=== PATIENT | female | born 1970 | race Caucasian/White ===

== ENCOUNTER 2017-11-22 07:05 | Emergency (ER) | payer BC ==
--- OUTSIDE RECORDS SUMMARY | 2017-11-22 07:06 | XMS REPORT ---
:1970 Author Organization eClinicalWorks Care Team Providers Name Role Phone Saurav Rickie Provider Role Unavailable Allergies No Known Allergies Problems Problem Type Condition Code Onset Dates Condition Status Assessment Hypothyroidism, unspecified type E03.9 Active Problem Adult BMI 45.0-49.9 kg/sq m Z68.42 Active Assessment Controlled type 2 diabetes mellitus E11.9 Active without complication, without long-term current use of insulin Problem Calculus of gallbladder without K80.20 Active cholecystitis without obstruction Problem GERD without esophagitis K21.9 Active Problem Non-alcoholic fatty liver disease K76.0 Active Problem Controlled type 2 diabetes mellitus E11.9 Active without complication, without long-term current use of insulin Problem Seasonal allergic rhinitis, J30.2 Active unspecified trigger Problem Hypothyroidism, unspecified type E03.9 Active Problem Migraine without aura and without G43.009 Active status migrainosus, not intractable Assessment Adult BMI 45.0-49.9 kg/sq m Z68.42 Active Assessment Seasonal allergic rhinitis, J30.2 Active unspecified trigger Assessment Calculus of gallbladder without K80.20 Active cholecystitis without obstruction Assessment GERD without esophagitis K21.9 Active Assessment Non-alcoholic fatty liver disease K76.0 Active Assessment Migraine without aura and without G43.009 Active status migrainosus, not intractable Medications Medication Code Code Instructions Start End Status Dosage System Date Date Estarylla [facility] 04404326815 0.25-35 MG-MCG Active 1 tablet Orally Once a day Loratadine [facility] 31398694811 10 MG Orally Sept Active 1 tablet Once a day 2017 Amitriptyline HCl ND 29871143005 25 MG Orally Active 1 tablet Once a day Victoza [facility] 93381529304 18 MG/3ML Sept Active Inject 1.8 Subcutaneous 29, mg SQ once a day 2017 Levothyroxine [facility] 52263343179 100 MCG Orally Active 1 tablet Sodium Once a day on an empty stomach in the morning Omeprazole [facility] 53404473257 40 MG Orally Active 1 capsule Once a day Imitrex [facility] 44223865902 25 MG Orally Active 1 tablet Onset of Severe as needed Migraine Once a day, may repeat in 2 hours. Max 2 tabs/24 hours Results No Known Results Summary Purpose eClinicalWorks Submission
--- OUTSIDE RECORDS SUMMARY | 2017-11-22 07:06 | XMS REPORT ---
:1970 Author Organization eClinicalWorks Care Team Providers Name Role Phone Kailyn Lovell Provider Role Unavailable Allergies, Adverse Reactions, Alerts Substance Reaction Event Type penicillin Info Not Available Drug Allergy Problems Problem Type Condition Code Onset Dates Condition Status Problem Adult BMI 45.0-49.9 kg/sq m Z68.42 Active Problem Controlled type 2 diabetes mellitus E11.9 Active without complication, without long-term current use of insulin Problem Seasonal allergic rhinitis, J30.2 Active unspecified trigger Problem BMI 45.0-49.9, adult Z68.42 Active Problem Calculus of gallbladder without K80.20 Active cholecystitis without obstruction Problem Abnormal uterine bleeding (AUB) N93.9 Active Problem Migraine without aura and without G43.009 Active status migrainosus, not intractable Problem GERD without esophagitis K21.9 Active Problem Non-alcoholic fatty liver disease K76.0 Active Problem Hypothyroidism, unspecified type E03.9 Active Assessment Routine gynecological examination Z01.419 Active Assessment Adult BMI 45.0-49.9 kg/sq m Z68.42 Active Assessment Abnormal uterine bleeding (AUB) N93.9 Active Medications Medication Code Code Instructions Start End Status Dosage System Date Date Imitrex [facility] 21783633494 25 MG Orally Active 1 tablet Onset of Severe as needed Migraine Once a day, may repeat in 2 hours. Max 2 tabs/24 hours Amitriptyline [facility] 03835037070 25 MG Orally Active 1 tablet HCl Once a day Estarylla [facility] 76704122947 0.25-35 MG-MCG Inactive 1 tablet Orally Once a day Levothyroxine ND 99250345818 100 MCG Orally Active 1 tablet Sodium Once a day on an empty stomach in the morning Loratadine [facility] 63617305447 10 MG Orally Sept Active 1 tablet Once a day 2017 Omeprazole [facility] 99292269765 40 MG Orally Active 1 capsule Once a day Victoza [facility] 30309793635 18 MG/3ML Sept Active Inject Subcutaneous 29, 1.8 mg SQ once a day 2018 Results No Known Results Summary Purpose eClinicalWorks Submission
--- OUTSIDE RECORDS SUMMARY | 2017-11-22 07:07 | XMS REPORT ---
:1970 Author Organization eClinicalWorks Care Team Providers Name Role Phone Saurav Rickie Provider Role Unavailable Allergies No Known Allergies Problems Problem Type Condition Code Onset Dates Condition Status Problem Adult BMI 45.0-49.9 kg/sq m Z68.42 Active Problem Non-alcoholic fatty liver disease K76.0 Active Problem Seasonal allergic rhinitis, J30.2 Active unspecified trigger Problem Cervical polyp N84.1 Active Problem H/O tubal ligation Z98.51 Active Problem Abnormal uterine bleeding N93.9 Active Problem Abnormal uterine bleeding (AUB) N93.9 Active Problem Calculus of gallbladder without K80.20 Active cholecystitis without obstruction Problem Subserous leiomyoma of uterus D25.2 Active Problem BMI 45.0-49.9, adult Z68.42 Active Problem Migraine without aura and without G43.009 Active status migrainosus, not intractable Problem Hypothyroidism, unspecified type E03.9 Active Assessment Adult BMI 45.0-49.9 kg/sq m Z68.42 Active Problem Controlled type 2 diabetes mellitus E11.9 Active without complication, without long-term current use of insulin Assessment Migraine without aura and without G43.009 Active status migrainosus, not intractable Problem GERD without esophagitis K21.9 Active Medications Medication Code Code Instructions Start End Status Dosage System Date Date Levothyroxine [facility] 17326799103 100 MCG Orally Active 1 tablet Sodium Once a day on an empty stomach in the morning Imitrex ND 81017734560 25 MG Orally Active 1 tablet Onset of Severe as needed Migraine Once a day, may repeat in 2 hours. Max 2 tabs/24 hours Amitriptyline HCl ND 01986678199 25 MG Orally Active 1 tablet Once a day Victoza ND 00863871118 18 MG/3ML Active Inject 1.8 Subcutaneous mg SQ once a day Loratadine ND 67855209927 10 MG Orally Active 1 tablet Once a day Omeprazole ND 82902256448 40 MG Orally Active 1 capsule Once a day Results No Known Results Summary Purpose eClinicalWorks Submission
--- OUTSIDE RECORDS SUMMARY | 2017-11-22 07:07 | XMS REPORT ---
[...] Active Problem BMI 45.0-49.9, adult Z68.42 Active Assessment Cervical polyp N84.1 Active Assessment H/O tubal ligation Z98.51 Active Problem Migraine without aura and without G43.009 Active status migrainosus, not intractable Problem Hypothyroidism, unspecified type E03.9 Active Assessment Subserous leiomyoma of uterus D25.2 Active Problem Controlled type 2 diabetes mellitus E11.9 Active without complication, without long-term current use of insulin Assessment Abnormal uterine bleeding (AUB) N93.9 Active Problem GERD without esophagitis K21.9 Active Medications Medication Code Code Instructions Start End Status Dosage System Date Date Imitrex [facility] 89953004724 25 MG Orally Active 1 tablet Onset of Severe as needed Migraine Once a day, may repeat in 2 hours. Max 2 tabs/24 hours Omeprazole [facility] 58307013015 40 MG Orally Active 1 capsule Once a day Amitriptyline HCl [facility] 28771636735 25 MG Orally Active 1 tablet Once a day Levothyroxine [facility] 90255885040 100 MCG Orally Active 1 tablet Sodium Once a day on an empty stomach in the morning Loratadine [facility] 41166849734 10 MG Orally Sept Active 1 tablet Once a day 2017 Victoza [facility] 98981619104 18 MG/3ML Sept Active Inject 1.8 Subcutaneous 29, mg SQ once a day 2017 Results Name Result Date Reference Range Unit Abnormality Flag TEST URINE ----RESULTS neg 20171001 URINALYSIS AUTO W/O SCOPE (42964) ----PROTEIN neg 20171001 ----pH 6.0 20171001 ----NIT neg 20171001 ----MIKE neg 20171001 ----URO 0.2 20171001 ----SPECIFIC GRAVITY 1.025 20171001 ----BLO neg 20171001 ----BILIRUBIN neg 20171001 ----KETONES TRACE 20171001 ----GLUCOSE neg 20171001 Summary Purpose eClinicalWorks Submission
[2017-11-22] MEDS ORDERED: MEPERIDINE HCL 25 MG/0.5 ML ONE ×2 (08:04→09:17)
[2017-11-22] MEDS ORDERED: NA CHLORIDE 0.9% 1,000 ML ONE (08:05)
[2017-11-22] MEDS ORDERED: PROMETHAZINE 25 MG/ML VIAL ONE ×2 (08:05→09:17)
[2017-11-22 08:25] LABS: Absolute Lymphocytes (CBC) 2.6 K/uL (0.7-4.9); Absolute Monocytes 0.6 K/uL (0.1-1.3); Absolute Neutrophil 4.6 K/uL (1.8-8.0); Basophils % 0.6 % (0-1.3); Eosinophils % 0.8 % (0-4.4); Hematocrit 39.2 % (36.0-45.0); Lymphocytes % 32.4 % (15.3-44.8); MCH 29.8 pg (27.0-35.0); MCV 87.6 fL (80-100); MPV 8.7 fL (7.6-11.3); Monocytes % 7.7 % (3.3-12.3); RBC Red Blood Cell Count 4.47 M/uL (3.86-4.86)
[2017-11-22 08:37] LABS: ALT/SGPT 29 U/L (12-78); AST/SGOT 21 U/L (15-37); Albumin 3.3 g/dL (3.4-5.0); Alkaline Phosphatase 107 U/L (45-117); BUN Blood Urea Nitrogen 12 mg/dL (7-18); Bicarbonate 26 mmol/L (21-32); Bilirubin Direct < 0.1 mg/dL (0-0.2); Bilirubin Total 0.3 mg/dL (0.2-1.0); Glucose Level 113 mg/dL (74-106); Lipase 164 U/L (73-393); Potassium 4.3 mmol/L (3.5-5.1); Protein, Total 7.4 g/dL (6.4-8.2); Sodium Level 139 mmol/L (136-145)
[2017-11-22] MEDS ORDERED: MAGNE/ALUM HYDROXD 30 ML UCUP ONE (08:54)
[2017-11-22] MEDS ORDERED: LIDOCAINE VISCOUS 2% SOLN 15 ML UDC ONE (08:54)
--- NOTE | 2017-11-22 09:16 | ER ---
Nurse's Notes [facility] Name: Meka Junior Age: 47 yrs Sex: Female : 1970 Arrival Date: 11/22/2017 Time: 07:08 Bed 7 Private MD: Rickie Mg Diagnosis: Upper abdominal pain, unspecified;Cholelithiasis Presentation: 11/22 07:21 Presenting complaint: Patient states: pt has hx of hiatal hernia, went to see Dr. reid Odom on due to abd pain, had CT done, results pending, started having diarrhea on , increased abd pain this morning, vomited X1. Transition of care: patient was not received from another setting of care. Onset of symptoms was November 20, 2017. 07:21 Method Of Arrival: Ambulatory iw 07:21 Acuity: AMBAR 3 iw 07:22 Risk Assessment: Do you want to hurt yourself or someone else? Patient reports no tw2 desire to harm self or others. Initial Sepsis Screen: Does the patient meet any 2 criteria? No. Patient's initial sepsis screen is negative. Does the patient have a suspected source of infection? No. Patient's initial sepsis screen is negative. Care prior to arrival: None. 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 tw2 Historical: - Allergies: 07:21 PENICILLINS; tw2 - Home Meds: 07:24 levothyroxine 100 mcg oral tab once daily [Active]; Victoza 2-Alo subcutaneous iw subcutaneous [Active]; Dexilant oral oral [Active]; - PMHx: 07:21 Hypothyroidism; tw2 - PSHx: 07:21 Tubal ligation; tw2 - Immunization history:: Adult Immunizations up to date. - Social history:: Smoking status: Patient/guardian denies using tobacco. - Ebola Screening: : Patient denies travel to an Ebola-affected area in the 21 days before illness onset. Screenin:22 Abuse screen: Denies threats or abuse. Nutritional screening: No deficits noted. tw2 Tuberculosis screening: No symptoms or risk factors identified. Fall Risk None identified. Assessment: 07:52 General: Appears in no apparent distress. uncomfortable, obese, Behavior is ae1 cooperative. Pain: Complains of pain in epigastric area, suprapubic area, right upper quadrant, left upper quadrant, right lower quadrant and left lower quadrant Quality of pain is described as stabbing. Neuro: Level of Consciousness is awake, alert, obeys commands, Oriented to person, place, time, situation. Cardiovascular: Patient's skin is warm and dry. Respiratory: Airway is patent Respiratory effort is even, unlabored, Respiratory pattern is regular, symmetrical. GI: Abdomen is round obese, Bowel sounds present X 4 quads. hyperactive in right upper quadrant and left upper quadrant Abd is soft Abdomen is tender to palpation in epigastric area and right upper quadrant. : No signs and/or symptoms were reported regarding the genitourinary system. EENT: No signs and/or symptoms were reported regarding the EENT system. Derm: Skin is pink, warm \T\ dry. Musculoskeletal: No signs and/or symptoms reported regarding the musculoskeletal system. 08:30 Reassessment: Patient appears in no apparent distress at this time. No changes from tw2 previously documented assessment. Patient and/or family updated on plan of care and expected duration. Pain level reassessed. Patient is alert, oriented x 3, equal unlabored respirations, skin warm/dry/pink. 09:26 Reassessment: Patient appears in no apparent distress at this time. No changes from tw2 previously documented assessment. Patient and/or family updated on plan of care and expected duration. Pain level reassessed. Patient is alert, oriented x 3, equal unlabored respirations, skin warm/dry/pink. Vital Signs: 07:19 BP 152 / 79; Pulse 68; Resp 17; Pulse Ox 99% on R/A; Weight 102.06 kg; Height 4 ft. 10 iw in. (147.32 cm); Pain 9/10; 08:14 Temp 98.1(O); ae1 08:14 BP 132 / 59; Pulse 53; Resp 17; Pulse Ox 99% on R/A; ae1 08:48 BP 116 / 79; Pulse 65; Resp 17; Pulse Ox 99% on R/A; tw2 09:26 BP 118 / 74; Pulse 56; Resp 17; Pulse Ox 100% on R/A; tw2 07:19 Body Mass Index 47.02 (102.06 kg, 147.32 cm) iw ED Course: 07:08 Patient arrived in ED. mr 07:08 Mg, Rickie, DO is Private Physician. mr 07:17 Moose Noonan, ADDISON is Primary Nurse. ae1 07:19 Marco [facility] God[facility]. jr8 07:19 Darren Bravo MD is Attending Physician. jr8 07:22 Triage completed. iw 07:22 Arm band placed on. tw2 07:22 Bed in low position. Call light in reach. Pulse ox on. NIBP on. tw2 07:46 Inserted saline lock: 22 gauge in right antecubital area, using aseptic technique. ae1 Blood collected. 09:15 Fabián Bacon MD is Referral Physician. jr8 09:27 No provider procedures requiring assistance completed. IV discontinued, intact, tw2 bleeding controlled, No redness/swelling at site. Pressure dressing applied. Administered Medications: 08:04 Drug: Phenergan 12.5 mg Route: IVP; Site: right antecubital; ae1 08:51 Follow up: Response: Nausea is decreased ae1 08:04 Drug: NS 0.9% 1000 ml Route: IV; Rate: 1000 ml; Site: right antecubital; ae1 09:25 Follow up: Response: No adverse reaction; IV Status: Completed infusion; IV Intake: tw2 1000ml 08:07 Drug: Demerol 25 mg Route: IVP; Site: right antecubital; ae1 08:51 Follow up: Response: Pain is decreased ae1 08:54 Drug: GI Cocktail without - (Maalox Suspension 30 ml, Lidocaine Liquid 2 % 15 tw2 ml) Route: PO; 09:21 Follow up: Response: No adverse reaction tw2 09:18 Drug: Phenergan 12.5 mg Route: IVP; Site: right antecubital; tw2 09:26 Follow up: Response: No adverse reaction tw2 09:21 Drug: Demerol 25 mg Route: IVP; Site: right antecubital; tw2 09:25 Follow up: Response: No adverse reaction tw2 Intake: 09:25 IV: 1000ml; Total: 1000ml. tw2 Outcome: 09:15 Discharge ordered by . jr8 09:27 Discharged to home ambulatory, with family. tw2 09:27 Condition: stable 09:27 Discharge instructions given to patient, family, Instructed on discharge instructions, follow up and referral plans. no drinking with medication, no driving heavy equipment, medication usage, Demonstrated understanding of instructions, follow-up care, medications, Prescriptions given X 2. 09:27 Patient left the ED. 2 Signatures: Felicity Gonzalez mr Lana Garcia RN RN iw Marco Antonio Godinez PA PA jr8 Keila Berumen RN RN tw2 Moose Noonan RN RN ae1 Corrections: (The following items were deleted from the chart) 07:24 07:19 BP 152 / 79; Pulse 68bpm; Resp 17bpm; Pulse Ox 99% RA; iw 07:24 07:21 Home Meds: levothyroxine oral;
--- NOTE | 2017-11-22 09:16 | EDPHYS ---
Physician Documentation [facility] Name: Meak Junior Age: 47 yrs Sex: Female : 1970 Arrival Date: 11/22/2017 Time: 07:08 Bed 7 Private MD: Rickie Mg ED Physician Darren Bravo HPI: 11/22 07:57 This 47 yrs old Female presents to ER via Ambulatory with complaints of jr8 Abdominal Pain, Nausea/Vomiting/Diarrhea. 07:57 The patient presents with abdominal pain in the epigastric area, in the upper abdomen. jr8 Onset: The symptoms/episode began/occurred acutely, 4 day(s) ago. The symptoms do not radiate. Associated signs and symptoms: Pertinent positives: nausea, vomiting, and diarrhea. The symptoms are described as stabbing. Modifying factors: The symptoms are alleviated by nothing, the symptoms are aggravated by nothing. Severity of pain: At its worst the pain was moderate in the emergency department the pain is unchanged. The patient has experienced similar episodes in the past, a few times. The patient has been recently seen by a physician:. Patient stated that she has had abdominal problems on/off for about 1 year. Had endoscopy done and was found to have a gastric ulcer. Was started on PPI and had been doing better. 6 months ago had US done that showed cholelithiasis. This past Friday started with epigastric and upper abdominal pain that is much worse then normal. Saw Dr. Odom and had CT completed showing fatty liver and cholelithiasis. No other acute findings. Patient came to ED today for continued pain . 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 tw2 Historical: - Allergies: 07:21 PENICILLINS; tw2 - Home Meds: 07:24 levothyroxine 100 mcg oral tab once daily [Active]; Victoza 2-Alo subcutaneous iw subcutaneous [Active]; Dexilant oral oral [Active]; - PMHx: 07:21 Hypothyroidism; tw2 - PSHx: 07:21 Tubal ligation; tw2 - Immunization history:: Adult Immunizations up to date. - Social history:: Smoking status: Patient/guardian denies using tobacco. - Ebola Screening: : Patient denies travel to an Ebola-affected area in the 21 days before illness onset. ROS: 07:57 Eyes: Negative for injury, pain, redness, and discharge, ENT: Negative for injury, jr8 pain, and discharge, Neck: Negative for injury, pain, and swelling, Cardiovascular: Negative for chest pain, palpitations, and edema, Respiratory: Negative for shortness of breath, cough, wheezing, and pleuritic chest pain, Back: Negative for injury and pain, MS/Extremity: Negative for injury and deformity, Skin: Negative for injury, rash, and discoloration, Neuro: Negative for headache, weakness, numbness, tingling, and seizure. 07:57 Abdomen/GI: Positive for abdominal pain, nausea, vomiting, and diarrhea, Negative for constipation, abdominal cramps, abdominal distension, anorexia, dysphagia, hematemesis, black/tarry stool, rectal pain, rectal bleeding, bowel incontinence, flatulence. Exam: 07:57 Eyes: Pupils equal round and reactive to light, extra-ocular motions intact. Lids and jr8 lashes normal. Conjunctiva and sclera are non-icteric and not injected. Cornea within normal limits. Periorbital areas with no swelling, redness, or edema. ENT: Nares patent. No nasal discharge, no septal abnormalities noted. Tympanic membranes are normal and external auditory canals are clear. Oropharynx with no redness, swelling, or masses, exudates, or evidence of obstruction, uvula midline. Mucous membranes moist. Neck: Trachea midline, no thyromegaly or masses palpated, and no cervical lymphadenopathy. Supple, full range of motion without nuchal rigidity, or vertebral point tenderness. No Meningismus. Cardiovascular: Regular rate and rhythm with a normal S1 and S2. No gallops, murmurs, or rubs. Normal PMI, no JVD. No pulse deficits. Respiratory: Lungs have equal breath sounds bilaterally, clear to auscultation and percussion. No rales, rhonchi or wheezes noted. No increased work of breathing, no retractions or nasal flaring. Back: No spinal tenderness. No costovertebral tenderness. Full range of motion. Skin: Warm, dry with normal turgor. Normal color with no rashes, no lesions, and no evidence of cellulitis. MS/ Extremity: Pulses equal, no cyanosis. Neurovascular intact. Full, normal range of motion. Neuro: Awake and alert, GCS 15, oriented to person, place, time, and situation. Cranial nerves II-XII grossly intact. Motor strength 5/5 in all extremities. Sensory grossly intact. Cerebellar exam normal. Normal gait. 07:57 Abdomen/GI: Inspection: obese Bowel sounds: active, all quadrants, Palpation: soft, in all quadrants, moderate abdominal tenderness, in the epigastric area and right upper quadrant, mass, is not appreciated, rebound tenderness, is not appreciated, voluntary guarding, is not appreciated, involuntary guarding, is not appreciated, no appreciated organomegaly, Indicators: McBurney's point is not tender, Vicente's sign is negative, Rovsing's sign is negative, Obturator sign is negative, Psoas sign is negative. Vital Signs: 07:19 BP 152 / 79; Pulse 68; Resp 17; Pulse Ox 99% on R/A; Weight 102.06 kg; Height 4 ft. 10 iw in. (147.32 cm); Pain 9/10; 08:14 Temp 98.1(O); ae1 08:14 BP 132 / 59; Pulse 53; Resp 17; Pulse Ox 99% on R/A; ae1 08:48 BP 116 / 79; Pulse 65; Resp 17; Pulse Ox 99% on R/A; tw2 09:26 BP 118 / 74; Pulse 56; Resp 17; Pulse Ox 100% on R/A; tw2 07:19 Body Mass Index 47.02 (102.06 kg, 147.32 cm) iw MDM: 07:19 Patient medically screened. jr8 09:14 Differential diagnosis: cholecystitis, Cholelithiasis, gastritis, gastroesophageal jr8 reflux disease, Hepatitis, myocardia ischemia or infarction, non-specific abd pain, pancreatitis, Peptic Ulcer Disease, Perf. Duodenal Ulcer, Perf. Gastric Ulcer. Data reviewed: vital signs, nurses notes, old medical records, lab test result(s). Data interpreted: Pulse oximetry: on room air is 99 %. Interpretation: normal. Counseling: I had a detailed discussion with the patient and/or guardian regarding: the historical points, exam findings, and any diagnostic results supporting the discharge/admit diagnosis, lab results, radiology results, the need for outpatient follow up, a general surgeon, to return to the emergency department if symptoms worsen or persist or if there are any questions or concerns that arise at home. 09:14 Response to treatment: the patient's symptoms have markedly improved after treatment. 11/22 07:37 Order name: Basic Metabolic Panel; Complete Time: 08:38 11/22 07:37 Order name: CBC with Diff; Complete Time: 08:38 11/22 07:37 Order name: Creatinine for Radiology; Complete Time: 08:38 11/22 07:37 Order name: Hepatic Function; Complete Time: 08:38 11/22 07:37 Order name: Lipase; Complete Time: 08:38 11/22 07:37 Order name: IV Saline Lock; Complete Time: 07:46 11/22 07:37 Order name: Labs collected and sent; Complete Time: 07:46 Administered Medications: 08:04 Drug: Phenergan 12.5 mg Route: IVP; Site: right antecubital; ae1 08:51 Follow up: Response: Nausea is decreased ae1 08:04 Drug: NS 0.9% 1000 ml Route: IV; Rate: 1000 ml; Site: right antecubital; ae1 09:25 Follow up: Response: No adverse reaction; IV Status: Completed infusion; IV Intake: tw2 1000ml 08:07 Drug: Demerol 25 mg Route: IVP; Site: right antecubital; ae1 08:51 Follow up: Response: Pain is decreased ae1 08:54 Drug: GI Cocktail without - (Maalox Suspension 30 ml, Lidocaine Liquid 2 % 15 tw2 ml) Route: PO; 09:21 Follow up: Response: No adverse reaction tw2 09:18 Drug: Phenergan 12.5 mg Route: IVP; Site: right antecubital; tw2 09:26 Follow up: Response: No adverse reaction tw2 09:21 Drug: Demerol 25 mg Route: IVP; Site: right antecubital; tw2 09:25 Follow up: Response: No adverse reaction tw2 Disposition: 16:10 Co-signature as Attending Physician, Darren Bravo MD. rn Disposition: 11/22/17 09:15 Discharged to Home. Impression: Upper abdominal pain, unspecified, Cholelithiasis. - Condition is Stable. - Discharge Instructions: Abdominal Pain, Adult, Cholelithiasis. - Prescriptions for ondansetron 4 mg Oral tablet,disintegrating - take 1 tablet by ORAL route every 6 hours As needed; 12 tablet. Tylenol- Codeine #3 300-30 mg Oral Tablet - take 2 tablet by ORAL route every 6 hours As needed; 30 tablet. - Medication Reconciliation Form, Thank You Letter, Antibiotic Education, Prescription Opioid Use, Family Work Release form. - Follow up: Fabián Bacon MD; When: 48 Hours; Reason: Recheck today's complaints, Continuance of care, Re-evaluation by your physician. - Problem is new. - Symptoms have improved. Signatures: Dispatcher [employer] EDMS Lana Garcia RN RN iw Darren Bravo MD MD rn Roszak, Josh, YULI PA jr8 Keila Berumen RN RN tw2 Moose Noonan RN RN ae1 Corrections: (The following items were deleted from the chart) 07:24 07:21 Home Meds: levothyroxine oral; 2 09:21 07:37 Urine Test ordered. 8 09:21 07:37 Urine Dipstick-Ancillary ordered. 8 09:27 09:15 11/22/2017 09:15 Discharged to Home. Impression: Upper abdominal pain, tw2 unspecified; Cholelithiasis. Condition is Stable. Forms are Medication Reconciliation Form, Thank You Letter, Antibiotic Education, Prescription Opioid Use. Follow up: Fabián Bacon; When: 48 Hours; Reason: Recheck today's complaints, Continuance of care, Re-evaluation by your physician. Problem is new. Symptoms have improved. jr8
== END 2017-11-22 09:27 | disposition home or self-care (01) ==
LOC: ER 07:05
DX: R10.13 Epigastric pain (principal); R11.2 Nausea with vomiting, unspecified; R19.7 Diarrhea, unspecified; Z88.0 Allergy status to penicillin; K80.20 Calculus of gallbladder without cholecystitis without obstruction; E66.9 Obesity, unspecified; Z68.42 Body mass index [BMI] 45.0-49.9, adult
CPT/HCPCS: 36415; 80048; 80076; 83690; 85025; 96361; 96374; 96375; 99284; J2175; J2550; J7030

== ENCOUNTER 2021-04-18 10:40 | Emergency (ER) | payer OTHER, BC ==
--- OUTSIDE RECORDS SUMMARY | 2021-04-18 10:43 | XMS REPORT | Continuity of Care Document ---
:1970 Author Organization [facility] t Address [address] [place] [address] Care Team Providers Name Role Phone Unavailable Unavailable Unavailable Problems This patient has no known problems. Allergies, Adverse Reactions, Alerts Allergy Allergy Status Severity Reaction(s) Onset Inactive Treating Comm ents Source Name Type Date Date Clinician penicill Adverse Active Info Not [facility] Medications Ordered Filled Start Stop Current Ordering Indication Dosage Frequency Signature Comments Components Source Medication Medication Date Date Medication? Clinician (SIG) Name Name Imitrex Imitrex Yes Rickie [address] [facility] Mg as needed [facility] Loratadine Loratadine Yes Rickie [address] [facility] Mg [facility] Omeprazole Omeprazole Yes Rickie [address] [facility] Mg [facility] BD Pen BD Pen Yes Rickie USE [facility] Needle Mini Needle Mini Mg DIRECTED [facility]F U[facility]F WITH [facility] FLEXPEN l [facility] Sumatriptan Sumatriptan Yes Rickie PLEASE SEE [facility] Succinate Succinate Mg ATTACHED [facility] DETAILED l DIRECTIONS [facility] ent Clinics Ozempic (1 Ozempic (1 Yes Rickie INJECT [address] [facility] MG/DOSE) MG/DOSE) Mg MG/DOSE John es - ONCE A Memoria WEEK l [place] [id number] ent Clinics Phentermine Phentermine Yes Rickie [address] [facility] HCl HCl Mg [facility] Levothyroxi Levothyroxi Yes Rickie [address] [facility] ne Sodium ne Sodium Mg on an John es - empty Memoria stomach in l the Outpati morning ent Clinics Amitriptyli Amitriptyli Yes Rickie [address] [facility] ne HCl ne HCl Mg [facility] Procedures This patient has no known procedures. Encounters Start End Encounter Admission Attending Care Care Encounter Source Date/Time Date/Time Type Type Clinicians Facility Department ID 2021-03-01 2021-03-01 Out[facility] [id number] [facility] 2021-01-25 2021-01-25 [facility] [id number] [facility] 2021-01-05 2021-01-05 [facility] [id number] [facility] 2021-01-04 2021-01-04 [facility] [id number] [facility] 2021-01-03 2021-01-03 [facility] [id number] [facility] 2020-12-27 2020-12-27 [facility] [id number] [facility] 2020-12-19 2020-12-19 [facility] [id number] [facility] 2020-12-18 2020-12-18 Out[facility] [id number] [facility] 2020-12-14 2020-12-14 [facility] [id number] [facility] 2020-11-03 2020-11-03 [facility] [id number] [facility] 2020-10-06 2020-10-06 [facility] [id number] [facility] 2020-10-03 2020-10-03 [facility] [id number] [facility] 2020-08-28 2020-08-28 [facility] [id number] [facility] 2020-08-10 2020-08-10 [facility] [id number] [facility] 2020-08-09 2020-08-09 Out[facility] [id number] [facility] 2020-05-25 2020-05-25 [facility] [id number] [facility] 2020-04-05 2020-04-05 [facility] [id number] [facility] 2020-04-05 2020-04-05 [facility] [id number] [facility] 2020-03-20 2020-03-20 Out[facility] [id number] [facility] 2020-03-13 2020-03-13 Out[facility] [id number] [facility] 2020-02-22 2020-02-22 Out[facility] [id number] [facility]00 [facility] Outpat[facility] ent Clinics 2019-12-16 2019-12-16 [facility] [id number] [facility] 11:00:00 11:00:00 t [employer] [facility] Medicine l Medicine Outpati ent Clinics 2019-12-02 2019-12-02 [facility] [id number] [facility] 08[facility]00:00 08:00:00 t [employer] [facility] Medicine l Medicine Outpati ent Clinics 2019-11-26 2019-11-26 [facility] [id number] [facility] 15:01:00 15:01:00 t [employer] [facility] Medicine l Medicine Outpati ent Clinics 2019-11-23 2019-11-23 [facility] [id number] [facility] 10:00:00 10:00:00 t [employer] Gal[employer] [facility] Medicine Outpati ent Clinics 2019-11-22 2019-11-22 [facility] [id number] 13:20:00 13:20:00 t [employer] [facility] l Medicine Outpati ent Clinics 2019-10-29 2019-10-29 [facility] [id number] 09:52:00 09:52:00 t [employer] [facility] Medicine l Medicine Outpati ent Clinics 2019-08-30 2019-08-30 [facility] [id number] [facility] 09:58:00 09:58:00 t [employer] [facility] Medicine l Medicine Outpati ent Clinics 2019-08-26 2019-08-26 [facility] [id number] [facility] 16:09:00 16:09:00 t [employer] [facility] Medicine l Medicine Outpati ent Clinics 2019-08-26 2019-08-26 [facility] [id number] 13:15:00 13:15:00 t Hines Galazar [facility] Medicine Outpati ent Clinics 2019-08-26 2019-08-26 [facility] [id number] [facility] 09:29:00 09:29:00 t [facility] - [facility] Medicine Outpati ent Clinics 2019-07-05 2019-07-05 [facility] [id number] [facility] 08:35:00 08:35:[address] [facility] Medicine Outpati ent Clinics 2019-05-31 2019-05-31 [facility] [id number] [facility] 15:00:00 15:00:00 t [employer] Luke s - Drive [facility] l Medicine Outpati ent Clinics 2019-04-07 2019-04-07 [facility] [id number] 17:10:00 17:10:00 t [employer] Luke s - Drive [facility] Medicine Outpati ent Clinics 2019-01-18 2019-01-18 [facility] [id number] 14:02:00 14:02:[address] - [address] [facility] Medicine Outpati ent Clinics 2019-01-15 2019-01-15 [facility] [id number] 10[facility]30:00 10:30:00 t [employer] s - Drive [facility] Medicine Outpati ent Clinics 2019-01-11 2019-01-11 [facility] [id number] [address] 13:00:00 13:00:00 t [employer] Luke s - Drive [facility] Medicine Outpati ent Clinics 2018-12-10 2018-12-10 [facility] [id number] 14:00:00 14:00:00 t [facility] ent Clinics 2018-12-01 2018-12-01 [facility] [id number] 15:00:00 15:00:00 t [employer] Luke s - Drive [facility] Medicine Outpati ent Clinics 2018-10-28 2018-10-28 [facility] [id number] 10:53:00 10:53:00 t [employer] Luke s - Drive [facility] Medicine Medicine Outpati ent Clinics 2018-09-07 2018-09-07 [facility] [id number] 09:45:00 09:45:00 t [employer] s - Drive [facility] Medicine Medicine Outpati ent Clinics 2018-09-02 2018-09-02 [facility] [id number] 14:02:00 14:02:00 t [employer] s - Drive [facility] Medicine Medicine Outpati ent Clinics 2018-07-10 2018-07-10 [facility] [id number] [facility] 14:32:00 14:32:00 t [facility] - [facility] Medicine Medicine Outpati ent Clinics 2018-07-03 2018-07-03 [facility] [id number] 08:30:00 08:30:00 t [facility] - [employer] [facility] Medicine Outpati ent Clinics 2018-06-10 2018-06-10 [facility] [id number] [facility] 10:53:00 10:53:00 t [facility] - [facility] Medicine Medicine Outpati ent Clinics 2018-06-09 2018-06-09 [facility] [id number] [facility] 10:00:00 10:00:00 t [employer] [facility] l Medicine Outpati ent Clinics 2017-10-13 2017-10-13 [facility] [id number] 11:15:00 11:15:00 t [employer] - [address] [facility] Medicine l Medicine Outpati ent Clinics 2017-10-01 2017-10-01 [facility] [id number] 15:15:00 15:15:00 [facility] 2017-09-01 2017-09-01 [facility] [id number] 15:30:00 15:30:00 [facility] 2017-08-04 2017-08-04 [facility] [id number] 15:00:00 15:00:00 t [employer] [facility] Family Medicine Medicine Outpati ent Clinics Results This patient has no known results.
[2021-04-18] MEDS ORDERED: KETOROLAC 30 MG/ML INJ ONE (11:29)
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
[2021-04-18 11:52] VITALS: BP 161/85; TEMP 97.6; O2SAT 99
== END 2021-04-18 11:48 | disposition home or self-care (01) ==
LOC: ER 10:40
DX: S39.012A Strain of muscle, fascia and tendon of lower back, initial encounter (principal); S29.012A Strain of muscle and tendon of back wall of thorax, initial encounter; V49.40XA Driver injured in collision with unspecified motor vehicles in traffic accident, initial encounter
CPT/HCPCS: 96372; 99283

== ENCOUNTER 2021-05-09 09:16 | Emergency (ER) | payer BC ==
--- OUTSIDE RECORDS SUMMARY | 2021-05-09 09:18 | XMS REPORT | Continuity of Care Document ---
:1970 Author Organization [facility] t Address [address] [place] [address] Care Team Providers Name Role Phone Unavailable Unavailable Unavailable Problems This patient has no known problems. Allergies, Adverse Reactions, Alerts Allergy Allergy Status Severity Reaction(s) Onset Inactive Treating Comm ents Source Name Type Date Date Clinician penicill Adverse Active Info Not [facility] Medications Ordered Filled Start Stop Current Ordering Indication Dosage Frequency Signature Comments Components Source Medication Medication Date Date Medication? Clinician (SIG) Name Name Imitrex Imitrex Yes Rickie [address] [facility] as needed [facility] Loratadine Loratadine Yes Rickie [address] [facility] Mg [facility] Omeprazole Omeprazole Yes Rickie [address] [facility] BD Pen BD Pen Yes Rickie USE [facility] Needle Mini Needle Mini Mg DIRECTED [facility] U/F U/F WITH [facility]oria FLEXPEN l [facility] Sumatriptan Sumatriptan Yes Rickie PLEASE SEE [facility] Succinate Succinate Mg ATTACHED [facility] DETAILED l DIRECTIONS [facility] Ozempic (1 Ozempic (1 Yes Rickie INJECT [address] [facility] MG/DOSE) MG/DOSE) Mg MG/DOSE John es - ONCE A Memoria WEEK l SUBCUTANEO Outpati US ent Clinics Phentermine Phentermine Yes Rickie [address] [facility] HCl HCl Mg [facility] Levothyroxi Levothyroxi Yes Rickie [address] [facility] ne Sodium ne Sodium Mg on an Jhon es - empty Memoria stomach in l the Outpati morning ent Clinics Amitriptyli Amitriptyli Yes Rickie [address] [facility] ne HCl ne HCl Mg [facility] Procedures This patient has no known procedures. Encounters Start End Encounter Admission Attending Care Care Encounter Source Date/Time Date/Time Type Type Clinicians Facility Department ID 2021-05-02 2021-05-02 ambulatory [facility] [id number] [facility] 2021-05-02 2021-05-02 ambulatory [facility] [id number] [facility] 2021-03-01 2021-03-01 Outpatient [facility] [id number] [facility] 2021-01-25 2021-01-25 Outpatient [facility] [id number] [facility] 2021-01-05 2021-01-05 Outpatient [facility] [id number] [facility] 2021-01-04 2021-01-04 Outpatient [facility] [id number] [facility] 2021-01-03 2021-01-03 Outpatient [facility] [id number] [facility] 2020-12-27 2020-12-27 Outpatient [facility] [id number] [facility] 2020-12-192020-12-19 Out[facility] [id number] [facility] 2020-12-18 2020-12-18 Out[facility] [id number] [facility] 2020-12-14 2020-12-14 Out[facility] [id number] [facility] 2020-11-03 2020-11-03 Out[facility] [id number] [facility] 2020-10-06 2020-10-06 Out[facility] [id number] [facility] 2020-10-03 2020-10-03 Out[facility] [id number] [facility] 2020-08-28 2020-08-28 Out[facility] [id number] [facility] 2020-08-10 2020-08-10 Out[facility] [id number] [facility] 2020-08-09 2020-08-09 Out[facility] [id number] [facility] 2020-05-25 2020-05-25 Outpatient [facility] [id number] [facility] 2020-04-05 2020-04-05 Out[facility] [id number] [facility] 2020-04-05 2020-04-05 Out[facility] [id number] [facility] 2020-03-20 2020-03-20 Outpatient [facility] [id number] [facility] 2020-03-13 2020-03-13 Outpatient [facility] [id number] [facility] 2020-02-22 2020-02-22 Outpatient [facility] [id number] [facility] 2019-12-16 2019-12-16 [facility] [id number] [facility] 11[facility]00:00 11:00:00 t [employer] [facility] Medicine l Medicine Outpati ent Clinics 2019-12-02 2019-12-02 [facility] [id number] [facility] 08[facility]00:00 08:00:00 t [employer] [facility] Medicine l Medicine Outpati ent Clinics 2019-11-26 2019-11-26 [facility] [id number] 15:01:00 15:01:00 t [employer] [facility] Medicine l Medicine Outpati ent Clinics 2019-11-23 2019-11-23 [facility] [id number] 10:00:00 10:00:00 [facility] Medicine l Medicine Outpati ent Clinics 2019-11-22 2019-11-22 [facility] [id number] 13:20:00 13:20:00 t [employer] [facility] Medicine l Medicine Outpati ent Clinics 2019-10-29 2019-10-29 [facility] [id number] 09:52:00 09:52:00 t [place] [facility] Medicine l Medicine Outpati ent Clinics 2019-08-30 2019-08-30 [facility] [id number] [facility] 09:58:00 09:58:00 [place] [facility] Medicine Medicine Outpati ent Clinics 2019-08-26 2019-08-26 [facility] [id number] [facility] 16:09:00 16:09:00 t [place] [employer] - [facility] Medicine l Medicine Outpati ent Clinics 2019-08-26 2019-08-26 [facility] [id number] 13:15:00 13:15:00 t [facility] s - Road [facility] Medicine l Medicine Outpati ent Clinics 2019-08-26 2019-08-26 [facility] [id number] [facility] 09:29:00 09:29:00 t [facility] s - Road [facility] Medicine Outpati ent Clinics 2019-07-05 2019-07-05 [facility] [id number] [facility] 08[facility]35:00 08:35:00 t [employer] [facility] - [facility] Medicine l Medicine Outpati ent Clinics 2019-05-31 2019-05-31 [facility] [id number] [facility] 15:00:00 15:00:00 t [place] [employer] - [facility] Medicine l Medicine Outpati ent Clinics 2019-04-07 2019-04-07 [facility] [id number] 17:10:00 17:10:00 t [employer] [place] - [facility] Medicine l Medicine Outpati ent Clinics 2019-01-18 2019-01-18 [facility] [id number] 14:02:00 14:02:00 t [employer] [place] - [facility] Medicine l Medicine Outpati ent Clinics 2019-01-15 2019-01-15 [facility] [id number] 10[facility]30:00 10:30:00 t [place] [employer] - [facility] Medicine l Medicine Outpati ent Clinics 2019-01-11 2019-01-11 [facility] [id number] 13:00:00 13:00:00 t [place] [employer] - [facility] Medicine l Medicine Outpati ent Clinics 2018-12-10 2018-12-10 [facility] [id number] [facility] 14:00:00 14:00:00 t [facility] Clin[facility] 2018-12-01 2018-12-01 [facility] [id number] 15:00:00 15:00:00 t [place] [employer] Luke s - Drive [facility] Medicine Outpati ent Clinics 2018-10-28 2018-10-28 [facility] [id number] 10:53:00 10:53:00 t [place] [employer] Luke s - Drive [facility] Medicine Outpati ent Clinics 2018-09-07 2018-09-07 [facility] [id number] 09:45:00 09:45:00 t [place] s - Drive [facility] Medicine Outpati ent Clinics 2018-09-02 2018-09-02 [facility] [id number] 14:02:00 14:02:00 t [place] - Drive [facility] Medicine Outpati ent Clinics 2018-07-10 2018-07-10 [facility] [id number] 14:32:00 14:32:00 t [place] [employer] s - Drive [facility] Medicine Outpati ent Clinics 2018-07-03 2018-07-03 [facility] [id number] 08:30:00 08:30:00 t [place] [employer] - Drive [facility] Medicine Outpati ent Clinics 2018-06-10 2018-06-10 [facility] [id number] 10:53:00 10:53:00 t [place] - Drive [facility] Medicine Outpati ent Clinics 2018-06-09 2018-06-09 [facility] [id number] 10:00:00 10:00:00 t [place] [employer] - Drive [facility] Medicine Outpati ent Clinics 2017-10-13 2017-10-13 [facility] [id number] 11:15:00 11:15:00 t [place] - Drive [facility] Medicine Outpati ent Clinics 2017-10-01 2017-10-01 [facility] [id number] 15:15:00 15:15:00 [facility] 2017-09-01 2017-09-01 Outpatient [facility] [id number] [facility] 15:30:00 15:30:00 [facility] 2017-08-04 2017-08-04 Outpatient [facility] [id number] [facility] 15:00:00 15:00:00 [place] [facility] Results This patient has no known results.
--- NOTE | 2021-05-09 10:03 | RAD REPORT ---
EXAM DESCRIPTION: RAD - Chest Single View - 05/09/2021 9:56 am CLINICAL HISTORY: Cough;Chest pain COMPARISON: No comparisons FINDINGS: Lines: None. Lungs: No evidence of edema or pneumonia. Pleural: No significant pleural effusions or pneumothorax. Cardiac: The heart size is within normal limits. Bones: No acute fractures. Other: IMPRESSION: No acute cardiopulmonary disease.
[2021-05-09 10:08] LABS: Absolute Lymphocytes (CBC) 2.5 K/uL (0.7-4.9); Hematocrit 41.6 % (36.0-45.0); Lymphocytes % 57.4 % (15.3-44.8); MPV 7.9 fL (7.6-11.3); RBC Red Blood Cell Count 4.68 M/uL (3.86-4.86)
[2021-05-09 10:52] LABS: Blood Morphology Comment NOT SEEN (NOT SEEN); Platelet Estimate ADEQ
[2021-05-09 12:16] LABS: BUN Blood Urea Nitrogen 13 mg/dL (7-18); Bicarbonate 27 mmol/L (21-32); Glucose Level 110 mg/dL (74-106); Potassium 3.8 mmol/L (3.5-5.1); Sodium Level 142 mmol/L (136-145); Troponin (Emerg Dept Use Only) < 0.02 ng/mL (0.0-0.045)
--- NOTE | 2021-05-09 12:59 | RAD REPORT ---
EXAM DESCRIPTION: CT - Chest For Pe Angio - 05/09/2021 12:45 pm CLINICAL HISTORY: Chest pain COMPARISON: Chest x-ray May 09, 2021 TECHNIQUE: Dynamically enhanced axial 3 mm thick images of the chest were obtained during administra tion of <100> mL Isovue 370 IV contrast. Coronal and oblique reconstruction images were generated and reviewed. Exam utilizes a protocol for optimal evaluation of pulmonary arterial tree. Maximum intensity projections 3D imaging was utilized All CT scans are performed using dose optimization technique as appropriate and may include automated exposure control or mA/KV adjustment according to patient size. FINDINGS: A pulmonary embolus is not seen. A thoracic aortic aneurysm is not noted. A pleural effusion is not seen. A pericardial effusion is not seen. Mild to moderate lingular consolidation. Calcified lung granulomas IMPRESSION: Negative for a pulmonary embolism. [id number] lingular consolidation likely pneumonia. This should be followed until it is clear t o help exclude a post obstructive process/underlying mass
--- NOTE | 2021-05-09 13:03 | ER ---
Nurse's Notes [facility] Name: Meka Junior Age: 50 yrs Sex: Female : 1970 Arrival Date: 05/09/2021 Time: 09:18 Bed 11 Private MD: Diagnosis: Pneumonia due to SARS-associated coronavirus Presentation: 05/09 09:25 Chief complaint: Patient states: right side chest pain + for covid on may 02, 2021. cottrell Coronavirus screen: Vaccine status: Patient reports receiving the 2nd dose of the covid vaccine. Ebola Screen: Patient denies travel to an Ebola-affected area in the 21 days before illness onset. Initial Sepsis Screen: Does the patient meet any 2 criteria? No. Patient's initial sepsis screen is negative. Does the patient have a suspected source of infection? No. Patient's initial sepsis screen is negative. Risk Assessment: Do you want to hurt yourself or someone else? Patient reports no desire to harm self or others. Onset of symptoms was May 09, 2021. 09:25 Method Of Arrival: Ambulatory 09:25 Acuity: AMBAR 3 cottrell Triage Assessment: : General: Appears in no apparent distress. Behavior is calm, cooperative. Pain: cottrell Complains of pain in anterior aspect of right upper chest. Cardiovascular: Reports chest pressure. 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 - Social history:: Smoking status: Patient denies any tobacco usage or history of. - Family history:: not pertinent. - Hospitalizations: : No recent hospitalization is reported. Screenin: Abuse screen: Denies threats or abuse. Denies injuries from another. Nutritional cottrlel screening: No deficits noted. Tuberculosis screening: No symptoms or risk factors identified. Fall Risk None identified. Assessment: : Pain: Pain does not radiate. Pain began gradually. cottrell Vital Signs: 09:25 BP 149 / 86; Pulse 70; Resp 97; Temp 98.1(O); Weight 83.01 kg; Height 4 ft. 11 in. cottrell (149.86 cm); 10:27 BP 143 / 99; Pulse 70; Resp 18; Pulse Ox 94% on R/A; cottrell 11:35 BP 138 / 75; Pulse 68; Resp 18; Pulse Ox 94% on R/A; cottrell 09:25 Body Mass Index 36.96 (83.01 kg, 149.86 cm) cottrell ED Course: 09:18 Patient arrived in ED. ds1 09:21 Darren Bravo MD is Attending Physician. rn 09:23 Arm band placed on Patient placed in an exam room, on a stretcher. ll1 09:27 Triage completed. cottrell 09:29 Allergy band placed. Bed in low position. project buyer on. Pulse ox on. NIBP on. cottrell 09:29 No provider procedures requiring assistance completed. Patient maintains SpO2 cottrell saturation greater than 95% on room air. 09:56 XRAY Chest (1 view) In Process Unspecified. EDMS 09:56 CT Chest For PE Angio Sent. cottrell 09:56 Basic Metabolic Panel Sent. cottrell 09:56 Troponin (emerg Dept Use Only) Sent. cottrell 09:56 CBC with Diff Sent. cottrell 10:12 Inserted saline lock: 20 gauge in right hand, using aseptic technique. cottrell 12:45 CT Chest For PE Angio In Process Unspecified. EDMS 13:20 IV discontinued, intact, Pressure dressing applied. cottrell Administered Medications: No medications were administered Outcome: 13:02 Discharge ordered by . rn 13:20 Discharged to home cottrell 13:20 Condition: good 13:20 Discharge instructions given to Prescriptions given X 1. 13:20 Patient left the ED. cottrell Signatures: Dispatcher [employer] EDFL DuarteAngelika ds1 Darren Bravo MD MD rn Lewis, Lynsay, RN RN [facility] Merna Taylor RN RN cottrell
--- NOTE | 2021-05-09 13:03 | EDPHYS ---
Physician Documentation [facility] Name: Meka Junior Age: 50 yrs Sex: Female : 1970 Arrival Date: 05/09/2021 Time: 09:18 Bed 11 Private MD: ED Physician Darren Bravo HPI: 05/09 09:35 This 50 yrs old Female presents to ER via Ambulatory with complaints of Chest Pain - rn Covid +. 09:35 The patient or guardian reports chest pain that is located primarily in the chest rn diffusely. Onset: last night. The pain does not radiate. Associated signs and symptoms: Pertinent positives: cough, shortness of breath, Pertinent negatives: abdominal pain, diaphoresis, lower extremity swelling, near syncope, syncope, vomiting. The chest pain is described as dull. Duration: The patient or guardian reports multiple episodes, that are intermittent. Modifying factors: The symptoms are alleviated by nothing. the symptoms are aggravated by nothing. Severity of pain: At its worst the pain was mild in the emergency department the pain is unchanged. The patient has not experienced similar symptoms in the past. The patient has not recently seen a physician. Patient reports Covid positive, has been sick for about a week, reports that she was doing better with improvement in cough but started with dull chest pain that is intermittent since last night. States woke her up several times. Denies hemoptysis. Denies history of DVT or PE. No fever. Not worse with deep breath. No leg swelling.. 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 - Social history:: Smoking status: Patient denies any tobacco usage or history of. - Family history:: not pertinent. - Hospitalizations: : No recent hospitalization is reported. ROS: 09:35 Constitutional: Negative for fever, chills, and weight loss, Eyes: Negative for injury, rn pain, redness, and discharge, Neck: Negative for injury, pain, and swelling, Cardiovascular: Positive for chest pain Respiratory: Positive for shortness of breath and cough Abdomen/GI: Negative for abdominal pain, nausea, vomiting, diarrhea, and constipation, Back: Negative for injury and pain, MS/Extremity: Negative for injury and deformity, Skin: Negative for injury, rash, and discoloration, Neuro: Negative for numbness, tingling, and seizure. 09:35 All other systems are negative. Exam: 09:35 Constitutional: This is a well developed, well nourished patient who is awake, alert, rn and in no acute distress. Head/Face: Normocephalic, atraumatic. Eyes: Periorbital areas with no swelling, redness, or edema. Cardiovascular: Regular rate and rhythm. No pulse deficits. Respiratory: Mild tachypnea, no retractions, speaking full sentences Abdomen/GI: Soft, non-tender Skin: Warm, dry MS/ Extremity: Pulses equal, no cyanosis. Neurovascular intact. Full, normal range of motion. Equal circumference. Neuro: Awake and alert, GCS 15 Vital Signs: 09:25 BP 149 / 86; Pulse 70; Resp 97; Temp 98.1(O); Weight 83.01 kg; Height 4 ft. 11 in. cottrell (149.86 cm); 10:27 BP 143 / 99; Pulse 70; Resp 18; Pulse Ox 94% on R/A; cottrell 11:35 BP 138 / 75; Pulse 68; Resp 18; Pulse Ox 94% on R/A; cottrell 09:25 Body Mass Index 36.96 (83.01 kg, 149.86 cm) cottrell MDM: 09:21 Patient medically screened. rn 13:00 Differential diagnosis: acute pericarditis, anxiety, costochondritis, pleurisy, rn pneumonia, pneumothorax, pulmonary embolus, COVID, pneumonia. Data reviewed: vital signs, nurses notes, lab test result(s), EKG, radiologic studies, CT scan, plain films, and as a result, I will discharge patient. Data interpreted: Pulse oximetry: on room air is 94 %. Interpretation: acceptable. Counseling: I had a detailed discussion with the patient and/or guardian regarding: the historical points, exam findings, and any diagnostic results supporting the discharge/admit diagnosis, lab results, radiology results, the need for outpatient follow up, to return to the emergency department if symptoms worsen or persist or if there are any questions or concerns that arise at home. Special discussion: I discussed with the patient/guardian in detail that at this point there is no indication for admission to the hospital. It is understood, however, that if the symptoms persist or worsen the patient needs to return immediately for re-evaluation. 05/09 09:29 Order name: CBC with Diff; Complete Time: 11:43 rn 05/09 09:29 Order name: Basic Metabolic Panel; Complete Time: 12:17 rn 05/09 09:29 Order name: Troponin (emerg Dept Use Only); Complete Time: 12:17 rn 05/09 09:29 Order name: XRAY Chest (1 view); Complete Time: 10:09 rn 05/09 09:29 Order name: CT Chest For PE Angio; Complete Time: 13:00 rn 05/09 10:51 Order name: Manual Differential; Complete Time: 11:43 EDMS 05/09 09:29 Order name: IV Start; Complete Time: 09:56 rn 05/09 09:29 Order name: EKG; Complete Time: 09:30 rn 05/09 09:29 Order name: EKG - Nurse/Tech; Complete Time: 09:56 rn 05/09 09:29 Order name: Cardiac monitoring; Complete Time: 09:56 rn 05/09 09:29 Order name: O2 Sat Monitoring; Complete Time: 09:56 rn 05/09 10:31 Order name: Labs - recollect needed; Complete Time: 11:37 mh5 Administered Medications: No medications were administered Disposition Summary: 05/09/21 13:02 Discharge Ordered Location: Home rn Problem: new rn Symptoms: have improved rn Condition: Stable rn Diagnosis - Pneumonia due to SARS-associated coronavirus rn Followup: rn - With: Private Physician - When: As needed - Reason: Recheck today's complaints, Re-evaluation by your physician Discharge Instructions: - Discharge Summary Sheet rn - Community-Acquired Pneumonia, Adult rn - COVID-19 rn - COVID-19 Frequently Asked Questions rn - 10 Things You Can Do to Manage Your COVID-19 Symptoms at Home - [facility] rn Forms: - Medication Reconciliation Form rn - Thank You Letter rn - Antibiotic turn machine operator - Prescription Opioid Use rn - Work release form 5 Prescriptions: - Zithromax Z-Alo 250 mg Oral Tablet - take 1 tablet by ORAL route as directed for 5 days Day 1 - take two (2) tablets rn one time. Day 2, 3, 4 , 5 take one (1) tablet once daily.; 6 tablet; Refills: 0, Product Selection Permitted Signatures: Dispatcher [employer] Darren Lugo MD MD rn Martinez, Maria [facility] Merna Taylor RN RN ha
[2021-05-09 13:34] VITALS: TEMP 98.1
[2021-05-09 13:38] VITALS: O2SAT 94
[2021-05-09 13:43] VITALS: BP 138/75
== END 2021-05-09 13:20 | disposition home or self-care (01) ==
LOC: ER 09:16
DX: U07.1 COVID-19 (principal); J12.82 Pneumonia due to coronavirus disease 2019; Z88.0 Allergy status to penicillin
CPT/HCPCS: 93005; 85025; 80048; 36415; 84484; 71275; 71045; 99285; Q9967

== ENCOUNTER 2022-06-17 17:24 | Emergency (ER) | payer BC ==
--- OUTSIDE RECORDS SUMMARY | 2022-06-17 17:48 | XMS REPORT | Continuity of Care Document ---
:1970 Author Organization [facility] t Address [address] [place] [address] Care Team Providers Name Role Phone Rickie Mg Primary Care Physician [phone] Rickie Mg Attending Clinician Unavailable SAUMYA OSWALD Attending Clinician Unavailable SAUMYA OSWALD Attending Clinician Unavailable LULÚ Attending Clinician Unavailable Critsal Lemus RD Attending Clinician SAUMYA OSWALD Admitting Clinician Unavailable SAUMYA OSWALD Admitting Clinician Unavailable LULÚ Admitting Clinician Unavailable Payers Payer Name Policy Type Policy Number Effective Date Expiration Date S betzaida [id number] PPO AND [id number] 2019 OUT OF STATE 90 00:00:00 [employer] 6 [id number] 2020 Common [facility] Blue Shield of 90 00:00:00 - [facility] Blue Cross C1 [id number] 2020 Common [facility] Blue Shield of 90 00:00:00 [facility] Blue Cross C1 [id number] 2020 Common [facility] Blue Shield of 90 00:00:00 [facility] Blue Cross C1 [id number] 2017 Common [facility] Blue Shield of 90 00:00:00 [facility] Problems Condition Condition Condition Status Onset Resolution Last Treating Co mments Source Name Details Category Date Date Treatment Clinician Date Cholelithi Cholelithi Disease Active U T asis asis 4- Health without without 00:00: obstructio obstructio 00 n n [id number] Hypothyroi Problem Com mon dism, Spirit unspecifie - CHI d type [facility] [id number] Migraine Problem Comm on without Spirit aura and - CHI without [facility] migrainosu Medica l s, not Center intractabl e [id number] GERD Problem Common without Spirit esophagiti - CHI s [facility] [id number] Controlled Problem Co mmon type 2 Spirit diabetes - CHI mellitus [facility] complicati Medica l on, Center without long-term current use of insulin [id number] Calculus Problem Comm on of Spirit gallbladde - [facility] obstructio n [id number] 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 - CHI disease [facility] [id number] Abnormal Problem Com mon 91 uterine Spirit bleeding - [facility] [id number] BMI Problem Common 45.0-49.9, Spirit adult - [facility] [id number] Subserous Problem Comm on leiomyoma Spirit of uterus - [facility] [id number] H/O tubal Problem Com mon ligation [facility] [id number] Current Problem Common moderate Spirit episode of - CHI major [facility] without Center prior episode [id number] Muscle Problem Common strain [facility] [id number] Sciatic Problem Common leg pain [facility] [id number] Cervical Problem Commo n polyp Spirit - [facility] [id number] Seasonal Problem Comm on allergic Spirit rhinitis, - CHI unspecifie [facility] [id number] Atopic Problem Common dermatitis Spirit , - CHI unspecifie [facility] [id number] Mixed Problem Common hyperlipid Spirit emia - [facility] [id number] Other Problem Common chronic Spirit pain - [facility] [id number] Loss of Problem Common taste Spirit - [facility] [id number] Tear of Problem Commo n right Spirit rotator - [facility], [facility] extent, Center unspecifie d whether traumatic [id number] Complete Problem Comm on tear of Spirit left [facility] Med[facility] d whether Center traumatic [id number] Body mass Problem Com mon index Spirit [BMI] - CHI 39.0-39.9, [facility] [id number] Morbid Problem Commo n 9104 (severe) Spirit obesity - [facility] due to [facility] Allergies, Adverse Reactions, Alerts Allergy Allergy Status Severity Reaction(s) Onset Inactive Treating Comm ents Source Name Type Date Date Clinician Penicill Allergy Active Unknown SC in G to 08-09 [facility] 00:00: e 00 Penicill Penicill Active Unknown Commo n in in [facility] Social History Social Habit Start Date Stop Date Quantity Comments Source History of Tobacco Common Spirit - Use [facility] Sex Assigned At Common Sp ayan - [facility] History [facility] Alcohol Frequency History [facility] Alcohol Std Drinks History [facility] Alcohol Binge Tobacco use and 2021-08-24 2021-08-24 Smokeless tobacco [facility] exposure 00:00:00 00:00:00 non-user Alcohol intake 2021-08-24 2021-08-24 Current drinker of [facility] 00:00:00 00:00:00 alcohol (finding) Alcohol Comment 2021-08-24 2021-08-24 occasional [facility] 00:00:00 00:00:00 Smoking Status Start Date Stop Date Source Never Smoker Common [facility] Medications Ordered Filled Start Stop Current Ordering Indication Dosage Frequency Signature Comments Components Source Medication Medication Date Date Medication? Clinician (SIG) Name Name Phentermine Phentermine 0 No Phentermin HCl 37.5 MG HCl 37.5 MG 6-23 e HCl 37.5 00:00: MG 00 Phentermine Phentermine 2021-0 No Phentermin HCl 37.5 MG HCl 37.5 MG 6-23 e HCl 37.5 00:00: MG 00 Phentermine Phentermine 2021-0 No Phentermin HCl 37.5 MG HCl 37.5 MG 6-23 e HCl 37.5 00:00: MG 00 Phentermine Phentermine 2021-2021- No 1{capsu QD Phentermin HCl 37.5 MG HCl 37.5 MG 5-24 06-23 le} e HCl 37.5 00:00: 00:00 MG 00 :00 Phentermine Phentermine 2021-2021- No 1{capsu QD Phentermin HCl 37.5 MG HCl 37.5 MG 5-24 06-23 le} e HCl 37.5 00:00: 00:00 MG 00 :00 Phentermine Phentermine 2021-2021- No 1{capsu QD Phentermin HCl 37.5 MG HCl 37.5 MG 5-24 06-23 le} e HCl 37.5 00:00: 00:00 MG 00 :00 Phentermine Phentermine 2021-2021- No 1{capsu QD Phentermin HCl 37.5 MG HCl 37.5 MG 5-24 06-23 le} e HCl 37.5 00:00: 00:00 MG 00 :00 Phentermine Phentermine 2021-0 2021- No 1{capsu QD Phentermin HCl 37.5 MG HCl 37.5 MG 5-24 06-23 le} e HCl 37.5 00:00: 00:00 MG 00 :00 amitriptyli 2021-0 Yes 1{tbl} 1 tablet. UT ne (Elavil) 4-22 Health 75 MG 09:28: tablet 49 phentermine 2021-0 Yes 37.5mg QD Take 37.5 UT 37.5 MG 4-13 mg by Health capsule 00:00: mouth 1 00 (one) time each day. TAKE 1 CAPSULE BY MOUTH EVERY DAY FOR 30 DAYS Phentermine Phentermine 2021-0 No 1{capsu QD Phentermin HCl 37.5 MG HCl 37.5 MG 3- le} e HCl 37.5 00:00: MG 00 Phentermine Phentermine 2022-0 No 1{capsu QD Phentermin HCl 37.5 MG HCl 37.5 MG 3- le} e HCl 37.5 00:00: MG 00 Phentermine Phentermine 2022-0 No 1{capsu QD Phentermin HCl 37.5 MG HCl 37.5 MG 3- le} e HCl 37.5 00:00: MG 00 Phentermine Phentermine 2022-0 No 1{capsu QD Phentermin HCl 37.5 MG HCl 37.5 MG 3- le} e HCl 37.5 00:00: MG 00 Phentermine Phentermine 2022-0 No 1{capsu QD Phentermin HCl 37.5 MG HCl 37.5 MG 2- le} e HCl 37.5 00:00: MG 00 Phentermine Phentermine 2022-0 No 1{capsu QD Phentermin HCl 37.5 MG HCl 37.5 MG 2- le} e HCl 37.5 00:00: MG 00 Phentermine Phentermine 2022-0 No 1{capsu QD Phentermin HCl 37.5 MG HCl 37.5 MG 2- le} e HCl 37.5 00:00: MG 00 traMADol traMADol 2021-0 No traMADol HCl 50 MG HCl 50 MG 1-31 HCl 50 MG 00:00: 00 traMADol traMADol 2-0 No traMADol HCl 50 MG HCl 50 MG 1-31 HCl 50 MG 00:00: 00 traMADol traMADol 2-0 No traMADol HCl 50 MG HCl 50 MG 1-31 HCl 50 MG 00:00: 00 traMADol traMADol 2-0 No traMADol HCl 50 MG HCl 50 MG 1-31 HCl 50 MG 00:00: 00 traMADol traMADol 2-0 No traMADol HCl 50 MG HCl 50 MG 1-31 HCl 50 MG 00:00: 00 traMADol traMADol 2-0 No traMADol HCl 50 MG HCl 50 MG 1-31 HCl 50 MG 00:00: 00 traMADol traMADol 2-0 No traMADol HCl 50 MG HCl 50 MG 1-31 HCl 50 MG 00:00: 00 traMADol traMADol 2021-0 No traMADol HCl 50 MG HCl 50 MG 1-31 HCl 50 MG 00:00: 00 traMADol traMADol 2021-0 No traMADol HCl 50 MG HCl 50 MG 1-31 HCl 50 MG 00:00: 00 traMADol traMADol 2021-0 No traMADol HCl 50 MG HCl 50 MG 1-31 HCl 50 MG 00:00: 00 traMADol traMADol 2021-0 No traMADol HCl 50 MG HCl 50 MG 1-31 HCl 50 MG 00:00: 00 traMADol traMADol 2021-0 No traMADol HCl 50 MG HCl 50 MG 1-31 HCl 50 MG 00:00: 00 traMADol traMADol 2021-0 No traMADol HCl 50 MG HCl 50 MG 1-31 HCl 50 MG 00:00: 00 traMADol traMADol 2021-0 No traMADol HCl 50 MG HCl 50 MG 1-31 HCl 50 MG 00:00: 00 traMADol traMADol 2021-0 No traMADol HCl 50 MG HCl 50 MG 1-31 HCl 50 MG 00:00: 00 traMADol traMADol 2021-0 No traMADol HCl 50 MG HCl 50 MG 1-31 HCl 50 MG 00:00: 00 traMADol traMADol 2021-0 No traMADol HCl 50 MG HCl 50 MG 1-31 HCl 50 MG 00:00: 00 traMADol traMADol 2021-0 No traMADol HCl 50 MG HCl 50 MG 1-31 HCl 50 MG 00:00: 00 traMADol traMADol 2021-0 No traMADol HCl 50 MG HCl 50 MG 1-31 HCl 50 MG 00:00: 00 traMADol traMADol 2021-0 No traMADol HCl 50 MG HCl 50 MG 1-31 HCl 50 MG 00:00: 00 Ozempic, 1 2021-0 Yes INJECT 1 UT MG/DOSE, 4 1-26 MG/DOSE Health MG/3ML 00:00: SUBCUTANEO solution 00 US ONCE A pen-injecto WEEK 30 r DAYS Phentermine Phentermine 2020-05 No 1{capsu QD HCl 37.5 MG HCl 37.5 MG 2-14 le} 00:00: 00 Phentermine Phentermine 2020- No 1{capsu QD HCl 37.5 MG HCl 37.5 MG 2-14 le} 00:00: 00 Phentermine Phentermine 2020- No 1{capsu QD Phentermin HCl 37.5 MG HCl 37.5 MG 2-14 le} e HCl 37.5 00:00: MG 00 levothyroxi 2020-05 Yes TAKE 1 UT ne 2-14 TABLET BY Health (Synthroid, 00:00: MOUTH Levoxyl) 88 00 EVERY DAY MCG tablet IN THE MORNING ON EMPTY STOMACH FOR 90 DAYS Phentermine Phentermine 2020-05- No 1{capsu QD Phentermin HCl 37.5 MG HCl 37.5 MG 0-28 11- le} e HCl 37.5 00:00: 00:00 MG 00 :00 Phentermine Phentermine No 1{capsu QD Phentermin HCl 37.5 MG HCl 37.5 MG 9 le} e HCl 37.5 00:00: MG 00 Montelukast Montelukast No 1{table QD Montelukas Sodium 10 Sodium 10 9-02 t} t Sodium MG MG 00:00: 10 MG 00 Fluticasone Fluticasone No 1{spray BID Fluticason Propionate Propionate 01-04 _in_eac e 50 MCG/ACT 50 MCG/ACT 00:00: h_nostr Propionate 00 il} 50 MCG/ACT Montelukast Montelukast No 1{table QD Montelukas Sodium 10 Sodium 10 9-02 t} t Sodium MG MG 00:00: 10 MG 00 Fluticasone Fluticasone No 1{spray BID Fluticason Propionate Propionate 01-04 _in_eac e 50 MCG/ACT 50 MCG/ACT 00:00: h_nostr Propionate 00 il} 50 MCG/ACT Montelukast Montelukast No 1{table QD Montelukas Sodium 10 Sodium 10 9-02 t} t Sodium MG MG 00:00: 10 MG 00 Fluticasone Fluticasone No 1{spray BID Fluticason Propionate Propionate 01-04 _in_eac e 50 MCG/ACT 50 MCG/ACT 00:00: h_nostr Propionate 00 il} 50 MCG/ACT Montelukast Montelukast No 1{table QD Montelukas Sodium 10 Sodium 10 9-02 t} t Sodium MG MG 00:00: 10 MG 00 Fluticasone Fluticasone 0 No 1{spray BID Fluticason Propionate Propionate 01-04 _in_eac e 50 MCG/ACT 50 MCG/ACT 00:00: h_nostr Propionate 00 il} 50 MCG/ACT Azithromyci Azithromyci 2020- No QD Azithromyc n 250 MG n 250 MG 01-04 in 250 MG 00:00: 00:00 00 :00 Azithromyci Azithromyci 2020- No QD Azithromyc n 250 MG n 250 MG 01-04 in 250 MG 00:00: 00:00 00 :00 Azithromyci Azithromyci 2020- No QD Azithromyc n 250 MG n 250 MG 01-04 in 250 MG 00:00: 00:00 00 :00 Cyclobenzap Cyclobenzap 2020- No 1{table QD Cyclobenza rine HCl 10 rine HCl 10 12-20 t_at_be altagracia HCl MG MG 00:00: 00:00 dtime_a 10 MG 00 :00 s_neede d} Cyclobenzap Cyclobenzap 2020- No 1{table QD Cyclobenza rine HCl 10 rine HCl 10 12-20 t_at_be altagracia HCl MG MG 00:00: 00:00 dtime_a 10 MG 00 :00 s_neede d} Cyclobenzap Cyclobenzap 2020- No 1{table QD Cyclobenza rine HCl 10 rine HCl 10 12-20 t_at_be altagracia HCl MG MG 00:00: 00:00 dtime_a 10 MG 00 :00 s_neede d} Cyclobenzap Cyclobenzap 2020- No 1{table QD Cyclobenza rine HCl 10 rine HCl 10 12-20 t_at_be altagracia HCl MG MG 00:00: 00:00 dtime_a 10 MG 00 :00 s_neede d} Cyclobenzap Cyclobenzap 2020- No 1{table QD Cyclobenza rine HCl 10 rine HCl 10 12-20 t_at_be altagracia HCl MG MG 00:00: 00:00 dtime_a 10 MG 00 :00 s_neede d} Kenalog Kenalog 2020-0 No 40mg Common (Triamcinol (Triamcinol 8-17 S pirit one) one) 00:00: - CHI 00 [facility] Ketorolac Ketorolac 1-0 No 60mg Com mon 15mg 15mg 8-17 Spirit 00:00: - CHI 00 [facility] Kenalog Kenalog 2020-0 No 40mg Common (Triamcinol (Triamcinol 8-17 S pirit one) one) 00:00: - CHI 00 [facility] Ketorolac Ketorolac 2020-0 No 60mg Com mon 15mg 15mg 8-17 Spirit 00:00: - CHI 00 [facility] Kenalog Kenalog 2020-0 No 40mg Common (Triamcinol (Triamcinol 8-17 S pirit one) one) 00:00: - CHI 00 [facility] Ketorolac Ketorolac 1-0 No 60mg Com mon 15mg 15mg 8-17 Spirit 00:00: - CHI 00 [facility] Kenalog Kenalog 2020-0 No 40mg Common (Triamcinol (Triamcinol 8-17 S pirit one) one) 00:00: - CHI 00 [facility] Ketorolac Ketorolac 1-0 No 60mg Com mon 15mg 15mg 8-17 Spirit 00:00: - CHI 00 [facility] Kenalog Kenalog 2020-0 No 40mg Common (Triamcinol (Triamcinol 8-17 S pirit one) one) 00:00: - CHI 00 [facility] Ketorolac Ketorolac 1-0 No 60mg Com mon 15mg 15mg 8-17 Spirit 00:00: - CHI 00 [facility] Kenalog Kenalog 2020-0 No 40mg Common (Triamcinol (Triamcinol 8-17 S pirit one) one) 00:00: - CHI 00 [facility] Ketorolac Ketorolac 1-0 No 60mg Com mon 15mg 15mg 8-17 Spirit 00:00: - CHI 00 [facility] Kenalog Kenalog 2020-0 No 40mg Common (Triamcinol (Triamcinol 8-17 S pirit one) one) 00:00: - CHI 00 [facility] Ketorolac Ketorolac 2020-0 No 60mg Com mon 15mg 15mg 8-17 Spirit 00:00: - CHI 00 [facility] Kenalog Kenalog 2020-0 No 40mg Common (Triamcinol (Triamcinol 8-17 S pirit one) one) 00:00: - CHI 00 [facility] Ketorolac Ketorolac 2020-0 No 60mg Com mon 15mg 15mg 8-17 Spirit 00:00: - CHI 00 [facility] Kenalog Kenalog 2020-0 No 40mg Common (Triamcinol (Triamcinol 8-17 S pirit one) one) 00:00: - CHI 00 [facility] Ketorolac Ketorolac 2020-0 No 60mg Com mon 15mg 15mg 8-17 Spirit 00:00: - CHI 00 [facility] Kenalog Kenalog 2020-0 No 40mg Common (Triamcinol (Triamcinol 8-17 S pirit one) one) 00:00: - CHI 00 [facility] Ketorolac Ketorolac 2020-0 No 60mg Com mon 15mg 15mg 8-17 Spirit 00:00: - CHI 00 [facility] Kenalog Kenalog 2020-0 No 40mg Common (Triamcinol (Triamcinol 8-17 S pirit one) one) 00:00: - CHI 00 [facility] Ketorolac Ketorolac 1-0 No 60mg Com mon 15mg 15mg 8-17 Spirit 00:00: - CHI 00 [facility] Kenalog Kenalog 2020-0 No 40mg Common (Triamcinol (Triamcinol 8-17 S pirit one) one) 00:00: - CHI 00 [facility] Ketorolac Ketorolac 1-0 No 60mg Com mon 15mg 15mg 8-17 Spirit 00:00: - CHI 00 [facility] Kenalog Kenalog 2020-0 No 40mg Common (Triamcinol (Triamcinol 8-17 S pirit one) one) 00:00: - CHI 00 [facility] Ketorolac Ketorolac 2020-0 No 60mg Com mon 15mg 15mg 8-17 Spirit 00:00: - CHI 00 [facility] Kenalog Kenalog 2020-0 No 40mg Common (Triamcinol (Triamcinol 8-17 S pirit one) one) 00:00: - CHI 00 [facility] Ketorolac Ketorolac 2020-0 No 60mg Com mon 15mg 15mg 8-17 Spirit 00:00: - CHI 00 [facility] Kenalog Kenalog 2020-0 No 40mg Common (Triamcinol (Triamcinol 8-17 S pirit one) one) 00:00: - CHI 00 [facility] Ketorolac Ketorolac 2020-0 No 60mg Com mon 15mg 15mg 8-17 Spirit 00:00: - CHI 00 [facility] Kenalog Kenalog 2020-0 No 40mg Common (Triamcinol (Triamcinol 8-17 S pirit one) one) 00:00: - CHI 00 [facility] Ketorolac Ketorolac 2020-0 No 60mg Com mon 15mg 15mg 8-17 Spirit 00:00: - CHI 00 [facility] Kenalog Kenalog 2020-0 No 40mg Common (Triamcinol (Triamcinol 4-26 S pirit one) one) 00:00: - CHI 00 [facility] Bupivicaine Bupivicaine 2020-0 No 2.5mg Common [place] 4-26 Spirit 00:00: - CHI 00 [facility] Kenalog Kenalog 2020-0 No 40mg Common (Triamcinol (Triamcinol 4-26 S pirit one) one) 00:00: - CHI 00 [facility] Bupivicaine Bupivicaine 1-0 No 2.5mg Common [place] 4-26 Spirit 00:00: - CHI 00 [facility] Kenalog Kenalog 2020-0 No 40mg Common (Triamcinol (Triamcinol 4-26 S pirit one) one) 00:00: - CHI 00 [facility] Bupivicaine Bupivicaine 2020-0 No 2.5mg Common [place] 4-26 Spirit 00:00: - CHI 00 [facility] Kenalog Kenalog 2020-0 No 40mg Common (Triamcinol (Triamcinol 4-26 S pirit one) one) 00:00: - CHI 00 [facility] Bupivicaine Bupivicaine 2020-0 No 2.5mg Common [place] 4-26 Spirit 00:00: - CHI 00 [facility] Kenalog Kenalog 2020-0 No 40mg Common (Triamcinol (Triamcinol 4-26 S pirit one) one) 00:00: - CHI 00 [facility] Bupivicaine Bupivicaine 2020-0 No 2.5mg Common [place] 4-26 Spirit 00:00: - CHI 00 [facility] Kenalog Kenalog 2020-0 No 40mg Common (Triamcinol (Triamcinol 4-26 S pirit one) one) 00:00: - CHI 00 [facility] Bupivicaine Bupivicaine 2020-0 No 2.5mg Common [place] 4-26 Spirit 00:00: - CHI 00 [facility] Kenalog Kenalog 2020-0 No 40mg Common (Triamcinol (Triamcinol 4-26 S pirit one) one) 00:00: - CHI 00 [facility] Bupivicaine Bupivicaine 2020-0 No 2.5mg Common [place] 4-26 Spirit 00:00: - CHI 00 [facility] Kenalog Kenalog 2020-0 No 40mg Common (Triamcinol (Triamcinol 4-26 S pirit one) one) 00:00: - CHI 00 [facility] Bupivicaine Bupivicaine 2020-0 No 2.5mg Common [place] 4-26 Spirit 00:00: - CHI 00 [facility] Kenalog Kenalog 2020-0 No 40mg Common (Triamcinol (Triamcinol 4-26 S pirit one) one) 00:00: - CHI 00 [facility] Bupivicaine Bupivicaine 2020-0 No Common [place] 4-26 Spirit 00:00: - CHI 00 [facility] Kenalog Kenalog 2020-0 No 40mg Common (Triamcinol (Triamcinol 4-26 S pirit one) one) 00:00: - CHI 00 [facility] Bupivicaine Bupivicaine 2020-0 No Common [place] 4-26 Spirit 00:00: - CHI 00 [facility] Kenalog Kenalog 2020-0 No 40mg Common (Triamcinol (Triamcinol 4-26 S pirit one) one) 00:00: - CHI 00 [facility] Bupivicaine Bupivicaine 2020-0 No Common [place] 4-26 Spirit 00:00: - CHI 00 [facility] Kenalog Kenalog 2020-0 No 40mg Common (Triamcinol (Triamcinol 4-26 S pirit one) one) 00:00: - CHI 00 [facility] Bupivicaine Bupivicaine 2020-0 No Common [place] 4-26 Spirit 00:00: - CHI 00 [facility] Kenalog Kenalog 2020-0 No 40mg Common (Triamcinol (Triamcinol 4-26 S pirit one) one) 00:00: - CHI 00 [facility] Bupivicaine Bupivicaine 2020-0 No Common [place] 4-26 Spirit 00:00: - CHI 00 [facility] Kenalog Kenalog 2020-0 No 40mg Common (Triamcinol (Triamcinol 4-26 S pirit one) one) 00:00: - CHI 00 [facility] Bupivicaine Bupivicaine 2020-0 No 2.5mg Common [place] 4-26 Spirit 00:00: - CHI 00 [facility] Kenalog Kenalog 2020-0 No 40mg Common (Triamcinol (Triamcinol 4-26 S pirit one) one) 00:00: - CHI 00 [facility] Bupivicaine Bupivicaine 2020-0 No 2.5mg Common [place] 4-26 Spirit 00:00: - CHI 00 [facility] Kenalog Kenalog 2020-0 No 40mg Common (Triamcinol (Triamcinol 4-26 S pirit one) one) 00:00: - CHI 00 [facility] Bupivicaine Bupivicaine 2020-0 No 2.5mg Common [place] 4-26 Spirit 00:00: - CHI [facility] Naproxen Naproxen 2020-0 No BID Naproxen 500 MG 500 MG 4-07 500 MG 00:00: 00 Naproxen Naproxen 2020-0 No BID Naproxen 500 MG 500 MG 4-07 500 MG 00:00: 00 Naproxen Naproxen 2020-0 No BID Naproxen 500 MG 500 MG 4-07 500 MG 00:00: 00 Naproxen Naproxen 2020-0 No BID Naproxen 500 MG 500 MG 4-07 500 MG 00:00: 00 Naproxen Naproxen 2020-0 No BID Naproxen 500 MG 500 MG 4-07 500 MG 00:00: 00 Kenalog Kenalog 2020- No 40mg Common (Triamcinol (Triamcinol 0-20 S pirit one) one) 00:00: - CHI [facility] Kenalog Kenalog 2020- No 40mg Common (Triamcinol (Triamcinol 0-20 S pirit one) one) 00:00: - CHI 00 [facility] Kenalog Kenalog 2020- No 40mg Common (Triamcinol (Triamcinol 0-20 S pirit one) one) 00:00: - CHI [facility] Kenalog Kenalog 2020- No 40mg Common (Triamcinol (Triamcinol 0-20 S pirit one) one) 00:00: - CHI 00 [facility] Kenalog Kenalog 2020- No 40mg Common (Triamcinol (Triamcinol 0-20 S pirit one) one) 00:00: - CHI [facility] Kenalog Kenalog 2020- No 40mg Common (Triamcinol (Triamcinol 0-20 S pirit one) one) 00:00: - CHI [facility] Kenalog Kenalog 2020-1 No 40mg Common (Triamcinol (Triamcinol 0-20 S pirit one) one) 00:00: - CHI [facility] Kenalog Kenalog 2020- No 40mg Common (Triamcinol (Triamcinol 0-20 S pirit one) one) 00:00: - CHI 00 [facility] Kenalog Kenalog 2019- No 40mg Common (Triamcinol (Triamcinol 0-20 S pirit one) one) 00:00: - CHI 00 [facility] Kenalog Kenalog 2019- No 40mg Common (Triamcinol (Triamcinol 0-20 S pirit one) one) 00:00: - CHI 00 [facility] Kenalog Kenalog 2019- No 40mg Common (Triamcinol (Triamcinol 0-20 S pirit one) one) 00:00: - CHI 00 [facility] Kenalog Kenalog 2019- No 40mg Common (Triamcinol (Triamcinol 0-20 S pirit one) one) 00:00: - CHI 00 [facility] Kenalog Kenalog 2019- No 40mg Common (Triamcinol (Triamcinol 0-20 S pirit one) one) 00:00: - CHI 00 [facility] Kenalog Kenalog 2019- No 40mg Common (Triamcinol (Triamcinol 0-20 S pirit one) one) 00:00: - CHI 00 [facility] Kenalog Kenalog 2019- No 40mg Common (Triamcinol (Triamcinol 0-20 S pirit one) one) 00:00: - CHI 00 [facility] Kenalog Kenalog 2019- No 40mg Common (Triamcinol (Triamcinol 0-20 S pirit one) one) 00:00: - CHI 00 [facility] Kenalog Kenalog 2018-0 No 40mg Common (Triamcinol (Triamcinol 9-13 S pirit one) one) 00:00: - CHI 00 [facility] Kenalog Kenalog 2019-0 No 40mg Common (Triamcinol (Triamcinol 9-13 S pirit one) one) 00:00: - CHI 00 [facility] Kenalog Kenalog 2018-0 No 40mg Common (Triamcinol (Triamcinol 9-13 S pirit one) one) 00:00: - CHI 00 [facility] Kenalog Kenalog 2019-0 No 40mg Common (Triamcinol (Triamcinol 9-13 S pirit one) one) 00:00: - CHI 00 [facility] Kenalog Kenalog 2019-0 No 40mg Common (Triamcinol (Triamcinol 9-13 S pirit one) one) 00:00: - CHI 00 [facility] Kenalog Kenalog 2019-0 No 40mg Common (Triamcinol (Triamcinol 9-13 S pirit one) one) 00:00: - CHI 00 [facility] Kenalog Kenalog 2019-0 No 40mg Common (Triamcinol (Triamcinol 9-13 S pirit one) one) 00:00: - CHI 00 [facility] Kenalog Kenalog 2019-0 No 40mg Common (Triamcinol (Triamcinol 9-13 S pirit one) one) 00:00: - CHI 00 [facility] Kenalog Kenalog 2019-0 No 40mg Common (Triamcinol (Triamcinol 9-13 S pirit one) one) 00:00: - CHI 00 [facility] Kenalog Kenalog 2019-0 No 40mg Common (Triamcinol (Triamcinol 9-13 S pirit one) one) 00:00: - CHI 00 [facility] Kenalog Kenalog 2019-0 No 40mg Common (Triamcinol (Triamcinol 9-13 S pirit one) one) 00:00: - CHI 00 [facility] Kenalog Kenalog 2019-0 No 40mg Common (Triamcinol (Triamcinol 9-13 S pirit one) one) 00:00: - CHI 00 [facility] Kenalog Kenalog 2019-0 No 40mg Common (Triamcinol (Triamcinol 9-13 S pirit one) one) 00:00: - CHI 00 [facility] Kenalog Kenalog 2019-0 No 40mg Common (Triamcinol (Triamcinol 9-13 S pirit one) one) 00:00: - [facility]I 00 [facility] [facility] Ken[facility] Kenalog 2019-0 No 40mg Common (Triamcinol (Triamcinol 9-13 S pirit one) one) 00:00: - [facility] 00 [facility] Kenalog Kenalog 2019-0 No 40mg Common (Triamcinol (Triamcinol 9-13 S pirit one) one) 00:00: - [facility] 00 [facility] Betamethaso Betamethaso 2019-0 No 1mL Common ne Sodium ne Sodium 8-08 Spiri t Phosphate Phosphate 00:00: - C [facility] 00 [facility] Bupivicaine Bupivicaine 2019-0 No 5mL Common [place] 8-08 Spirit 00:00: - [facility] 00 [facility] Betamethaso Betamethaso 2019-0 No 1mL Common ne Sodium ne Sodium 8-08 Spiri t Phosphate Phosphate 00:00: - C [facility] 00 [facility] Bupivicaine Bupivicaine 2019-0 No 5mL Common [place] 8-08 Spirit 00:00: - [facility] 00 [facility] Betamethaso Betamethaso 2019-0 No 1mL Common ne Sodium ne Sodium 8-08 Spiri t Phosphate Phosphate 00:00: - C [facility] 00 [facility] Bupivicaine Bupivicaine 2019-0 No 5mL Common [place] 8-08 Spirit 00:00: - [facility] 00 [facility] Betamethaso Betamethaso 2019-0 No 1mL Common ne Sodium ne Sodium 8-08 Spiri t Phosphate Phosphate 00:00: - C HI 00 [facility] Bupivicaine Bupivicaine 2019-0 No 5mL Common [place] 8-08 Spirit 00:00: - [facility] 00 [facility] Betamethaso Betamethaso 2019-0 No 1mL Common ne Sodium ne Sodium 8-08 Spiri t Phosphate Phosphate 00:00: - C HI [facility] Bupivicaine Bupivicaine 2019-0 No 5mL Common [place] 8-08 Spirit 00:00: - [facility] 00 [facility] Betamethaso Betamethaso 2019-0 No 1mL Common ne Sodium ne Sodium 8-08 Spiri t Phosphate Phosphate 00:00: - C HI [facility] Bupivicaine Bupivicaine 2019-0 No 5mL Common [place] 8-08 Spirit 00:00: - [facility] 00 [facility] Betamethaso Betamethaso 2019-0 No 1mL Common ne Sodium ne Sodium 8-08 Spiri t Phosphate Phosphate 00:00: - C HI 00 [facility] Bupivicaine Bupivicaine 2019-0 No 5mL Common [place] 8-08 Spirit 00:00: - [facility] 00 [facility] Betamethaso Betamethaso 2019-0 No 1mL Common ne Sodium ne Sodium 8-08 Spiri t Phosphate Phosphate 00:00: - C [facility] 00 [facility] Bupivicaine Bupivicaine 2019-0 No 5mL Common [place] 8-08 Spirit 00:00: - [facility] 00 [facility] Betamethaso Betamethaso 2019-0 No 1mL Common ne Sodium ne Sodium 8-08 Spiri t Phosphate Phosphate 00:00: - C HI 00 [facility] Bupivicaine Bupivicaine 2019-0 No 5mL Common [place] 8-08 Spirit 00:00: - [facility] 00 [facility] Betamethaso Betamethaso 2019-0 No 1mL Common ne Sodium ne Sodium 8-08 Spiri t Phosphate Phosphate 00:00: - C HI 00 [facility] Bupivicaine Bupivicaine 2019-0 No 5mL Common [place] 8-08 Spirit 00:00: - [facility] 00 [facility] Betamethaso Betamethaso 2019-0 No 1mL Common ne Sodium ne Sodium 8-08 Spiri t Phosphate Phosphate 00:00: - C HI [facility] Bupivicaine Bupivicaine 2019-0 No 5mL Common [place] 8-08 Spirit 00:00: - [facility] 00 [facility] Betamethaso Betamethaso 2019-0 No 1mL Common ne Sodium ne Sodium 8-08 Spiri t Phosphate Phosphate 00:00: - C HI 00 [facility] Bupivicaine Bupivicaine 2019-0 No 5mL Common [place] 8-08 Spirit 00:00: - [facility] 00 [facility] Betamethaso Betamethaso 2019-0 No 1mL Common ne Sodium ne Sodium 8-08 Spiri t Phosphate Phosphate 00:00: - C HI 00 [facility] Bupivicaine Bupivicaine 2019-0 No 5mL Common [place] 8-08 Spirit 00:00: - [facility] 00 [facility] Betamethaso Betamethaso 2019-0 No 1mL Common ne Sodium ne Sodium 8-08 Spiri t Phosphate Phosphate 00:00: - C HI 00 [facility] Bupivicaine Bupivicaine 2019-0 No 5mL Common [place] 8-08 Spirit 00:00: - [facility] 00 [facility] Betamethaso Betamethaso 2019-0 No 1mL Common ne Sodium ne Sodium 8-08 Spiri t Phosphate Phosphate 00:00: - C HI 00 [facility] Bupivicaine Bupivicaine 2019-0 No 5mL Common [place] 8-08 Spirit 00:00: - [facility] 00 [facility] Betamethaso Betamethaso 2019-0 No 1mL Common ne Sodium ne Sodium 8-08 Spiri t Phosphate Phosphate 00:00: - C [facility] 00 [facility] Bupivicaine Bupivicaine 2019-0 No 5mL Common [place] 8-08 Spirit 00:00: - [facility] 00 [facility] Kenalog Kenalog 2019-0 No 40mg Common (Triamcinol (Triamcinol 3-01 S pirit one) one) 00:00: - [facility] 00 [facility] Kenalog Kenalog 2019-0 No 40mg Common (Triamcinol (Triamcinol 3-01 S pirit one) one) 00:00: - [facility] 00 [facility] Kenalog Kenalog 2019-0 No 40mg Common (Triamcinol (Triamcinol 3-01 S pirit one) one) 00:00: - [facility] 00 [facility] Kenalog Kenalog 2019-0 No 40mg Common (Triamcinol (Triamcinol 3-01 S pirit one) one) 00:00: - [facility] 00 [facility] Kenalog Kenalog 2019-0 No 40mg Common (Triamcinol (Triamcinol 3-01 S pirit one) one) 00:00: - [facility] 00 [facility] Kenalog Kenalog 2019-0 No 40mg Common (Triamcinol (Triamcinol 3-01 S pirit one) one) 00:00: - [facility] 00 [facility] Kenalog Kenalog 2019-0 No 40mg Common (Triamcinol (Triamcinol 3-01 S pirit one) one) 00:00: - [facility] 00 [facility] Emily Kenalog 2019-0 No 40mg Common (Triamcinol (Triamcinol 3-01 S pirit one) one) 00:00: - [facility] 00 [facility] Emily Diaz 2019-0 No 40mg Common (Triamcinol (Triamcinol 3-01 S pirit one) one) 00:00: - [facility] 00 [facility] Emily Diaz 2019-0 No 40mg Common (Triamcinol (Triamcinol 3-01 S pirit one) one) 00:00: - [facility] 00 [facility] Emily Diaz 2019-0 No 40mg Common (Triamcinol (Triamcinol 3-01 S pirit one) one) 00:00: - [facility] 00 [facility] Emily Diaz 2019-0 No 40mg Common (Triamcinol (Triamcinol 3-01 S pirit one) one) 00:00: - [facility] 00 [facility] Emily Diaz 2019-0 No 40mg Common (Triamcinol (Triamcinol 3-01 S pirit one) one) 00:00: - [facility] 00 [facility] Emily Diaz 2019-0 No 40mg Common (Triamcinol (Triamcinol 3-01 S pirit one) one) 00:00: - [facility] 00 [facility] Emily Diaz 2019-0 No 40mg Common (Triamcinol (Triamcinol 3-01 S pirit one) one) 00:00: - [facility] 00 [facility] Emily Diaz 2019-0 No 40mg Common (Triamcinol (Triamcinol 3-01 S pirit one) one) 00:00: - [facility] 00 [facility] Ozempic 1 Ozempic 1 No Ozempic 1 MG/DOSE MG/DOSE MG/DOSE Omeprazole Omeprazole No 1{capsu QD Omeprazole 40 MG 40 MG le} 40 MG Naproxen Naproxen No Naproxen 500 MG 500 MG 500 MG Azithromyci Azithromyci No QD Azithromyc n 250 MG n 250 MG in 250 MG Amitriptyli Amitriptyli No 1{table QD Amitriptyl ne HCl 100 ne HCl 100 t} ine HCl MG MG 100 MG SUMAtriptan SUMAtriptan No SUMAtripta Succinate Succinate n 50 MG 50 MG Succinate 50 MG BD Pen BD Pen No BD Pen Needle Mini Needle Mini Needle U/F 31G X 5 U/F 31G X 5 Mini U/F MM MM 31G X 5 MM predniSONE predniSONE No QD predniSONE 10 MG 10 MG 10 MG Cyclobenzap Cyclobenzap No Cyclobenza rine HCl 10 rine HCl 10 altagracia HCl MG MG 10 MG Levothyroxi Levothyroxi No Levothyrox ne Sodium ne Sodium ine Sodium 100 MCG 100 MCG 100 MCG Fluticasone Fluticasone No Fluticason Propionate Propionate e 50 MCG/ACT 50 MCG/ACT Propionate 50 MCG/ACT Benzonatate Benzonatate No 1{capsu TID Benzonatat 200 MG 200 MG le} e 200 MG Montelukast Montelukast No Montelukas Sodium 10 Sodium 10 t Sodium MG MG 10 MG Ozempic 1 Ozempic 1 No Ozempic 1 MG/DOSE MG/DOSE MG/DOSE Loratadine Loratadine No 1{table QD Loratadine 10 MG 10 MG t} 10 MG Levothyroxi Levothyroxi No QD Levothyrox ne Sodium ne Sodium ine Sodium 88 MCG 88 MCG 88 MCG SUMAtriptan SUMAtriptan No SUMAtripta Succinate Succinate n 50 MG 50 MG Succinate 50 MG Loratadine Loratadine No 1{table QD Loratadine 10 MG 10 MG t} 10 MG Fluticasone Fluticasone No Fluticason Propionate Propionate e 50 MCG/ACT 50 MCG/ACT Propionate 50 MCG/ACT Benzonatate Benzonatate No 1{capsu TID Benzonatat 200 MG 200 MG le} e 200 MG BD Pen BD Pen No BD Pen Needle Mini Needle Mini Needle U/F 31G X 5 U/F 31G X 5 Mini U/F MM MM 31G X 5 MM Azithromyci Azithromyci No QD Azithromyc n 250 MG n 250 MG in 250 MG Ozempic 1 Ozempic 1 No Ozempic 1 MG/DOSE MG/DOSE MG/DOSE Naproxen Naproxen No Naproxen 500 MG 500 MG 500 MG Levothyroxi Levothyroxi No Levothyrox ne Sodium ne Sodium ine Sodium 100 MCG 100 MCG 100 MCG predniSONE predniSONE No QD predniSONE 10 MG 10 MG 10 MG Cyclobenzap Cyclobenzap No Cyclobenza rine HCl 10 rine HCl 10 altagracia HCl MG MG 10 MG Omeprazole Omeprazole No 1{capsu QD Omeprazole 40 MG 40 MG le} 40 MG Levothyroxi Levothyroxi No QD Levothyrox ne Sodium ne Sodium ine Sodium 88 MCG 88 MCG 88 MCG Amitriptyli Amitriptyli No 1{table QD Amitriptyl ne HCl 100 ne HCl 100 t} ine HCl MG MG 100 MG Montelukast Montelukast No Montelukas Sodium 10 Sodium 10 t Sodium MG MG 10 MG SUMAtriptan SUMAtriptan No SUMAtripta Succinate Succinate n 50 MG 50 MG Succinate 50 MG Loratadine Loratadine No 1{table QD Loratadine 10 MG 10 MG t} 10 MG Fluticasone Fluticasone No Fluticason Propionate Propionate e 50 MCG/ACT 50 MCG/ACT Propionate 50 MCG/ACT Benzonatate Benzonatate No 1{capsu TID Benzonatat 200 MG 200 MG le} e 200 MG BD Pen BD Pen No BD Pen Needle Mini Needle Mini Needle U/F 31G X 5 U/F 31G X 5 Mini U/F MM MM 31G X 5 MM Azithromyci Azithromyci No QD Azithromyc n 250 MG n 250 MG in 250 MG Ozempic 1 Ozempic 1 No Ozempic 1 MG/DOSE MG/DOSE MG/DOSE Naproxen Naproxen No Naproxen 500 MG 500 MG 500 MG Levothyroxi Levothyroxi No Levothyrox ne Sodium ne Sodium ine Sodium 100 MCG 100 MCG 100 MCG predniSONE predniSONE No QD predniSONE 10 MG 10 MG 10 MG Cyclobenzap Cyclobenzap No Cyclobenza rine HCl 10 rine HCl 10 altagracia HCl MG MG 10 MG Omeprazole Omeprazole No 1{capsu QD Omeprazole 40 MG 40 MG le} 40 MG Levothyroxi Levothyroxi No QD Levothyrox ne Sodium ne Sodium ine Sodium 88 MCG 88 MCG 88 MCG Amitriptyli Amitriptyli No 1{table QD Amitriptyl ne HCl 100 ne HCl 100 t} ine HCl MG MG 100 MG Montelukast Montelukast No Montelukas Sodium 10 Sodium 10 t Sodium MG MG 10 MG Amitriptyli Amitriptyli No 1{table QD Amitriptyl ne HCl 75 ne HCl 75 t} ine HCl 75 MG MG MG Levothyroxi Levothyroxi No Levothyrox ne Sodium ne Sodium ine Sodium 100 MCG 100 MCG 100 MCG Ozempic 1 Ozempic 1 No Ozempic 1 MG/DOSE MG/DOSE MG/DOSE Loratadine Loratadine No 1{table QD Loratadine 10 MG 10 MG t} 10 MG predniSONE predniSONE No QD predniSONE 10 MG 10 MG 10 MG BD Pen BD Pen No BD Pen Needle Mini Needle Mini Needle U/F 31G X 5 U/F 31G X 5 Mini U/F MM MM 31G X 5 MM Azithromyci Azithromyci No QD Azithromyc n 250 MG n 250 MG in 250 MG Benzonatate Benzonatate No 1{capsu TID Benzonatat 200 MG 200 MG le} e 200 MG Omeprazole Omeprazole No 1{capsu QD Omeprazole 40 MG 40 MG le} 40 MG Montelukast Montelukast No Montelukas Sodium 10 Sodium 10 t Sodium MG MG 10 MG Levothyroxi Levothyroxi No QD Levothyrox ne Sodium ne Sodium ine Sodium 88 MCG 88 MCG 88 MCG Naproxen Naproxen No Naproxen 500 MG 500 MG 500 MG SUMAtriptan SUMAtriptan No SUMAtripta Succinate Succinate n 50 MG 50 MG Succinate 50 MG Cyclobenzap Cyclobenzap No Cyclobenza rine HCl 10 rine HCl 10 altagracia HCl MG MG 10 MG Fluticasone Fluticasone No Fluticason Propionate Propionate e 50 MCG/ACT 50 MCG/ACT Propionate 50 MCG/ACT Amitriptyli Amitriptyli No 1{table QD Amitriptyl ne HCl 75 ne HCl 75 t} ine HCl 75 MG MG MG Levothyroxi Levothyroxi No Levothyrox ne Sodium ne Sodium ine Sodium 100 MCG 100 MCG 100 MCG Ozempic 1 Ozempic 1 No Ozempic 1 MG/DOSE MG/DOSE MG/DOSE Loratadine Loratadine No 1{table QD Loratadine 10 MG 10 MG t} 10 MG predniSONE predniSONE No QD predniSONE 10 MG 10 MG 10 MG BD Pen BD Pen No BD Pen Needle Mini Needle Mini Needle U/F 31G X 5 U/F 31G X 5 Mini U/F MM MM 31G X 5 MM Azithromyci Azithromyci No QD Azithromyc n 250 MG n 250 MG in 250 MG Benzonatate Benzonatate No 1{capsu TID Benzonatat 200 MG 200 MG le} e 200 MG Omeprazole Omeprazole No 1{capsu QD Omeprazole 40 MG 40 MG le} 40 MG Montelukast Montelukast No Montelukas Sodium 10 Sodium 10 t Sodium MG MG 10 MG Levothyroxi Levothyroxi No QD Levothyrox ne Sodium ne Sodium ine Sodium 88 MCG 88 MCG 88 MCG Naproxen Naproxen No Naproxen 500 MG 500 MG 500 MG SUMAtriptan SUMAtriptan No SUMAtripta Succinate Succinate n 50 MG 50 MG Succinate 50 MG Cyclobenzap Cyclobenzap No Cyclobenza rine HCl 10 rine HCl 10 altagracia HCl MG MG 10 MG Fluticasone Fluticasone No Fluticason Propionate Propionate e 50 MCG/ACT 50 MCG/ACT Propionate 50 MCG/ACT Amitriptyli Amitriptyli No 1{table QD Amitriptyl ne HCl 75 ne HCl 75 t} ine HCl 75 MG MG MG Levothyroxi Levothyroxi No Levothyrox ne Sodium ne Sodium ine Sodium 100 MCG 100 MCG 100 MCG Ozempic 1 Ozempic 1 No Ozempic 1 MG/DOSE MG/DOSE MG/DOSE Loratadine Loratadine No 1{table QD Loratadine 10 MG 10 MG t} 10 MG predniSONE predniSONE No QD predniSONE 10 MG 10 MG 10 MG BD Pen BD Pen No BD Pen Needle Mini Needle Mini Needle U/F 31G X 5 U/F 31G X 5 Mini U/F MM MM 31G X 5 MM Azithromyci Azithromyci No QD Azithromyc n 250 MG n 250 MG in 250 MG Benzonatate Benzonatate No 1{capsu TID Benzonatat 200 MG 200 MG le} e 200 MG Omeprazole Omeprazole No 1{capsu QD Omeprazole 40 MG 40 MG le} 40 MG Montelukast Montelukast No Montelukas Sodium 10 Sodium 10 t Sodium MG MG 10 MG Levothyroxi Levothyroxi No QD Levothyrox ne Sodium ne Sodium ine Sodium 88 MCG 88 MCG 88 MCG Naproxen Naproxen No Naproxen 500 MG 500 MG 500 MG SUMAtriptan SUMAtriptan No SUMAtripta Succinate Succinate n 50 MG 50 MG Succinate 50 MG Cyclobenzap Cyclobenzap No Cyclobenza rine HCl 10 rine HCl 10 altagracia HCl MG MG 10 MG Fluticasone Fluticasone No Fluticason Propionate Propionate e 50 MCG/ACT 50 MCG/ACT Propionate 50 MCG/ACT Ozempic 1 Ozempic 1 No Ozempic 1 MG/DOSE MG/DOSE MG/DOSE predniSONE predniSONE No QD predniSONE 10 MG 10 MG 10 MG Benzonatate Benzonatate No 1{capsu TID Benzonatat 200 MG 200 MG le} e 200 MG BD Pen BD Pen No BD Pen Needle Mini Needle Mini Needle U/F 31G X 5 U/F 31G X 5 Mini U/F MM MM 31G X 5 MM Levothyroxi Levothyroxi No Levothyrox ne Sodium ne Sodium ine Sodium 100 MCG 100 MCG 100 MCG Azithromyci Azithromyci No QD Azithromyc n 250 MG n 250 MG in 250 MG Naproxen Naproxen No Naproxen 500 MG 500 MG 500 MG Loratadine Loratadine No 1{table QD Loratadine 10 MG 10 MG t} 10 MG SUMAtriptan SUMAtriptan No SUMAtripta Succinate Succinate n 50 MG 50 MG Succinate 50 MG Cyclobenzap Cyclobenzap No Cyclobenza rine HCl 10 rine HCl 10 altagracia HCl MG MG 10 MG Fluticasone Fluticasone No Fluticason Propionate Propionate e 50 MCG/ACT 50 MCG/ACT Propionate 50 MCG/ACT Amitriptyli Amitriptyli No 1{table QD Amitriptyl ne HCl 75 ne HCl 75 t} ine HCl 75 MG MG MG Levothyroxi Levothyroxi No QD Levothyrox ne Sodium ne Sodium ine Sodium 88 MCG 88 MCG 88 MCG Montelukast Montelukast No Montelukas Sodium 10 Sodium 10 t Sodium MG MG 10 MG Omeprazole Omeprazole No 1{capsu QD Omeprazole 40 MG 40 MG le} 40 MG SUMAtriptan SUMAtriptan No SUMAtripta Succinate Succinate n 50 MG 50 MG Succinate 50 MG Levothyroxi Levothyroxi No Levothyrox ne Sodium ne Sodium ine Sodium 100 MCG 100 MCG 100 MCG Montelukast Montelukast No Montelukas Sodium 10 Sodium 10 t Sodium MG MG 10 MG Loratadine Loratadine No 1{table QD Loratadine 10 MG 10 MG t} 10 MG Cyclobenzap Cyclobenzap No Cyclobenza rine HCl 10 rine HCl 10 altagracia HCl MG MG 10 MG predniSONE predniSONE No QD predniSONE 10 MG 10 MG 10 MG Omeprazole Omeprazole No 1{capsu QD Omeprazole 40 MG 40 MG le} 40 MG Ozempic 1 Ozempic 1 No Ozempic 1 MG/DOSE MG/DOSE MG/DOSE Amitriptyli Amitriptyli No 1{table QD Amitriptyl ne HCl 100 ne HCl 100 t} ine HCl MG MG 100 MG Benzonatate Benzonatate No 1{capsu TID Benzonatat 200 MG 200 MG le} e 200 MG Azithromyci Azithromyci No QD Azithromyc n 250 MG n 250 MG in 250 MG Fluticasone Fluticasone No Fluticason Propionate Propionate e 50 MCG/ACT 50 MCG/ACT Propionate 50 MCG/ACT Naproxen Naproxen No Naproxen 500 MG 500 MG 500 MG Amitriptyli Amitriptyli No 1{table QD Amitriptyl ne HCl 75 ne HCl 75 t} ine HCl 75 MG MG MG Levothyroxi Levothyroxi No QD Levothyrox ne Sodium ne Sodium ine Sodium 88 MCG 88 MCG 88 MCG BD Pen BD Pen No BD Pen Needle Mini Needle Mini Needle U/F 31G X 5 U/F 31G X 5 Mini U/F MM MM 31G X 5 MM SUMAtriptan SUMAtriptan No SUMAtripta Succinate Succinate n 50 MG 50 MG Succinate 50 MG Levothyroxi Levothyroxi No Levothyrox ne Sodium ne Sodium ine Sodium 100 MCG 100 MCG 100 MCG Montelukast Montelukast No Montelukas Sodium 10 Sodium 10 t Sodium MG MG 10 MG Loratadine Loratadine No 1{table QD Loratadine 10 MG 10 MG t} 10 MG Cyclobenzap Cyclobenzap No Cyclobenza rine HCl 10 rine HCl 10 altagracia HCl MG MG 10 MG predniSONE predniSONE No QD predniSONE 10 MG 10 MG 10 MG Omeprazole Omeprazole No 1{capsu QD Omeprazole 40 MG 40 MG le} 40 MG Ozempic 1 Ozempic 1 No Ozempic 1 MG/DOSE MG/DOSE MG/DOSE Amitriptyli Amitriptyli No 1{table QD Amitriptyl ne HCl 100 ne HCl 100 t} ine HCl MG MG 100 MG Benzonatate Benzonatate No 1{capsu TID Benzonatat 200 MG 200 MG le} e 200 MG Azithromyci Azithromyci No QD Azithromyc n 250 MG n 250 MG in 250 MG Fluticasone Fluticasone No Fluticason Propionate Propionate e 50 MCG/ACT 50 MCG/ACT Propionate 50 MCG/ACT Naproxen Naproxen No Naproxen 500 MG 500 MG 500 MG Amitriptyli Amitriptyli No 1{table QD Amitriptyl ne HCl 75 ne HCl 75 t} ine HCl 75 MG MG MG Levothyroxi Levothyroxi No QD Levothyrox ne Sodium ne Sodium ine Sodium 88 MCG 88 MCG 88 MCG BD Pen BD Pen No BD Pen Needle Mini Needle Mini Needle U/F 31G X 5 U/F 31G X 5 Mini U/F MM MM 31G X 5 MM Imitrex Imitrex Yes Rickie 1 tablet Com mon Mg as needed [facility] Loratadine Loratadine Yes Rickie 1 tablet Common Mg [facility] Omeprazole Omeprazole Yes Rickie 1 capsule Common Mg [facility] BD Pen BD Pen Yes Rickie USE Common Needle Mini Needle Mini Mg DIRECTED [facility] U/F U/F WITH - [facility] FLEXPEN [facility] Sumatriptan Sumatriptan Yes Rickie PLEASE SEE Common Succinate Succinate Mg ATTACHED [facility] FOR - [facility] DETAILED [facility] Ozempic (1 Ozempic (1 Yes Rickie INJECT 1 Common MG/DOSE) MG/DOSE) Mg MG/DOSE Spi rit ONCE A - [facility] WEEK [address] Phentermine Phentermine Yes Rickie 1 tablet Common HCl HCl Mg [facility] Levothyroxi Levothyroxi Yes Rickie 1 tablet Common ne Sodium ne Sodium Mg on an Spi rit empty - [facility] stomach in [facility] Amitriptyli Amitriptyli Yes Rickie 1 tablet Common ne HCl ne HCl Mg [facility] - [facility] Levothyroxi Levothyroxi No Levothyrox ne Sodium ne Sodium ine Sodium 100 MCG 100 MCG 100 MCG BD Pen BD Pen No BD Pen Needle Mini Needle Mini Needle U/F 31G X 5 U/F 31G X 5 Mini U/F MM MM 31G X 5 MM Montelukast Montelukast No Montelukas Sodium 10 Sodium 10 t Sodium MG MG 10 MG Fluticasone Fluticasone No Fluticason Propionate Propionate e 50 MCG/ACT 50 MCG/ACT Propionate 50 MCG/ACT SUMAtriptan SUMAtriptan No SUMAtripta Succinate Succinate n 50 MG 50 MG Succinate 50 MG predniSONE predniSONE No QD predniSONE 10 MG 10 MG 10 MG Cyclobenzap Cyclobenzap No Cyclobenza rine HCl 10 rine HCl 10 altagracia HCl MG MG 10 MG Omeprazole Omeprazole No 1{capsu QD Omeprazole 40 MG 40 MG le} 40 MG Amitriptyli Amitriptyli No 1{table QD Amitriptyl ne HCl 100 ne HCl 100 t} ine HCl MG MG 100 MG Loratadine Loratadine No 1{table QD Loratadine 10 MG 10 MG t} 10 MG Naproxen Naproxen No Naproxen 500 MG 500 MG 500 MG Levothyroxi Levothyroxi No QD Levothyrox ne Sodium ne Sodium ine Sodium 88 MCG 88 MCG 88 MCG Ozempic 1 Ozempic 1 No Ozempic 1 MG/DOSE MG/DOSE MG/DOSE Amitriptyli Amitriptyli No 1{table QD Amitriptyl ne HCl 75 ne HCl 75 t} ine HCl 75 MG MG MG Benzonatate Benzonatate No 1{capsu TID Benzonatat 200 MG 200 MG le} e 200 MG Azithromyci Azithromyci No QD Azithromyc n 250 MG n 250 MG in 250 MG Amitriptyli Amitriptyli No 1{table QD Amitriptyl ne HCl 75 ne HCl 75 t} ine HCl 75 MG MG MG Levothyroxi Levothyroxi No QD Levothyrox ne Sodium ne Sodium ine Sodium 88 MCG 88 MCG 88 MCG Loratadine Loratadine No 1{table QD Loratadine 10 MG 10 MG t} 10 MG SUMAtriptan SUMAtriptan No SUMAtripta Succinate Succinate n 50 MG 50 MG Succinate 50 MG Omeprazole Omeprazole No 1{capsu QD Omeprazole 40 MG 40 MG le} 40 MG predniSONE predniSONE No QD predniSONE 10 MG 10 MG 10 MG Azithromyci Azithromyci No QD Azithromyc n 250 MG n 250 MG in 250 MG Cyclobenzap Cyclobenzap No Cyclobenza rine HCl 10 rine HCl 10 altagracia HCl MG MG 10 MG Benzonatate Benzonatate No 1{capsu TID Benzonatat 200 MG 200 MG le} e 200 MG Amitriptyli Amitriptyli No 1{table QD Amitriptyl ne HCl 100 ne HCl 100 t} ine HCl MG MG 100 MG Fluticasone Fluticasone No Fluticason Propionate Propionate e 50 MCG/ACT 50 MCG/ACT Propionate 50 MCG/ACT Montelukast Montelukast No Montelukas Sodium 10 Sodium 10 t Sodium MG MG 10 MG BD Pen BD Pen No BD Pen Needle Mini Needle Mini Needle U/F 31G X 5 U/F 31G X 5 Mini U/F MM MM 31G X 5 MM Levothyroxi Levothyroxi No Levothyrox ne Sodium ne Sodium ine Sodium 100 MCG 100 MCG 100 MCG Naproxen Naproxen No Naproxen 500 MG 500 MG 500 MG Ozempic 1 Ozempic 1 No Ozempic 1 MG/DOSE MG/DOSE MG/DOSE Amitriptyli Amitriptyli No 1{table QD Amitriptyl ne HCl 75 ne HCl 75 t} ine HCl 75 MG MG MG Levothyroxi Levothyroxi No QD Levothyrox ne Sodium ne Sodium ine Sodium 88 MCG 88 MCG 88 MCG Loratadine Loratadine No 1{table QD Loratadine 10 MG 10 MG t} 10 MG SUMAtriptan SUMAtriptan No SUMAtripta Succinate Succinate n 50 MG 50 MG Succinate 50 MG Omeprazole Omeprazole No 1{capsu QD Omeprazole 40 MG 40 MG le} 40 MG predniSONE predniSONE No QD predniSONE 10 MG 10 MG 10 MG Azithromyci Azithromyci No QD Azithromyc n 250 MG n 250 MG in 250 MG Cyclobenzap Cyclobenzap No Cyclobenza rine HCl 10 rine HCl 10 altagracia HCl MG MG 10 MG Benzonatate Benzonatate No 1{capsu TID Benzonatat 200 MG 200 MG le} e 200 MG Amitriptyli Amitriptyli No 1{table QD Amitriptyl ne HCl 100 ne HCl 100 t} ine HCl MG MG 100 MG Fluticasone Fluticasone No Fluticason Propionate Propionate e 50 MCG/ACT 50 MCG/ACT Propionate 50 MCG/ACT Montelukast Montelukast No Montelukas Sodium 10 Sodium 10 t Sodium MG MG 10 MG BD Pen BD Pen No BD Pen Needle Mini Needle Mini Needle U/F 31G X 5 U/F 31G X 5 Mini U/F MM MM 31G X 5 MM Levothyroxi Levothyroxi No Levothyrox ne Sodium ne Sodium ine Sodium 100 MCG 100 MCG 100 MCG Naproxen Naproxen No Naproxen 500 MG 500 MG 500 MG Ozempic 1 Ozempic 1 No Ozempic 1 MG/DOSE MG/DOSE MG/DOSE Amitriptyli Amitriptyli No 1{table QD Amitriptyl ne HCl 75 ne HCl 75 t} ine HCl 75 MG MG MG Amitriptyli Amitriptyli No 1{table QD Amitriptyl ne HCl 100 ne HCl 100 t} ine HCl MG MG 100 MG Levothyroxi Levothyroxi No Levothyrox ne Sodium ne Sodium ine Sodium 100 MCG 100 MCG 100 MCG Loratadine Loratadine No 1{table QD Loratadine 10 MG 10 MG t} 10 MG Naproxen Naproxen No Naproxen 500 MG 500 MG 500 MG Cyclobenzap Cyclobenzap No Cyclobenza rine HCl 10 rine HCl 10 altagracia HCl MG MG 10 MG Levothyroxi Levothyroxi No QD Levothyrox ne Sodium ne Sodium ine Sodium 88 MCG 88 MCG 88 MCG predniSONE predniSONE No QD predniSONE 10 MG 10 MG 10 MG Azithromyci Azithromyci No QD Azithromyc n 250 MG n 250 MG in 250 MG BD Pen BD Pen No BD Pen Needle Mini Needle Mini Needle U/F 31G X 5 U/F 31G X 5 Mini U/F MM MM 31G X 5 MM Ozempic 1 Ozempic 1 No Ozempic 1 MG/DOSE MG/DOSE MG/DOSE Montelukast Montelukast No Montelukas Sodium 10 Sodium 10 t Sodium MG MG 10 MG Benzonatate Benzonatate No 1{capsu TID Benzonatat 200 MG 200 MG le} e 200 MG Omeprazole Omeprazole No 1{capsu QD Omeprazole 40 MG 40 MG le} 40 MG Fluticasone Fluticasone No Fluticason Propionate Propionate e 50 MCG/ACT 50 MCG/ACT Propionate 50 MCG/ACT SUMAtriptan SUMAtriptan No SUMAtripta Succinate Succinate n 50 MG 50 MG Succinate 50 MG Amitriptyli Amitriptyli No 1{table QD Amitriptyl ne HCl 75 ne HCl 75 t} ine HCl 75 MG MG MG Amitriptyli Amitriptyli No 1{table QD Amitriptyl ne HCl 100 ne HCl 100 t} ine HCl MG MG 100 MG Levothyroxi Levothyroxi No Levothyrox ne Sodium ne Sodium ine Sodium 100 MCG 100 MCG 100 MCG Loratadine Loratadine No 1{table QD Loratadine 10 MG 10 MG t} 10 MG Naproxen Naproxen No Naproxen 500 MG 500 MG 500 MG Cyclobenzap Cyclobenzap No Cyclobenza rine HCl 10 rine HCl 10 altagracia HCl MG MG 10 MG Levothyroxi Levothyroxi No QD Levothyrox ne Sodium ne Sodium ine Sodium 88 MCG 88 MCG 88 MCG predniSONE predniSONE No QD predniSONE 10 MG 10 MG 10 MG Azithromyci Azithromyci No QD Azithromyc n 250 MG n 250 MG in 250 MG BD Pen BD Pen No BD Pen Needle Mini Needle Mini Needle U/F 31G X 5 U/F 31G X 5 Mini U/F MM MM 31G X 5 MM Ozempic 1 Ozempic 1 No Ozempic 1 MG/DOSE MG/DOSE MG/DOSE Montelukast Montelukast No Montelukas Sodium 10 Sodium 10 t Sodium MG MG 10 MG Benzonatate Benzonatate No 1{capsu TID Benzonatat 200 MG 200 MG le} e 200 MG Omeprazole Omeprazole No 1{capsu QD Omeprazole 40 MG 40 MG le} 40 MG Fluticasone Fluticasone No Fluticason Propionate Propionate e 50 MCG/ACT 50 MCG/ACT Propionate 50 MCG/ACT SUMAtriptan SUMAtriptan No SUMAtripta Succinate Succinate n 50 MG 50 MG Succinate 50 MG Amitriptyli Amitriptyli No 1{table QD Amitriptyl ne HCl 75 ne HCl 75 t} ine HCl 75 MG MG MG SUMAtriptan SUMAtriptan No SUMAtripta Succinate Succinate n 50 MG 50 MG Succinate 50 MG Amitriptyli Amitriptyli No 1{table QD Amitriptyl ne HCl 100 ne HCl 100 t} ine HCl MG MG 100 MG Montelukast Montelukast No Montelukas Sodium 10 Sodium 10 t Sodium MG MG 10 MG Loratadine Loratadine No 1{table QD Loratadine 10 MG 10 MG t} 10 MG Naproxen Naproxen No Naproxen 500 MG 500 MG 500 MG Cyclobenzap Cyclobenzap No Cyclobenza rine HCl 10 rine HCl 10 altagracia HCl MG MG 10 MG Levothyroxi Levothyroxi No QD Levothyrox ne Sodium ne Sodium ine Sodium 88 MCG 88 MCG 88 MCG predniSONE predniSONE No QD predniSONE 10 MG 10 MG 10 MG BD Pen BD Pen No BD Pen Needle Mini Needle Mini Needle U/F 31G X 5 U/F 31G X 5 Mini U/F MM MM 31G X 5 MM Levothyroxi Levothyroxi No Levothyrox ne Sodium ne Sodium ine Sodium 100 MCG 100 MCG 100 MCG Ozempic 1 Ozempic 1 No Ozempic 1 MG/DOSE MG/DOSE MG/DOSE Benzonatate Benzonatate No 1{capsu TID Benzonatat 200 MG 200 MG le} e 200 MG Fluticasone Fluticasone No Fluticason Propionate Propionate e 50 MCG/ACT 50 MCG/ACT Propionate 50 MCG/ACT Azithromyci Azithromyci No QD Azithromyc n 250 MG n 250 MG in 250 MG Omeprazole Omeprazole No 1{capsu QD Omeprazole 40 MG 40 MG le} 40 MG Amitriptyli Amitriptyli No 1{table QD Amitriptyl ne HCl 75 ne HCl 75 t} ine HCl 75 MG MG MG SUMAtriptan SUMAtriptan No SUMAtripta Succinate Succinate n 50 MG 50 MG Succinate 50 MG Amitriptyli Amitriptyli No 1{table QD Amitriptyl ne HCl 100 ne HCl 100 t} ine HCl MG MG 100 MG Montelukast Montelukast No Montelukas Sodium 10 Sodium 10 t Sodium MG MG 10 MG Loratadine Loratadine No 1{table QD Loratadine 10 MG 10 MG t} 10 MG Naproxen Naproxen No Naproxen 500 MG 500 MG 500 MG Cyclobenzap Cyclobenzap No Cyclobenza rine HCl 10 rine HCl 10 altagracia HCl MG MG 10 MG Levothyroxi Levothyroxi No QD Levothyrox ne Sodium ne Sodium ine Sodium 88 MCG 88 MCG 88 MCG predniSONE predniSONE No QD predniSONE 10 MG 10 MG 10 MG BD Pen BD Pen No BD Pen Needle Mini Needle Mini Needle U/F 31G X 5 U/F 31G X 5 Mini U/F MM MM 31G X 5 MM Levothyroxi Levothyroxi No Levothyrox ne Sodium ne Sodium ine Sodium 100 MCG 100 MCG 100 MCG Ozempic 1 Ozempic 1 No Ozempic 1 MG/DOSE MG/DOSE MG/DOSE Benzonatate Benzonatate No 1{capsu TID Benzonatat 200 MG 200 MG le} e 200 MG Fluticasone Fluticasone No Fluticason Propionate Propionate e 50 MCG/ACT 50 MCG/ACT Propionate 50 MCG/ACT Azithromyci Azithromyci No QD Azithromyc n 250 MG n 250 MG in 250 MG Omeprazole Omeprazole No 1{capsu QD Omeprazole 40 MG 40 MG le} 40 MG BD Pen BD Pen No BD Pen Needle Mini Needle Mini Needle U/F 31G X 5 U/F 31G X 5 Mini U/F MM MM 31G X 5 MM Omeprazole Omeprazole No 1{capsu QD Omeprazole 40 MG 40 MG le} 40 MG predniSONE predniSONE No QD predniSONE 10 MG 10 MG 10 MG Levothyroxi Levothyroxi No Levothyrox ne Sodium ne Sodium ine Sodium 100 MCG 100 MCG 100 MCG Naproxen Naproxen No Naproxen 500 MG 500 MG 500 MG Amitriptyli Amitriptyli No 1{table QD Amitriptyl ne HCl 75 ne HCl 75 t} ine HCl 75 MG MG MG Montelukast Montelukast No Montelukas Sodium 10 Sodium 10 t Sodium MG MG 10 MG Azithromyci Azithromyci No QD Azithromyc n 250 MG n 250 MG in 250 MG Benzonatate Benzonatate No 1{capsu TID Benzonatat 200 MG 200 MG le} e 200 MG Fluticasone Fluticasone No Fluticason Propionate Propionate e 50 MCG/ACT 50 MCG/ACT Propionate 50 MCG/ACT Levothyroxi Levothyroxi No Levothyrox ne Sodium ne Sodium ine Sodium 88 MCG 88 MCG 88 MCG Amitriptyli Amitriptyli No 1{table QD Amitriptyl ne HCl 100 ne HCl 100 t} ine HCl MG MG 100 MG Ozempic 1 Ozempic 1 No Ozempic 1 MG/DOSE MG/DOSE MG/DOSE Loratadine Loratadine No 1{table QD Loratadine 10 MG 10 MG t} 10 MG Cyclobenzap Cyclobenzap No Cyclobenza rine HCl 10 rine HCl 10 altagracia HCl MG MG 10 MG SUMAtriptan SUMAtriptan No SUMAtripta Succinate Succinate n 50 MG 50 MG Succinate 50 MG Ozempic 1 Ozempic 1 No Ozempic 1 MG/DOSE MG/DOSE MG/DOSE BD Pen BD Pen No BD Pen Needle Mini Needle Mini Needle U/F 31G X 5 U/F 31G X 5 Mini U/F MM MM 31G X 5 MM SUMAtriptan SUMAtriptan No SUMAtripta Succinate Succinate n 50 MG 50 MG Succinate 50 MG Omeprazole Omeprazole No 1{capsu QD Omeprazole 40 MG 40 MG le} 40 MG Levothyroxi Levothyroxi No Levothyrox ne Sodium ne Sodium ine Sodium 100 MCG 100 MCG 100 MCG Cyclobenzap Cyclobenzap No 1{table QD Cyclobenza rine HCl 10 rine HCl 10 t_at_be altagraica HCl MG MG dtime_a 10 MG s_neede d} Amitriptyli Amitriptyli No Amitriptyl ne HCl 75 ne HCl 75 ine HCl 75 MG MG MG Levothyroxi Levothyroxi No QD Levothyrox ne Sodium ne Sodium ine Sodium 88 MCG 88 MCG 88 MCG Loratadine Loratadine No 1{table QD Loratadine 10 MG 10 MG t} 10 MG Ozempic 1 Ozempic 1 No Ozempic 1 MG/DOSE MG/DOSE MG/DOSE BD Pen BD Pen No BD Pen Needle Mini Needle Mini Needle U/F 31G X 5 U/F 31G X 5 Mini U/F MM MM 31G X 5 MM SUMAtriptan SUMAtriptan No SUMAtripta Succinate Succinate n 50 MG 50 MG Succinate 50 MG Omeprazole Omeprazole No 1{capsu QD Omeprazole 40 MG 40 MG le} 40 MG Levothyroxi Levothyroxi No Levothyrox ne Sodium ne Sodium ine Sodium 100 MCG 100 MCG 100 MCG Cyclobenzap Cyclobenzap No 1{table QD Cyclobenza rine HCl 10 rine HCl 10 t_at_be altagracia HCl MG MG dtime_a 10 MG s_neede d} Amitriptyli Amitriptyli No Amitriptyl ne HCl 75 ne HCl 75 ine HCl 75 MG MG MG Levothyroxi Levothyroxi No QD Levothyrox ne Sodium ne Sodium ine Sodium 88 MCG 88 MCG 88 MCG Loratadine Loratadine No 1{table QD Loratadine 10 MG 10 MG t} 10 MG BD Pen BD Pen No BD Pen Needle Mini Needle Mini Needle U/F 31G X 5 U/F 31G X 5 Mini U/F MM MM 31G X 5 MM Levothyroxi Levothyroxi No QD Levothyrox ne Sodium ne Sodium ine Sodium 88 MCG 88 MCG 88 MCG SUMAtriptan SUMAtriptan No SUMAtripta Succinate Succinate n 50 MG 50 MG Succinate 50 MG Cyclobenzap Cyclobenzap No 1{table QD Cyclobenza rine HCl 10 rine HCl 10 t_at_be altagracia HCl MG MG dtime_a 10 MG s_neede d} Amitriptyli Amitriptyli No Amitriptyl ne HCl 75 ne HCl 75 ine HCl 75 MG MG MG Loratadine Loratadine No 1{table QD Loratadine 10 MG 10 MG t} 10 MG Ozempic 1 Ozempic 1 No Ozempic 1 MG/DOSE MG/DOSE MG/DOSE Levothyroxi Levothyroxi No Levothyrox ne Sodium ne Sodium ine Sodium 100 MCG 100 MCG 100 MCG Omeprazole Omeprazole No 1{capsu QD Omeprazole 40 MG 40 MG le} 40 MG BD Pen BD Pen No BD Pen Needle Mini Needle Mini Needle U/F 31G X 5 U/F 31G X 5 Mini U/F MM MM 31G X 5 MM Levothyroxi Levothyroxi No QD Levothyrox ne Sodium ne Sodium ine Sodium 88 MCG 88 MCG 88 MCG SUMAtriptan SUMAtriptan No SUMAtripta Succinate Succinate n 50 MG 50 MG Succinate 50 MG Cyclobenzap Cyclobenzap No 1{table QD Cyclobenza rine HCl 10 rine HCl 10 t_at_be altagracia HCl MG MG dtime_a 10 MG s_neede d} Amitriptyli Amitriptyli No Amitriptyl ne HCl 75 ne HCl 75 ine HCl 75 MG MG MG Loratadine Loratadine No 1{table QD Loratadine 10 MG 10 MG t} 10 MG Ozempic 1 Ozempic 1 No Ozempic 1 MG/DOSE MG/DOSE MG/DOSE Levothyroxi Levothyroxi No Levothyrox ne Sodium ne Sodium ine Sodium 100 MCG 100 MCG 100 MCG Omeprazole Omeprazole No 1{capsu QD Omeprazole 40 MG 40 MG le} 40 MG BD Pen BD Pen No BD Pen Needle Mini Needle Mini Needle U/F 31G X 5 U/F 31G X 5 Mini U/F MM MM 31G X 5 MM Levothyroxi Levothyroxi No QD Levothyrox ne Sodium ne Sodium ine Sodium 88 MCG 88 MCG 88 MCG SUMAtriptan SUMAtriptan No SUMAtripta Succinate Succinate n 50 MG 50 MG Succinate 50 MG Cyclobenzap Cyclobenzap No 1{table QD Cyclobenza rine HCl 10 rine HCl 10 t_at_be altagracia HCl MG MG dtime_a 10 MG s_neede d} Amitriptyli Amitriptyli No Amitriptyl ne HCl 75 ne HCl 75 ine HCl 75 MG MG MG Loratadine Loratadine No 1{table QD Loratadine 10 MG 10 MG t} 10 MG Ozempic 1 Ozempic 1 No Ozempic 1 MG/DOSE MG/DOSE MG/DOSE Levothyroxi Levothyroxi No Levothyrox ne Sodium ne Sodium ine Sodium 100 MCG 100 MCG 100 MCG Omeprazole Omeprazole No 1{capsu QD Omeprazole 40 MG 40 MG le} 40 MG BD Pen BD Pen No BD Pen Needle Mini Needle Mini Needle U/F 31G X 5 U/F 31G X 5 Mini U/F MM MM 31G X 5 MM Ozempic 1 Ozempic 1 No Ozempic 1 MG/DOSE MG/DOSE MG/DOSE Omeprazole Omeprazole No 1{capsu QD Omeprazole 40 MG 40 MG le} 40 MG Cyclobenzap Cyclobenzap No 1{table QD Cyclobenza rine HCl 10 rine HCl 10 t_at_be altagracia HCl MG MG dtime_a 10 MG s_neede d} Levothyroxi Levothyroxi No Levothyrox ne Sodium ne Sodium ine Sodium 100 MCG 100 MCG 100 MCG SUMAtriptan SUMAtriptan No SUMAtripta Succinate Succinate n 50 MG 50 MG Succinate 50 MG Amitriptyli Amitriptyli No 1{table QD Amitriptyl ne HCl 75 ne HCl 75 t} ine HCl 75 MG MG MG Loratadine Loratadine No 1{table QD Loratadine 10 MG 10 MG t} 10 MG Naproxen Naproxen No Naproxen 500 MG 500 MG 500 MG Levothyroxi Levothyroxi No QD Levothyrox ne Sodium ne Sodium ine Sodium 88 MCG 88 MCG 88 MCG Naproxen Naproxen No Naproxen 500 MG 500 MG 500 MG Loratadine Loratadine No 1{table QD Loratadine 10 MG 10 MG t} 10 MG Omeprazole Omeprazole No 1{capsu QD Omeprazole 40 MG 40 MG le} 40 MG Amitriptyli Amitriptyli No 1{table QD Amitriptyl ne HCl 75 ne HCl 75 t} ine HCl 75 MG MG MG Ozempic 1 Ozempic 1 No Ozempic 1 MG/DOSE MG/DOSE MG/DOSE Fluticasone Fluticasone No Fluticason Propionate Propionate e 50 MCG/ACT 50 MCG/ACT Propionate 50 MCG/ACT BD Pen BD Pen No BD Pen Needle Mini Needle Mini Needle U/F 31G X 5 U/F 31G X 5 Mini U/F MM MM 31G X 5 MM Cyclobenzap Cyclobenzap No Cyclobenza rine HCl 10 rine HCl 10 altagracia HCl MG MG 10 MG Levothyroxi Levothyroxi No Levothyrox ne Sodium ne Sodium ine Sodium 100 MCG 100 MCG 100 MCG Montelukast Montelukast No Montelukas Sodium 10 Sodium 10 t Sodium MG MG 10 MG Levothyroxi Levothyroxi No QD Levothyrox ne Sodium ne Sodium ine Sodium 88 MCG 88 MCG 88 MCG SUMAtriptan SUMAtriptan No SUMAtripta Succinate Succinate n 50 MG 50 MG Succinate 50 MG Benzonatate Benzonatate No 1{capsu TID 200 MG 200 MG le} Azithromyci Azithromyci No QD n 250 MG n 250 MG Fluticasone Fluticasone No Propionate Propionate 50 MCG/ACT 50 MCG/ACT Amitriptyli Amitriptyli No 1{table QD ne HCl 75 ne HCl 75 t} MG MG Ozempic 1 Ozempic 1 No MG/DOSE MG/DOSE Omeprazole Omeprazole No 1{capsu QD 40 MG 40 MG le} Levothyroxi Levothyroxi No QD ne Sodium ne Sodium 88 MCG 88 MCG Levothyroxi Levothyroxi No ne Sodium ne Sodium 100 MCG 100 MCG Montelukast Montelukast No Sodium 10 Sodium 10 MG MG Cyclobenzap Cyclobenzap No rine HCl 10 rine HCl 10 MG MG BD Pen BD Pen No Needle Mini Needle Mini U/F 31G X 5 U/F 31G X 5 MM MM Naproxen Naproxen No 500 MG 500 MG SUMAtriptan SUMAtriptan No Succinate Succinate 50 MG 50 MG predniSONE predniSONE No QD 10 MG 10 MG Loratadine Loratadine No 1{table QD 10 MG 10 MG t} Benzonatate Benzonatate No 1{capsu TID 200 MG 200 MG le} Azithromyci Azithromyci No QD n 250 MG n 250 MG Fluticasone Fluticasone No Propionate Propionate 50 MCG/ACT 50 MCG/ACT Amitriptyli Amitriptyli No 1{table QD ne HCl 75 ne HCl 75 t} MG MG Ozempic 1 Ozempic 1 No MG/DOSE MG/DOSE Omeprazole Omeprazole No 1{capsu QD 40 MG 40 MG le} Levothyroxi Levothyroxi No QD ne Sodium ne Sodium 88 MCG 88 MCG Levothyroxi Levothyroxi No ne Sodium ne Sodium 100 MCG 100 MCG Montelukast Montelukast No Sodium 10 Sodium 10 MG MG Cyclobenzap Cyclobenzap No rine HCl 10 rine HCl 10 MG MG BD Pen BD Pen No Needle Mini Needle Mini U/F 31G X 5 U/F 31G X 5 MM MM Naproxen Naproxen No 500 MG 500 MG SUMAtriptan SUMAtriptan No Succinate Succinate 50 MG 50 MG predniSONE predniSONE No QD 10 MG 10 MG Loratadine Loratadine No 1{table QD 10 MG 10 MG t} Benzonatate Benzonatate No 1{capsu TID Benzonatat 200 MG 200 MG le} e 200 MG Azithromyci Azithromyci No QD Azithromyc n 250 MG n 250 MG in 250 MG Fluticasone Fluticasone No Fluticason Propionate Propionate e 50 MCG/ACT 50 MCG/ACT Propionate 50 MCG/ACT Amitriptyli Amitriptyli No 1{table QD Amitriptyl ne HCl 75 ne HCl 75 t} ine HCl 75 MG MG MG Ozempic 1 Ozempic 1 No Ozempic 1 MG/DOSE MG/DOSE MG/DOSE Omeprazole Omeprazole No 1{capsu QD Omeprazole 40 MG 40 MG le} 40 MG Levothyroxi Levothyroxi No QD Levothyrox ne Sodium ne Sodium ine Sodium 88 MCG 88 MCG 88 MCG Levothyroxi Levothyroxi No Levothyrox ne Sodium ne Sodium ine Sodium 100 MCG 100 MCG 100 MCG Montelukast Montelukast No Montelukas Sodium 10 Sodium 10 t Sodium MG MG 10 MG Cyclobenzap Cyclobenzap No Cyclobenza rine HCl 10 rine HCl 10 altagracia HCl MG MG 10 MG BD Pen BD Pen No BD Pen Needle Mini Needle Mini Needle U/F 31G X 5 U/F 31G X 5 Mini U/F MM MM 31G X 5 MM Naproxen Naproxen No Naproxen 500 MG 500 MG 500 MG SUMAtriptan SUMAtriptan No SUMAtripta Succinate Succinate n 50 MG 50 MG Succinate 50 MG predniSONE predniSONE No QD predniSONE 10 MG 10 MG 10 MG Loratadine Loratadine No 1{table QD Loratadine 10 MG 10 MG t} 10 MG Benzonatate Benzonatate No 1{capsu TID Benzonatat 200 MG 200 MG le} e 200 MG Azithromyci Azithromyci No QD Azithromyc n 250 MG n 250 MG in 250 MG Amitriptyli Amitriptyli No 1{table QD Amitriptyl ne HCl 75 ne HCl 75 t} ine HCl 75 MG MG MG Ozempic 1 Ozempic 1 No Ozempic 1 MG/DOSE MG/DOSE MG/DOSE Phentermine Phentermine No 1{capsu QD Phentermin HCl 37.5 MG HCl 37.5 MG le} e HCl 37.5 MG Omeprazole Omeprazole No 1{capsu QD Omeprazole 40 MG 40 MG le} 40 MG Levothyroxi Levothyroxi No QD Levothyrox ne Sodium ne Sodium ine Sodium 88 MCG 88 MCG 88 MCG Montelukast Montelukast No Montelukas Sodium 10 Sodium 10 t Sodium MG MG 10 MG Fluticasone Fluticasone No Fluticason Propionate Propionate e 50 MCG/ACT 50 MCG/ACT Propionate 50 MCG/ACT Cyclobenzap Cyclobenzap No Cyclobenza rine HCl 10 rine HCl 10 altagracia HCl MG MG 10 MG SUMAtriptan SUMAtriptan No SUMAtripta Succinate Succinate n 50 MG 50 MG Succinate 50 MG Naproxen Naproxen No Naproxen 500 MG 500 MG 500 MG Levothyroxi Levothyroxi No Levothyrox ne Sodium ne Sodium ine Sodium 100 MCG 100 MCG 100 MCG predniSONE predniSONE No QD predniSONE 10 MG 10 MG 10 MG Loratadine Loratadine No 1{table QD Loratadine 10 MG 10 MG t} 10 MG BD Pen BD Pen No BD Pen Needle Mini Needle Mini Needle U/F 31G X 5 U/F 31G X 5 Mini U/F MM MM 31G X 5 MM Benzonatate Benzonatate No 1{capsu TID Benzonatat 200 MG 200 MG le} e 200 MG Azithromyci Azithromyci No QD Azithromyc n 250 MG n 250 MG in 250 MG Amitriptyli Amitriptyli No 1{table QD Amitriptyl ne HCl 75 ne HCl 75 t} ine HCl 75 MG MG MG Ozempic 1 Ozempic 1 No Ozempic 1 MG/DOSE MG/DOSE MG/DOSE Phentermine Phentermine No 1{capsu QD Phentermin HCl 37.5 MG HCl 37.5 MG le} e HCl 37.5 MG Omeprazole Omeprazole No 1{capsu QD Omeprazole 40 MG 40 MG le} 40 MG Levothyroxi Levothyroxi No QD Levothyrox ne Sodium ne Sodium ine Sodium 88 MCG 88 MCG 88 MCG Montelukast Montelukast No Montelukas Sodium 10 Sodium 10 t Sodium MG MG 10 MG Fluticasone Fluticasone No Fluticason Propionate Propionate e 50 MCG/ACT 50 MCG/ACT Propionate 50 MCG/ACT Cyclobenzap Cyclobenzap No Cyclobenza rine HCl 10 rine HCl 10 altagracia HCl MG MG 10 MG SUMAtriptan SUMAtriptan No SUMAtripta Succinate Succinate n 50 MG 50 MG Succinate 50 MG Naproxen Naproxen No Naproxen 500 MG 500 MG 500 MG Levothyroxi Levothyroxi No Levothyrox ne Sodium ne Sodium ine Sodium 100 MCG 100 MCG 100 MCG predniSONE predniSONE No QD predniSONE 10 MG 10 MG 10 MG Loratadine Loratadine No 1{table QD Loratadine 10 MG 10 MG t} 10 MG BD Pen BD Pen No BD Pen Needle Mini Needle Mini Needle U/F 31G X 5 U/F 31G X 5 Mini U/F MM MM 31G X 5 MM Montelukast Montelukast No Montelukas Sodium 10 Sodium 10 t Sodium MG MG 10 MG Ozempic 1 Ozempic 1 No Ozempic 1 MG/DOSE MG/DOSE MG/DOSE Azithromyci Azithromyci No QD Azithromyc n 250 MG n 250 MG in 250 MG Levothyroxi Levothyroxi No Levothyrox ne Sodium ne Sodium ine Sodium 100 MCG 100 MCG 100 MCG Phentermine Phentermine No 1{capsu QD Phentermin HCl 37.5 MG HCl 37.5 MG le} e HCl 37.5 MG Naproxen Naproxen No Naproxen 500 MG 500 MG 500 MG Fluticasone Fluticasone No Fluticason Propionate Propionate e 50 MCG/ACT 50 MCG/ACT Propionate 50 MCG/ACT Amitriptyli Amitriptyli No 1{table QD Amitriptyl ne HCl 75 ne HCl 75 t} ine HCl 75 MG MG MG Loratadine Loratadine No 1{table QD Loratadine 10 MG 10 MG t} 10 MG Cyclobenzap Cyclobenzap No Cyclobenza rine HCl 10 rine HCl 10 altagracia HCl MG MG 10 MG Omeprazole Omeprazole No 1{capsu QD Omeprazole 40 MG 40 MG le} 40 MG Benzonatate Benzonatate No 1{capsu TID Benzonatat 200 MG 200 MG le} e 200 MG BD Pen BD Pen No BD Pen Needle Mini Needle Mini Needle U/F 31G X 5 U/F 31G X 5 Mini U/F MM MM 31G X 5 MM Levothyroxi Levothyroxi No QD Levothyrox ne Sodium ne Sodium ine Sodium 88 MCG 88 MCG 88 MCG predniSONE predniSONE No QD predniSONE 10 MG 10 MG 10 MG SUMAtriptan SUMAtriptan No SUMAtripta Succinate Succinate n 50 MG 50 MG Succinate 50 MG Montelukast Montelukast No Montelukas Sodium 10 Sodium 10 t Sodium MG MG 10 MG Ozempic 1 Ozempic 1 No Ozempic 1 MG/DOSE MG/DOSE MG/DOSE Azithromyci Azithromyci No QD Azithromyc n 250 MG n 250 MG in 250 MG Levothyroxi Levothyroxi No Levothyrox ne Sodium ne Sodium ine Sodium 100 MCG 100 MCG 100 MCG Phentermine Phentermine No 1{capsu QD Phentermin HCl 37.5 MG HCl 37.5 MG le} e HCl 37.5 MG Naproxen Naproxen No Naproxen 500 MG 500 MG 500 MG Fluticasone Fluticasone No Fluticason Propionate Propionate e 50 MCG/ACT 50 MCG/ACT Propionate 50 MCG/ACT Amitriptyli Amitriptyli No 1{table QD Amitriptyl ne HCl 75 ne HCl 75 t} ine HCl 75 MG MG MG Loratadine Loratadine No 1{table QD Loratadine 10 MG 10 MG t} 10 MG Cyclobenzap Cyclobenzap No Cyclobenza rine HCl 10 rine HCl 10 altagracia HCl MG MG 10 MG Omeprazole Omeprazole No 1{capsu QD Omeprazole 40 MG 40 MG le} 40 MG Benzonatate Benzonatate No 1{capsu TID Benzonatat 200 MG 200 MG le} e 200 MG BD Pen BD Pen No BD Pen Needle Mini Needle Mini Needle U/F 31G X 5 U/F 31G X 5 Mini U/F MM MM 31G X 5 MM Levothyroxi Levothyroxi No QD Levothyrox ne Sodium ne Sodium ine Sodium 88 MCG 88 MCG 88 MCG predniSONE predniSONE No QD predniSONE 10 MG 10 MG 10 MG SUMAtriptan SUMAtriptan No SUMAtripta Succinate Succinate n 50 MG 50 MG Succinate 50 MG Montelukast Montelukast No Montelukas Sodium 10 Sodium 10 t Sodium MG MG 10 MG Ozempic 1 Ozempic 1 No Ozempic 1 MG/DOSE MG/DOSE MG/DOSE Azithromyci Azithromyci No QD Azithromyc n 250 MG n 250 MG in 250 MG Levothyroxi Levothyroxi No Levothyrox ne Sodium ne Sodium ine Sodium 100 MCG 100 MCG 100 MCG Phentermine Phentermine No 1{capsu QD Phentermin HCl 37.5 MG HCl 37.5 MG le} e HCl 37.5 MG Naproxen Naproxen No Naproxen 500 MG 500 MG 500 MG Fluticasone Fluticasone No Fluticason Propionate Propionate e 50 MCG/ACT 50 MCG/ACT Propionate 50 MCG/ACT Amitriptyli Amitriptyli No 1{table QD Amitriptyl ne HCl 75 ne HCl 75 t} ine HCl 75 MG MG MG Loratadine Loratadine No 1{table QD Loratadine 10 MG 10 MG t} 10 MG Cyclobenzap Cyclobenzap No Cyclobenza rine HCl 10 rine HCl 10 altagracia HCl MG MG 10 MG Omeprazole Omeprazole No 1{capsu QD Omeprazole 40 MG 40 MG le} 40 MG Benzonatate Benzonatate No 1{capsu TID Benzonatat 200 MG 200 MG le} e 200 MG BD Pen BD Pen No BD Pen Needle Mini Needle Mini Needle U/F 31G X 5 U/F 31G X 5 Mini U/F MM MM 31G X 5 MM Levothyroxi Levothyroxi No QD Levothyrox ne Sodium ne Sodium ine Sodium 88 MCG 88 MCG 88 MCG predniSONE predniSONE No QD predniSONE 10 MG 10 MG 10 MG SUMAtriptan SUMAtriptan No SUMAtripta Succinate Succinate n 50 MG 50 MG Succinate 50 MG Fluticasone Fluticasone No Fluticason Propionate Propionate e 50 MCG/ACT 50 MCG/ACT Propionate 50 MCG/ACT Loratadine Loratadine No 1{table QD Loratadine 10 MG 10 MG t} 10 MG Cyclobenzap Cyclobenzap No Cyclobenza rine HCl 10 rine HCl 10 altagracia HCl MG MG 10 MG SUMAtriptan SUMAtriptan No SUMAtripta Succinate Succinate n 50 MG 50 MG Succinate 50 MG Montelukast Montelukast No Montelukas Sodium 10 Sodium 10 t Sodium MG MG 10 MG Azithromyci Azithromyci No QD Azithromyc n 250 MG n 250 MG in 250 MG Phentermine Phentermine No 1{capsu QD Phentermin HCl 37.5 MG HCl 37.5 MG le} e HCl 37.5 MG Levothyroxi Levothyroxi No QD Levothyrox ne Sodium ne Sodium ine Sodium 88 MCG 88 MCG 88 MCG Naproxen Naproxen No Naproxen 500 MG 500 MG 500 MG Benzonatate Benzonatate No 1{capsu TID Benzonatat 200 MG 200 MG le} e 200 MG Omeprazole Omeprazole No 1{capsu QD Omeprazole 40 MG 40 MG le} 40 MG predniSONE predniSONE No QD predniSONE 10 MG 10 MG 10 MG Ozempic 1 Ozempic 1 No Ozempic 1 MG/DOSE MG/DOSE MG/DOSE Levothyroxi Levothyroxi No Levothyrox ne Sodium ne Sodium ine Sodium 100 MCG 100 MCG 100 MCG BD Pen BD Pen No BD Pen Needle Mini Needle Mini Needle U/F 31G X 5 U/F 31G X 5 Mini U/F MM MM 31G X 5 MM Amitriptyli Amitriptyli No 1{table QD Amitriptyl ne HCl 75 ne HCl 75 t} ine HCl 75 MG MG MG Loratadine Loratadine No 1{table QD Loratadine 10 MG 10 MG t} 10 MG Amitriptyli Amitriptyli No 1{table QD Amitriptyl ne HCl 75 ne HCl 75 t} ine HCl 75 MG MG MG predniSONE predniSONE No QD predniSONE 10 MG 10 MG 10 MG Fluticasone Fluticasone No Fluticason Propionate Propionate e 50 MCG/ACT 50 MCG/ACT Propionate 50 MCG/ACT Montelukast Montelukast No Montelukas Sodium 10 Sodium 10 t Sodium MG MG 10 MG Azithromyci Azithromyci No QD Azithromyc n 250 MG n 250 MG in 250 MG Phentermine Phentermine No 1{capsu QD Phentermin HCl 37.5 MG HCl 37.5 MG le} e HCl 37.5 MG Naproxen Naproxen No Naproxen 500 MG 500 MG 500 MG Cyclobenzap Cyclobenzap No Cyclobenza rine HCl 10 rine HCl 10 altagracia HCl MG MG 10 MG SUMAtriptan SUMAtriptan No SUMAtripta Succinate Succinate n 50 MG 50 MG Succinate 50 MG Ozempic 1 Ozempic 1 No Ozempic 1 MG/DOSE MG/DOSE MG/DOSE BD Pen BD Pen No BD Pen Needle Mini Needle Mini Needle U/F 31G X 5 U/F 31G X 5 Mini U/F MM MM 31G X 5 MM Levothyroxi Levothyroxi No QD Levothyrox ne Sodium ne Sodium ine Sodium 88 MCG 88 MCG 88 MCG Levothyroxi Levothyroxi No Levothyrox ne Sodium ne Sodium ine Sodium 100 MCG 100 MCG 100 MCG Benzonatate Benzonatate No 1{capsu TID Benzonatat 200 MG 200 MG le} e 200 MG Omeprazole Omeprazole No 1{capsu QD Omeprazole 40 MG 40 MG le} 40 MG Loratadine Loratadine No 1{table QD Loratadine 10 MG 10 MG t} 10 MG Amitriptyli Amitriptyli No 1{table QD Amitriptyl ne HCl 75 ne HCl 75 t} ine HCl 75 MG MG MG predniSONE predniSONE No QD predniSONE 10 MG 10 MG 10 MG Fluticasone Fluticasone No Fluticason Propionate Propionate e 50 MCG/ACT 50 MCG/ACT Propionate 50 MCG/ACT Montelukast Montelukast No Montelukas Sodium 10 Sodium 10 t Sodium MG MG 10 MG Azithromyci Azithromyci No QD Azithromyc n 250 MG n 250 MG in 250 MG Phentermine Phentermine No 1{capsu QD Phentermin HCl 37.5 MG HCl 37.5 MG le} e HCl 37.5 MG Naproxen Naproxen No Naproxen 500 MG 500 MG 500 MG Cyclobenzap Cyclobenzap No Cyclobenza rine HCl 10 rine HCl 10 altagracia HCl MG MG 10 MG SUMAtriptan SUMAtriptan No SUMAtripta Succinate Succinate n 50 MG 50 MG Succinate 50 MG Ozempic 1 Ozempic 1 No Ozempic 1 MG/DOSE MG/DOSE MG/DOSE BD Pen BD Pen No BD Pen Needle Mini Needle Mini Needle U/F 31G X 5 U/F 31G X 5 Mini U/F MM MM 31G X 5 MM Levothyroxi Levothyroxi No QD Levothyrox ne Sodium ne Sodium ine Sodium 88 MCG 88 MCG 88 MCG Levothyroxi Levothyroxi No Levothyrox ne Sodium ne Sodium ine Sodium 100 MCG 100 MCG 100 MCG Benzonatate Benzonatate No 1{capsu TID Benzonatat 200 MG 200 MG le} e 200 MG Omeprazole Omeprazole No 1{capsu QD Omeprazole 40 MG 40 MG le} 40 MG Loratadine Loratadine No 1{table QD Loratadine 10 MG 10 MG t} 10 MG Amitriptyli Amitriptyli No 1{table QD Amitriptyl ne HCl 75 ne HCl 75 t} ine HCl 75 MG MG MG predniSONE predniSONE No QD predniSONE 10 MG 10 MG 10 MG Fluticasone Fluticasone No Fluticason Propionate Propionate e 50 MCG/ACT 50 MCG/ACT Propionate 50 MCG/ACT Montelukast Montelukast No Montelukas Sodium 10 Sodium 10 t Sodium MG MG 10 MG Azithromyci Azithromyci No QD Azithromyc n 250 MG n 250 MG in 250 MG Phentermine Phentermine No 1{capsu QD Phentermin HCl 37.5 MG HCl 37.5 MG le} e HCl 37.5 MG Naproxen Naproxen No Naproxen 500 MG 500 MG 500 MG Cyclobenzap Cyclobenzap No Cyclobenza rine HCl 10 rine HCl 10 altagracia HCl MG MG 10 MG SUMAtriptan SUMAtriptan No SUMAtripta Succinate Succinate n 50 MG 50 MG Succinate 50 MG Ozempic 1 Ozempic 1 No Ozempic 1 MG/DOSE MG/DOSE MG/DOSE BD Pen BD Pen No BD Pen Needle Mini Needle Mini Needle U/F 31G X 5 U/F 31G X 5 Mini U/F MM MM 31G X 5 MM Levothyroxi Levothyroxi No QD Levothyrox ne Sodium ne Sodium ine Sodium 88 MCG 88 MCG 88 MCG Levothyroxi Levothyroxi No Levothyrox ne Sodium ne Sodium ine Sodium 100 MCG 100 MCG 100 MCG Benzonatate Benzonatate No 1{capsu TID Benzonatat 200 MG 200 MG le} e 200 MG Omeprazole Omeprazole No 1{capsu QD Omeprazole 40 MG 40 MG le} 40 MG Phentermine Phentermine No 1{capsu QD Phentermin HCl 37.5 MG HCl 37.5 MG le} e HCl 37.5 MG Amitriptyli Amitriptyli No 1{table QD Amitriptyl ne HCl 75 ne HCl 75 t} ine HCl 75 MG MG MG Omeprazole Omeprazole No 1{capsu QD Omeprazole 40 MG 40 MG le} 40 MG Levothyroxi Levothyroxi No QD Levothyrox ne Sodium ne Sodium ine Sodium 88 MCG 88 MCG 88 MCG Loratadine Loratadine No 1{table QD Loratadine 10 MG 10 MG t} 10 MG Immunizations Ordered Immunization Filled Immunization Date Status Commen ts Source Name Name Flucelvax - multidose Flucelvax - 2021-04-17 Completed [facility]ial 15:01:00 - [facility] Flucelvax - multidose Flucelvax - 2021-04-17 Completed [facility] vial multidose vial 15:01:00 - [facility] Flucelvax - multidose Flucelvax - 2021-04-17 Completed [facility] vial multidose vial 15:01:00 - [facility] Flucelvax - multidose Flucelvax - 2021-04-17 Completed [facility] vial multidose vial 15:01:00 - [facility] Flucelvax - multidose Flucelvax - 2021-04-17 Completed [facility] vial multidose vial 15:01:00 - [facility] Flucelvax - multidose Flucelvax - 2021-04-17 Completed [facility] vial multidose vial 15:01:00 - [facility] Flucelvax - multidose Flucelvax - 2021-04-17 Completed [facility] vial multidose vial 15:01:00 - [facility] Flucelvax - multidose Flucelvax - 2021-04-17 Completed [facility] vial multidose vial 15:01:00 - [facility] Flucelvax - multidose Flucelvax - 2021-04-17 Completed [facility] vial multidose vial 15:01:00 - [facility] Flucelvax - multidose Flucelvax - 2021-04-17 Completed [facility] vial multidose vial 15:01:00 - [facility] Flucelvax - multidose Flucelvax - 2021-04-17 Completed [facility] vial multidose vial 15:01:00 - [facility] Flucelvax - multidose Flucelvax - 2021-04-17 Completed [facility] vial multidose vial 15:01:00 - [facility] Flucelvax - multidose Flucelvax - 2021-04-17 Completed [facility] vial multidose vial 15:01:00 - [facility] Flucelvax - multidose Flucelvax - 2021-04-17 Completed [facility] vial multidose vial 15:01:00 - [facility] Flucelvax - multidose Flucelvax - 2021-04-17 Completed [facility] vial multidose vial 15:01:00 - [facility] Flucelvax - multidose Flucelvax - 2021-04-17 Completed [facility] vial multidose vial 15:01:00 - [facility] Flucelvax - multidose Flucelvax - 2021-04-17 Completed [facility] vial multidose vial 15:01:00 - [facility] Flucelvax - multidose Flucelvax - 2021-04-17 Completed [facility] vial multidose vial 15:01:00 - [facility] Flucelvax - multidose Flucelvax - 2021-04-17 Completed [facility] vial multidose vial 15:01:00 - [facility] Flucelvax - multidose Flucelvax - 2021-04-17 Completed [facility] vial multidose vial 15:01:00 - [facility] Flucelvax - multidose Flucelvax - 2021-04-17 Completed [facility] vial multidose vial 15:01:00 - [facility] Flucelvax - multidose Flucelvax - 2021-04-17 Completed [facility] vial multidose vial 15:01:00 - [facility] Flucelvax - multidose Flucelvax - 2021-04-17 Completed [facility] vial multidose vial 15:01:00 - [facility] Flucelvax - multidose Flucelvax - 2021-04-17 Completed [facility] vial multidose vial 15:01:00 - [facility] Flucelvax - multidose Flucelvax - 2021-04-17 Completed [facility] vial multidose vial 15:01:00 - [facility] Flucelvax - multidose Flucelvax - 2021-04-17 Completed [facility] vial multidose vial 15:01:00 - [facility] Flucelvax - multidose Flucelvax - 2021-04-17 Completed [facility] vial multidose vial 15:01:00 - [facility] Flucelvax - multidose Flucelvax - 2021-04-17 Completed [facility] vial multidose vial 15:01:00 - [facility] Flucelvax - multidose Flucelvax - 2021-04-17 Completed [facility] vial multidose vial 15:01:00 - [facility] Flucelvax - multidose Flucelvax - 2021-04-17 Completed [facility] vial multidose vial 15:01:00 - [facility] Ketorolac 15mg Ketorolac 15mg 2020-12-19 Completed [facility] 16:17:00 - [facility] Kenpolina Diaz 2020-12-19 Completed [facility] (Triamcinolone) (Triamcinolone) 16:17:00 - [facility] Ketorolac 15mg Ketorolac 15mg 2020-12-19 Completed [facility] 16:17:00 - [facility] Kenpolina Kenpolina 2020-12-19 Completed [facility] (Triamcinolone) (Triamcinolone) 16:17:00 - [facility] Ketorolac 15mg Ketorolac 15mg 2020-12-19 Completed [facility] 16:17:00 - [facility] Kenalog Kenalog 2020-12-19 Completed [facility] (Triamcinolone) (Triamcinolone) 16:17:00 - [facility] Ketorolac 15mg Ketorolac 15mg 2020-12-19 Completed [facility] 16:17:00 - [facility] Kenalog Kenalog 2020-12-19 Completed [facility] (Triamcinolone) (Triamcinolone) 16:17:00 - [facility] Ketorolac 15mg Ketorolac 15mg 2020-12-19 Completed [facility] 16:17:00 - [facility] Kenalog Kenalog 2020-12-19 Completed [facility] (Triamcinolone) (Triamcinolone) 16:17:00 - [facility] Ketorolac 15mg Ketorolac 15mg 2020-12-19 Completed [facility] 16:17:00 - [facility] Emily Diaz 2020-12-19 Completed [facility] (Triamcinolone) (Triamcinolone) 16:17:00 - [facility] Ketorolac 15mg Ketorolac 15mg 2020-12-19 Completed [facility] 16:17:00 - [facility] Emily Diaz 2020-12-19 Completed [facility] (Triamcinolone) (Triamcinolone) 16:17:00 - [facility] Moderna COVID-19 Moderna COVID-19 2020-11-03 Completed [facility] Vaccine Vaccine 13:35:00 - [facility] Moderna COVID-19 Moderna COVID-19 2020-11-03 Completed [facility] Vaccine Vaccine 13:35:00 - [facility] Moderna COVID-19 Moderna COVID-19 2020-11-03 Completed [facility] Vaccine Vaccine 13:35:00 - [facility] Moderna COVID-19 Moderna COVID-19 2020-11-03 Completed [facility] Vaccine Vaccine 13:35:00 - [facility] Moderna COVID-19 Moderna COVID-19 2020-11-03 Completed [facility] Vaccine Vaccine 13:35:00 - [facility] Moderna COVID-19 Moderna COVID-19 2020-11-03 Completed [facility] Vaccine Vaccine 13:35:00 - [facility] Moderna COVID-19 Moderna COVID-19 2020-11-03 Completed [facility] Vaccine Vaccine 13:35:00 - [facility] Moderna COVID-19 Moderna COVID-19 2020-11-03 Completed [facility] Vaccine Vaccine 13:35:00 - [facility] Moderna COVID-19 Moderna COVID-19 2020-11-03 Completed [facility] Vaccine Vaccine 13:35:00 - [facility] Moderna COVID-19 Moderna COVID-19 2020-11-03 Completed [facility] Vaccine Vaccine 13:35:00 - [facility] Moderna COVID-19 Moderna COVID-19 2020-11-03 Completed [facility] Vaccine Vaccine 13:35:00 - [facility] Moderna COVID-19 Moderna COVID-19 2020-11-03 Completed [facility] Vaccine Vaccine 13:35:00 - [facility] Moderna COVID-19 Moderna COVID-19 2020-11-03 Completed [facility] Vaccine Vaccine 13:35:00 - [facility] Moderna COVID-19 Moderna COVID-19 2020-11-03 Completed [facility] Vaccine Vaccine 13:35:00 - [facility] Moderna COVID-19 Moderna COVID-19 2020-11-03 Completed [facility] Vaccine Vaccine 13:35:00 - [facility] Moderna COVID-19 Moderna COVID-19 2020-11-03 Completed [facility] Vaccine Vaccine 13:35:00 - [facility] Moderna COVID-19 Moderna COVID-19 2020-11-03 Completed [facility] Vaccine Vaccine 13:35:00 - [facility] Moderna COVID-19 Moderna COVID-19 2020-11-03 Completed [facility] Vaccine Vaccine 13:35:00 - [facility] Moderna COVID-19 Moderna COVID-19 2020-11-03 Completed [facility] Vaccine Vaccine 13:35:00 - [facility] Moderna COVID-19 Moderna COVID-19 2020-11-03 Completed [facility] Vaccine Vaccine 13:35:00 - [facility] Moderna COVID-19 Moderna COVID-19 2020-11-03 Completed [facility] Vaccine Vaccine 13:35:00 - [facility] Moderna COVID-19 Moderna COVID-19 2020-11-03 Completed [facility] Vaccine Vaccine 13:35:00 - [facility] Moderna COVID-19 Moderna COVID-19 2020-11-03 Completed [facility] Vaccine Vaccine 13:35:00 - [facility] Moderna COVID-19 Moderna COVID-19 2020-11-03 Completed [facility] Vaccine Vaccine 13:35:00 - [facility] Moderna COVID-19 Moderna COVID-19 2020-11-03 Completed [facility] Vaccine Vaccine 13:35:00 - [facility] Moderna COVID-19 Moderna COVID-19 2020-11-03 Completed [facility] Vaccine Vaccine 13:35:00 - [facility] Moderna COVID-19 Moderna COVID-19 2020-11-03 Completed [facility] Vaccine Vaccine 13:35:00 - [facility] Moderna COVID-19 Moderna COVID-19 2020-11-03 Completed [facility] Vaccine Vaccine 13:35:00 - [facility] Moderna COVID-19 Moderna COVID-19 2020-11-03 Completed [facility] Vaccine Vaccine 13:35:00 - [facility] Moderna COVID-19 Moderna COVID-19 2020-11-03 Completed [facility] Vaccine Vaccine 13:35:00 - [facility] Moderna COVID-19 Moderna COVID-19 2020-11-03 Completed [facility] Vaccine Vaccine 13:35:00 - [facility] Moderna COVID-19 Moderna COVID-19 2020-11-03 Completed [facility] Vaccine Vaccine 13:35:00 - [facility] Moderna COVID-19 Moderna COVID-19 2020-11-03 Completed [facility] Vaccine Vaccine 13:35:00 - [facility] Moderna COVID-19 Moderna COVID-19 2020-11-03 Completed [facility] Vaccine Vaccine 13:35:00 - [facility] Moderna COVID-19 Moderna COVID-19 2020-11-03 Completed [facility] Vaccine Vaccine 13:35:00 - [facility] Moderna COVID-19 Moderna COVID-19 2020-11-03 Completed [facility] Vaccine Vaccine 13:35:00 - [facility] Moderna COVID-19 Moderna COVID-19 2020-11-03 Completed [facility] Vaccine Vaccine 13:35:00 - [facility] Moderna COVID-19 Moderna COVID-19 2020-10-06 Completed [facility] Vaccine Vaccine 13:49:00 - [facility] Moderna COVID-19 Moderna COVID-19 2020-10-06 Completed [facility] Vaccine Vaccine 13:49:00 - [facility] Moderna COVID-19 Moderna COVID-19 2020-10-06 Completed [facility] Vaccine Vaccine 13:49:00 - [facility] Moderna COVID-19 Moderna COVID-19 2020-10-06 Completed [facility] Vaccine Vaccine 13:49:00 - [facility] Moderna COVID-19 Moderna COVID-19 2020-10-06 Completed [facility] Vaccine Vaccine 13:49:00 - [facility] Moderna COVID-19 Moderna COVID-19 2020-10-06 Completed [facility] Vaccine Vaccine 13:49:00 - [facility] Moderna COVID-19 Moderna COVID-19 2020-10-06 Completed [facility] Vaccine Vaccine 13:49:00 - [facility] Moderna COVID-19 Moderna COVID-19 2020-10-06 Completed [facility] Vaccine Vaccine 13:49:00 - [facility] Moderna COVID-19 Moderna COVID-19 2020-10-06 Completed [facility] Vaccine Vaccine 13:49:00 - [facility] Moderna COVID-19 Moderna COVID-19 2020-10-06 Completed [facility] Vaccine Vaccine 13:49:00 - [facility] Moderna COVID-19 Moderna COVID-19 2020-10-06 Completed [facility] Vaccine Vaccine 13:49:00 - [facility] Moderna COVID-19 Moderna COVID-19 2020-10-06 Completed [facility] Vaccine Vaccine 13:49:00 - [facility] Moderna COVID-19 Moderna COVID-19 2020-10-06 Completed [facility] Vaccine Vaccine 13:49:00 - [facility] Moderna COVID-19 Moderna COVID-19 2020-10-06 Completed [facility] Vaccine Vaccine 13:49:00 - [facility] Moderna COVID-19 Moderna COVID-19 2020-10-06 Completed [facility] Vaccine Vaccine 13:49:00 - [facility] Moderna COVID-19 Moderna COVID-19 2020-10-06 Completed [facility] Vaccine Vaccine 13:49:00 - [facility] Moderna COVID-19 Moderna COVID-19 2020-10-06 Completed [facility] Vaccine Vaccine 13:49:00 - [facility] Moderna COVID-19 Moderna COVID-19 2020-10-06 Completed [facility] Vaccine Vaccine 13:49:00 - [facility] Moderna COVID-19 Moderna COVID-19 2020-10-06 Completed [facility] Vaccine Vaccine 13:49:00 - [facility] Moderna COVID-19 Moderna COVID-19 2020-10-06 Completed [facility] Vaccine Vaccine 13:49:00 - [facility] Moderna COVID-19 Moderna COVID-19 2020-10-06 Completed [facility] Vaccine Vaccine 13:49:00 - [facility] Moderna COVID-19 Moderna COVID-19 2020-10-06 Completed [facility] Vaccine Vaccine 13:49:00 - [facility] Moderna COVID-19 Moderna COVID-19 2020-10-06 Completed [facility] Vaccine Vaccine 13:49:00 - [facility] Moderna COVID-19 Moderna COVID-19 2020-10-06 Completed [facility] Vaccine Vaccine 13:49:00 - [facility] Moderna COVID-19 Moderna COVID-19 2020-10-06 Completed [facility] Vaccine Vaccine 13:49:00 - [facility] Moderna COVID-19 Moderna COVID-19 2020-10-06 Completed [facility] Vaccine Vaccine 13:49:00 - [facility] Moderna COVID-19 Moderna COVID-19 2020-10-06 Completed [facility] Vaccine Vaccine 13:49:00 - [facility] Moderna COVID-19 Moderna COVID-19 2020-10-06 Completed [facility] Vaccine Vaccine 13:49:00 - [facility] Moderna COVID-19 Moderna COVID-19 2020-10-06 Completed [facility] Vaccine Vaccine 13:49:00 - [facility] Moderna COVID-19 Moderna COVID-19 2020-10-06 Completed [facility] Vaccine Vaccine 13:49:00 - [facility] Moderna COVID-19 Moderna COVID-19 2020-10-06 Completed [facility] Vaccine Vaccine 13:49:00 - [facility] Moderna COVID-19 Moderna COVID-19 2020-10-06 Completed [facility] Vaccine Vaccine 13:49:00 - [facility] Moderna COVID-19 Moderna COVID-19 2020-10-06 Completed [facility] Vaccine Vaccine 13:49:00 - [facility] Moderna COVID-19 Moderna COVID-19 2020-10-06 Completed [facility] Vaccine Vaccine 13:49:00 - [facility] Moderna COVID-19 Moderna COVID-19 2020-10-06 Completed [facility] Vaccine Vaccine 13:49:00 - [facility] Moderna COVID-19 Moderna COVID-19 2020-10-06 Completed [facility] Vaccine Vaccine 13:49:00 - [facility] Moderna COVID-19 Moderna COVID-19 2020-10-06 Completed [facility] Vaccine Vaccine 13:49:00 - [facility] Kenalog Kenalog 2020-08-28 Completed [facility] (Triamcinolone) (Triamcinolone) 10:28:00 - [facility] Bupivicaine [place] Bupivicaine [place] 2020-08-28 Completed [facility] 10:28:00 [facility] Kenalog Kenalog 2020-08-28 Completed [facility] (Triamcinolone) (Triamcinolone) 10:28:00 - [facility] Bupivicaine [place] Bupivicaine [place] 2020-08-28 Completed [facility] 10:: - [facility] Emily Diaz 2020-08-28 Completed [facility] (Triamcinolone) (Triamcinolone) 10:: - [facility] Bupivicaine [place] Bupivicaine [place] 2020-08-28 Completed [facility] 10:: - [facility] Kenpolina Kenalog 2020-08-28 Completed [facility] (Triamcinolone) (Triamcinolone) 10:: - [facility] Bupivicaine [place] Bupivicaine [place] 2020-08-28 Completed [facility] 10:: - [facility] Emily Diaz 2020-08-28 Completed [facility] (Triamcinolone) (Triamcinolone) 10:: - [facility] Bupivicaine [place] Bupivicaine [place] 2020-08-28 Completed [facility] 10:: - [facility] Emily Diaz 2020-08-28 Completed [facility] (Triamcinolone) (Triamcinolone) 10:: - [facility] Bupivicaine [place] Bupivicaine [place] 2020-08-28 Completed [facility] 10:: - [facility] Emily Diaz 2020-08-28 Completed [facility] (Triamcinolone) (Triamcinolone) 10::00 - [facility] Bupivicaine [place] Bupivicaine [place] 2020-08-28 Completed [facility] 10:28:00 - [facility] Flucelvax - single Flucelvax - single 2020-03-13 Completed [facility] dose syringe dose syringe 11::00 - [facility] Flucelvax - single Flucelvax - single 2020-03-13 Completed [facility] dose syringe dose syringe 11::00 - [facility] Flucelvax - single Flucelvax - single 2020-03-13 Completed [facility] dose syringe dose syringe 11:: - [facility] Flucelvax - single Flucelvax - single 2020-03-13 Completed [facility] dose syringe dose syringe 11:28:00 - [facility] Flucelvax - single Flucelvax - single 2020-03-13 Completed [facility] dose syringe dose syringe 11:28:00 - [facility] Flucelvax - single Flucelvax - single 2020-03-13 Completed [facility] dose syringe dose syringe 11:28:00 - [facility] Flucelvax - single Flucelvax - single 2020-03-13 Completed [facility] dose syringe dose syringe 11:28:00 - [facility] Flucelvax - single Flucelvax - single 2020-03-13 Completed [facility] dose syringe dose syringe 11:28:00 - [facility] Flucelvax - single Flucelvax - single 2020-03-13 Completed [facility] dose syringe dose syringe 11:28:00 - [facility] Flucelvax - single Flucelvax - single 2020-03-13 Completed [facility] dose syringe dose syringe 11:28:00 - [facility] Flucelvax - single Flucelvax - single 2020-03-13 Completed [facility] dose syringe dose syringe 11:28:00 - [facility] Flucelvax - single Flucelvax - single 2020-03-13 Completed [facility] dose syringe dose syringe 11:28:00 - [facility] Flucelvax - single Flucelvax - single 2020-03-13 Completed [facility] dose syringe dose syringe 11:28:00 - [facility] Flucelvax - single Flucelvax - single 2020-03-13 Completed [facility] dose syringe dose syringe 11:28:00 - [facility] Flucelvax - single Flucelvax - single 2020-03-13 Completed [facility] dose syringe dose syringe 11:28:00 - [facility] Flucelvax - single Flucelvax - single 2020-03-13 Completed [facility] dose syringe dose syringe 11:28:00 - [facility] Flucelvax - single Flucelvax - single 2020-03-13 Completed [facility] dose syringe dose syringe 11:28:00 - [facility] Flucelvax - single Flucelvax - single 2020-03-13 Completed [facility] dose syringe dose syringe 11:28:00 - [facility] Flucelvax - single Flucelvax - single 2020-03-13 Completed [facility] dose syringe dose syringe 11:28:00 - [facility] Flucelvax - single Flucelvax - single 2020-03-13 Completed [facility] dose syringe dose syringe 11:28:00 - [facility] Flucelvax - single Flucelvax - single 2020-03-13 Completed [facility] dose syringe dose syringe 11:28:00 - [facility] Flucelvax - single Flucelvax - single 2020-03-13 Completed [facility] dose syringe dose syringe 11:28:00 - [facility] Flucelvax - single Flucelvax - single 2020-03-13 Completed [facility] dose syringe dose syringe 11:28:00 - [facility] Flucelvax - single Flucelvax - single 2020-03-13 Completed [facility] dose syringe dose syringe 11:28:00 - [facility] Flucelvax - single Flucelvax - single 2020-03-13 Completed [facility] dose syringe dose syringe 11:28:00 - [facility] Flucelvax - single Flucelvax - single 2020-03-13 Completed [facility] dose syringe dose syringe 11:28:00 - [facility] Flucelvax - single Flucelvax - single 2020-03-13 Completed [facility] dose syringe dose syringe 11:28:00 - [facility] Flucelvax - single Flucelvax - single 2020-03-13 Completed [facility] dose syringe dose syringe 11:28:00 - [facility] Flucelvax - single Flucelvax - single 2020-03-13 Completed [facility] dose syringe dose syringe 11:28:00 - [facility] Flucelvax - single Flucelvax - single 2020-03-13 Completed [facility] dose syringe dose syringe 11:28:00 - [facility] Flucelvax - single Flucelvax - single 2020-03-13 Completed [facility] dose syringe dose syringe 11:28:00 - [facility] Flucelvax - single Flucelvax - single 2020-03-13 Completed [facility] dose syringe dose syringe 11:28:00 - [facility] Flucelvax - single Flucelvax - single 2020-03-13 Completed [facility] dose syringe dose syringe 11:28:00 - [facility] Flucelvax - single Flucelvax - single 2020-03-13 Completed [facility] dose syringe dose syringe 11:28:00 - [facility] Flucelvax - single Flucelvax - single 2020-03-13 Completed [facility] dose syringe dose syringe 11:28:00 - [facility] Flucelvax - single Flucelvax - single 2020-03-13 Completed [facility] dose syringe dose syringe 11:28:00 - [facility] Flucelvax - single Flucelvax - single 2020-03-13 Completed [facility] dose syringe dose syringe 11:28:00 - [facility] Kenalog Kenalog 2020-02-22 Completed [facility] (Triamcinolone) (Triamcinolone) 13:48:00 - [facility] Kenalog Kenalog 2020-02-22 Completed [facility] (Triamcinolone) (Triamcinolone) 13:48:00 - [facility] Kenalog Kenalog 2020-02-22 Completed [facility] (Triamcinolone) (Triamcinolone) 13:48:00 - [facility] Kenalog Kenalog 2020-02-22 Completed [facility] (Triamcinolone) (Triamcinolone) 13:48:00 - [facility] Kenalog Kenalog 2020-02-22 Completed [facility] (Triamcinolone) (Triamcinolone) 13:48:00 - [facility] Kenalog Kenalog 2020-02-22 Completed [facility] (Triamcinolone) (Triamcinolone) 13:48:00 - [facility] Kenalog Kenalog 2020-02-22 Completed [facility] (Triamcinolone) (Triamcinolone) 13:48:00 - [facility] 2019-01-15 Completed [facility] (Triamcinolone) (Triamcinolone) 10:58:00 - I [facility] 2019-01-15 Completed [facility] (Triamcinolone) (Triamcinolone) 10:58:00 - I [facility] 2019-01-15 Completed [facility] (Triamcinolone) (Triamcinolone) 10:58:00 - I [facility] 2019-01-15 Completed [facility] (Triamcinolone) (Triamcinolone) 10:58:00 - I [facility] 2019-01-15 Completed [facility] (Triamcinolone) (Triamcinolone) 10:58:00 - I [facility] 2019-01-15 Completed [facility] (Triamcinolone) (Triamcinolone) 10:58:00 - I [facility] 2019-01-15 Completed [facility] (Triamcinolone) (Triamcinolone) 10:58:00 - [facility] Bupivicaine [place] Bupivicaine [place] 2018-12-10 Completed [facility] 14:50:00 - [facility] Betamethasone Sodium Betamethasone Sodium 2018-12-10 Completed [facility] Phosphate Phosphate 14:50:00 - [facility] Bupivicaine [place] Bupivicaine [place] 2018-12-10 Completed [facility] 14:50:00 - [facility] Betamethasone Sodium Betamethasone Sodium 2018-12-10 Completed [facility] Phosphate Phosphate 14:50:00 - [facility] Bupivicaine [place] Bupivicaine [place] 2018-12-10 Completed [facility] 14:50:00 [facility] Betamethasone Sodium Betamethasone Sodium 2018-12-10 Completed [facility] Phosphate Phosphate 14:50:00 [facility] Bupivicaine [place] Bupivicaine [place] 2018-12-10 Completed [facility] 14:50:00 - [facility] Betamethasone Sodium Betamethasone Sodium 2018-12-10 Completed [facility] Phosphate Phosphate 14:50:00 [facility] Bupivicaine [place] Bupivicaine [place] 2018-12-10 Completed [facility] 14:50:00 [facility] Betamethasone Sodium Betamethasone Sodium 2018-12-10 Completed [facility] Phosphate Phosphate 14:50:00 [facility] Bupivicaine [place] Bupivicaine [place] 2018-12-10 Completed [facility] 14:50:00 [facility] Betamethasone Sodium Betamethasone Sodium 2018-12-10 Completed [facility] Phosphate Phosphate 14:50:00 [facility] Bupivicaine [place] Bupivicaine [place] 2018-12-10 Completed [facility] 14:50:00 [facility] Betamethasone Sodium Betamethasone Sodium 2018-12-10 Completed [facility] Phosphate Phosphate 14:50:00 [facility] Kenalog Kenalog 2018-07-03 Completed [facility] (Triamcinolone) (Triamcinolone) 09:25:00 [facility] Coltalog Kenalog 2018-07-03 Completed [facility] (Triamcinolone) (Triamcinolone) 09:25:00 [facility] Kenalog Kenalog 2018-07-03 Completed [facility] (Triamcinolone) (Triamcinolone) 09:25:00 [facility] Kenpolina Kenalog 2018-07-03 Completed [facility] (Triamcinolone) (Triamcinolone) 09:25:00 [facility] Emily Kenalog 2018-07-03 Completed [facility] (Triamcinolone) (Triamcinolone) 09:25:00 [facility] Kenalog Kenalog 2018-07-03 Completed [facility] (Triamcinolone) (Triamcinolone) 09::00 [facility] Kenalog Kenalog 2018-07-03 Completed [facility] (Triamcinolone) (Triamcinolone) 09:25:00 [facility] Vital Signs Vital Name Observation Time Observation Value Comments Source height 2021-10-19 09:30:00 58 [in_i] [facility] weight 2021-10-19 09:30:00 194 [lb_av] [facility] temperature 2021-10-19 09:30:00 97.4 [degF] [facility] bmi 2021-10-19 09:30:00 40.54 kg/m2 [facility] blood pressure 2021-10-19 09:30:00 134 mm[Hg] [facility] - systolic [facility] blood pressure 2021-10-19 09:30:00 75 mm[Hg] [facility] - diastolic [facility] height 2021-10-09 13:00:00 58 [in_i] [facility] weight 2021-10-09 13:00:00 188.3 [lb_av] [facility] bmi 2021-10-09 13:00:00 39.35 kg/m2 [facility] - [facility] blood pressure 2021-10-09 13:00:00 146 mm[Hg] [facility] - systolic [facility] blood pressure 2021-10-09 13:00:00 86 mm[Hg] [facility] - diastolic [facility] height 2021-09-11 07:50:00 58 [in_i] [facility] S pirit [facility] weight 2021-09-11 07:50:00 189 [lb_av] [facility] temperature 2021-09-11 07:50:00 98 [degF] [facility] bmi 2021-09-11 07:50:00 39.5 kg/m2 [facility] - [facility] height 2021-08-09 14:00:00 58 [in_i] [facility] - [facility] weight 2021-08-09 14:00:00 188.3 [lb_av] [facility] temperature 2021-08-09 14:00:00 98.1 [degF] [facility] - [facility] bmi 2021-08-09 14:00:00 39.35 kg/m2 [facility] blood pressure 2021-08-09 14:00:00 132 mm[Hg] [facility] - systolic [facility] blood pressure 2021-08-09 14:00:00 84 mm[Hg] [facility] - diastolic [facility] height 2021-07-11 13:40:00 58 [in_i] [facility] weight 2021-07-11 13:40:00 183 [lb_av] [facility] temperature 2021-07-11 13:40:00 98 [degF] [facility] bmi 2021-07-11 13:40:00 38.24 kg/m2 [facility] blood pressure 2021-07-11 13:40:00 130 mm[Hg] [facility] - systolic [facility] blood pressure 2021-07-11 13:40:00 72 mm[Hg] [facility] - diastolic [facility] height 2021-06-18 15:00:00 58 [in_i] [facility] weight 2021-06-18 15:00:00 187 [lb_av] [facility] temperature 2021-06-18 15:00:00 98.2 [degF] [facility] - [facility] bmi 2021-06-18 15:00:00 39.08 kg/m2 [facility] blood pressure 2021-06-18 15:00:00 132 mm[Hg] [facility] - systolic [facility] blood pressure 2021-06-18 15:00:00 84 mm[Hg] [facility] - diastolic [facility] height 2021-06-13 14:00:00 58 [in_i] [facility] weight 2021-06-13 14:00:00 190.3 [lb_av] [facility] temperature 2021-06-13 14:00:00 98.1 [degF] [facility] - [facility] bmi 2021-06-13 14:00:00 39.77 kg/m2 [facility] oximetry 2021-06-13 14:00:00 98 % Common [facility] respiratory rate 2021-06-13 14:00:00 18 /min Comm on [facility] blood pressure 2021-06-13 14:00:00 139 mm[Hg] [facility] - systolic [facility] blood pressure 2021-06-13 14:00:00 82 mm[Hg] [facility] - diastolic [facility] height 2021-05-31 11:00:00 58 [in_i] [facility] weight 2021-05-31 11:00:00 187 [lb_av] [facility] temperature 2021-05-31 11:00:00 97.1 [degF] [facility] bmi 2021-05-31 11:00:00 39.08 kg/m2 [facility] blood pressure 2021-05-31 11:00:00 128 mm[Hg] [facility] - systolic [facility] blood pressure 2021-05-31 11:00:00 84 mm[Hg] [facility] - diastolic [facility] height 2021-05-24 13:30:00 58 [in_i] [facility] weight 2021-05-24 13:30:00 187 [lb_av] [facility] temperature 2021-05-24 13:30:00 98.1 [degF] [facility] bmi 2021-05-24 13:30:00 39.08 kg/m2 [facility] blood pressure 2021-05-24 13:30:00 136 mm[Hg] [facility] - systolic [facility] blood pressure 2021-05-24 13:30:00 84 mm[Hg] [facility] - diastolic [facility] height 2021-05-02 17:00:00 58 [in_i] [facility] weight 2021-05-02 17:00:00 185.3 [lb_av] [facility] bmi 2021-05-02 17:00:00 38.72 kg/m2 [facility] height 2021-01-25 11:30:00 58 [in_i] [facility] weight 2021-01-25 11:30:00 186 [lb_av] [facility] temperature 2021-01-25 11:30:00 97.3 [degF] [facility] bmi 2021-01-25 11:30:00 38.87 kg/m2 [facility] blood pressure 2021-01-25 11:30:00 130 mm[Hg] [facility] - systolic [facility] blood pressure 2021-01-25 11:30:00 75 mm[Hg] [facility] - diastolic [facility] height 2021-01-04 16:30:00 58 [in_i] [facility] weight 2021-01-04 16:30:00 188 [lb_av] [facility] temperature 2021-01-04 16:30:00 98 [degF] [facility] bmi 2021-01-04 16:30:00 39.29 kg/m2 [facility] blood pressure 2021-01-04 16:30:00 132 mm[Hg] [facility] - systolic [facility] blood pressure 2021-01-04 16:30:00 70 mm[Hg] [facility] - diastolic [facility] height 2020-12-19 15:00:00 58 [in_i] [facility] weight 2020-12-19 15:00:00 188.4 [lb_av] [facility] temperature 2020-12-19 15:00:00 97.6 [degF] [facility] bmi 2020-12-19 15:00:00 39.37 kg/m2 [facility] oximetry 2020-12-19 15:00:00 99 % [facility] blood pressure 2020-12-19 15:00:00 135 mm[Hg] [facility] - systolic [facility] blood pressure 2020-12-19 15:00:00 79 mm[Hg] [facility] - diastolic [facility] Procedures This patient has no known procedures. Encounters Start End Encounter Admission Attending Care Care Encounter Source Date/Time Date/Time Type Type Clinicians Facility Department ID 2022-04-08 Outpatient [facility] [id number] [place] 13:18:42 [id number] [facility] 2022-01-22 Outpatient Mg, STLMLC STLMLC [id number] Common 08:46:00 Rickie [facility] 2022-01-16 Outpatient Mg, STLMLC STLMLC [id number] Common 10:14:00 Rickie [facility] 2021-11-13 Outpatient Mg, STLMLC STLMLC [id number] Common 12:49:00 Rickie [facility] 2021-10-09 Outpatient Mg, STLMLC STLMLC [id number] Common 13:11:00 Rikcie [facility] 2021-07-11 Outpatient Mg, STLMLC STLMLC [id number] Common 12:09:01 Rickie [facility] 2021-06-13 Outpatient Mg, STLMLC STLMLC [id number] Common 14:02:01 Rickie [facility] 2021-06-12 Outpatient Mg, STLMLC STLMLC [id number] Common 15:15:01 Rickie [facility] 2021-05-30 Outpatient Mg, STLMLC STLMLC [id number] Common 14:27:01 Rickie [facility] 2021-05-30 Outpatient Mg, STLMLC STLMLC [id number] Common 14:25:09 Rickie [id number] [facility] 2021-05-30 Outpatient Mg, STLMLC STLC Common 13:46:56 Rickie [id number] [facility] 2021-05-30 Outpatient Mg, STLMLC STLC Common 13:45:15 Rickie [id number] [facility] 2021-05-30 Outpatient Mg, STLMLC STLC Common 13:39:33 Rickie [id number] [facility] 2021-05-30 Outpatient Mg, STLMLC STLC Common 13:11:01 Rickie [id number] [facility] 2021-05-30 [facility] Mg[facility] 13:06:54 Rickie [id number] [facility] 2021-05-30 Outpatient Mg, [facility] Common 12:56:10 Rickie [id number] [facility] 2021-05-30 Outpatient Mg, [facility] Common 12:54:35 Rickie [id number] [facility] 2021-05-30 Outpatient Mg, [facility] Common 12:48:02 Rickie [id number] [facility] 2021-05-30 Outpatient Mg, STLMLC STLC Common 12:30:58 Rickie [id number] [facility] 2021-05-30 Outpatient Mg, [facility]LML[facility] Common 12:05:56 Rickie [id number] [facility] 2021-05-30 Outpatient Mg, STLC STLC Common 12:04:00 Rickie [id number] [facility] 2021-05-30 Out[facility] Mg, [facility] Common 12:02:59 Rickie [id number] [facility] 2021-05-30 Outpatient Mg, STLC STLC Common 11:58:18 Rickie [id number] [facility] 2021-05-30 Outpatient Mg, STLMLC STLMLC Common 11:33:46 Rickie [id number] [facility] 2021-05-30 Outpatient Mg, STLMLC STLMLC Common 11:20:22 Rickie [id number] [facility] 2021-05-30 Outpatient Mg, STLMLC STLMLC Common 11:19:06 Rickie [id number] [facility] 2021-05-30 Outpatient Mg, STLMLC STLMLC Common 11:18:10 Rickie [id number] [facility] 2021-05-30 Outpatient Mg, STLMLC STLMLC Common 11:03:30 Rickie [id number] [facility] 2021-05-30 Outpatient Mg, STLMLC STLMLC Common 11:01:56 Rickie [id number] [facility] 2022-06-25 2022-06-25 Outpatient DAREK, [facility] [id number] [place] 13:15:00 13:15:00 [facility] 2022-05-21 2022-05-21 (TEL) STLMLC STLMLC [id number] Co mmon 00:00:00 00:00:00 [facility] 2022-04-02 2022-04-02 Outpatient DAREK, [facility] [id number] [place] 13:15:00 14:25:00 [facility] 2022-01-22 2022-01-22 Outpatient DAREK, [facility] [id number] [place] 15:30:00 17:02:13 [facility] 2022-01-18 2022-01-18 Outpatient DAREK, [facility] [id number] [place] 11:30:00 11:30:00 [facility] 2021-12-24 2021-12-24 (TEL) STLMLC STLMLC [id number] Co mmon 00:00:00 00:00:00 [facility] 2021-12-04 2021-12-04 Outpatient DAREK [facility] [id number] [place] 14:45:00 16:40:55 [facility] 2021-11-28 2021-11-29 Outpatient DAREK [facility] ZHENG [id number] MHFB 11:58:00 13:28:00 [facility] 2021-11-28 2021-11-28 [facility] [id number] [place] 09:30:00 09:30:00 [facility] 2021-11-13 2021-11-13 Outpatient RADHA_MARIEL MTKATI MTHOP [id number] [place] 04:33:00 04:33:00 _ANN 0712 [facility] 2021-10-29 2021-10-29 Telephone ALLEN Oswald [facility] [id number] [place] 00:00:00 00:00:00 Kulvinder SUGAR [id number] Health [place] [id number] [id number] AND 4 WOMENS 2021-10-29 2021-10-29 Telephone ALLEN Oswald [facility] [id number] [place] 00:00:00 00:00:00 Kulvinder SUGAR [id number] Health [id number] [id number] AND 4 WOMENS 2021-10-24 2021-10-24 (TEL) STLC STLC [id number] Co mmon 00:00:00 00:00:00 [facility] 2021-10-19 2021-10-19 OFFICE STLC STLC [id number] Co mmon 00:00:00 00:00:00 VISIT EST Spir it PT LEVEL 3 - [facility] 2021-10-19 2021-10-19 (TEL) STLMLC STLMLC [id number] Co mmon 00:00:00 00:00:00 [facility] 2021-10-15 2021-10-15 (TEL) STLMLC STLMLC [id number] Co mmon 00:00:00 00:00:00 [facility] 2021-10-10 2021-10-10 Telephone ALLEN Oswald [facility] [id number] [place] 00:00:00 00:00:00 Kulvinder SUGAR [id number] Health [place] [id number] [id number] AND 4 WOMENS 2021-10-09 2021-10-09 [facility] [id number] Co mmon 00:00:00 00:00:00 VISIT [facility] LEVEL 4 [facility] 2021-10-09 2021-10-09 Telephone Darek [facility] [id number] [place] 00:00:00 00:00:00 Kulvinder SUGAR [id number] Health [id number] [id number] AND 4 WOMENS 2021-10-03 2021-10-03 Telephone Darek [facility] [id number] [place] 00:00:00 00:00:00 Kulvinder SUGAR [id number] Health [place] [id number] [id number] AND 4 WOMENS 2021-09-25 2021-09-25 (TEL) [facility] [id number] Co mmon 00:00:00 00:00:00 [facility] 2021-09-25 2021-09-25 Telephone Darek [facility] [id number] [place] 00:00:00 00:00:00 Kulvinder SUGAR [id number] Health [id number] [id number] AND 4 WOMENS 2021-09-19 2021-09-19 Outpatient DAREK [facility] ZHENG [id number] MH 09:01:00 11:08:00 KULVINDER 2021-09-19 2021-09-19 Outpatient DAREK [facility] [id number] [place] 10:00:00 10:00:00 KULVINDER [facility] 2021-09-19 2021-09-19 (TEL) [facility] [id number] Co mmon 00:00:00 00:00:00 [facility] 2021-09-13 2021-09-13 Telephone ALLEN Oswald [facility] [id number] [place] 00:00:00 00:00:00 Kulvinder SUGAR [id number] Health [id number] [id number] AND 4 WOMENS 2021-09-12 2021-09-12 Telephone Darek [facility] [id number] [place] 00:00:00 00:00:00 Kulvinder SUGAR [id number] Health [id number] [id number] AND 4 WOMENS 2021-09-11 2021-09-11 OFFICE [facility] [id number] Co mmon 00:00:00 00:00:00 VISIT Spirit ESTAB PT - CHI LEVEL 4 [facility] 2021-09-06 2021-09-06 Nutrition Allan [facility] [id number] [place] 13:30:00 14:01:09 Cristal SUGAR [id number] [facility] [place] [id number] [id number] AND 4 WOMENS 2021-08-27 2021-08-27 Telephone Darek [facility] [id number] [place] 00:00:00 00:00:00 Kulvinder SUGAR [id number] Health [id number] [id number] AND 4 WOMENS 2021-08-24 2021-08-24 Office Darek [facility] [id number] [place] 09:00:00 09:30:00 Visit Kulvinder SUGAR [id number] Health [place] [id number] [id number] AND 4 WOMENS 2021-08-09 2021-08-09 OFFICE STLMLC STLMLC [id number] Co mmon 00:00:00 00:00:00 VISIT [facility] ESTAB PT - CHI LEVEL 4 [facility] 2021-07-11 2021-07-11 OFFICE STLMLC STLMLC [id number] Co mmon 00:00:00 00:00:00 VISIT EST Spir it PT LEVEL 3 - [facility] 2021-07-10 2021-07-10 (TEL) STLMLC STLMLC [id number] Co mmon 00:00:00 00:00:00 [facility] 2021-07-10 2021-07-10 (TEL) STLMLC STLMLC [id number] Co mmon 00:00:00 00:00:00 [facility] 2021-06-18 2021-06-18 OFFICE STLMLC STLMLC [id number] Co mmon 00:00:00 00:00:00 VISIT [facility] ESTAB PT - CHI LEVEL 4 [facility] 2021-06-13 2021-06-13 PREV VISIT STLMLC STLMLC [id number] Common 00:00:00 00:00:00 EST AGE [facility] 40-64 - [facility] 2021-06-11 2021-06-11 (TEL) STLMLC STLMLC [id number] Co mmon 00:00:00 00:00:00 [facility] 2021-06-11 2021-06-11 (TEL) STLMLC STLMLC [id number] Co mmon 00:00:00 00:00:00 [facility] 2021-06-05 2021-06-05 (TEL) STLMLC STLMLC [id number] Co mmon 00:00:00 00:00:00 [facility] 2021-06-04 2021-06-04 (TEL) STLMLC STLMLC [id number] Co mmon 00:00:00 00:00:00 [facility] 2021-05-31 2021-05-31 (TEL) STLMLC STLMLC [id number] Co mmon 00:00:00 00:00:00 [facility] 2021-05-31 2021-05-31 OFFICE STLMLC STLMLC [id number] Co mmon 00:00:00 00:00:00 VISIT Spirit ESTAB PT - CHI LEVEL 4 [facility] 2021-05-29 2021-05-29 (TEL) STLMLC STLMLC [id number] Co mmon 00:00:00 00:00:00 [facility] 2021-05-24 2021-05-24 (TEL) STLMLC STLMLC [id number] Co mmon 00:00:00 00:00:00 [facility] 2021-05-24 2021-05-24 OFFICE STLMLC STLMLC [id number] Co mmon 00:00:00 00:00:00 VISIT [facility] PT - CHI LEVEL 4 [facility] 2021-05-23 2021-05-23 (TEL) STLMLC STLMLC [id number] Co mmon 00:00:00 00:00:00 [facility] 2021-05-23 2021-05-23 (TEL) STLMLC STLMLC [id number] Co mmon 00:00:00 00:00:00 [facility] 2021-05-09 2021-05-09 (TEL) STLMLC STLMLC [id number] Co mmon 00:00:00 00:00:00 [facility] 2021-05-02 2021-05-02 OFFICE STLMLC STLMLC [id number] Co mmon 00:00:00 00:00:00 VISIT EST Spir it PT LEVEL 3 - [facility] 2021-05-02 2021-05-02 (TEL) STLMLC STLMLC [id number] Co mmon 00:00:00 00:00:00 [facility] 2021-03-01 2021-03-01 (TEL) STLMLC STLMLC [id number] Co mmon 00:00:00 00:00:00 [facility] 2021-01-25 2021-01-25 OFFICE STLMLC STLMLC [id number] Co mmon 00:00:00 00:00:00 VISIT EST Spir it PT LEVEL 3 [facility] 2021-01-05 2021-01-05 (TEL) STLMLC STLMLC [id number] Co mmon 00:00:00 00:00:00 [facility] 2021-01-04 2021-01-04 OFFICE STLMLC STLMLC [id number] Co mmon 00:00:00 00:00:00 VISIT EST Spir it PT LEVEL 3 [facility] 2021-01-03 2021-01-03 (TEL) STLMLC STLMLC [id number] Co mmon 00:00:00 00:00:00 [facility] 2020-12-27 2020-12-27 (TEL) STLMLC STLMLC [id number] Co mmon 00:00:00 00:00:00 [facility] 2020-12-19 2020-12-19 OFFICE STLMLC STLMLC [id number] Co mmon 00:00:00 00:00:00 VISIT EST Spir it PT LEVEL 3 [facility] 2020-12-18 2020-12-18 Outpatient STLMLC STLMLC [id number] Common 00:00:00 00:00:00 [facility] 2020-12-14 2020-12-14 Outpatient STLMLC STLMLC [id number] Common 00:00:00 00:00:00 [facility] 2020-11-03 2020-11-03 Outpatient STLMLC STLMLC [id number] Common 00:00:00 00:00:00 [facility] 2020-10-06 2020-10-06 Outpatient STLMLC STLMLC [id number] Common 00:00:00 00:00:00 [facility] 2020-10-03 2020-10-03 Outpatient STLMLC STLMLC [id number] Common 00:00:00 00:00:00 [facility] 2020-08-28 2020-08-28 Outpatient STLMLC STLMLC [id number] Common 00:00:00 00:00:00 [facility] 2020-08-10 2020-08-10 Outpatient STLMLC STLMLC [id number] Common 00:00:00 00:00:00 [facility] 2020-08-09 2020-08-09 Outpatient STLMLC STLMLC [id number] Common 00:00:00 00:00:00 [facility] 2020-05-25 2020-05-25 Outpatient STLMLC STLMLC [id number] Common 00:00:00 00:00:00 [facility] 2020-04-05 2020-04-05 Outpatient STLMLC STLMLC [id number] Common 00:00:00 00:00:00 [facility] 2020-04-05 2020-04-05 Outpatient STLMLC STLMLC [id number] Common 00:00:00 00:00:00 [facility] 2020-03-20 2020-03-20 Outpatient STLMLC STLMLC [id number] Common 00:00:00 00:00:00 [facility] 2020-03-13 2020-03-13 Outpatient STLMLC STLMLC [id number] Common 00:00:00 00:00:00 [facility] 2020-02-22 2020-02-22 Outpatient STLMLC STLMLC [id number] Common 00:00:00 00:00:00 [facility] 2019-12-16 2019-12-16 [id number] Common 11:00:00 11:00:00 [place] [address] [facility] 2019-12-02 2019-12-02 [facility] [id number] Common 08:00:00 08:00:00 [place] [address] [facility] 2019-11-26 2019-11-26 [facility] [id number] Common 15:01:00 15:01:00 [place] [address] [facility] 2019-11-23 2019-11-23 [facility] [id number] Common 10:00:00 10:00:00 t [facility] [address] [facility] 2019-11-22 2019-11-22 [facility] [id number] Common 13:20:00 13:20:00 [place] [address] [facility] 2019-10-29 2019-10-29 [facility] [id number] Common 09:52:00 09:52:00 [place] [address] [facility] 2019-08-30 2019-08-30 [facility] [id number] Common 09:58:00 09:58:00 [place] [address] [facility] 2019-08-26 2019-08-26 [facility] [id number] Common 16:09:00 16:09:00 [place] [address] [facility] 2019-08-26 2019-08-26 [facility] [id number] Common 13:15:00 13:15:00 t [facility] [address] [facility] 2019-08-26 2019-08-26 [facility] [id number] Common 09:29:00 09:29:00 t [facility] [address] [facility] 2019-07-05 2019-07-05 [facility] [id number] Common 08:35:00 08:35:00 [place] [address] [facility] 2019-05-31 2019-05-31 [facility] [id number] Common 15:00:00 15:00:00 [place] [address] [facility] 2019-04-07 2019-04-07 [facility] [id number] Common 17:10:00 17:10:00 [place] [address] [facility] 2019-01-18 2019-01-18 [facility] [id number] Common 14:02:00 14:02:00 [place] [address] [facility] 2019-01-15 2019-01-15 [facility] [id number] Common 10:30:00 10:30:00 [place] [address] [facility] 2019-01-11 2019-01-11 [facility] [id number] Common 13:00:00 13:00:00 [place] [address] [facility] 2018-12-10 2018-12-10 [facility] [id number] Common 14:00:00 14:00:00 [facility] 2018-12-01 2018-12-01 [facility] [id number] Common 15:00:00 15:00:00 [place] [address] [facility] 2018-10-28 2018-10-28 [facility] [id number] Common 10:53:00 10:53:00 [place] [address] [facility] 2018-09-07 2018-09-07 [facility] [id number] Common 09:45:00 09:45:00 [place] [address] [facility] 2018-09-02 2018-09-02 [facility] [id number] Common 14:02:00 14:02:00 [place] [address] [facility] 2018-07-10 2018-07-10 [facility] [id number] Common 14:32:00 14:32:00 [place] [address] [facility] 2018-07-03 2018-07-03 [facility] [id number] Common 08:30:00 08:30:00 [place] [address] [facility] 2018-06-10 2018-06-10 [facility] [id number] Common 10:53:00 10:53:00 [place] [address] [facility] 2018-06-09 2018-06-09 [facility] [id number] Common 10:00:00 10:00:00 [place] [address] [facility] 2017-10-13 2017-10-13 [facility] [id number] Common 11:15:00 11:15:00 [place] [address] [facility] 2017-10-01 2017-10-01 [facility] [id number] Common 15:15:00 15:15:00 [facility] 2017-09-01 2017-09-01 [facility] [id number] Common 15:30:00 15:30:00 [facility] 2017-08-04 2017-08-04 [facility] [id number] Common 15:00:00 15:00:00 [place] [address] [facility] Results This patient has no known results.
[2022-06-17 19:41] LABS: Urine Blood Negative (Negative); Urine Glucose Negative (Negative); Urine Protein Negative (Negative); Urine Specific Gravity 1.015 (1.005-1.030); Urine pH 6.5 (5.0-7.0)
[2022-06-17 19:47] LABS: Hematocrit 42.5 % (36.0-45.0); MPV 8.1 fL (7.6-11.3); RBC Red Blood Cell Count 4.62 M/uL (3.86-4.86)
[2022-06-17 19:50] LABS: Urine Bacteria <20 /HPF (<20); Urine Crystals Unidentified Few /HPF (None Seen); Urine RBC <5 /HPF (None Seen); Urine WBC Clump Rare /HPF (None Seen)
[2022-06-17] MEDS ORDERED: ONDANSETRON 4 MG/2 ML VIAL ONE (19:51)
[2022-06-17] MEDS ORDERED: KETOROLAC 30 MG/ML INJ ONE (19:51)
[2022-06-17] MEDS ORDERED: NA CHLORIDE 0.9% 1,000 ML ONE (19:51)
[2022-06-17 20:02] LABS: Albumin 3.5 g/dL (3.4-5.0); Bilirubin Total 0.3 mg/dL (0.2-1.0); Potassium 3.5 mmol/L (3.5-5.1); Protein, Total 7.4 g/dL (6.4-8.2)
[2022-06-17 20:02] LABS: Urine Specific Gravity/Preg 1.015 (1.005-1.030)
[2022-06-17] MEDS ORDERED: FAMOTIDINE 20 MG/2 ML VIAL IV ONE (20:15)
[2022-06-17 20:52] LABS: SARS-CoV-2 Antigen Rapid Res Negative (Negative)
--- NOTE | 2022-06-17 20:54 | RAD REPORT ---
EXAM DESCRIPTION: CT - Abdomen Pelvis W Contrast - 06/17/2022 8:34 pm CLINICAL HISTORY: Abdominal pain, epigastric, for 4 days. COMPARISON: 02/16/2017 TECHNIQUE: Biphasic, helical CT imaging of the abdomen and pelvis was performed following intravenou s administration of 94 mL Isovue-300. All CT scans are performed using dose optimization technique as appropriate and may include automated exposure control or mA/KV adjustment according to patient size. FINDINGS: No suspicious findings in the lung bases. The liver, adrenal glands, and pancreas show no suspicious findings. Anterior small subcapsular round ed fluid signal density lesions along the spleen, largest measuring 1 centimeter Gallbladder and bili izzy tree are also without suspicious finding. Symmetric renal function is seen with no hydronephrosis or suspicious renal mass. Interval postsurgical changes of partial gastrectomy. No dilated bowel loops or bowel wall thickening . No free air, free fluid or inflammatory stranding. No hernia, mass or bulky lymphadenopathy. The ur inary bladder is without significant finding. Retroverted uterus with bulky contour and intramural lesion at the fundus, again most compatible with underlying fibroids. No suspicious bony findings. IMPRESSION: No acute abnormality in the abdomen and pelvis. Surgical changes of partial gastrectomy. Small splenic subcapsular fluid signal lesions, not exceeding 1 centimeter, may represent remote orga nized small hematomas.
--- NOTE | 2022-06-17 21:01 | RAD REPORT ---
EXAM DESCRIPTION: US - Abdomen Exam Limited - 06/17/2022 8:52 pm CLINICAL HISTORY: Right upper quadrant pain COMPARISON: 04/21/2018. FINDINGS: No gallstones, sludge, or other abnormalities identified within the gallbladder lumen. The re is no wall thickening or pericholecystic fluid. No common duct stone or biliary tree dilatation identified. IMPRESSION: Normal gallbladder and biliary tree ultrasound.
[2022-06-17] MEDS ORDERED: CEFTRIAXONE 1000 MG/VIAL ONE (22:53)
[2022-06-17] MEDS ORDERED: CIPROFLOXACIN HCL 500 MG TAB ONE (22:53)
--- NOTE | 2022-06-17 22:54 | ER ---
Nurse's Notes [facility] Name: Meka Junior Age: 51 yrs Sex: Female : 1970 Arrival Date: 06/17/2022 Time: 17:35 Bed 18 Private MD: Rickie Mg Diagnosis: Abdominal tenderness;UTI/ Urinary tract infection, site not specified Presentation: 06/17 18:04 Chief complaint: Patient states: on Friday i started having tolerable belly pain to my 5 upper right abdomen; pain has progressively gotten worse since and now its just so bad and it hurts to bend over or do anything. doesn't really get worse after i eat. Coronavirus screen: Vaccine status: Patient reports receiving the 2nd dose of the covid vaccine. Client denies travel out of the [place] in the last 14 days. Ebola Screen: Patient negative for fever greater than or equal to 101.5 degrees Fahrenheit, and additional compatible Ebola Virus Disease symptoms Patient denies exposure to infectious person. Patient denies travel to an Ebola-affected area in the 21 days before illness onset. Initial Sepsis Screen: Does the patient meet any 2 criteria? No. Patient's initial sepsis screen is negative. Does the patient have a suspected source of infection? No. Patient's initial sepsis screen is negative. Risk Assessment: Do you want to hurt yourself or someone else? Patient reports no desire to harm self or others. Onset of symptoms was June 14, 2022. 18:04 Method Of Arrival: Ambulatory [facility] 18:04 Acuity: AMBAR 3 5 Triage Assessment: 18:06 General: Appears uncomfortable, well groomed, well developed, well nourished, Behavior [facility] is calm, cooperative, appropriate for age. Pain: Complains of pain in abdomen. GI: Reports upper abdominal pain. 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 - Social history:: Smoking status: Patient denies any tobacco usage or history of. Screenin:58 [facility] ED Fall Risk Assessment (Adult) History of falling in the last 3 months, lg3 including since admission No falls in past 3 months (0 pts). Abuse screen: Denies threats or abuse. Denies injuries from another. Nutritional screening: No deficits noted. Tuberculosis screening: No symptoms or risk factors identified. Assessment: 19:58 General: Appears in no apparent distress. comfortable, Behavior is calm, cooperative. lg3 Pain: Complains of pain in right upper quadrant Pain currently is 6 out of 10 on a pain scale. Neuro: No deficits noted. Felipe Agitation-Sedation Scale (RASS): 0 - Alert and Calm Level of Consciousness is awake, alert, obeys commands, Oriented to person, place, time, situation. Cardiovascular: No deficits noted. Denies chest pain, shortness of breath, Capillary refill < 3 seconds Clubbing of nail beds is absent JVD is absent Patient's skin is warm and dry. Respiratory: No deficits noted. Airway is patent Trachea midline Respiratory effort is even, unlabored, Respiratory pattern is regular, symmetrical, Breath sounds are clear bilaterally. GI: No deficits noted. Abdomen is flat, non-distended, Bowel sounds present X 4 quads. Abd is soft X 4 quads Abdomen is tender to palpation Reports upper abdominal pain, nausea. : No deficits noted. No signs and/or symptoms were reported regarding the genitourinary system. EENT: No deficits noted. No signs and/or symptoms were reported regarding the EENT system. Derm: No deficits noted. No signs and/or symptoms reported regarding the dermatologic system. Skin is intact, is healthy with good turgor, Skin is dry, Skin is normal, Skin temperature is warm. Musculoskeletal: No deficits noted. No signs and/or symptoms reported regarding the musculoskeletal system. Circulation, motion, and sensation intact. Range of motion: intact in all extremities. 21:29 Reassessment: Patient appears in no apparent distress at this time. No changes from lg3 previously documented assessment. Patient and/or family updated on plan of care and expected duration. Pain level reassessed. Patient is alert, oriented x 3, equal unlabored respirations, skin warm/dry/pink. 22:59 Reassessment: Patient appears in no apparent distress at this time. No changes from lg3 previously documented assessment. Patient and/or family updated on plan of care and expected duration. Pain level reassessed. Patient is alert, oriented x 3, equal unlabored respirations, skin warm/dry/pink. Vital Signs: 18:04 BP 146 / 80; Pulse 64; Resp 18; Temp 98.5; Pulse Ox 100% ; Weight 69.85 kg; Height 4 5 ft. 11 in. (149.86 cm); Pain 8/10; 19:58 BP 136 / 84; Pulse 68; Resp 17 S; Pulse Ox 100% on R/A; lg3 21:29 BP 133 / 81; Pulse 72; Resp 16; Pulse Ox 100% on R/A; lg3 22:59 BP 131 / 80; Pulse 73; Resp 17; Pulse Ox 100% on R/A; lg3 18:04 Body Mass Index 31.10 (69.85 kg, 149.86 cm) [facility] ED Course: 17:35 Patient arrived in ED. am2 17:35 Rickie Mg DO is Private Physician. am2 18:06 Triage completed. [facility] 18:06 Arm band placed on right wrist. [facility] 18:10 Cam[facility] Bridges [facility]NP [facility] 18:10 Darren Bravo MD is Attending Physician. [facility] 19:45 CBC with Diff Sent. bc6 19:45 CMP Sent. bc6 19:45 Lipase Sent. bc6 19:45 Urine Microscopic Only Sent. bc6 19:46 Initial lab(s) drawn, by pr, sent to lab. Urine collected: clean catch specimen. bc6 Inserted saline lock: 20 gauge in right antecubital area, using aseptic technique. 19:58 Patient has correct armband on for positive identification. Placed in gown. Bed in low lg3 position. Call light in reach. Side rails up X 1. Client placed on continuous cardiac and pulse oximetry monitoring. NIBP monitoring applied. cardiac monitor technician on. Door closed. Noise minimized. Warm blanket given. 20:02 Attending Physician role handed off by Darren Bravo MD [facility] 20:02 Eugenio Jacobs MD is Attending Physician. [facility] 20:05 Lexus Dumont, ADDISON is Primary Nurse. 3 20:05 Urine --Ancillary (enter results) Sent. lg3 20:23 SARS RAPID Sent. lg3 22:52 Rickie Mg DO is Referral Physician. [facility] 22:53 Nataliia Aguilar MD is Referral Physician. [facility] 23:27 No provider procedures requiring assistance completed. IV discontinued, intact, lg3 bleeding controlled, No redness/swelling at site. Pressure dressing applied. Administered Medications: 19:58 Drug: NS 0.9% 1000 ml Route: IV; Rate: 1 bolus; Site: right antecubital; lg3 23:00 Follow up: Response: No adverse reaction; IV Status: Completed infusion; IV Intake: lg3 1000ml 19:58 Drug: TORadol - (ketorolac) 15 mg Route: IVP; Site: right antecubital; lg3 20:05 Follow up: Response: No adverse reaction lg3 19:58 Drug: Zofran (Ondansetron) 4 mg Route: IVP; Site: right antecubital; lg3 20:05 Follow up: Response: No adverse reaction lg3 20:16 Drug: Pepcid (famotidine) 20 mg Route: IVP; Site: right antecubital; lg3 20:23 Follow up: Response: No adverse reaction lg3 22:58 Drug: Rocephin (cefTRIAXone) 1 grams Route: IV; Rate: per protocol; Site: right lg3 antecubital; 22:59 Follow up: Response: No adverse reaction; IV Status: Completed infusion; IV Intake: [id number] 22:58 Drug: Ciprofloxacin 250 mg Route: PO; lg3 22:59 Follow up: Response: No adverse reaction lg3 Medication: 19:58 VIS not applicable for this client. lg3 Intake: 22:59 IV: 10ml; Total: 10ml. lg3 23:00 IV: 1000ml; Total: 1010ml. lg3 Outcome: 22:54 Discharge ordered by . [facility] 23:27 Discharged to home ambulatory. lg3 23:27 Condition: stable 23:27 Discharge instructions given to patient, Instructed on discharge instructions, follow up and referral plans. medication usage, Demonstrated understanding of instructions, follow-up care, medications, Prescriptions given X 4. 23:27 Patient left the ED. lg3 Signatures: Eugenio Jacobs MD MD cha Moreno, Amanda am2 Lexus Dumont, RN RN lg3 Rowena Warren RN RN jh5 Camelia Bridges FNP ST[employer] GLAZIER jh7 Ina Barroso [facility]
--- NOTE | 2022-06-17 22:54 | EDPHYS ---
Physician Documentation [facility] Name: Meka Junior Age: 51 yrs Sex: Female : 1970 Arrival Date: 06/17/2022 Time: 17:35 Bed 18 Private MD: [facility] ED Physician Eugenio Jacobs HPI: 06/17 18:10 This 51 yrs old Female presents to ER via Ambulatory with complaints of Abdominal Pain. jh7 18:10 The patient presents with abdominal pain in the right upper quadrant. Onset: The jh7 symptoms/episode began/occurred 3 day(s) ago, and became worse today. The symptoms do not radiate. Associated signs and symptoms: Pertinent negatives: nausea, vomiting, and diarrhea, chest pain, constipation. 51-year-old female presents upper quadrant pain starting on Friday that worsened today. She denies nausea, vomiting, and diarrhea but reports noticing pale stools recently. History of hypothyroidism. Reports that she had a gastric sleeve done last year. PCP is Dr. Mg.. BANK RUNNER: 18:06 LMP 06/05/2022 jh5 Historical: - Allergies: 18:06 PENICILLINS; jh5 - PMHx: 18:06 Hypothyroidism; jh5 - PSHx: 18:06 tubal ligation; weight loss sx 2021; jh5 - Immunization history:: Adult Immunizations up to date. - Social history:: Smoking status: Patient denies any tobacco usage or history of. ROS: 18:10 Constitutional: Negative for fever, chills, and weight loss, Eyes: Negative for injury, jh7 pain, redness, and discharge, Neck: Negative for injury, pain, and swelling, Cardiovascular: Negative for chest pain, palpitations, and edema, Respiratory: Negative for shortness of breath, cough, wheezing, and pleuritic chest pain, Back: Negative for injury and pain, MS/Extremity: Negative for injury and deformity, Skin: Negative for injury, rash, and discoloration, Neuro: Negative for headache, weakness, numbness, tingling, and seizure. 18:10 Abdomen/GI: Positive for abdominal pain, Pale stools, Negative for nausea, vomiting, and diarrhea. 18:10 All other systems are negative. Exam: 18:10 Constitutional: This is a well developed, well nourished patient who is awake, alert, jh7 and in no acute distress. Head/Face: Normocephalic, atraumatic. Eyes: Pupils equal round and reactive to light, extra-ocular motions intact. Lids and lashes normal. Conjunctiva and sclera are non-icteric and not injected. Cornea within normal limits. Periorbital areas with no swelling, redness, or edema. Neck: Trachea midline, no thyromegaly or masses palpated, and no cervical lymphadenopathy. Supple, full range of motion without nuchal rigidity, or vertebral point tenderness. No Meningismus. Cardiovascular: Regular rate and rhythm with a normal S1 and S2. No gallops, murmurs, or rubs. Normal PMI, no JVD. No pulse deficits. Respiratory: Lungs have equal breath sounds bilaterally, clear to auscultation and percussion. No rales, rhonchi or wheezes noted. No increased work of breathing, no retractions or nasal flaring. Back: No spinal tenderness. No costovertebral tenderness. Full range of motion. Skin: Warm, dry with normal turgor. Normal color with no rashes, no lesions, and no evidence of cellulitis. MS/ Extremity: Pulses equal, no cyanosis. Neurovascular intact. Full, normal range of motion. Neuro: Awake and alert, GCS 15, oriented to person, place, time, and situation. Motor strength 5/5 in all extremities. Sensory grossly intact. Normal gait. 18:10 Abdomen/GI: Inspection: abdomen appears normal, Bowel sounds: normal, Palpation: soft, mild abdominal tenderness, in the right upper quadrant. 22:55 ECG was reviewed by the Attending Physician. [facility] Vital Signs: 18:04 BP 146 / 80; Pulse 64; Resp 18; Temp 98.5; Pulse Ox 100% ; Weight 69.85 kg; Height 4 jh5 ft. 11 in. (149.86 cm); Pain 8/10; 19:58 BP 136 / 84; Pulse 68; Resp 17 S; Pulse Ox 100% on R/A; lg3 21:29 BP 133 / 81; Pulse 72; Resp 16; Pulse Ox 100% on R/A; lg3 22:59 BP 131 / 80; Pulse 73; Resp 17; Pulse Ox 100% on R/A; lg3 18:04 Body Mass Index 31.10 (69.85 kg, 149.86 cm) 5 MDM: 18:10 Patient medically screened. 7 20:04 Patient medically screened. [facility] 20:04 Transition of care: After a detail discussion of the patient's case, care is [facility] transferred to Eugenio Jacobs MD. 21:07 Patient medically screened. [place] 22:51 Differential diagnosis: bowel obstruction, Cholelithiasis, diverticulitis, Mesenteric marycruz ischemia or infarction, non-specific abd pain, pancreatitis, Perf. Duodenal Ulcer, Perf. Gastric Ulcer, Pyelonephritis, Ureterolithiasis, urinary tract infection. Data reviewed: vital signs, nurses notes, lab test result(s), EKG, radiologic studies, CT scan. Data reviewed: radiologic studies, ultrasound. Consideration of Admission/Observation Escalation of care including admission/observation considered. Test considered but Not performed: CT: ct chest. Care significantly affected by the following chronic conditions: hypothyroid. 06/17 18:11 Order name: CBC with Diff [facility] 06/17 18:11 Order name: CMP [facility] 06/17 18:11 Order name: Lipase [facility] 06/17 18:11 Order name: Urine Microscopic Only [facility] 06/17 19:41 Order name: Urine --Ancillary (enter results) [facility] 06/17 19:41 Order name: Urine Dipstick-Ancillary; Complete Time: 19:41 [facility] 06/17 18:11 Order name: CT Abd/Pelvis - IV Contrast Only [facility] 06/17 19:57 Order name: CBC with Automated Diff; Complete Time: 20:00 [facility] 06/17 20:00 Order name: Urine Microscopic Only; Complete Time: 20:04 [facility] 06/17 20:02 Order name: Urine --Ancillary; Complete Time: 20:04 [facility] 06/17 20:03 Order name: Comprehensive Metabolic Panel; Complete Time: 20:04 [facility] 06/17 20:03 Order name: Lipase; Complete Time: 20:04 [facility] 06/17 20:03 Order name: SARS RAPID [facility] 06/17 20:52 Order name: SARS-COV-2 Antigen Rapid; Complete Time: 21:07 [facility] 06/17 18:11 Order name: IV Saline Lock; Complete Time: 19:45 [facility] 06/17 18:11 Order name: Labs collected and sent; Complete Time: 19:45 [facility] 06/17 18:11 Order name: Urine Dipstick-Ancillary (obtain specimen); Complete Time: 19:40 [facility] 06/17 19:41 Order name: US Abdomen Limited [facility] 06/17 20:03 Order name: EKG; Complete Time: 20:04 [facility] 06/17 20:03 Order name: EKG - Nurse/Tech; Complete Time: 20:23 [facility] 06/17 20:55 Order name: CT; Complete Time: 21:07 [facility] 06/17 21:02 Order name: US; Complete Time: 21:07 EDMS EC:55 Rate is 47 beats/min. Rhythm is regular. QRS [place] is Normal. [place] interval is normal. QRS [place]ary[place] interval is normal. QT interval is normal. No Q waves. T waves are Normal. No ST changes noted. Clinical impression: Sinus bradycardia and No evidence of ischemia. Interpreted by me. Reviewed by me. Administered Medications: 19:58 Drug: NS 0.9% 1000 ml Route: IV; Rate: 1 bolus; Site: right antecubital; lg3 23:00 Follow up: Response: No adverse reaction; IV Status: Completed infusion; IV Intake: lg3 1000ml 19:58 Drug: TORadol - (ketorolac) 15 mg Route: IVP; Site: right antecubital; lg3 20:05 Follow up: Response: No adverse reaction lg3 19:58 Drug: Zofran (Ondansetron) 4 mg Route: IVP; Site: right antecubital; lg3 20:05 Follow up: Response: No adverse reaction lg3 20:16 Drug: Pepcid (famotidine) 20 mg Route: IVP; Site: right antecubital; lg3 20:23 Follow up: Response: No adverse reaction lg3 22:58 Drug: Rocephin (cefTRIAXone) 1 grams Route: IV; Rate: per protocol; Site: right lg3 antecubital; 22:59 Follow up: Response: No adverse reaction; IV Status: Completed infusion; IV Intake: [id number] 22:58 Drug: Ciprofloxacin 250 mg Route: PO; lg3 22:59 Follow up: Response: No adverse reaction lg3 Disposition: 22:51 Co-signature as Attending Physician, Rickie Mg DO. [place] Disposition Summary: 06/17/22 22:54 Discharge Ordered Location: Home [place] Problem: new marycruz Symptoms: have improved marycruz Condition: Stable m[place]cruz Diagnosis - Abdominal tenderness marycruz - UTI/ Urinary tract infection, site not specified [place] Followup: [place] - With: Rickie Mg DO - When: 2 - 3 days - Reason: Recheck today's complaints, Continuance of care, Re-evaluation by your physician Followup: [place] - With: Nataliia Aguilar MD - When: 2 - 3 days - Reason: Recheck today's complaints, Re-evaluation by your physician Discharge Instructions: - Discharge Summary Sheet m[place] - Abdominal Pain, Adult m[facility] - Dysuria [facility] - Urinary Tract Infection, Adult m[place] - Urinary Tract Infection, Adult, [id number] [place] - Abdominal Pain, Adult, [id number] [facility] Forms: - Medication Reconciliation Form [facility] - Thank You Letter [facility] - Antibiotic Education [facility] - Prescription Opioid Use [facility] - Work release form mw2 Prescriptions: - Cipro 250 mg Oral Tablet - take 1 tablet by ORAL route every 12 hours; 14 tablet; Refills: 0, Product [facility] Selection Permitted - Pepcid 20 mg Oral Tablet - take 1 tablet by ORAL route every 12 hours for 10 days; 20 tablet; Refills: 0, [facility] Product Selection Permitted - Zofran 4 mg Oral Tablet - take 1 tablet by ORAL route every 12 hours As needed; 20 tablet; Refills: 0, [facility] Product Selection Permitted - dicyclomine 20 mg Oral Tablet - take 1 tablet by ORAL route 4 times per day; 28 tablet; Refills: 0, Product [facility] Selection Permitted Signatures: Dispatcher [employer] Eugenio Disla MD MD cha Gibson, Lacie RN RN lg3 Rowena Warren RN RN jh5 Camelia Bridges FNP HOME HEALTH SCHEDULER jh7
[2022-06-18 00:30] VITALS: O2SAT 100
[2022-06-18 00:31] VITALS: TEMP 98.5
[2022-06-18 00:34] VITALS: BP 131/80
--- NOTE | 2022-06-18 17:10 | EKG ---
Test Date: 2022-06-17 Test Time: 20:22:06 Mailroom Clerk: RV MEASUREMENT RESULTS: Intervals: Rate: 47 VT: 148 QRSD: 90 QT: 450 QTc: 398 [place]: P: 40 VT: 148 QRS: 23 T: 30 INTERPRETIVE STATEMENTS: Marked sinus bradycardia Low voltage QRS Abnormal ECG Compared to ECG 05/09/2021 09:53:55 Low QRS voltage now present Sinus rhythm no longer present Left ventricular hypertrophy no longer present Myocardial infarct finding no longer present Electronically Signed On 06-18-22 17:08:45 SOFTWARE DEVELOPMENT ADVISOR by Philip Ovalle
== END 2022-06-17 23:27 | disposition home or self-care (01) ==
LOC: ER 17:24
DX: N39.0 Urinary tract infection, site not specified (principal); E03.9 Hypothyroidism, unspecified; Z88.0 Allergy status to penicillin; Z20.822 Contact with and (suspected) exposure to COVID-19
CPT/HCPCS: 96361; 93005; 87088; 85025; 87086; 36415; 81025; 83690; 80053; 74177; 76705; 96375; 96374; 99284; 87811; Q9967; J7030; J2405; 81003; 81015

== ENCOUNTER 2024-01-10 03:57 | Emergency (ER) | payer BC, SELFPAY ==
--- OUTSIDE RECORDS SUMMARY | 2024-01-10 04:02 | XMS REPORT | Continuity of Care Document ---
Author Name Unknown Address [address] [facility] [address]. [address] [place] [address] [facility] thconnect Address [address] [facility]. [address] [place] [address] Care Team Providers Care Software Engineer Developer Name Role Phone Rickie Mg Primary Care Physician [phone] Rickie Mg Attending Clinician JOSE Umana Attending Clinician Unavaillizeth Adorno MD, Jose Perez Attending Clinician [phone] BRIAN LORENZANA Attending Clinician Unavailable Brian Lorenzana MD Attending Clinician [phone] JANET_GCBZW_Ramos_Shadia Attending Clinician UnavailMARIA T Lan Attending Clinician Unavailable [place] NEWBY, Maria T Attending Clinician [phone] Unknown, Attending Attending Clinician Unavailab gwyn Hinds RN, Ena Fabian Attending Clinician Unavailab gwyn Cano RN, Linh Attending Clinician UnavailKENZIE Day Attending Clinician Unavailable Only, Ang Db Test Attending Clinician Unavaillizeth Lo DRIVER[employer], Emily Attending Clinician [phone] EMILY LO Attending Clinician Unavailable Hi DRIVER[employer], Merced Attending Clinician [phone] MERCED COURTNEY Attending Clinician Unavailable SAUMYA OSWALD Attending Clinician Unavailable SAUMYA OSWALD Attending Clinician Unavailab gwyn CHINO Attending Clinician Unavailable Cristal Lemus RD Attending Clinician [phone] JOSE ADORNO Admitting Clinician UnavailBRIAN Santamaria Admitting Clinician Unavailable JANET_GCBZW_Ramos_Shadia Admitting Clinician Unavaila SAUMYA Elise S Admitting Clinician Unavailab SAUMYA Toor Admitting Clinician Unavailable LULÚ Admitting Clinician Unavailable Payers Payer Name Policy Type Policy Number Effective Date Expirati on Date Source [place] [id number] 90 2019 00:00:00 [place] [id number] 90 2019 00:00:00 [place] [id number] 2014 00:00:00 2014 00:00:00 [facility] 6 [id number] 90 2020 00:00:00 [facility] C1 [id number] 2020 00:00:00 [facility] C1 [id number] 90 2020 00:00:00 [facility] C1 [id number] 90 2017 00:00:00 [facility] Problems Condition Name Condition Details Condition Category Status Onset Date Resolution Date Last Treatment Date Treating Clinician Comments Source 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 Active 08-24 00:00: 00 [facility] [id number] Hypothyroi dism, unspecifie d type Problem [facility] [id number] Migraine without aura and without status migrainosu s, not intractabl e Problem [facility] [id number] GERD without esophagiti s Problem [facility] [id number] Controlled type 2 diabetes mellitus without complicati on, without long-term current use of insulin Problem [facility] [id number] Calculus of gallbladde r without cholecysti tis without obstructio n Problem [facility] [id number] Non-alcoho lic fatty liver disease Problem [facility] [id number] Abnormal uterine bleeding Problem [facility] [id number] BMI 45.0-49.9, adult Problem [facility] [id number] Subserous leiomyoma of uterus Problem [facility] [id number] H/O tubal ligation Problem [facility] [id number] Current moderate episode of major depressive disorder without prior episode Problem [facility] [id number] Muscle strain Problem [facility] 81061761 Sciatic leg pain Problem [facility] 95160381 Cervical polyp Problem [facility] [id number] Seasonal allergic rhinitis, unspecifie d trigger Problem [facility] [id number] Other obesity due to excess calories Problem [facility] [id number] Atopic dermatitis , unspecifie d type Problem [facility] [id number] Mixed hyperlipid emia Problem [facility] [id number] Other chronic pain Problem [facility] 93648375 Loss of taste Problem [facility] [id number] Tear of right rotator cuff, unspecifie d tear extent, unspecifie d whether traumatic Problem [facility] [id number] Complete tear of left rotator cuff, unspecifie d whether traumatic Problem [facility] [id number] Body mass index [BMI] 39.0-39.9, adult Problem [facility] [id number] Morbid (severe) obesity due to excess calories Problem [facility] Allergies, Adverse Reactions, Alerts Allergy Name Allergy Type Status Severity Reaction(s) Onset Date Inactive Date Treating Clinician Comments Source Penicill amine Allergy to substanc e Active 07-17 00:00: 00 Other reaction( s): rash [facility] PENICILL AMINE DRUG INGREDI Active Rash 07-17 00:00: 00 [facility] Penicill amine Drug Allergy Active Rash 315 00:00: 00 Other reaction( s): rash [facility] [place] Penicill in G Allergy to substanc e Active Unknown 07 00:00: 00 [facility] Penicill ins Allergy to substanc e Active 2016-05 015 00:00: 00 Other reaction( s): Unknown [facility] NO KNOWN ALLERGIE S Drug Class Active [facility] Penicill in Penicill in Active Unknown [facility] Social History Social Habit Start Date Stop Date Quantity Comments Source History of Tobacco Use [facility] History SDOH Alcohol Frequency [facility] History SDOH Alcohol Std Drinks [facility] History SDOH Alcohol Binge [facility] Gender identity [facility] Sexual orientation [facility] History of Social function 2023-10-01 00:00:00 2023-10-01 00:00:00 [facility] Tobacco use and exposure 2022-10-14 00:00:00 2022-10-14 00:00:00 Smokeless tobacco non-user [facility] Alcohol intake 2022-07-19 00:00:00 2022-07-19 00:00:00 Ex-drinker (finding) [facility] Exposure to SARS-CoV-2 (event) 2022-06-13 00:00:00 2022-06-23 19:43:00 Not sure [facility] Alcohol Comment 2021-08-24 00:00:00 2021-08-24 00:00:00 occasional [facility] Sex assigned at 1970 00:00:00 1970 00:00:00 [facility] Smoking Status Start Date Stop Date Source Never smoked tobacco [facility] Medications Ordered Medication Name Filled Medication Name Start Date Stop Date Current Medication? Ordering Clinician Indication Dosage Frequency Signature (SIG) Comments Components Source iopamidol (ISOVUE 370-500 mL) injection 90 mL 09-30 14:30: 00 09-30 14:45 :00 No [id number] 90mL 90 mL, Intravenou s, ONCE, 1 dose, On Fri10/01/23 at 0945, Routine [facility] pantoprazol e (PROTONIX) injection 40 mg 09-30 13:30: 00 09-30 13:47 :00 No 40mg 40 mg, Slow IV Push, ONCE, 1 dose, On Fri10/01/23 at 0830 [facility] famotidine (PEPCID (PF)) injection 40 mg 09-30 12:45: 00 09-30 13:45 :00 No 40mg 40 mg, Slow IV Push, ONCE, 1 dose, On Fri10/01/23 at 0745, CHARY [facility] NaCl 0.9% (NS) bolus infusion 1,000 mL 09-30 12:45: 00 09-30 15:25 :00 No 1000mL at 999 mL/hr, 1,000 mL, IV Infusion, ONCE, 1 dose, On Fri10/01/23 at 0745, STAT [facility] famotidine 40 mg/5 mL (8 mg/mL) suspension 09-30 00:00: 10-16 04:59 :00 No [id number] 20mg Take 2.5 mL through enteral tube every 12 (twelve) hours for 15 days. [facility] methylPREDN ISolone 4 mg tablets 2022-05 2 00:00: 00 Yes [id number] Take by mouth SEE-INSTRU CTIONS. follow package directions [facility] ondansetron 4 mg disintegrat ing tablet 8 00:00: 00 Yes [id number] 4mg Take 1 tablet by mouth every 8 (eight) hours as needed for Nausea and Vomiting (N/V). [facility] cefTRIAXone (ROCEPHIN) injection 1,000 mg 10-19 21:00: 00 10-19 20:22 :00 No [id number] 1000mg [facility] Nitrofurant oin&Nit. Macrocryst (MACROBID) 100 mg capsule 10-17 00:00: 00 Yes [id number] 100mg Take 1 capsule by mouth in the morning and 1 capsule in the evening. [facility] nystatin 100,000 unit/mL suspension 10-14 00:00: 10-22 04:59 :00 No [id number] Take 5 mL by mouth 4 (four) times daily for 7 days. [facility] WEGOVY 1.7 mg/0.75 mL PnIj SC injection 10-11 00:00: 00 Yes [facility] polyethylen e glycol (Glycolax) 17 GM/SCOOP powder 11-29 00:00: 00 07-19 00:00 :00 No USE 17 GRAMS BY MOUTH DAILY FOR 15 DAYS [facility] ondansetron (Zofran) 4 MG tablet 11-29 00:00: 00 07-19 00:00 :00 No TAKE 1 TABLET BY MOUTH EVERY 6 HOURS FOR 5 DAYS NEEDED FOR NAUSEA AND VOMITING [facility] Acetaminoph en Ex St 500 MG tablet 11-29 00:00: 00 07-19 00:00 :00 No 1000mg Q6H Take 1,000 mg by mouth every 6 (six) hours. FOR 3 DAYS [facility] Phentermine HCl 37.5 MG Phentermine HCl 37.5 MG 2-0 6-23 00:00: 00 No Phentermin e HCl 37.5 MG Phentermine HCl 37.5 MG Phentermine HCl 37.5 MG 2022-0 6-23 00:00: 00 No Phentermin e HCl 37.5 MG Phentermine HCl 37.5 MG Phentermine HCl 37.5 MG 2022-0 6-23 00:00: 00 No Phentermin e HCl 37.5 MG Phentermine HCl 37.5 MG Phentermine HCl 37.5 MG 2-0 5-24 00:00: 00 10-25 00:00 :00 No 1{capsu le} QD Phentermin e HCl 37.5 MG Phentermine HCl 37.5 MG Phentermine HCl 37.5 MG 2-0 5-24 00:00: 00 10-25 00:00 :00 No 1{capsu le} QD Phentermin e HCl 37.5 MG phentermine 37.5 MG capsule 2-0 4-13 00:00: 00 Yes 37.5mg QD Take 37.5 mg by mouth 1 (one) time each day. TAKE 1 CAPSULE BY MOUTH EVERY DAY FOR 30 DAYS [facility] Phentermine HCl 37.5 MG Phentermine HCl 37.5 MG 2-0 3-09 00:00: 00 No 1{capsu le} QD Phentermin e HCl 37.5 MG Phentermine HCl 37.5 MG Phentermine HCl 37.5 MG 2-0 3-09 00:00: 00 No 1{capsu le} QD Phentermin e HCl 37.5 MG Phentermine HCl 37.5 MG Phentermine HCl 37.5 MG 2-0 2-09 00:00: 00 No 1{capsu le} QD Phentermin e HCl 37.5 MG traMADol HCl 50 MG traMADol HCl 50 MG 2-0 1-31 00:00: 00 No traMADol HCl 50 MG traMADol HCl 50 MG traMADol HCl 50 MG 2-0 1-31 00:00: 00 No traMADol HCl 50 MG traMADol HCl 50 MG traMADol HCl 50 MG 2-0 1-31 00:00: 00 No traMADol HCl 50 MG traMADol HCl 50 MG traMADol HCl 50 MG 2021-0 - 00:00: 00 No traMADol HCl 50 MG traMADol HCl 50 MG traMADol HCl 50 MG 0 - 00:00: 00 No traMADol HCl 50 MG traMADol HCl 50 MG traMADol HCl 50 MG 2021-0 - 00:00: 00 No traMADol HCl 50 MG traMADol HCl 50 MG traMADol HCl 50 MG 2021-0 - 00:00: 00 No traMADol HCl 50 MG traMADol HCl 50 MG traMADol HCl 50 MG 2021-0 - 00:00: 00 No traMADol HCl 50 MG traMADol HCl 50 MG traMADol HCl 50 MG 2021-0 - 00:00: 00 No traMADol HCl 50 MG traMADol HCl 50 MG traMADol HCl 50 MG 2021-0 06-04 00:00: 00 No traMADol HCl 50 MG traMADol HCl 50 MG traMADol HCl 50 MG 0 - 00:00: 00 No traMADol HCl 50 MG traMADol HCl 50 MG traMADol HCl 50 MG 0 06-04 00:00: 00 No traMADol HCl 50 MG Ozempic, 1 MG/DOSE, 4 MG/3ML solution pen-injecto r 1- 00:00: 00 Yes INJECT 1 MG/DOSE SUBCUTANEO US ONCE A WEEK 30 DAYS [facility] Phentermine HCl 37.5 MG Phentermine HCl 37.5 MG 2020- 2-14 00:00: 00 No 1{capsu le} QD Phentermine HCl 37.5 MG Phentermine HCl 37.5 MG 2020- 0-28 00:00: 00 03-31 00:00 :00 No 1{capsu le} QD Phentermin e HCl 37.5 MG Phentermine HCl 37.5 MG Phentermine HCl 37.5 MG 2020-0 9-23 00:00: 00 No 1{capsu le} QD Phentermin e HCl 37.5 MG Montelukast Sodium 10 MG Montelukast Sodium 10 MG 2020-0 9-02 00:00: 00 No 1{table t} QD Montelukas t Sodium 10 MG Fluticasone Propionate 50 MCG/ACT Fluticasone Propionate 50 MCG/ACT 9- 00:00: 00 No 1{spray _in_eac h_nostr il} BID Fluticason e Propionate 50 MCG/ACT Azithromyci n 250 MG Azithromyci n 250 MG 9- 00:00: 00 01-09 00:00 :00 No QD Azithromyc in 250 MG Cyclobenzap rine HCl 10 MG Cyclobenzap rine HCl 10 MG -18 00:00: 00 01-19 00:00 :00 No 1{table t_at_be dtime_a s_neede d} QD Cyclobenza altagracia HCl 10 MG Cyclobenzap rine HCl 10 MG Cyclobenzap rine HCl 10 MG 12-20 00:00: 00 01-19 00:00 :00 No 1{table t_at_be dtime_a s_neede d} QD Cyclobenza altagracia HCl 10 MG Kenalog (Triamcinol one) Kenalog (Triamcinol one) 8- 00:00: 00 No 40mg [facility] Ketorolac 15mg Ketorolac 15mg 8 00:00: 00 No 60mg [facility] Kenalog (Triamcinol one) Kenalog (Triamcinol one) 8- 00:00: 00 No 40[facility] Ketorolac 15mg Ketorolac 15mg 8- 00:00: 00 No 60mg [facility] Kenalog (Triamcinol one) Kenalog (Triamcinol one) 8- 00:00: 00 No 40mg [facility] Ketorolac 15mg Ketorolac 15mg 8- 00:00: 00 No 60mg [facility] Kenalog (Triamcinol one) Kenalog (Triamcinol one) 8-17 00:00: 00 No 40[facility] Ketorolac 15mg Ketorolac 15mg 1-0 8-17 00:00: 00 No 60mg [facility] Kenalog (Triamcinol one) Kenalog (Triamcinol one) 0 8-17 00:00: 00 No 40mg [facility] Ketorolac 15mg Ketorolac 15mg 1-0 8-17 00:00: 00 No 60mg [facility] Kenalog (Triamcinol one) Kenalog (Triamcinol one) 0 8-17 00:00: 00 No 40mg [facility] Ketorolac 15mg Ketorolac 15mg 1-0 8-17 00:00: 00 No 60mg [facility] Kenalog (Triamcinol one) Kenalog (Triamcinol one) 0 8-17 00:00: 00 No 40mg [facility] Ketorolac 15mg Ketorolac 15mg 2020-0 8-17 00:00: 00 No 60mg [facility] Kenalog (Triamcinol one) Kenalog (Triamcinol one) 0 8-17 00:00: 00 No 40mg [facility] Ketorolac 15mg Ketorolac 15mg 1-0 8-17 00:00: 00 No 60mg [facility] Kenalog (Triamcinol one) Kenalog (Triamcinol one) 0 8-17 00:00: 00 No 40mg [facility] Ketorolac 15mg Ketorolac 15mg 1-0 8-17 00:00: 00 No 60mg [facility] Kenalog (Triamcinol one) Kenalog (Triamcinol one) 0 8-17 00:00: 00 No 40mg [facility] Ketorolac 15mg Ketorolac 15mg 1-0 8-17 00:00: 00 No 60mg [facility] Kenalog (Triamcinol one) Kenalog (Triamcinol one) 0 12-19 00:00: 00 No 40mg [facility] Ketorolac 15mg Ketorolac 15mg 0 8-17 00:00: 00 No 60mg [facility] Kenalog (Triamcinol one) Kenalog (Triamcinol one) 0 08-28 00:00: 00 No 40mg [facility] Bupivicaine [place] Bupivicaine [place] 0 08-28 00:00: 00 No 2.5mg [facility] Kenalog (Triamcinol one) Kenalog (Triamcinol one) 0 08-28 00:00: 00 No 40mg [facility] Bupivicaine [place] Bupivicaine [place] 0 08-28 00:00: 00 No 2.5mg [facility] Kenalog (Triamcinol one) Kenalog (Triamcinol one) 0 08-28 00:00: 00 No 40mg [facility] Bupivicaine [place] Bupivicaine [place] 0 08-28 00:00: 00 No 2.5mg [facility] Kenalog (Triamcinol one) Kenalog (Triamcinol one) 0 08-28 00:00: 00 No 40mg [facility] Bupivicaine [place] Bupivicaine [place] 0 08-28 00:00: 00 No 2.5mg [facility] Kenalog (Triamcinol one) Kenalog (Triamcinol one) 0 08-28 00:00: 00 No 40mg [facility] Bupivicaine [place] Bupivicaine [place] 0 08-28 00:00: 00 No 2.5mg [facility] Kenalog (Triamcinol one) Kenalog (Triamcinol one) 0 08-28 00:00: 00 No 40mg [facility] Bupivicaine [place] Bupivicaine [place] 0 08-28 00:00: 00 No 2.5mg [facility] Kenalog (Triamcinol one) Kenalog (Triamcinol one) 0 08-28 00:00: 00 No 40mg [facility] Bupivicaine [place] Bupivicaine [place] 0 08-28 00:00: 00 No 2.5mg [facility] Kenalog (Triamcinol one) Kenalog (Triamcinol one) 0 08-28 00:00: 00 No 40mg [facility] Bupivicaine [place] Bupivicaine [place] 0 08-28 00:00: 00 No 2.5mg [facility] Kenalog (Triamcinol one) Kenalog (Triamcinol one) 0 08-28 00:00: 00 No 40mg [facility] Bupivicaine [place] Bupivicaine [place] 0 08-28 00:00: 00 No 2.5mg [facility] Kenalog (Triamcinol one) Kenalog (Triamcinol one) 0 08-28 00:00: 00 No 40mg [facility] Bupivicaine [place] Bupivicaine [place] 0 08-28 00:00: 00 No [facility] Kenalog (Triamcinol one) Kenalog (Triamcinol one) 0 08-28 00:00: 00 No 40mg [facility] Bupivicaine [place] Bupivicaine [place] 0 08-28 00:00: 00 No [facility] Naproxen 500 MG Naproxen 500 MG 0 08-09 00:00: 00 No BID Naproxen 500 MG Naproxen 500 MG Naproxen 500 MG 0 08-09 00:00: 00 No BID Naproxen 500 MG Kenalog (Triamcinol one) Kenalog (Triamcinol one) 2019-05 020 00:00: 00 No 40mg [facility] Kenalog (Triamcinol one) Kenalog (Triamcinol one) 2019-05 0-20 00:00: 00 No 40mg [facility] Kenalog (Triamcinol one) Kenalog (Triamcinol one) 2019-05 0-20 00:00: 00 No 40mg [facility] Kenalog (Triamcinol one) Kenalog (Triamcinol one) 2019-05 020 00:00: 00 No 40mg [facility] Kenalog (Triamcinol one) Kenalog (Triamcinol one) 2019-05 020 00:00: 00 No 40mg [facility] Kenalog (Triamcinol one) Kenalog (Triamcinol one) 2019-05 020 00:00: 00 No 40mg [facility] Kenalog (Triamcinol one) Kenalog (Triamcinol one) 2019-05 020 00:00: 00 No 40mg [facility] Kenalog (Triamcinol one) Kenalog (Triamcinol one) 2019-05 020 00:00: 00 No 40mg [facility] Kenalog (Triamcinol one) Kenalog (Triamcinol one) 2019-05 020 00:00: 00 No 40mg [facility] Kenalog (Triamcinol one) Kenalog (Triamcinol one) 2019-05 020 00:00: 00 No 40mg [facility] Kenalog (Triamcinol one) Kenalog (Triamcinol one) 2019-05 020 00:00: 00 No 40mg [facility] Kenalog (Triamcinol one) Kenalog (Triamcinol one) 01-15 00:00: 00 No 40mg [facility] Kenalog (Triamcinol one) Kenalog (Triamcinol one) 01-15 00:00: 00 No 40mg [facility] Kenalog (Triamcinol one) Kenalog (Triamcinol one) 2019-0 913 00:00: 00 No 40mg [facility] Kenalog (Triamcinol one) Kenalog (Triamcinol one) 2019-0 913 00:00: 00 No 40mg [facility] Kenalog (Triamcinol one) Kenalog (Triamcinol one) 20190 01-15 00:00: 00 No 40mg [facility] Kenalog (Triamcinol one) Kenalog (Triamcinol one) 20190 13 00:00: 00 No 40mg [facility] Kenalog (Triamcinol one) Kenalog (Triamcinol one) 2019-0 01-15 00:00: 00 No 40mg [facility] Kenalog (Triamcinol one) Kenalog (Triamcinol one) 20190 01-15 00:00: 00 No 40mg [facility] Kenalog (Triamcinol one) Kenalog (Triamcinol one) 20190 13 00:00: 00 No 40mg [facility] Kenalog (Triamcinol one) Kenalog (Triamcinol one) 2019-0 01-15 00:00: 00 No 40mg [facility] Kenalog (Triamcinol one) Kenalog (Triamcinol one) 20190 01-15 00:00: 00 No 40mg [facility] Betamethaso ne Sodium Phosphate Betamethaso ne Sodium Phosphate 20190 08 00:00: 00 No 1mL [facility] Bupivicaine [place] Bupivicaine [place] 0 808 00:00: 00 No 5mL [facility] Betamethaso ne Sodium Phosphate Betamethaso ne Sodium Phosphate 0 808 00:00: 00 No 1mL [facility] Bupivicaine [place] Bupivicaine [place] 0 12-10 00:00: 00 No 5mL [facility] Betamethaso ne Sodium Phosphate Betamethaso ne Sodium Phosphate 0 08 00:00: 00 No 1mL [facility] Bupivicaine [place] Bupivicaine [place] 0 08 00:00: 00 No 5mL [facility] Betamethaso ne Sodium Phosphate Betamethaso ne Sodium Phosphate 0 12-10 00:00: 00 No 1mL [facility] Bupivicaine [place] Bupivicaine [place] 0 08 00:00: 00 No 5mL [facility] Betamethaso ne Sodium Phosphate Betamethaso ne Sodium Phosphate 0 12-10 00:00: 00 No 1mL [facility] Bupivicaine [place] Bupivicaine [place] 0 08 00:00: 00 No 5mL [facility] Betamethaso ne Sodium Phosphate Betamethaso ne Sodium Phosphate 0 12-10 00:00: 00 No 1mL [facility] Bupivicaine [place] Bupivicaine [place] 0 08 00:00: 00 No 5mL [facility] Betamethaso ne Sodium Phosphate Betamethaso ne Sodium Phosphate 0 08 00:00: 00 No 1mL [facility] Bupivicaine [place] Bupivicaine [place] 0 08 00:00: 00 No 5mL [facility] Betamethaso ne Sodium Phosphate Betamethaso ne Sodium Phosphate 0 08 00:00: 00 No 1mL [facility] Bupivicaine [place] Bupivicaine [place] 0 08 00:00: 00 No 5mL [facility] Betamethaso ne Sodium Phosphate Betamethaso ne Sodium Phosphate 0 08 00:00: 00 No 1mL [facility] Bupivicaine [place] Bupivicaine [place] 0 808 00:00: 00 No 5mL [facility] Betamethaso ne Sodium Phosphate Betamethaso ne Sodium Phosphate 12-10 00:00: 00 No 1mL [facility] Bupivicaine [place] Bupivicaine [place] 08 00:00: 00 No 5mL [facility] Betamethaso ne Sodium Phosphate Betamethaso ne Sodium Phosphate 12-10 00:00: 00 No 1mL [facility] Bupivicaine [place] Bupivicaine [place] 0 12-10 00:00: 00 No 5mL [facility] Kenalog (Triamcinol one) Kenalog (Triamcinol one) 0 07-03 00:00: 00 No 40mg [facility] Kenalog (Triamcinol one) Kenalog (Triamcinol one) 0 3 00:00: 00 No 40mg [facility] Kenalog (Triamcinol one) Kenalog (Triamcinol one) 0 3 00:00: 00 No 40mg [facility] Kenalog (Triamcinol one) Kenalog (Triamcinol one) 0 3 00:00: 00 No 40mg [facility] Kenalog (Triamcinol one) Kenalog (Triamcinol one) 0 3- 00:00: 00 No 40mg [facility] Kenalog (Triamcinol one) Kenalog (Triamcinol one) 0 3- 00:00: 00 No 40mg [facility] Kenalog (Triamcinol one) Kenalog (Triamcinol one) 0 3 00:00: 00 No 40mg [facility] Kenalog (Triamcinol one) Kenalog (Triamcinol one) 0 3- 00:00: 00 No 40mg [facility] Kenalog (Triamcinol one) Kenalog (Triamcinol one) 0 3- 00:00: 00 No 40mg [facility] Kenalog (Triamcinol one) Kenalog (Triamcinol one) 0 07-03 00:00: 00 No 40mg [facility] Kenalog (Triamcinol one) Kenalog (Triamcinol one) 0 07-03 00:00: 00 No 40mg [facility] Omeprazole 40 MG Omeprazole 40 MG No 1{capsu le} QD Omeprazole 40 MG Cyclobenzap rine HCl 10 MG Cyclobenzap rine HCl 10 MG No Cyclobenza altagracia HCl 10 MG SUMAtriptan Succinate 50 MG SUMAtriptan Succinate 50 MG No SUMAtripta n Succinate 50 MG Azithromyci n 250 MG Azithromyci n 250 MG No QD Azithromyc in 250 MG Levothyroxi ne Sodium 100 MCG Levothyroxi ne Sodium 100 MCG No Levothyrox ine Sodium 100 MCG Levothyroxi ne Sodium 100 MCG Levothyroxi ne Sodium 100 MCG No Levothyrox ine Sodium 100 MCG Benzonatate 200 MG Benzonatate 200 MG No 1{capsu le} TID Benzonatat e 200 MG Levothyroxi ne Sodium 88 MCG Levothyroxi ne Sodium 88 MCG No Levothyrox ine Sodium 88 MCG Amitriptyli ne HCl 75 MG Amitriptyli ne HCl 75 MG No 1{table t} QD Amitriptyl ine HCl 75 MG Ozempic 1 MG/DOSE Ozempic 1 MG/DOSE No Ozempic 1 MG/DOSE Naproxen 500 MG Naproxen 500 MG No Naproxen 500 MG predniSONE 10 MG predniSONE 10 MG No QD predniSONE 10 MG Loratadine 10 MG Loratadine 10 MG No 1{table t} QD Loratadine 10 MG Omeprazole 40 MG Omeprazole 40 MG No 1{capsu le} QD Omeprazole 40 MG Amitriptyli ne HCl 75 MG Amitriptyli ne HCl 75 MG No Amitriptyl ine HCl 75 MG Levothyroxi ne Sodium 88 MCG Levothyroxi ne Sodium 88 MCG No QD Levothyrox ine Sodium 88 MCG Loratadine 10 MG Loratadine 10 MG No 1{table t} QD Loratadine 10 MG Cyclobenzap rine HCl 10 MG Cyclobenzap rine HCl 10 MG No Cyclobenza altagracia HCl 10 MG SUMAtriptan Succinate 50 MG SUMAtriptan Succinate 50 MG No SUMAtripta n Succinate 50 MG Azithromyci n 250 MG Azithromyci n 250 MG No QD Azithromyc in 250 MG Levothyroxi ne Sodium 100 MCG Levothyroxi ne Sodium 100 MCG No Levothyrox ine Sodium 100 MCG Benzonatate 200 MG Benzonatate 200 MG No 1{capsu le} TID Benzonatat e 200 MG Levothyroxi ne Sodium 88 MCG Levothyroxi ne Sodium 88 MCG No Levothyrox ine Sodium 88 MCG Amitriptyli ne HCl 75 MG Amitriptyli ne HCl 75 MG No 1{table t} QD Amitriptyl ine HCl 75 MG Ozempic 1 MG/DOSE Ozempic 1 MG/DOSE No Ozempic 1 MG/DOSE Naproxen 500 MG Naproxen 500 MG No Naproxen 500 MG predniSONE 10 MG predniSONE 10 MG No QD predniSONE 10 MG Loratadine 10 MG Loratadine 10 MG No 1{table t} QD Loratadine 10 MG Omeprazole 40 MG Omeprazole 40 MG No 1{capsu le} QD Omeprazole 40 MG Ozempic 1 MG/DOSE Ozempic 1 MG/DOSE No Ozempic 1 MG/DOSE BD Pen Needle Mini U/F 31G X 5 MM BD Pen Needle Mini U/F 31G X 5 MM No BD Pen Needle Mini U/F 31G X 5 MM SUMAtriptan Succinate 50 MG SUMAtriptan Succinate 50 MG No SUMAtripta n Succinate 50 MG Omeprazole 40 MG Omeprazole 40 MG No 1{capsu le} QD Omeprazole 40 MG Levothyroxi ne Sodium 100 MCG Levothyroxi ne Sodium 100 MCG No Levothyrox ine Sodium 100 MCG Amitriptyli ne HCl 75 MG Amitriptyli ne HCl 75 MG No Amitriptyl ine HCl 75 MG Levothyroxi ne Sodium 88 MCG Levothyroxi ne Sodium 88 MCG No QD Levothyrox ine Sodium 88 MCG Loratadine 10 MG Loratadine 10 MG No 1{table t} QD Loratadine 10 MG Naproxen 500 MG Naproxen 500 MG No Naproxen 500 MG Loratadine 10 MG Loratadine 10 MG No 1{table t} QD Loratadine 10 MG Omeprazole 40 MG Omeprazole 40 MG No 1{capsu le} QD Omeprazole 40 MG Amitriptyli ne HCl 75 MG Amitriptyli ne HCl 75 MG No 1{table t} QD Amitriptyl ine HCl 75 MG Ozempic 1 MG/DOSE Ozempic 1 MG/DOSE No Ozempic 1 MG/DOSE Fluticasone Propionate 50 MCG/ACT Fluticasone Propionate 50 MCG/ACT No Fluticason e Propionate 50 MCG/ACT BD Pen Needle Mini U/F 31G X 5 MM BD Pen Needle Mini U/F 31G X 5 MM No BD Pen Needle Mini U/F 31G X 5 MM Cyclobenzap rine HCl 10 MG Cyclobenzap rine HCl 10 MG No Cyclobenza altagracia HCl 10 MG Levothyroxi ne Sodium 100 MCG Levothyroxi ne Sodium 100 MCG No Levothyrox ine Sodium 100 MCG Montelukast Sodium 10 MG Montelukast Sodium 10 MG No Montelukas t Sodium 10 MG Levothyroxi ne Sodium 88 MCG Levothyroxi ne Sodium 88 MCG No QD Levothyrox ine Sodium 88 MCG SUMAtriptan Succinate 50 MG SUMAtriptan Succinate 50 MG No SUMAtripta n Succinate 50 MG Benzonatate 200 MG Benzonatate 200 MG No 1{capsu le} TID Azithromyci n 250 MG Azithromyci n 250 MG No QD predniSONE 10 MG predniSONE 10 MG No QD Benzonatate 200 MG Benzonatate 200 MG No 1{capsu le} TID Benzonatat e 200 MG Azithromyci n 250 MG Azithromyci n 250 MG No QD Azithromyc in 250 MG Amitriptyli ne HCl 75 MG Amitriptyli ne HCl 75 MG No 1{table t} QD Amitriptyl ine HCl 75 MG Ozempic 1 MG/DOSE Ozempic 1 MG/DOSE No Ozempic 1 MG/DOSE Phentermine HCl 37.5 MG Phentermine HCl 37.5 MG No 1{capsu le} QD Phentermin e HCl 37.5 MG Omeprazole 40 MG Omeprazole 40 MG No 1{capsu le} QD Omeprazole 40 MG Levothyroxi ne Sodium 88 MCG Levothyroxi ne Sodium 88 MCG No QD Levothyrox ine Sodium 88 MCG Montelukast Sodium 10 MG Montelukast Sodium 10 MG No Montelukas t Sodium 10 MG Fluticasone Propionate 50 MCG/ACT Fluticasone Propionate 50 MCG/ACT No Fluticason e Propionate 50 MCG/ACT Cyclobenzap rine HCl 10 MG Cyclobenzap rine HCl 10 MG No Cyclobenza altagracia HCl 10 MG SUMAtriptan Succinate 50 MG SUMAtriptan Succinate 50 MG No SUMAtripta n Succinate 50 MG Naproxen 500 MG Naproxen 500 MG No Naproxen 500 MG Levothyroxi ne Sodium 100 MCG Levothyroxi ne Sodium 100 MCG No Levothyrox ine Sodium 100 MCG predniSONE 10 MG predniSONE 10 MG No QD predniSONE 10 MG Loratadine 10 MG Loratadine 10 MG No 1{table t} QD Loratadine 10 MG BD Pen Needle Mini U/F 31G X 5 MM BD Pen Needle Mini U/F 31G X 5 MM No BD Pen Needle Mini U/F 31G X 5 MM Loratadine 10 MG Loratadine 10 MG No 1{table t} QD Loratadine 10 MG Amitriptyli ne HCl 75 MG Amitriptyli ne HCl 75 MG No 1{table t} QD Amitriptyl ine HCl 75 MG predniSONE 10 MG predniSONE 10 MG No QD predniSONE 10 MG Fluticasone Propionate 50 MCG/ACT Fluticasone Propionate 50 MCG/ACT No Fluticason e Propionate 50 MCG/ACT Montelukast Sodium 10 MG Montelukast Sodium 10 MG No Montelukas t Sodium 10 MG Azithromyci n 250 MG Azithromyci n 250 MG No QD Azithromyc in 250 MG Phentermine HCl 37.5 MG Phentermine HCl 37.5 MG No 1{capsu le} QD Phentermin e HCl 37.5 MG Naproxen 500 MG Naproxen 500 MG No Naproxen 500 MG Cyclobenzap rine HCl 10 MG Cyclobenzap rine HCl 10 MG No Cyclobenza altagracia HCl 10 MG SUMAtriptan Succinate 50 MG SUMAtriptan Succinate 50 MG No SUMAtripta n Succinate 50 MG Ozempic 1 MG/DOSE Ozempic 1 MG/DOSE No Ozempic 1 MG/DOSE BD Pen Needle Mini U/F 31G X 5 MM BD Pen Needle Mini U/F 31G X 5 MM No BD Pen Needle Mini U/F 31G X 5 MM Levothyroxi ne Sodium 88 MCG Levothyroxi ne Sodium 88 MCG No QD Levothyrox ine Sodium 88 MCG Levothyroxi ne Sodium 100 MCG Levothyroxi ne Sodium 100 MCG No Levothyrox ine Sodium 100 MCG Benzonatate 200 MG Benzonatate 200 MG No 1{capsu le} TID Benzonatat e 200 MG Omeprazole 40 MG Omeprazole 40 MG No 1{capsu le} QD Omeprazole 40 MG Amitriptyli ne HCl 100 MG Amitriptyli ne HCl 100 MG No 1{table t} QD Amitriptyl ine HCl 100 MG SUMAtriptan Succinate 50 MG SUMAtriptan Succinate 50 MG No SUMAtripta n Succinate 50 MG Loratadine 10 MG Loratadine 10 MG No 1{table t} QD Loratadine 10 MG Fluticasone Propionate 50 MCG/ACT Fluticasone Propionate 50 MCG/ACT No Fluticason e Propionate 50 MCG/ACT Benzonatate 200 MG Benzonatate 200 MG No 1{capsu le} TID Benzonatat e 200 MG BD Pen Needle Mini U/F 31G X 5 MM BD Pen Needle Mini U/F 31G X 5 MM No BD Pen Needle Mini U/F 31G X 5 MM Azithromyci n 250 MG Azithromyci n 250 MG No QD Azithromyc in 250 MG Ozempic 1 MG/DOSE Ozempic 1 MG/DOSE No Ozempic 1 MG/DOSE Naproxen 500 MG Naproxen 500 MG No Naproxen 500 MG Levothyroxi ne Sodium 100 MCG Levothyroxi ne Sodium 100 MCG No Levothyrox ine Sodium 100 MCG predniSONE 10 MG predniSONE 10 MG No QD predniSONE 10 MG Cyclobenzap rine HCl 10 MG Cyclobenzap rine HCl 10 MG No Cyclobenza altagracia HCl 10 MG Omeprazole 40 MG Omeprazole 40 MG No 1{capsu le} QD Omeprazole 40 MG Levothyroxi ne Sodium 88 MCG Levothyroxi ne Sodium 88 MCG No QD Levothyrox ine Sodium 88 MCG Amitriptyli ne HCl 100 MG Amitriptyli ne HCl 100 MG No 1{table t} QD Amitriptyl ine HCl 100 MG Montelukast Sodium 10 MG Montelukast Sodium 10 MG No Montelukas t Sodium 10 MG Amitriptyli ne HCl 75 MG Amitriptyli ne HCl 75 MG No 1{table t} QD Amitriptyl ine HCl 75 MG Amitriptyli ne HCl 75 MG Amitriptyli ne HCl 75 MG No 1{table t} QD Amitriptyl ine HCl 75 MG Levothyroxi ne Sodium 100 MCG Levothyroxi ne Sodium 100 MCG No Levothyrox ine Sodium 100 MCG Ozempic 1 MG/DOSE Ozempic 1 MG/DOSE No Ozempic 1 MG/DOSE Loratadine 10 MG Loratadine 10 MG No 1{table t} QD Loratadine 10 MG predniSONE 10 MG predniSONE 10 MG No QD predniSONE 10 MG BD Pen Needle Mini U/F 31G X 5 MM BD Pen Needle Mini U/F 31G X 5 MM No BD Pen Needle Mini U/F 31G X 5 MM Azithromyci n 250 MG Azithromyci n 250 MG No QD Azithromyc in 250 MG Benzonatate 200 MG Benzonatate 200 MG No 1{capsu le} TID Benzonatat e 200 MG Omeprazole 40 MG Omeprazole 40 MG No 1{capsu le} QD Omeprazole 40 MG Montelukast Sodium 10 MG Montelukast Sodium 10 MG No Montelukas t Sodium 10 MG Levothyroxi ne Sodium 88 MCG Levothyroxi ne Sodium 88 MCG No QD Levothyrox ine Sodium 88 MCG Naproxen 500 MG Naproxen 500 MG No Naproxen 500 MG SUMAtriptan Succinate 50 MG SUMAtriptan Succinate 50 MG No SUMAtripta n Succinate 50 MG Cyclobenzap rine HCl 10 MG Cyclobenzap rine HCl 10 MG No Cyclobenza altagracia HCl 10 MG Fluticasone Propionate 50 MCG/ACT Fluticasone Propionate 50 MCG/ACT No Fluticason e Propionate 50 MCG/ACT Amitriptyli ne HCl 100 MG Amitriptyli ne HCl 100 MG No 1{table t} QD Amitriptyl ine HCl 100 MG Imitrex Imitrex Yes Rickie Mg 1 tablet as needed [facility] Loratadine Loratadine Yes Rickie Mg 1 tablet [facility] Omeprazole Omeprazole Yes Rickie Mg 1 capsule [facility] BD Pen Needle Mini U/F BD Pen Needle Mini U/F Yes Rickie Mg USE DIRECTED WITH FLEXPEN [facility] Sumatriptan Succinate Sumatriptan Succinate Yes Rickie Mg PLEASE SEE ATTACHED FOR DETAILED DIRECTIONS [facility] Ozempic (1 MG/DOSE) Ozempic (1 MG/DOSE) Yes Rickie Mg INJECT 1 MG/DOSE ONCE A WEEK SUBCUTANEO US 84 [facility] Phentermine HCl Phentermine HCl Yes Rickie Mg 1 tablet [facility] Levothyroxi ne Sodium Levothyroxi ne Sodium Yes Rickie Mg 1 tablet on an empty stomach in the morning [facility] Amitriptyli ne HCl Amitriptyli ne HCl Yes Rickie Mg 1 tablet [facility] Levothyroxi ne Sodium 100 MCG Levothyroxi ne Sodium 100 MCG No Levothyrox ine Sodium 100 MCG BD Pen Needle Mini U/F 31G X 5 MM BD Pen Needle Mini U/F 31G X 5 MM No BD Pen Needle Mini U/F 31G X 5 MM Montelukast Sodium 10 MG Montelukast Sodium 10 MG No Montelukas t Sodium 10 MG Fluticasone Propionate 50 MCG/ACT Fluticasone Propionate 50 MCG/ACT No Fluticason e Propionate 50 MCG/ACT SUMAtriptan Succinate 50 MG SUMAtriptan Succinate 50 MG No SUMAtripta n Succinate 50 MG predniSONE 10 MG predniSONE 10 MG No QD predniSONE 10 MG Cyclobenzap rine HCl 10 MG Cyclobenzap rine HCl 10 MG No Cyclobenza altagracia HCl 10 MG Omeprazole 40 MG Omeprazole 40 MG No 1{capsu le} QD Omeprazole 40 MG Amitriptyli ne HCl 100 MG Amitriptyli ne HCl 100 MG No 1{table t} QD Amitriptyl ine HCl 100 MG Loratadine 10 MG Loratadine 10 MG No 1{table t} QD Loratadine 10 MG Naproxen 500 MG Naproxen 500 MG No Naproxen 500 MG Levothyroxi ne Sodium 88 MCG Levothyroxi ne Sodium 88 MCG No QD Levothyrox ine Sodium 88 MCG Ozempic 1 MG/DOSE Ozempic 1 MG/DOSE No Ozempic 1 MG/DOSE Benzonatate 200 MG Benzonatate 200 MG No 1{capsu le} TID Benzonatat e 200 MG Azithromyci n 250 MG Azithromyci n 250 MG No QD Azithromyc in 250 MG Amitriptyli ne HCl 100 MG Amitriptyli ne HCl 100 MG No 1{table t} QD Amitriptyl ine HCl 100 MG Levothyroxi ne Sodium 100 MCG Levothyroxi ne Sodium 100 MCG No Levothyrox ine Sodium 100 MCG Loratadine 10 MG Loratadine 10 MG No 1{table t} QD Loratadine 10 MG Naproxen 500 MG Naproxen 500 MG No Naproxen 500 MG Cyclobenzap rine HCl 10 MG Cyclobenzap rine HCl 10 MG No Cyclobenza altagracia HCl 10 MG Levothyroxi ne Sodium 88 MCG Levothyroxi ne Sodium 88 MCG No QD Levothyrox ine Sodium 88 MCG predniSONE 10 MG predniSONE 10 MG No QD predniSONE 10 MG Azithromyci n 250 MG Azithromyci n 250 MG No QD Azithromyc in 250 MG BD Pen Needle Mini U/F 31G X 5 MM BD Pen Needle Mini U/F 31G X 5 MM No BD Pen Needle Mini U/F 31G X 5 MM Ozempic 1 MG/DOSE Ozempic 1 MG/DOSE No Ozempic 1 MG/DOSE Montelukast Sodium 10 MG Montelukast Sodium 10 MG No Montelukas t Sodium 10 MG Benzonatate 200 MG Benzonatate 200 MG No 1{capsu le} TID Benzonatat e 200 MG Omeprazole 40 MG Omeprazole 40 MG No 1{capsu le} QD Omeprazole 40 MG Fluticasone Propionate 50 MCG/ACT Fluticasone Propionate 50 MCG/ACT No Fluticason e Propionate 50 MCG/ACT SUMAtriptan Succinate 50 MG SUMAtriptan Succinate 50 MG No SUMAtripta n Succinate 50 MG Loratadine 10 MG Loratadine 10 MG No 1{table t} QD Loratadine 10 MG BD Pen Needle Mini U/F 31G X 5 MM BD Pen Needle Mini U/F 31G X 5 MM No BD Pen Needle Mini U/F 31G X 5 MM Omeprazole 40 MG Omeprazole 40 MG No 1{capsu le} QD Omeprazole 40 MG predniSONE 10 MG predniSONE 10 MG No QD predniSONE 10 MG Levothyroxi ne Sodium 100 MCG Levothyroxi ne Sodium 100 MCG No Levothyrox ine Sodium 100 MCG Naproxen 500 MG Naproxen 500 MG No Naproxen 500 MG Montelukast Sodium 10 MG Montelukast Sodium 10 MG No Montelukas t Sodium 10 MG Azithromyci n 250 MG Azithromyci n 250 MG No QD Azithromyc in 250 MG Benzonatate 200 MG Benzonatate 200 MG No 1{capsu le} TID Benzonatat e 200 MG Fluticasone Propionate 50 MCG/ACT Fluticasone Propionate 50 MCG/ACT No Fluticason e Propionate 50 MCG/ACT Levothyroxi ne Sodium 88 MCG Levothyroxi ne Sodium 88 MCG No Levothyrox ine Sodium 88 MCG Amitriptyli ne HCl 100 MG Amitriptyli ne HCl 100 MG No 1{table t} QD Amitriptyl ine HCl 100 MG Ozempic 1 MG/DOSE Ozempic 1 MG/DOSE No Ozempic 1 MG/DOSE Loratadine 10 MG Loratadine 10 MG No 1{table t} QD Loratadine 10 MG Cyclobenzap rine HCl 10 MG Cyclobenzap rine HCl 10 MG No Cyclobenza altagracia HCl 10 MG SUMAtriptan Succinate 50 MG SUMAtriptan Succinate 50 MG No SUMAtripta n Succinate 50 MG BD Pen Needle Mini U/F 31G X 5 MM BD Pen Needle Mini U/F 31G X 5 MM No BD Pen Needle Mini U/F 31G X 5 MM Omeprazole 40 MG Omeprazole 40 MG No 1{capsu le} QD Omeprazole 40 MG predniSONE 10 MG predniSONE 10 MG No QD predniSONE 10 MG Levothyroxi ne Sodium 100 MCG Levothyroxi ne Sodium 100 MCG No Levothyrox ine Sodium 100 MCG Naproxen 500 MG Naproxen 500 MG No Naproxen 500 MG Amitriptyli ne HCl 75 MG Amitriptyli ne HCl 75 MG No 1{table t} QD Amitriptyl ine HCl 75 MG Montelukast Sodium 10 MG Montelukast Sodium 10 MG No Montelukas t Sodium 10 MG Azithromyci n 250 MG Azithromyci n 250 MG No QD Azithromyc in 250 MG Benzonatate 200 MG Benzonatate 200 MG No 1{capsu le} TID Benzonatat e 200 MG Fluticasone Propionate 50 MCG/ACT Fluticasone Propionate 50 MCG/ACT No Fluticason e Propionate 50 MCG/ACT Levothyroxi ne Sodium 88 MCG Levothyroxi ne Sodium 88 MCG No Levothyrox ine Sodium 88 MCG Amitriptyli ne HCl 100 MG Amitriptyli ne HCl 100 MG No 1{table t} QD Amitriptyl ine HCl 100 MG Ozempic 1 MG/DOSE Ozempic 1 MG/DOSE No Ozempic 1 MG/DOSE Loratadine 10 MG Loratadine 10 MG No 1{table t} QD Loratadine 10 MG Cyclobenzap rine HCl 10 MG Cyclobenzap rine HCl 10 MG No Cyclobenza altagracia HCl 10 MG SUMAtriptan Succinate 50 MG SUMAtriptan Succinate 50 MG No SUMAtripta n Succinate 50 MG Cyclobenzap rine HCl 10 MG Cyclobenzap rine HCl 10 MG No Cyclobenza altagracia HCl 10 MG SUMAtriptan Succinate 50 MG SUMAtriptan Succinate 50 MG No SUMAtripta n Succinate 50 MG Azithromyci n 250 MG Azithromyci n 250 MG No QD Azithromyc in 250 MG Levothyroxi ne Sodium 100 MCG Levothyroxi ne Sodium 100 MCG No Levothyrox ine Sodium 100 MCG Benzonatate 200 MG Benzonatate 200 MG No 1{capsu le} TID Benzonatat e 200 MG Levothyroxi ne Sodium 88 MCG Levothyroxi ne Sodium 88 MCG No Levothyrox ine Sodium 88 MCG Amitriptyli ne HCl 75 MG Amitriptyli ne HCl 75 MG No 1{table t} QD Amitriptyl ine HCl 75 MG Ozempic 1 MG/DOSE Ozempic 1 MG/DOSE No Ozempic 1 MG/DOSE Naproxen 500 MG Naproxen 500 MG No Naproxen 500 MG predniSONE 10 MG predniSONE 10 MG No QD predniSONE 10 MG Loratadine 10 MG Loratadine 10 MG No 1{table t} QD Loratadine 10 MG Omeprazole 40 MG Omeprazole 40 MG No 1{capsu le} QD Omeprazole 40 MG Cyclobenzap rine HCl 10 MG Cyclobenzap rine HCl 10 MG No Cyclobenza altagracia HCl 10 MG SUMAtriptan Succinate 50 MG SUMAtriptan Succinate 50 MG No SUMAtripta n Succinate 50 MG Azithromyci n 250 MG Azithromyci n 250 MG No QD Azithromyc in 250 MG Levothyroxi ne Sodium 100 MCG Levothyroxi ne Sodium 100 MCG No Levothyrox ine Sodium 100 MCG Benzonatate 200 MG Benzonatate 200 MG No 1{capsu le} TID Benzonatat e 200 MG Levothyroxi ne Sodium 88 MCG Levothyroxi ne Sodium 88 MCG No Levothyrox ine Sodium 88 MCG Amitriptyli ne HCl 75 MG Amitriptyli ne HCl 75 MG No 1{table t} QD Amitriptyl ine HCl 75 MG Ozempic 1 MG/DOSE Ozempic 1 MG/DOSE No Ozempic 1 MG/DOSE Naproxen 500 MG Naproxen 500 MG No Naproxen 500 MG predniSONE 10 MG predniSONE 10 MG No QD predniSONE 10 MG Loratadine 10 MG Loratadine 10 MG No 1{table t} QD Loratadine 10 MG Omeprazole 40 MG Omeprazole 40 MG No 1{capsu le} QD Omeprazole 40 MG Ozempic 1 MG/DOSE Ozempic 1 MG/DOSE No Ozempic 1 MG/DOSE Cyclobenzap rine HCl 10 MG Cyclobenzap rine HCl 10 MG No Cyclobenza altagracia HCl 10 MG BD Pen Needle Mini U/F 31G X 5 MM BD Pen Needle Mini U/F 31G X 5 MM No BD Pen Needle Mini U/F 31G X 5 MM SUMAtriptan Succinate 50 MG SUMAtriptan Succinate 50 MG No SUMAtripta n Succinate 50 MG Azithromyci n 250 MG Azithromyci n 250 MG No QD Azithromyc in 250 MG Levothyroxi ne Sodium 100 MCG Levothyroxi ne Sodium 100 MCG No Levothyrox ine Sodium 100 MCG Benzonatate 200 MG Benzonatate 200 MG No 1{capsu le} TID Benzonatat e 200 MG Levothyroxi ne Sodium 88 MCG Levothyroxi ne Sodium 88 MCG No Levothyrox ine Sodium 88 MCG Amitriptyli ne HCl 75 MG Amitriptyli ne HCl 75 MG No 1{table t} QD Amitriptyl ine HCl 75 MG Ozempic 1 MG/DOSE Ozempic 1 MG/DOSE No Ozempic 1 MG/DOSE Naproxen 500 MG Naproxen 500 MG No Naproxen 500 MG SUMAtriptan Succinate 50 MG SUMAtriptan Succinate 50 MG No SUMAtripta n Succinate 50 MG predniSONE 10 MG predniSONE 10 MG No QD predniSONE 10 MG Loratadine 10 MG Loratadine 10 MG No 1{table t} QD Loratadine 10 MG Omeprazole 40 MG Omeprazole 40 MG No 1{capsu le} QD Omeprazole 40 MG Immunizations Ordered Immunization Name Filled Immunization Name Date Status Comments Source Flucelvax - multidose vial Flucelvax - multidose vial 2021-04-17 15:01:00 Completed [facility] Flucelvax - multidose vial Flucelvax - multidose vial 2021-04-17 15:01:00 Completed [facility] Flucelvax - multidose vial Flucelvax - multidose vial 2021-04-17 15:01:00 Completed [facility] Flucelvax - multidose vial Flucelvax - multidose vial 2021-04-17 15:01:00 Completed [facility] Flucelvax - multidose vial Flucelvax - multidose vial 2021-04-17 15:01:00 Completed [facility] Flucelvax - multidose vial Flucelvax - multidose vial 2021-04-17 15:01:00 Completed [facility] Flucelvax - multidose vial Flucelvax - multidose vial 2021-04-17 15:01:00 Completed [facility] Flucelvax - multidose vial Flucelvax - multidose vial 2021-04-17 15:01:00 Completed [facility] Flucelvax - multidose vial Flucelvax - multidose vial 2021-04-17 15:01:00 Completed [facility] Flucelvax - multidose vial Flucelvax - multidose vial 2021-04-17 15:01:00 Completed [facility] Flucelvax - multidose vial Flucelvax - multidose vial 2021-04-17 15:01:00 Completed [facility] Flucelvax - multidose vial Flucelvax - multidose vial 2021-04-17 15:01:00 Completed [facility] Flucelvax - multidose vial Flucelvax - multidose vial 2021-04-17 15:01:00 Completed [facility] Flucelvax - multidose vial Flucelvax - multidose vial 2021-04-17 15:01:00 Completed [facility] Flucelvax - multidose vial Flucelvax - multidose vial 2021-04-17 15:01:00 Completed [facility] Flucelvax - multidose vial Flucelvax - multidose vial 2021-04-17 15:01:00 Completed [facility] Flucelvax - multidose vial Flucelvax - multidose vial 2021-04-17 15:01:00 Completed [facility] Flucelvax - multidose vial Flucelvax - multidose vial 2021-04-17 15:01:00 Completed [facility] Flucelvax - multidose vial Flucelvax - multidose vial 2021-04-17 15:01:00 Completed [facility] Flucelvax - multidose vial Flucelvax - multidose vial 2021-04-17 15:01:00 Completed [facility] Flucelvax - multidose vial Flucelvax - multidose vial 2021-04-17 15:01:00 Completed [facility] Flucelvax - multidose vial Flucelvax - multidose vial 2021-04-17 15:01:00 Completed [facility] Flucelvax - multidose vial Flucelvax - multidose vial 2021-04-17 15:01:00 Completed [facility] Flucelvax - multidose vial Flucelvax - multidose vial 2021-04-17 15:01:00 Completed [facility] Flucelvax - multidose vial Flucelvax - multidose vial 2021-04-17 15:01:00 Completed [facility] Flucelvax - multidose vial Flucelvax - multidose vial 2021-04-17 15:01:00 Completed [facility] Flucelvax - multidose vial Flucelvax - multidose vial 2021-04-17 15:01:00 Completed [facility] Flucelvax - multidose vial Flucelvax - multidose vial 2021-04-17 15:01:00 Completed [facility] Flucelvax - multidose vial Flucelvax - multidose vial 2021-04-17 15:01:00 Completed [facility] Flucelvax - multidose vial Flucelvax - multidose vial 2021-04-17 15:01:00 Completed [facility] Flucelvax - multidose vial Flucelvax - multidose vial 2021-04-17 15:01:00 Completed [facility] Influenza, injectable, MDCK, quadrivalent (flucelvax) 2021-04-17 00:00:00 Completed [facility] Ketorolac 15mg Ketorolac 15mg 2020-12-19 16:17:00 Completed [facility] Kenalog (Triamcinolone) Kenalog (Triamcinolone) 2020-12-19 16:17:00 Completed [facility] Ketorolac 15mg Ketorolac 15mg 2020-12-19 16:17:00 Completed [facility] Kenalog (Triamcinolone) Kenalog (Triamcinolone) 2020-12-19 16:17:00 Completed [facility] Ketorolac 15mg Ketorolac 15mg 2020-12-19 16:17:00 Completed [facility] Kenalog (Triamcinolone) Kenalog (Triamcinolone) 2020-12-19 16:17:00 Completed [facility] Ketorolac 15mg Ketorolac 15mg 2020-12-19 16:17:00 Completed [facility] Kenalog (Triamcinolone) Kenalog (Triamcinolone) 2020-12-19 16:17:00 Completed [facility] Ketorolac 15mg Ketorolac 15mg 2020-12-19 16:17:00 Completed [facility] Kenalog (Triamcinolone) Kenalog (Triamcinolone) 2020-12-19 16:17:00 Completed [facility] Ketorolac 15mg Ketorolac 15mg 2020-12-19 16:17:00 Completed [facility] Kenalog (Triamcinolone) Kenalog (Triamcinolone) 2020-12-19 16:17:00 [facility] [facility] Ketorolac 15mg Ketorolac 15mg 2020-12-19 16:17:00 Completed [facility] Kenalog (Triamcinolone) Kenalog (Triamcinolone) 2020-12-19 16:17:00 Completed [facility] Moderna COVID-19 Vaccine Moderna COVID-19 Vaccine 2020-11-03 13:35:00 Completed [facility] Moderna COVID-19 Vaccine Moderna COVID-19 Vaccine 2020-11-03 13:35:00 Completed [facility] Moderna COVID-19 Vaccine Moderna COVID-19 Vaccine 2020-11-03 13:35:00 Completed [facility] Moderna COVID-19 Vaccine Moderna COVID-19 Vaccine 2020-11-03 13:35:00 Completed [facility] Moderna COVID-19 Vaccine Moderna COVID-19 Vaccine 2020-11-03 13:35:00 Completed [facility] Moderna COVID-19 Vaccine Moderna COVID-19 Vaccine 2020-11-03 13:35:00 Completed [facility] Moderna COVID-19 Vaccine Moderna COVID-19 Vaccine 2020-11-03 13:35:00 Completed [facility] Moderna COVID-19 Vaccine Moderna COVID-19 Vaccine 2020-11-03 13:35:00 Completed [facility] Moderna COVID-19 Vaccine Moderna COVID-19 Vaccine 2020-11-03 13:35:00 Completed [facility] Moderna COVID-19 Vaccine Moderna COVID-19 Vaccine 2020-11-03 13:35:00 Completed [facility] Moderna COVID-19 Vaccine Moderna COVID-19 Vaccine 2020-11-03 13:35:00 Completed [facility] Moderna COVID-19 Vaccine Moderna COVID-19 Vaccine 2020-11-03 13:35:00 Completed [facility] Moderna COVID-19 Vaccine Moderna COVID-19 Vaccine 2020-11-03 13:35:00 Completed [facility] Moderna COVID-19 Vaccine Moderna COVID-19 Vaccine 2020-11-03 13:35:00 Completed [facility] Moderna COVID-19 Vaccine Moderna COVID-19 Vaccine 2020-11-03 13:35:00 Completed [facility] Moderna COVID-19 Vaccine Moderna COVID-19 Vaccine 2020-11-03 13:35:00 Completed [facility] Moderna COVID-19 Vaccine Moderna COVID-19 Vaccine 2020-11-03 13:35:00 Completed [facility] Moderna COVID-19 Vaccine Moderna COVID-19 Vaccine 2020-11-03 13:35:00 Completed [facility] Moderna COVID-19 Vaccine Moderna COVID-19 Vaccine 2020-11-03 13:35:00 Completed [facility] Moderna COVID-19 Vaccine Moderna COVID-19 Vaccine 2020-11-03 13:35:00 Completed [facility] Moderna COVID-19 Vaccine Moderna COVID-19 Vaccine 2020-11-03 13:35:00 Completed [facility] Moderna COVID-19 Vaccine Moderna COVID-19 Vaccine 2020-11-03 13:35:00 Completed [facility] Moderna COVID-19 Vaccine Moderna COVID-19 Vaccine 2020-11-03 13:35:00 Completed [facility] Moderna COVID-19 Vaccine Moderna COVID-19 Vaccine 2020-11-03 13:35:00 Completed [facility] Moderna COVID-19 Vaccine Moderna COVID-19 Vaccine 2020-11-03 13:35:00 Completed [facility] Moderna COVID-19 Vaccine Moderna COVID-19 Vaccine 2020-11-03 13:35:00 Completed [facility] Moderna COVID-19 Vaccine Moderna COVID-19 Vaccine 2020-11-03 13:35:00 Completed [facility] Moderna COVID-19 Vaccine Moderna COVID-19 Vaccine 2020-11-03 13:35:00 Completed [facility] Moderna COVID-19 Vaccine Moderna COVID-19 Vaccine 2020-11-03 13:35:00 Completed [facility] Moderna COVID-19 Vaccine Moderna COVID-19 Vaccine 2020-11-03 13:35:00 Completed [facility] Moderna COVID-19 Vaccine Moderna COVID-19 Vaccine 2020-11-03 13:35:00 Completed [facility] Moderna COVID-19 Vaccine Moderna COVID-19 Vaccine 2020-11-03 13:35:00 Completed [facility] Moderna COVID-19 Vaccine Moderna COVID-19 Vaccine 2020-11-03 13:35:00 Completed [facility] Moderna COVID-19 Vaccine Moderna COVID-19 Vaccine 2020-11-03 13:35:00 Completed [facility] Moderna COVID-19 Vaccine Moderna COVID-19 Vaccine 2020-11-03 13:35:00 Completed [facility] Moderna COVID-19 Vaccine Moderna COVID-19 Vaccine 2020-11-03 13:35:00 Completed [facility] Moderna COVID-19 Vaccine Moderna COVID-19 Vaccine 2020-11-03 13:35:00 Completed [facility] Moderna COVID-19 Vaccine Moderna COVID-19 Vaccine 2020-11-03 13:35:00 Completed [facility] COVID-19 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) 2020-11-03 00:00:00 Completed [facility] Moderna COVID-19 Vaccine Moderna COVID-19 Vaccine 2020-10-06 13:49:00 Completed [facility] Moderna COVID-19 Vaccine Moderna COVID-19 Vaccine 2020-10-06 13:49:00 Completed [facility] Moderna COVID-19 Vaccine Moderna COVID-19 Vaccine 2020-10-06 13:49:00 Completed [facility] Moderna COVID-19 Vaccine Moderna COVID-19 Vaccine 2020-10-06 13:49:00 Completed [facility] Moderna COVID-19 Vaccine Moderna COVID-19 Vaccine 2020-10-06 13:49:00 Completed [facility] Moderna COVID-19 Vaccine Moderna COVID-19 Vaccine 2020-10-06 13:49:00 Completed [facility] Moderna COVID-19 Vaccine Moderna COVID-19 Vaccine 2020-10-06 13:49:00 Completed [facility] Moderna COVID-19 Vaccine Moderna COVID-19 Vaccine 2020-10-06 13:49:00 Completed [facility] Moderna COVID-19 Vaccine Moderna COVID-19 Vaccine 2020-10-06 13:49:00 Completed [facility] Moderna COVID-19 Vaccine Moderna COVID-19 Vaccine 2020-10-06 13:49:00 Completed [facility] Moderna COVID-19 Vaccine Moderna COVID-19 Vaccine 2020-10-06 13:49:00 Completed [facility] Moderna COVID-19 Vaccine Moderna COVID-19 Vaccine 2020-10-06 13:49:00 Completed [facility] Moderna COVID-19 Vaccine Moderna COVID-19 Vaccine 2020-10-06 13:49:00 Completed [facility] Moderna COVID-19 Vaccine Moderna COVID-19 Vaccine 2020-10-06 13:49:00 Completed [facility] Moderna COVID-19 Vaccine Moderna COVID-19 Vaccine 2020-10-06 13:49:00 Completed [facility] Moderna COVID-19 Vaccine Moderna COVID-19 Vaccine 2020-10-06 13:49:00 Completed [facility] Moderna COVID-19 Vaccine Moderna COVID-19 Vaccine 2020-10-06 13:49:00 Completed [facility] Moderna COVID-19 Vaccine Moderna COVID-19 Vaccine 2020-10-06 13:49:00 Completed [facility] Moderna COVID-19 Vaccine Moderna COVID-19 Vaccine 2020-10-06 13:49:00 Completed [facility] Moderna COVID-19 Vaccine Moderna COVID-19 Vaccine 2020-10-06 13:49:00 Completed [facility] Moderna COVID-19 Vaccine Moderna COVID-19 Vaccine 2020-10-06 13:49:00 Completed [facility] Moderna COVID-19 Vaccine Moderna COVID-19 Vaccine 2020-10-06 13:49:00 Completed [facility] Moderna COVID-19 Vaccine Moderna COVID-19 Vaccine 2020-10-06 13:49:00 Completed [facility] Moderna COVID-19 Vaccine Moderna COVID-19 Vaccine 2020-10-06 13:49:00 Completed [facility] Moderna COVID-19 Vaccine Moderna COVID-19 Vaccine 2020-10-06 13:49:00 Completed [facility] Moderna COVID-19 Vaccine Moderna COVID-19 Vaccine 2020-10-06 13:49:00 Completed [facility] Moderna COVID-19 Vaccine Moderna COVID-19 Vaccine 2020-10-06 13:49:00 Completed [facility] Moderna COVID-19 Vaccine Moderna COVID-19 Vaccine 2020-10-06 13:49:00 Completed [facility] Moderna COVID-19 Vaccine Moderna COVID-19 Vaccine 2020-10-06 13:49:00 Completed [facility] Moderna COVID-19 Vaccine Moderna COVID-19 Vaccine 2020-10-06 13:49:00 Completed [facility] Moderna COVID-19 Vaccine Moderna COVID-19 Vaccine 2020-10-06 13:49:00 Completed [facility] Moderna COVID-19 Vaccine Moderna COVID-19 Vaccine 2020-10-06 13:49:00 Completed [facility] Moderna COVID-19 Vaccine Moderna COVID-19 Vaccine 2020-10-06 13:49:00 Completed [facility] Moderna COVID-19 Vaccine Moderna COVID-19 Vaccine 2020-10-06 13:49:00 Completed [facility] Moderna COVID-19 Vaccine Moderna COVID-19 Vaccine 2020-10-06 13:49:00 Completed [facility] Moderna COVID-19 Vaccine Moderna COVID-19 Vaccine 2020-10-06 13:49:00 Completed [facility] Moderna COVID-19 Vaccine Moderna COVID-19 Vaccine 2020-10-06 13:49:00 Completed [facility] Moderna COVID-19 Vaccine Moderna COVID-19 Vaccine 2020-10-06 13:49:00 Completed [facility] 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-19 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) 2020-10-06 00:00:00 Completed [facility] Kenalog (Triamcinolone) Kenalog (Triamcinolone) 2020-08-28 10:28:00 Completed [facility] Bupivicaine [place] Bupivicaine [place] 2020-08-28 10:28:00 Completed [facility] Kenalog (Triamcinolone) Kenalog (Triamcinolone) 2020-08-28 10:28:00 Completed [facility] Bupivicaine [place] Bupivicaine [place] 2020-08-28 10:28:00 Completed [facility] Kenalog (Triamcinolone) Kenalog (Triamcinolone) 2020-08-28 10:28:00 Completed [facility] Bupivicaine [place] Bupivicaine [place] 2020-08-28 10:28:00 Completed [facility] Kenalog (Triamcinolone) Kenalog (Triamcinolone) 2020-08-28 10:28:00 Completed [facility] Bupivicaine [place] Bupivicaine [place] 2020-08-28 10:28:00 Completed [facility] Kenalog (Triamcinolone) Kenalog (Triamcinolone) 2020-08-28 10:28:00 Completed [facility] Bupivicaine [place] Bupivicaine [place] 2020-08-28 10:28:00 Completed [facility] Kenalog (Triamcinolone) Kenalog (Triamcinolone) 2020-08-28 10:28:00 Completed [facility] Bupivicaine [place] Bupivicaine [place] 2020-08-28 10:28:00 Completed [facility] Kenalog (Triamcinolone) Kenalog (Triamcinolone) 2020-08-28 10:28:00 Completed [facility] Bupivicaine [place] Bupivicaine [place] 2020-08-28 10:28:00 Completed [facility] Flucelvax - single dose syringe Flucelvax - single dose syringe 2020-03-13 11:28:00 Completed [facility] Flucelvax - single dose syringe Flucelvax - single dose syringe 2020-03-13 11:28:00 Completed [facility] Flucelvax - single dose syringe Flucelvax - single dose syringe 2020-03-13 11:28:00 Completed [facility] Flucelvax - single dose syringe Flucelvax - single dose syringe 2020-03-13 11:28:00 Completed [facility] Flucelvax - single dose syringe Flucelvax - single dose syringe 2020-03-13 11:28:00 Completed [facility] Flucelvax - single dose syringe Flucelvax - single dose syringe 2020-03-13 11:28:00 Completed [facility] Flucelvax - single dose syringe Flucelvax - single dose syringe 2020-03-13 11:28:00 Completed [facility] Flucelvax - single dose syringe Flucelvax - single dose syringe 2020-03-13 11:28:00 Completed [facility] Flucelvax - single dose syringe Flucelvax - single dose syringe 2020-03-13 11:28:00 Completed [facility] Flucelvax - single dose syringe Flucelvax - single dose syringe 2020-03-13 11:28:00 Completed [facility] Flucelvax - single dose syringe Flucelvax - single dose syringe 2020-03-13 11:28:00 Completed [facility] Flucelvax - single dose syringe Flucelvax - single dose syringe 2020-03-13 11:28:00 Completed [facility] Flucelvax - single dose syringe Flucelvax - single dose syringe 2020-03-13 11:28:00 Completed [facility] Flucelvax - single dose syringe Flucelvax - single dose syringe 2020-03-13 11:28:00 Completed [facility] Flucelvax - single dose syringe Flucelvax - single dose syringe 2020-03-13 11:28:00 Completed [facility] Flucelvax - single dose syringe Flucelvax - single dose syringe 2020-03-13 11:28:00 Completed [facility] Flucelvax - single dose syringe Flucelvax - single dose syringe 2020-03-13 11:28:00 Completed [facility] Flucelvax - single dose syringe Flucelvax - single dose syringe 2020-03-13 11:28:00 Completed [facility] Flucelvax - single dose syringe Flucelvax - single dose syringe 2020-03-13 11:28:00 Completed [facility] Flucelvax - single dose syringe Flucelvax - single dose syringe 2020-03-13 11:28:00 Completed [facility] Flucelvax - single dose syringe Flucelvax - single dose syringe 2020-03-13 11:28:00 Completed [facility] Flucelvax - single dose syringe Flucelvax - single dose syringe 2020-03-13 11:28:00 Completed [facility] Flucelvax - single dose syringe Flucelvax - single dose syringe 2020-03-13 11:28:00 Completed [facility] Flucelvax - single dose syringe Flucelvax - single dose syringe 2020-03-13 11:28:00 Completed [facility] Flucelvax - single dose syringe Flucelvax - single dose syringe 2020-03-13 11:28:00 Completed [facility] Flucelvax - single dose syringe Flucelvax - single dose syringe 2020-03-13 11:28:00 Completed [facility] Flucelvax - single dose syringe Flucelvax - single dose syringe 2020-03-13 11:28:00 Completed [facility] Flucelvax - single dose syringe Flucelvax - single dose syringe 2020-03-13 11:28:00 Completed [facility] Flucelvax - single dose syringe Flucelvax - single dose syringe 2020-03-13 11:28:00 Completed [facility] Flucelvax - single dose syringe Flucelvax - single dose syringe 2020-03-13 11:28:00 Completed [facility] Flucelvax - single dose syringe Flucelvax - single dose syringe 2020-03-13 11:28:00 Completed [facility] Flucelvax - single dose syringe Flucelvax - single dose syringe 2020-03-13 11:28:00 Completed [facility] Flucelvax - single dose syringe Flucelvax - single dose syringe 2020-03-13 11:28:00 Completed [facility] Flucelvax - single dose syringe Flucelvax - single dose syringe 2020-03-13 11:28:00 Completed [facility] Flucelvax - single dose syringe Flucelvax - single dose syringe 2020-03-13 11:28:00 Completed [facility] Flucelvax - single dose syringe Flucelvax - single dose syringe 2020-03-13 11:28:00 Completed [facility] Flucelvax - single dose syringe Flucelvax - single dose syringe 2020-03-13 11:28:00 Completed [facility] Flucelvax - single dose syringe Flucelvax - single dose syringe 2020-03-13 11:28:00 Completed [facility] Kenalog (Triamcinolone) Kenalog (Triamcinolone) 2020-02-22 13:48:00 Completed [facility] Kenalog (Triamcinolone) Kenalog (Triamcinolone) 2020-02-22 13:48:00 Completed [facility] Kenalog (Triamcinolone) Kenalog (Triamcinolone) 2020-02-22 13:48:00 Completed [facility] Kenalog (Triamcinolone) Kenalog (Triamcinolone) 2020-02-22 13:48:00 Completed [facility] Kenalog (Triamcinolone) Kenalog (Triamcinolone) 2020-02-22 13:48:00 Completed [facility] Kenalog (Triamcinolone) Kenalog (Triamcinolone) 2020-02-22 13:48:00 Completed [facility] Kenalog (Triamcinolone) Kenalog (Triamcinolone) 2020-02-22 13:48:00 [facility]pleted [facility] Kenalog (Triamcinolone) Kenalog (Triamcinolone) 2019-01-15 10:58:00 Completed [facility] Kenalog (Triamcinolone) Kenalog (Triamcinolone) 2019-01-15 10:58:00 Completed [facility] Kenalog (Triamcinolone) Kenalog (Triamcinolone) 2019-01-15 10:58:00 Completed [facility] Kenalog (Triamcinolone) Kenalog (Triamcinolone) 2019-01-15 10:58:00 Completed [facility] Kenalog (Triamcinolone) Kenalog (Triamcinolone) 2019-01-15 10:58:00 Completed [facility] Kenalog (Triamcinolone) Kenalog (Triamcinolone) 2019-01-15 10:58:00 Completed [facility] Kenalog (Triamcinolone) Kenalog (Triamcinolone) 2019-01-15 10:58:00 Completed [facility] Bupivicaine [place] Bupivicaine [place] 2018-12-10 14:50:00 Completed [facility] Betamethasone Sodium Phosphate Betamethasone Sodium Phosphate 2018-12-10 14:50:00 Completed [facility] Bupivicaine [place] Bupivicaine [place] 2018-12-10 14:50:00 Completed [facility] Betamethasone Sodium Phosphate Betamethasone Sodium Phosphate 2018-12-10 14:50:00 Completed [facility] Bupivicaine [place] Bupivicaine [place] 2018-12-10 14:50:00 Completed [facility] Betamethasone Sodium Phosphate Betamethasone Sodium Phosphate 2018-12-10 14:50:00 Completed [facility] Bupivicaine [place] Bupivicaine [place] 2018-12-10 14:50:00 Completed [facility] Betamethasone Sodium Phosphate Betamethasone Sodium Phosphate 2018-12-10 14:50:00 Completed [facility] Bupivicaine [place] Bupivicaine [place] 2018-12-10 14:50:00 Completed [facility] Betamethasone Sodium Phosphate Betamethasone Sodium Phosphate 2018-12-10 14:50:00 Completed [facility] Bupivicaine [place] Bupivicaine [place] 2018-12-10 14:50:00 Completed [facility] Betamethasone Sodium Phosphate Betamethasone Sodium Phosphate 2018-12-10 14:50:00 Completed [facility] Bupivicaine [place] Bupivicaine [place] 2018-12-10 14:50:00 Completed [facility] Betamethasone Sodium Phosphate Betamethasone Sodium Phosphate 2018-12-10 14:50:00 Completed [facility] Kenalog (Triamcinolone) Kenalog (Triamcinolone) 2018-07-03 09:25:00 Completed [facility] Kenalog (Triamcinolone) Kenalog (Triamcinolone) 2018-07-03 09:25:00 Completed [facility] Kenalog (Triamcinolone) Kenalog (Triamcinolone) 2018-07-03 09:25:00 Completed [facility] Kenalog (Triamcinolone) Kenalog (Triamcinolone) 2018-07-03 09:25:00 Completed [facility] Kenalog (Triamcinolone) Kenalog (Triamcinolone) 2018-07-03 09:25:00 Completed [facility] Kenalog (Triamcinolone) Kenalog (Triamcinolone) 2018-07-03 09:25:00 Completed [facility] Kenalog (Triamcinolone) Kenalog (Triamcinolone) 2018-07-03 09:25:00 Completed [facility] Moderna COVID-19 Vaccine Moderna COVID-19 Vaccine Unknown Completed [facility] Moderna COVID-19 Vaccine Moderna COVID-19 Vaccine Unknown Completed [facility] Fluarix (IIV4) - SDS - 0.5mL Fluarix (IIV4) - SDS - 0.5mL Unknown Completed [facility] Flucelvax (ccIIV4) - MDV - 0.5mL Flucelvax (ccIIV4) - MDV - 0.5mL Unknown Completed [facility] Flucelvax (ccIIV4) - SDS - 0.5mL Flucelvax (ccIIV4) - SDS - 0.5mL Unknown Completed [facility] Boostrix (Tdap) Boostrix (Tdap) Unknown Completed [facility] Moderna COVID-19 Vaccine Moderna COVID-19 Vaccine Unknown Completed [facility] Moderna COVID-19 Vaccine Moderna COVID-19 Vaccine Unknown Completed [facility] Fluarix (IIV4) - SDS - 0.5mL Fluarix (IIV4) - SDS - 0.5mL Unknown Completed [facility] Flucelvax (ccIIV4) - MDV - 0.5mL Flucelvax (ccIIV4) - MDV - 0.5mL Unknown Completed [facility] Flucelvax (ccIIV4) - SDS - 0.5mL Flucelvax (ccIIV4) - SDS - 0.5mL Unknown Completed [facility] Boostrix (Tdap) Boostrix (Tdap) Unknown Completed [facility] Moderna COVID-19 Vaccine Moderna COVID-19 Vaccine Unknown Completed [facility] Moderna COVID-19 Vaccine Moderna COVID-19 Vaccine Unknown Completed [facility] Fluarix (IIV4) - SDS - 0.5mL Fluarix (IIV4) - SDS - 0.5mL Unknown Completed [facility] Flucelvax (ccIIV4) - MDV - 0.5mL Flucelvax (ccIIV4) - MDV - 0.5mL Unknown Completed [facility] Flucelvax (ccIIV4) - SDS - 0.5mL Flucelvax (ccIIV4) - SDS - 0.5mL Unknown Completed [facility] Boostrix (Tdap) Boostrix (Tdap) Unknown Completed [facility] Moderna COVID-19 Vaccine Moderna COVID-19 Vaccine Unknown Completed [facility] Moderna COVID-19 Vaccine Moderna COVID-19 Vaccine Unknown Completed [facility] Fluarix (IIV4) - SDS - 0.5mL Fluarix (IIV4) - SDS - 0.5mL Unknown Completed [facility] Flucelvax (ccIIV4) - MDV - 0.5mL Flucelvax (ccIIV4) - MDV - 0.5mL Unknown Completed [facility] Flucelvax (ccIIV4) - SDS - 0.5mL Flucelvax (ccIIV4) - SDS - 0.5mL Unknown Completed [facility] Boostrix (Tdap) Boostrix (Tdap) Unknown Completed [facility] Moderna COVID-19 Vaccine Moderna COVID-19 Vaccine Unknown Completed [facility] Moderna COVID-19 Vaccine Moderna COVID-19 Vaccine Unknown Completed [facility] Fluarix (IIV4) - SDS - 0.5mL Fluarix (IIV4) - SDS - 0.5mL Unknown Completed [facility] Flucelvax (ccIIV4) - MDV - 0.5mL Flucelvax (ccIIV4) - MDV - 0.5mL Unknown Completed [facility] Flucelvax (ccIIV4) - SDS - 0.5mL Flucelvax (ccIIV4) - SDS - 0.5mL Unknown Completed [facility] Boostrix (Tdap) Boostrix (Tdap) Unknown Completed [facility] Vital Signs Vital Name Observation Time Observation Value Comments S ource Systolic blood pressure 2023-10-01 15:00:00 144 mm[Hg] [facility] Diastolic blood pressure 2023-10-01 15:00:00 72 mm[Hg] [facility] Heart rate 2023-10-01 15:00:00 56 /min [facility] Respiratory rate 2023-10-01 15:00:00 16 /min [facility] Oxygen saturation in Arterial blood by Pulse oximetry 2023-10-01 15:00:00 100 /min [facility] Body temperature 2023-10-01 12:09:00 36.61 [facility] Body height 2023-10-01 12:09:00 149.9 cm [facility] Body weight 2023-10-01 12:09:00 70.761 kg [facility] BMI 2023-10-01 12:09:00 31.51 kg/m2 [facility] Systolic blood pressure 2023-08-18 16:27:00 136 mm[Hg] [facility] Diastolic blood pressure 2023-08-18 16:27:00 70 mm[Hg] [facility] Heart rate 2023-08-18 16:27:00 70 /min [facility] Body temperature 2023-08-18 16:27:00 36.72 [facility] Respiratory rate 2023-08-18 16:27:00 18 /min [facility] Body height 2023-08-18 16:27:00 149.9 cm [facility] Body weight 2023-08-18 16:27:00 70.761 kg [facility] BMI 2023-08-18 16:27:00 31.51 kg/m2 [facility] Oxygen saturation in Arterial blood by Pulse oximetry 2023-08-18 16:27:00 100 /min [facility] Systolic blood pressure 2023-04-08 21:45:00 133 mm[Hg] [facility] Diastolic blood pressure 2023-04-08 21:45:00 82 mm[Hg] [facility] Heart rate 2023-04-08 21:45:00 66 /min [facility] Body temperature 2023-04-08 21:45:00 36.22 [facility] Respiratory rate 2023-04-08 21:45:00 17 /min [facility] Body weight 2023-04-08 21:45:00 68.493 kg [facility] BMI 2023-04-08 21:45:00 30.50 kg/m2 [facility] Oxygen saturation in Arterial blood by Pulse oximetry 2023-04-08 21:45:00 100 /min [facility] height 2023-03-11 15:30:00 58 [in_i] Commo n [facility] weight 2023-03-11 15:30:00 150.4 [lb_av] Co mmon [facility] temperature 2023-03-11 15:30:00 98.3 [degF] Com mon [facility] bmi 2023-03-11 15:30:00 31.43 kg/m2 Comm on [facility] oximetry 2023-03-11 15:30:00 99 % Commo n [facility] respiratory rate 2023-03-11 15:30:00 16 /min Common [facility] blood pressure systolic 2023-03-11 15:30:00 128 mm[Hg] Common [facility] blood pressure diastolic 2023-03-11 15:30:00 76 mm[Hg] Common [facility] height 2023-02-12 10:30:00 58 [in_i] Commo n [facility] weight 2023-02-12 10:30:00 142 [lb_av] Comm on [facility] bmi 2023-02-12 10:30:00 29.67 kg/m2 Comm on [facility] BMI 2022-12-22 19:56:00 29.10 kg/m2 [facility] Oxygen saturation in Arterial blood by Pulse oximetry 2022-12-22 19:56:00 100 /min [facility] Systolic blood pressure 2022-12-22 19:56:00 129 mm[Hg] [facility] Diastolic blood pressure 2022-12-22 19:56:00 84 mm[Hg] [facility] Heart rate 2022-12-22 19:56:00 81 /min [facility] Body temperature 2022-12-22 19:56:00 36.67 [facility] Respiratory rate 2022-12-22 19:56:00 17 /min [facility] Body height 2022-12-22 19:56:00 149.9 cm Univ [facility] Body weight 2022-12-22 19:56:00 65.346 kg [facility] Systolic blood pressure 2022-10-19 19:39:00 144 mm[Hg] [facility] Diastolic blood pressure 2022-10-19 19:39:00 90 mm[Hg] [facility] Heart rate 2022-10-19 19:38:00 65 /min [facility] Body temperature 2022-10-19 19:38:00 36.5 [facility] Respiratory rate 2022-10-19 19:38:00 16 /min [facility] Body height 2022-10-19 19:38:00 149.9 cm [facility] Body weight 2022-10-19 19:38:00 63.322 kg [facility] BMI 2022-10-19 19:38:00 28.20 kg/m2 [facility] Oxygen saturation in Arterial blood by Pulse oximetry 2022-10-19 19:38:00 99 /min [facility] Systolic blood pressure 2022-10-15 00:53:00 135 mm[Hg] [facility] Diastolic blood pressure 2022-10-15 00:53:00 69 mm[Hg] [facility] Heart rate 2022-10-15 00:52:00 67 /min [facility] Body temperature 2022-10-15 00:52:00 37 [facility] Respiratory rate 2022-10-15 00:52:00 18 /min [facility] Body weight 2022-10-15 00:52:00 63.504 kg [facility] Oxygen saturation in Arterial blood by Pulse oximetry 2022-10-15 00:52:00 99 /min [facility] Systolic blood pressure 2022-07-19 15:42:00 126 mm[Hg] [facility] Diastolic blood pressure 2022-07-19 15:42:00 86 mm[Hg] [facility] Heart rate 2022-07-19 15:42:00 94 /min [facility] Body height 2022-07-19 15:42:00 147.3 cm [facility] 2022-07-19 15:42:00 69.037 [facility] BMI 2022-07-19 15:42:00 31.81 kg/m2 [facility] height 2021-10-19 09:30:00 58 [in_i] Commo n [facility] weight 2021-10-19 09:30:00 194 [lb_av] Comm on [facility] temperature 2021-10-19 09:30:00 97.4 [degF] Com mon [facility] bmi 2021-10-19 09:30:00 40.54 kg/m2 Comm on [facility] blood pressure systolic 2021-10-19 09:30:00 134 mm[Hg] Common [facility] blood pressure diastolic 2021-10-19 09:30:00 75 mm[Hg] Common [facility] height 2021-10-09 13:00:00 58 [in_i] Commo n [facility] weight 2021-10-09 13:00:00 188.3 [lb_av] Co mmon [facility] bmi 2021-10-09 13:00:00 39.35 kg/m2 Comm on [facility] blood pressure systolic 2021-10-09 13:00:00 146 mm[Hg] Common [facility] blood pressure diastolic 2021-10-09 13:00:00 86 mm[Hg] Common [facility] height 2021-09-11 07:50:00 58 [in_i] Commo n [facility] weight 2021-09-11 07:50:00 189 [lb_av] Comm on [facility] temperature 2021-09-11 07:50:00 98 [degF] Comm on [facility] bmi 2021-09-11 07:50:00 39.5 kg/m2 Commo n [facility] height 2021-08-09 14:00:00 58 [in_i] Commo n [facility] weight 2021-08-09 14:00:00 188.3 [lb_av] Co mmon [facility] temperature 2021-08-09 14:00:00 98.1 [degF] Com mon [facility] bmi 2021-08-09 14:00:00 39.35 kg/m2 Comm on [facility] blood pressure systolic 2021-08-09 14:00:00 132 mm[Hg] Common [facility] blood pressure diastolic 2021-08-09 14:00:00 84 mm[Hg] Common [facility] height 2021-07-11 13:40:00 58 [in_i] Commo n [facility] weight 2021-07-11 13:40:00 183 [lb_av] Comm on [facility] temperature 2021-07-11 13:40:00 98 [degF] Comm on [facility] bmi 2021-07-11 13:40:00 38.24 kg/m2 Comm on [facility] blood pressure systolic 2021-07-11 13:40:00 130 mm[Hg] [facility] blood pressure diastolic 2021-07-11 13:40:00 72 mm[Hg] Common [facility] height 2021-06-18 15:00:00 58 [in_i] Commo n [facility] weight 2021-06-18 15:00:00 187 [lb_av] Comm on [facility] temperature 2021-06-18 15:00:00 98.2 [degF] Com [facility] bmi 2021-06-18 15:00:00 39.08 kg/m2 Comm on [facility] blood pressure systolic 2021-06-18 15:00:00 132 mm[Hg] Common [facility] blood pressure diastolic 2021-06-18 15:00:00 84 mm[Hg] [facility] height 2021-06-13 14:00:00 58 [in_i] Commo n [facility] weight 2021-06-13 14:00:00 190.3 [lb_av] Co mmon [facility] temperature 2021-06-13 14:00:00 98.1 [degF] Com [facility] bmi 2021-06-13 14:00:00 39.77 kg/m2 Comm on [facility] oximetry 2021-06-13 14:00:00 98 % Commo n [facility] respiratory rate 2021-06-13 14:00:00 18 /min Common [facility] blood pressure systolic 2021-06-13 14:00:00 139 mm[Hg] Common [facility] blood pressure diastolic 2021-06-13 14:00:00 82 mm[Hg] Common [facility] height 2021-05-31 11:00:00 58 [in_i] Commo n [facility] weight 2021-05-31 11:00:00 187 [lb_av] Comm on [facility] temperature 2021-05-31 11:00:00 97.1 [degF] Com [facility] bmi 2021-05-31 11:00:00 39.08 kg/m2 Comm on [facility] blood pressure systolic 2021-05-31 11:00:00 128 mm[Hg] [facility] blood pressure diastolic 2021-05-31 11:00:00 84 mm[Hg] Common [facility] height 2021-05-24 13:30:00 58 [in_i] Commo n [facility] weight 2021-05-24 13:30:00 187 [lb_av] Comm on [facility] temperature 2021-05-24 13:30:00 98.1 [degF] Com [facility] bmi 2021-05-24 13:30:00 39.08 kg/m2 Comm on [facility] blood pressure systolic 2021-05-24 13:30:00 136 mm[Hg] [facility] blood pressure diastolic 2021-05-24 13:30:00 84 mm[Hg] [facility] height 2021-05-02 17:00:00 58 [in_i] Commo n [facility] weight 2021-05-02 17:00:00 185.3 [lb_av] Co [facility] bmi 2021-05-02 17:00:00 38.72 kg/m2 Comm on [facility] height 2021-04-17 14:20:00 58 [in_i] Commo n [facility] weight 2021-04-17 14:20:00 185.3 [lb_av] Co [facility] temperature 2021-04-17 14:20:00 97.3 [degF] Com [facility] bmi 2021-04-17 14:20:00 38.72 kg/m2 Comm on [facility] oximetry 2021-04-17 14:20:00 99 % Commo n [facility] respiratory rate 2021-04-17 14:20:00 18 /min [facility] blood pressure systolic 2021-04-17 14:20:00 132 mm[Hg] [facility] blood pressure diastolic 2021-04-17 14:20:00 72 mm[Hg] [facility] height 2021-01-25 11:30:00 58 [in_i] Commo n [facility] weight 2021-01-25 11:30:00 186 [lb_av] Comm on [facility] temperature 2021-01-25 11:30:00 97.3 [degF] Com mon [facility] bmi 2021-01-25 11:30:00 38.87 kg/m2 Comm on [facility] blood pressure systolic 2021-01-25 11:30:00 130 mm[Hg] [facility] blood pressure diastolic 2021-01-25 11:30:00 75 mm[Hg] [facility] height 2021-01-04 16:30:00 58 [in_i] Commo n [facility] weight 2021-01-04 16:30:00 188 [lb_av] Comm on [facility] temperature 2021-01-04 16:30:00 98 [degF] Comm on [facility] bmi 2021-01-04 16:30:00 39.29 kg/m2 Comm on [facility] blood pressure systolic 2021-01-04 16:30:00 132 mm[Hg] [facility] blood pressure diastolic 2021-01-04 16:30:00 70 mm[Hg] Common [facility] height 2020-12-19 15:00:00 58 [in_i] Commo n [facility] weight 2020-12-19 15:00:00 188.4 [lb_av] Co mmon [facility] temperature 2020-12-19 15:00:00 97.6 [degF] Com mon [facility] bmi 2020-12-19 15:00:00 39.37 kg/m2 Comm on [facility] oximetry 2020-12-19 15:00:00 99 % Commo n [facility] blood pressure systolic 2020-12-19 15:00:00 135 mm[Hg] [facility] blood pressure diastolic 2020-12-19 15:00:00 79 mm[Hg] [facility] Procedures Procedure Date / Time Performed Performing Clinicia n Source CT SOFT TISSUE NECK W CONTRAST 2023-10-01 14:40:47 Jose Adorno [facility] CT THORAX W CONTRAST 2023-10-01 14:40:47 Jason Adorno am [facility] TROPONIN I 2023-10-01 13:43:00 Jose Adorno [facility] COMP. METABOLIC PANEL (14286) 2023-10-01 13:43:00 Jose Adorno [facility] CBC WITH DIFF 2023-10-01 13:43:00 Jose Adorno [facility] N-TERMINAL PRO-BNP 2023-10-01 13:43:00 Jose Adorno [facility] HB ECG ROUTINE & RHYTHM STRIP 2023-10-01 13:35:46 Jose Adorno [facility] BASIC METABOLIC PANEL (NA, K, CL, CO2, GLUCOSE, BUN, CREATININE, CA) 2023-08-18 19:50:00 Brian Lorenzana [facility] CBC WITH DIFF 2023-08-18 19:50:00 Brian Lorenzana [facility] URINALYSIS 2023-08-18 19:03:00 Brian Lorenzana [facility] XR SPINE THORACIC 2 VW 2023-08-18 18:55:09 Mercy Lorenzana [facility] XR CERVICAL SPINE 3 VW 2023-08-18 18:55:09 Mercy Lorenzana [facility] POCT MOLECULAR FLU 2023-04-08 21:46:00 Unknown, Attend ing [facility] POCT MOLECULAR STREP 2023-04-08 21:42:00 Unknown, Atte chelsey [facility] POCT URINALYSIS 2022-10-19 20:04:00 Maria T Jackson Un [facility] POCT SARS-COV-2 ANTIGEN (BINAX NOW) 2022-10-19 19:44:00 Zay Nickerson [facility] POCT URINALYSIS 2022-10-15 00:54:00 CourtneyWanda purdyandrei Un [facility] POCT MOLECULAR STREP 2022-10-15 00:52:00 Unknown, Atte chelsey [facility] Encounters Start Date/Time End Date/Time Encounter Type Admission Type Attending [facility] Care Department Encounter ID Source 2023-09-22 10:45[id number] 2023-04-11 15:22:00 [facility] [id number] [facility] 2023-04-10 13:34:00 [facility] [id number] [facility] 2023-04-09 15:02:00 [facility] [id number] [facility] 2022-11-29 09:13:12 Outpatient [facility] [id number] [facility] 2022-10-31 15:10:23 Outpatient [facility] [id number] [facility] 2022-10-29 11:38:39 Outpatient [facility] [id number] [facility] 2022-10-08 11:54:10 Outpatient [facility] [id number] [facility] 2022-10-07 07:17:22 Outpatient [facility] [id number] [facility] 2022-08-02 08:02:00 [facility] [id number] [facility] 2022-08-01 15:18:58 Outpatient [facility] [id number] [facility] 2022-07-16 13:29:15 Outpatient [facility] [id number] [facility] 2022-06-24 23:01:26 Outpatient [facility] [id number] [facility] 2022-06-21 10:48:06 Outpatient [facility] [id number] [facility] 2022-04-08 13:18:42 Outpatient [facility] [id number] [facility] 2022-01-22 08:46:00 Outpatient Mg, [facility] 2022-01-16 10:14:00 Outpatient Mg, [facility] 2021-11-13 12:49:00 Outpatient Mg, [facility] 2021-10-09 13:11:00 Outpatient Mg, [facility] 2021-07-11 12:09:01 Outpatient Mg, [facility] 2021-06-13 14:02:01 Outpatient Mg, [facility] 2021-06-12 15:15:01 Outpatient Mg, [facility] STLC STLC [facility] 2021-05-30 14:27:01 Outpatient Mg, [facility] STLC STLC [facility] 2021-05-30 14:25:09 Outpatient Mg, [facility] STLC STLC 15 [facility] 2021-05-30 13:46:56 Outpatient Mg, [facility] STLC STLC [id number] [facility] 2021-05-30 13:45:15 Outpatient Mg, [facility] STLC STLC [id number] [facility] 2021-05-30 13:39:33 Outpatient Mg, Rickie STLMLC STLC [id number] [facility] 2021-05-30 13:11:01 Outpatient Mg, Rickie [facility] [id number] [facility] 2021-05-30 13:06:54 Outpatient Mg, Rickie [facility] [id number] [facility] 2021-05-30 12:56:10 Outpatient Mg, Rickie STLC STLC [id number] [facility] 2021-05-30 12:54:35 Outpatient Mg, Rickie STLC STLC [id number] [facility] 2021-05-30 12:48:02 Outpatient Mg, Rickie STLC STLC [id number] [facility] 2021-05-30 12:30:58 Outpatient Mg, Rickie STLC STLC [id number] [facility] 2021-05-30 12:05:56 Outpatient Mg, [facility] STLC STLC [id number] [facility] 2021-05-30 12:04:00 Outpatient Mg, [facility] STLC STLC [id number] [facility] 2021-05-30 12:02:59 Outpatient Mg, Rickie STLC STLC [id number] [facility] 2021-05-30 11:58:18 Outpatient Mg, Rickie STLC STLC [id number] [facility] 2021-05-30 11:33:46 Outpatient Mg, [facility] STLC STLC [id number] [facility] 2021-05-30 11:20:22 Outpatient Mg, Rickie STLMLC STL[facility]C [id number] [facility] 2021-05-30 11:19:06 Outpatient Mg, [facility] [id number] [facility] 2021-05-30 11:18:10 Outpatient Mg, [facility] [id number] [facility] 2021-05-30 11:03:30 Outpatient Mg, [facility] [id number] [facility] 2021-05-30 11:01:56 Outpatient Mg, [facility] [id number] [facility] 2023-10-01 07:10:00 2023-10-01 10:34:00 Emergency JOSE DE DIOS [facility] [id number] [facility] 2023-10-01 07:10:00 2023-10-01 10:34:00 Emergency Jose Adorno A [facility] [id number] 350.1.13.10 [id number] [id number] [facility] 2023-08-18 11:30:00 2023-08-18 16:08:00 Emergency BRIAN GRIER [facility] ERT [id number] [facility] 2023-08-18 11:30:00 2023-08-18 16:08:00 Emergency Brian Lorenzana [facility] [id number] 350.1.13.10 [id number] [id number] [facility] 2023-08-05 00:00:00 2023-08-05 00:00:00 Outpatient GC_GCBZW_Ka diyala_S [facility] [id number] [facility] 2023-05-24 00:00:00 2023-05-24 00:00:00 Outpatient GC_GCBZW_Ka diyala_S PRIV PRIV [id number] [facility] 2023-04-26 00:00:00 2023-04-26 00:00:00 Outpatient GC_GCBZW_Ka diyala_S PRIV PRIV [id number] [facility] 2023-04-08 15:20:00 2023-04-08 16:08:44 Outpatient R MARIA T JACKSON [facility] [id number] [facility] 2023-04-08 15:20:00 2023-04-08 16:08:44 Urgent Care Maria T Jackson Unknown, Attending [facility] [id number] [id number] [id number] [facility] 2023-04-03 00:00:00 2023-04-03 00[id number] 2023-03-29 00:00:00 2023-03-29 00:00:00 Outpatient GC_GCBZW_Ka diyala_S PRIV PRIV [id number] [facility] 2023-03-11 00:00:00 2023-03-11 00:00:00 PREV VISIT EST AGE 40-64 [facility] [id number] 2023-03-02 00:00:00 2023-03-02 00:00:00 Outpatient GC_GCBZW_Ka diyala_S PRIV PRIV [id number] [facility] 2023-03-01 00:00:00 2023-03-01 00:00:00 Outpatient GC_GCBZW_Ka diyala_S PRIV PRIV [id number] [facility] 2023-02-12 00:00:00 2023-02-12 00:00:00 OFFICE VISIT ESTAB PT [facility] [id number] [facility] 2023-02-12 00:00:00 2023-02-12 00:00:00 (TEL) [facility] [id number] [facility] 2023-02-11 00:00:00 2023-02-11 00:00:00 Telephone Maria T Jackson [facility] [id number] 350.1.13.10 4.2.7.2.686 [id number] [facility] 2023-02-11 00:00:00 2023-02-11 00:00:00 Letter (Out) Ena Hinds [facility] [id number] 350.1.13.10 4.2.7.2.686 [id number] [facility] 2023-02-11 00:00:00 2023-02-11 00:00:00 Nurse Triage Linh Cano [facility] [id number] 350.1.13.10 4.2.7.2.686 [id number] [facility] 2023-02-11 00:00:00 2023-02-11 00:00:00 [facility]TEL[facility] [id number] [facility] 2023-02-10 18:00:00 2023-02-10 18:17:24 Outpatient KENZIE VCIKERS [facility] [id number] [facility] 2023-02-10 18:00:00 2023-02-10 18:17:24 Laboratory Only Only, Ang Db Test Unknown, Attending [facility] [id number] 350.1.13.10 [id number] [id number] [facility] 2023-02-05 00:00:00 2023-02-05 00:00:00 Outpatient GC_GCBZW_Ka lizziea_S PRIV [facility] [id number] [facility] 2023-02-05 00:00:00 2023-02-05 00:00:00 Outpatient GC_GCBZW_Ka diyala_S PRIV PRIV [id number] [facility] 2023-02-04 00:00:00 2023-02-04 00:00:00 Outpatient GC_GCBZW_Ka diyala_S PRIV PRIV [id number] [facility] 2023-01-29 00:00:00 2023-01-29 00:00:00 Outpatient GC_GCBZW_Ka diyala_S PRIV PRIV [id number] [facility] 2022-12-22 14:40:00 2022-12-22 15:00:00 Urgent Care Emily Lo Unknown, Attending [facility] [id number] 350.1.13.10 4.2.7.2.686 [id number] [facility] 2022-12-22 14:40:00 2022-12-22 14:40:00 Outpatient R EMILY LO [facility] [id number] [facility] 2022-12-22 00:00:00 2022-12-22 00:00:00 Letter (Out) Emily Lo [facility] [id number] 350.1.13.10 4.2.7.2.686 [id number] [facility] 2022-10-19 14:00:00 2022-10-19 15:43:57 Outpatient R MARIA T JACKSON [facility] [id number] [facility] 2022-10-19 14:00:00 2022-10-19 14:20:00 Urgent Care Maria T Jackson Unknown, Attending [facility] [id number] 350.1.13.10 4.2.7.2.686 [id number] [facility] 2022-10-17 00:00:00 2022-10-17 00:00:00 Case Management Maria T Jackson [facility] [id number] 350.1.13.10 4.2.7.2.686 [id number] [facility] 2022-10-15 00:00:00 2022-10-15 00:00:00 Telephone Merced Courtney [facility] [id number] 350.1.13.10 4.2.7.2.686 [id number] [facility] 2022-10-14 19:40:00 2022-10-14 20:04:11 Outpatient R WANDA COURTNEYANDREI [facility] [id number] [facility] 2022-10-14 19:40:00 2022-10-14 20:04:11 Urgent Care Wanda Courtneyartiegarima Unknown, Attending [facility] 1.2.840.114 350.1.13.10 4.2.7.2.686 [id number] [facility] 2022-10-08 13:15:00 2022-10-08 13:15:00 Outpatient SAUMYA OSWALD [facility] [id number] [facility] 2022-07-19 10:30:00 2022-07-19 11:44:31 Office Visit Saumya Oswald [facility] [address] AND WOMENS 1.2.840.114 350.1.13.58 9.2.7.2.686 [id number] [facility] 2022-06-25 13:15:00 2022-06-25 13:15:00 Outpatient SAUMYA OSWALD [facility] [id number] [facility] 2022-05-21 00:00:00 2022-05-21 00:00:00 (TEL) STLMLC [facility] [id number] [facility] 2022-04-02 13:15:00 2022-04-02 14:25:00 Outpatient SAUMYA OSWLAD [facility] [id number] [facility] 2022-01-22 15:30:00 2022-01-22 17:02:13 Outpatient SAUMYA OSWALD [facility] [id number] [facility] 2022-01-18 11:30:00 2022-01-18 11:30:00 Outpatient SAUMYA OSWALD [facility] [id number] [facility] 2021-12-24 00:00:00 2021-12-24 00:00:00 [facility] [id number] [facility] 2021-12-04 14:45:00 2021-12-04 16:40:55 Outpatient SAUMYA OSWALD [facility] [id number] [facility] 2021-11-28 11:58:00 2021-11-29 13:28:00 Outpatient SAUMYA OSWALD [facility] ZHENG [id number] [facility] 2021-11-28 09:30:00 2021-11-28 09:30:00 Outpatient SAUMYA OSWALD [facility] [id number] [facility] 2021-11-13 04:33:00 2021-11-13 04:33:00 Outpatient RADHA SHEPHERD WAKATI [facility] [id number] [facility] 2021-10-29 00:00:00 2021-10-29 00:00:[address] [facility] [place] [address] AND WOMENS 1.2.840.114 350.1.13.58 9.2.7.2.686 [id number] [facility] 2021-10-29 00:00:00 2021-10-29 00:00:[address] [facility] [address] AND WOMENS 1.2.840.114 350.1.13.58 9.2.7.2.686 [id number] [facility] 2021-10-24 00:00:00 2021-10-24 00:00:00 (TEL) STLMLC STLMLC [id number] [facility] 2021-10-19 00:00:00 2021-10-19 00:00:00 OFFICE VISIT EST PT LEVEL 3 STLMLC STLMLC [id number] [facility] 2021-10-19 00:00:00 2021-10-19 00:00:00 (TEL) STLMLC STLMLC [id number] [facility] 2021-10-15 00:00:00 2021-10-15 00:00:00 (TEL) STLMLC STLMLC [id number] [facility] 2021-10-10 00:00:00 2021-10-10 00:00:[address] [facility] [address] [place]OMENS 1.2.840.114 350.1.13.58 9.2.7.2.686 [id number] [facility] 2021-10-09 00:00:00 2021-10-09 00:00:[address] [facility] [address] AND WOMENS 1.2.840.114 350.1.13.58 9.2.7.2.686 [id number] [facility] 2021-10-09 00:00:00 2021-10-09 00:00:00 OFFICE VISIT ESTAB PT LEVEL 4 [facility] [id number] [facility] 2021-10-03 00:00:00 2021-10-03 00:00:00 Telephone Saumya Oswald [facility] [place] [address] [place]OMENS 1.2.840.114 350.1.13.58 9.2.7.2.686 [id number] [facility] 2021-09-25 00:00:00 2021-09-25 00:00:[address] [facility] [address] AND WOMENS 1.2.840.114 350.1.13.58 9.2.7.2.686 [id number] [facility] 2021-09-25 00:00:00 2021-09-25 00:00:00 [facility] [id number] [facility] 2021-09-19 09:01:00 2021-09-19 11:08:00 Outpatient SAUMYA OSWALD [facility] Z[facility]ENG [id number] [facility] 2021-09-19 10:00:00 2021-09-19 10:00:00 Outpatient SAUMYA OSWALD [facility] [id number] [facility] 2021-09-19 00:00:00 2021-09-19 00:00:00 [facility] [id number] [facility] 2021-09-13 00:00:00 2021-09-13 00:00:[address] [facility] [address] [place]OM[place] 1.2.840.114 350.1.13.58 9.2.7.2.686 [id number] [facility] 2021-09-12 00:00:00 2021-09-12 00:00:[address] [facility] [address] AND WOMENS 1.2.840.114 350.1.13.58 9.2.7.2.686 [id number] [facility] 2021-09-11 00:00:00 2021-09-11 00:00:00 OFFICE VISIT ESTAB PT [facility]EL 4 [facility] [id number] [facility] 2021-09-06 13:30:00 2021-09-06 14:01:[address] [facility] [place] [address] [place]OM[place] 1.2.840.114 350.1.13.58 9.2.7.2.686 [id number] [facility] 2021-08-27 00:00:00 2021-08-27 00:00:[address] [facility] [address] [place]OMENS 1.2.840.114 350.1.13.58 9.2.7.2.686 [id number] [facility] 2021-08-24 09:00:00 2021-08-24 09:30:00 Office Visit Saumya Oswald [facility] [place] [place] [address] [place] WOMENS 1.2.840.114 350.1.13.58 9.2.7.2.686 [id number] [facility] 2021-08-09 00:00:00 2021-08-09 00:00:00 OFFICE VISIT ESTAB PT LEVEL 4 STLMLC STLMLC [id number] [facility] 2021-07-11 00:00:00 2021-07-11 00:00:00 OFFICE VISIT EST PT LEVEL 3 STLMLC STLMLC [id number] [facility] 2021-07-10 00:00:00 2021-07-10 00:00:00 (TEL) STLMLC STLMLC [id number] [facility] 2021-07-10 00:00:00 2021-07-10 00:00:00 (TEL) STLMLC STLMLC [id number] [facility] 2021-06-18 00:00:00 2021-06-18 00:00:00 OFFICE VISIT ESTAB PT LEVEL 4 STLMLC STLMLC [id number] [facility] 2021-06-13 00:00:00 2021-06-13 00:00:00 PREV VISIT EST AGE 40-64 STLMLC STLMLC [id number] [facility] 2021-06-11 00:00:00 2021-06-11 00:00:00 (TEL) STLMLC STLMLC [id number] [facility] 2021-06-11 00:00:00 2021-06-11 00:00:00 (TEL) STLMLC STLMLC [id number] [facility] 2021-06-05 00:00:00 2021-06-05 00:00:00 (TEL) STLMLC STLMLC [id number] [facility] 2021-06-04 00:00:00 2021-06-04 00:00:00 (TEL) STLMLC STLMLC [id number] [facility] 2021-05-31 00:00:00 2021-05-31 00:00:00 (TEL) STLMLC STLMLC [id number] [facility] 2021-05-31 00:00:00 2021-05-31 00:00:00 OFFICE VISIT ESTAB PT LEVEL 4 STLMLC STLMLC [id number] [facility] 2021-05-29 00:00:00 2021-05-29 00:00:00 (TEL) STLMLC STLMLC [id number] [facility] 2021-05-24 00:00:00 2021-05-24 00:00:00 (TEL) STLMLC STLMLC [id number] [facility] 2021-05-24 00:00:00 2021-05-24 00:00:00 OFFICE VISIT ESTAB PT LEVEL 4 STLMLC STLMLC [id number] [facility] 2021-05-23 00:00:00 2021-05-23 00:00:00 (TEL) STLMLC STLMLC [id number] [facility] 2021-05-23 00:00:00 2021-05-23 00:00:00 (TEL) STLMLC STLMLC [id number] [facility] 2021-05-09 00:00:00 2021-05-09 00:00:00 (TEL) STLMLC STLMLC [id number] [facility] 2021-05-02 00:00:00 2021-05-02 00:00:00 OFFICE VISIT EST PT LEVEL 3 STLMLC STLMLC [id number] [facility] 2021-05-02 00:00:00 2021-05-02 00:00:00 (TEL) STLMLC STLMLC [id number] [facility] 2021-04-17 00:00:00 2021-04-17 00:00:00 OFFICE VISIT ESTAB PT LEVEL 4 STLMLC STLMLC [id number] [facility] 2021-03-01 00:00:00 2021-03-01 00:00:00 (TEL) STLMLC STLMLC [id number] [facility] 2021-01-25 00:00:00 2021-01-25 00:00:00 OFFICE VISIT EST PT LEVEL 3 STLMLC STLMLC [id number] [facility] 2021-01-05 00:00:00 2021-01-05 00:00:00 (TEL) STLMLC STLMLC [id number] [facility] 2021-01-04 00:00:00 2021-01-04 00:00:00 OFFICE VISIT EST PT LEVEL 3 STLMLC STLMLC [id number] [facility] 2021-01-03 00:00:00 2021-01-03 00:00:00 (TEL) STLMLC STLMLC [id number] [facility] 2020-12-27 00:00:00 2020-12-27 00:00:00 (TEL) STLMLC STLMLC [id number] [facility] 2020-12-19 00:00:00 2020-12-19 00:00:00 OFFICE VISIT EST PT LEVEL 3 STLMLC STLMLC [id number] [facility] 2020-12-18 00:00:00 2020-12-18 00:00:00 Outpatient STLMLC STL[facility]C [id number] [facility] 2020-12-14 00:00:00 2020-12-14 00:00:00 Outpatient STLMLC STL[facility]C [id number] [facility] 2020-11-03 00:00:00 2020-11-03 00:00:00 Outpatient STLMLC STLMLC [id number] [facility] 2020-10-06 00:00:00 2020-10-06 00:00:00 Outpatient STLMLC STLMLC [id number] [facility] 2020-10-03 00:00:00 2020-10-03 00:00:00 Outpatient STLMLC STLMLC [id number] [facility] 2020-08-28 00:00:00 2020-08-28 00:00:00 Outpatient STLMLC STLMLC [id number] [facility] 2020-08-10 00:00:00 2020-08-10 00:00:00 Outpatient STLMLC STLMLC [id number] [facility] 2020-08-09 00:00:00 2020-08-09 00:00:00 Outpatient STLMLC STLMLC [id number] [facility] 2020-05-25 00:00:00 2020-05-25 00:00:00 Outpatient STLMLC STLMLC [id number] [facility] 2020-04-05 00:00:00 2020-04-05 00:00:00 Outpatient STLMLC STLMLC [id number] [facility] 2020-04-05 00:00:00 2020-04-05 00:00:00 Outpatient STLMLC STLMLC [id number] [facility] 2020-03-20 00:00:00 2020-03-20 00:00:00 Outpatient STLMLC STLMLC [id number] [facility] 2020-03-13 00:00:00 2020-03-13 00:00:00 Outpatient STLMLC STLMLC [id number] [facility] 2020-02-22 00:00:00 2020-02-22 00:00:00 Outpatient STLMLC STLMLC [id number] [facility] 2019-12-16 11:00:00 2019-12-16 11:00:00 [facility] [id number] [facility] 2019-12-02 08:00:00 2019-12-02 08:00:00 [facility] [id number] [facility] 2019-11-26 15:01:00 2019-11-26 15:01:00 [facility] [id number] [facility] 2019-11-23 10:00:00 2019-11-23 10:00:[address] [facility] [id number] [facility] 2019-11-22 13:20:00 2019-11-22 13:20:00 [facility] [id number] [facility] 2019-10-29 09:52:00 2019-10-29 09:52:00 [facility] [id number] [facility] 2019-08-30 09:58:00 2019-08-30 09:58:00 [facility] [id number] [facility] 2019-08-26 16:09:00 2019-08-26 16:09:00 [facility] [id number] [facility] 2019-08-26 13:15:00 2019-08-26 13:15:[address] [facility] [id number] [facility] 2019-08-26 09:29:00 2019-08-26 09:29:[address] [facility] [id number] [facility] 2019-07-05 08:35:00 2019-07-05 08:35:00 [facility] [id number] [facility] 2019-05-31 15:00:00 2019-05-31 15:00:00 [facility] [id number] [facility] 2019-04-07 17:10:00 2019-04-07 17:10:00 [facility] [id number] [facility] 2019-01-18 14:02:00 2019-01-18 14:02:00 [facility] [id number] [facility] 2019-01-15 10:30:00 2019-01-15 10:30:00 [facility] [id number] [facility] 2019-01-11 13:00:00 2019-01-11 13:00:00 [facility] [id number] [facility] 2018-12-10 14:00:00 2018-12-10 14:00:00 [facility] [id number] [facility] 2018-12-01 15:00:00 2018-12-01 15:00:00 [facility] [id number] [facility] 2018-10-28 10:53:00 2018-10-28 10:53:00 [facility] [id number] [facility] 2018-09-07 09:45:00 2018-09-07 09:45:00 [facility] [id number] [facility] 2018-09-02 14:02:00 2018-09-02 14:02:00 [facility] [id number] [facility] 2018-07-10 14:32:00 2018-07-10 14:32:00 [facility] [id number] [facility] 2018-07-03 08:30:00 2018-07-03 08:30:00 Outpatient [facility] [id number] [facility] 2018-06-10 10:53:00 2018-06-10 10:53:00 Outpatient [facility] [id number] [facility] 2018-06-09 10:00:00 2018-06-09 10:00:00 Outpatient [facility] [id number] [facility] 2017-10-13 11:15:00 2017-10-13 11:15:00 Outpatient [facility] [id number] [facility] 2017-10-01 15:15:00 2017-10-01 15:15:00 Outpatient [facility] [id number] [facility] 2017-09-01 15:30:00 2017-09-01 15:30:00 Outpatient [facility] [id number] [facility] 2017-08-04 15:00:00 2017-08-04 15:00:00 Outpatient [facility] [id number] [facility] Results Test Description Test Time Test Comments Results Result Comments Source CT THORAX W CONTRAST 2023-09 15:07:4 7 EXAM: CT THORAX W CONTRAST INDICATION: 53-year-old female presents for evaluation for dysphagia andfeeling as though a pill stuck in her throat. History of gastric sleepperformed on COMPARISON:None. Multidetector CT scan of the chest was performed with axial, coronal andsagittal reconstructions with IV contrast. FINDINGS:LOWER NECK: Partially visualized lower neck soft tissues are unremarkable.Changes of gastric sleeve with small type I hiatal hernia. No abnormalityvisualized along the course the esophagus. LUNG AND LARGE AIRWAYS: Normal lung vascularity. Bilateral bibasilardependent atelectasis 0.6 cm calcified granuloma present in the right lowerlung; otherwise, the lungs are clear without infiltrate, or abnormalinterstitial opacities. PLEURA: No pleural effusion. No pneumothorax. GREAT VESSELS: Normal 3 vessel left aortic arch. Normal pulmonary artery. MEDIASTINUM AND WENDI: No abnormal lymph nodes or masses. CHEST WALL : Normal soft tissues. UPPER ABDOMEN: Splenic calcified granuloma measuring 0.4 cm. There is a 1.2cm hypodense posterior splenic lesion present in the inferior pole of thespleen likely representing a simple splenic cyst. Bones: Mild degenerative changes to the spine. [facility] CT SOFT TISSUE NECK W CONTRAST 2023-09 14:50:0 4 EXAM: CT SOFT TISSUE NECK W CONTRAST HISTORY: Swallowed foreign body foreign body in throat, feels like pill is stuck TECHNIQUE: CT of the neck was performed following intravenousadministration of contrast. Sagittal and coronal reformats were generated. COMPARISON: None. FINDINGS: No radiodense foreign body is identified in the aerodigestive tract. The the nasopharynx, oropharynx, hypopharynx and larynx are patent withoutsoft tissue asymmetry. The trachea and cervical esophagus are unremarkable. The oral tongue and floor of mouth are unremarkable. The submandibular and parotid salivary glands are unremarkable. No stone isidentified along the course of Stensen's or Jess's duct. Thyroid glandis unremarkable. No suspicious cervical lymphadenopathy. The visualized lung apices are clear. Calcified precarinal and right hilarlymph nodes noted. [id number] 14:17:28* Test Item Value Reference Range Interpretation Comme nts NT-proBNP (test code = 48765-7) 136 pg/mL <=125 AURORA (test code = AURORA) Result Indeterminate-Consid er causes of NT-proBNP elevation other than Heart failure such as acute coronary syndrome, pulmonary embolism, pulmonary hypertension, sepsis, stroke, and renal dysfunction. Lab Interpretation (test code = 04432-1) [facility] ([id number])2023-10-01 14:15:55* Test Item Value Reference Range Interpretation Comme nts NA (test code = 2173309456) 139 mmol/L 135-145 K (test code = 9608944815) 3.7 mmol/L 3.5-5.0 CL (test code = 5449757999) 106 mmol/L 98-108 CO2 TOTAL (test code = 2189096390) 31 mmol/L 23-31 AGAP (test code = 0656216653) 2 2-16 BUN (test code = 8512671108) 9 mg/dL 7-23 GLUCOSE (test code = 1607047476) 86 mg/dL 70-110 CREATININE (test code = 2160-0) 0.63 mg/dL 0.50-1.04 TOTAL BILI (test code = 5360381681) 0.7 mg/dL 0.1-1.1 CALCIUM (test code = 9326604880) 9.4 mg/dL 8.6-10.6 T PROTEIN (test code = 7329383963) 6.8 g/dL 6.3-8.2 ALBUMIN (test code = 5218104434) 3.8 g/dL 3.5-5.0 ALK PHOS (test code = 5558680270) 94 U/L 34-122 ALTv (test code = 1742-6) 15 U/L 5-35 AST(SGOT) (test code = 9778039945) 26 U/L 13-40 eGFR (test code = 55064-0) 106.9 mL/min/1.73m2 CKD-EPI eGFR (20 21). Assuming creatinine has been stable day-to-day for at least three months, the eGFR indicates Category G1 (>= 90 mL/min/1.73 m2) [facility] with [id number] 14:00:25* Test Item Value Reference Range Interpretation Comme nts WBC (test code = 6690-2) 5.95 4.30-11.10 RBC (test code = 789-8) 4.38 3.93-5.25 HGB (test code = 718-7) 13.4 g/dL 11.6-15.0 HCT (test code = 4544-3) 41.6 % 35.7-45.2 MCV (test code = 787-2) 95.0 fL 80.6-95.5 MCH (test code = 785-6) 30.6 pg 25.9-32.8 MCHC (test code = 786-4) 32.2 g/dL 31.6-35.1 RDW-SD (test code = 07830-7) 47.2 fL 39.0-49.9 RDW-CV (test code = 788-0) 13.5 % 12.0-15.5 PLT (test code = 777-3) 301 166-358 MPV (test code = 60358-5) 10.1 fL 9.5-12.9 NRBC/100 WBC (test code = 5448324314) 0.0 0.0-10.0 NRBC x10^3 (test code = 9446427689) See_Comment [Automated me ssage] The system which generated this result transmitted reference range: 10*3/?L. The reference range was not used to interpret this result as normal/abnormal. GRAN MAT (NEUT) % (test code = 770-8) 55.1 % IMM GRAN % (test code = 3837824179) 0.20 % LYMPH % (test code = 736-9) 31.3 % MONO % (test code = 5905-5) 10.4 % EOS % (test code = 713-8) 2.5 % BASO % (test code = 706-2) 0.5 % GRAN MAT x10^3(ANC) (test code = 9432546673) 3.28 10*3/uL 1.88-7.09 IMM GRAN x10^3 (test code = 7567691043) 0.00-0.06 LYMPH x10^3 (test code = 731-0) 1.86 10*3/uL 1.32-3.29 MONO x10^3 (test code = 742-7) 0.62 10*3/uL 0.33-0.92 EOS x10^3 (test code = 711-2) 0.15 10*3/uL 0.03-0.39 BASO x10^3 (test code = 704-7) 0.03 10*3/uL 0.01-0.07 [facility] [id number] 19:07:47 EXAMINATION: ?XR CERVICAL SPINE 3 VW, XR THORACIC SPINE 2 VW HISTORY: neck pain TECHNIQUE: AP and lateral views of the cervical and thoracic spine wereobtained. Odontoid and swimmer's view were obtained as well. [facility]: [facility] [id number] 19:07:47EXAMINATION: ?XR CERVICAL SPINE 3 VW, XR THORACIC SPINE 2 VW HISTORY: neck pain TECHNIQUE: AP and lateral views of the cervical and thoracic spine wereobtained. Odontoid and swimmer's view were obtained as well. COMPARISON: None.[facility] MOLECULAR [id number] 21:58:40* Test Item Value Reference Range Interpretation Comme nts POCT Molecular FluA (test co de = 33749-1) Negative Negative POCT Molecular FluB (test co de = 13791-8) Negative Negative Lab Interpretation (test cod e = 39267-2) Normal [facility] MOLECULAR [id number] 21:58:40* Test Item Value Reference Range Interpretation Comme nts POCT Molecular FluA (test co de = 09069-5) Negative Negative POCT Molecular FluB (test co de = 70176-1) Negative Negative Lab Interpretation (test cod e = 51235-5) Normal [facility] MOLECULAR [id number] 21:49:46* Test Item Value Reference Range Interpretation Comme nts POCT Molecular Strep (test c ode = 14513-7) Negative Negative Lab Interpretation (test cod e = 10248-4) Normal [facility] MOLECULAR [id number] 21:49:46* Test Item Value Reference Range Interpretation Comme nts POCT Molecular Strep (test c ode = 16927-0) Negative Negative Lab Interpretation (test cod e = 18642-6) Normal [facility] W/AUTO [id number] 00:00:00* Test Item Value Reference Range Interpretation Comme nts NUCLEATED RBCS (test code = 60078-1) 0.0 /100 WBC'S See_Comment [Automated [employer]] The system which generated this result transmitted reference range: 0.0 /100 WBC'S. The reference range was not used to interpret this result as normal/abnormal. ABSOLUTE EOSINOPHILS (test code = 80385-5) 0.06 K/UL See_Comment [Automated [employer]] The system which generated this result transmitted reference range: 0.00-0.50 K/UL. The reference range was not used to interpret this result as normal/abnormal. ABSOLUTE LYMPHOCYTES (test code = 95726-7) 2.80 K/UL See_Comment [Automated messa ge] The system which generated this result transmitted reference range: 1.00-4.00 K/UL. The reference range was not used to interpret this result as normal/abnormal. ABSOLUTE MONOCYTES (test code = 41655-8) 0.67 K/UL See_Comment [Automated messa ge] The system which generated this result transmitted reference range: 0.20-1.00 K/UL. The reference range was not used to interpret this result as normal/abnormal. ABSOLUTE NEUTROPHILS (test code = 05445-5) 3.66 K/UL See_Comment [Automated messa ge] The system which generated this result transmitted reference range: 1.50-7.50 K/UL. The reference range was not used to interpret this result as normal/abnormal. BASOPHILS (test code = 06394-8) 0.3 % EOSINOPHILS (test code = 47488-7) 0.8 % HEMATOCRIT (test code = 09554-2) 38.6 % See_Comment [Automated messa ge] The system which generated this result transmitted reference range: 34.0-45.0 %. The reference range was not used to interpret this result as normal/abnormal. HEMOGLOBIN (test code = 718-7) 12.8 G/DL See_Comment [Automated messa ge] The system which generated this result transmitted reference range: 11.5-15.5 G/DL. The reference range was not used to interpret this result as normal/abnormal. LYMPHOCYTES (test code = 69198-9) 38.8 % MCH (test code = 71004-6) 30.3 PG See_Comment [Automated messa ge] The system which generated this result transmitted reference range: 25.0-33.0 PG. The reference range was not used to interpret this result as normal/abnormal. MCHC (test code = 95606-4) 33.2 G/DL See_Comment [Automated messa ge] The system which generated this result transmitted reference range: 31.0-36.0 G/DL. The reference range was not used to interpret this result as normal/abnormal. MCV (test code = 10377-0) 91.5 fL See_Comment [Automated messa ge] The system which generated this result transmitted reference range: 80.0-99.0 fL. The reference range was not used to interpret this result as normal/abnormal. MONOCYTES (test code = 07264-2) 9.3 % NEUTROPHILS (test code = 70113-4) 50.7 % PLATELET COUNT (test code = 21631-5) 307 K/UL See_Comment [Automated [employer]] The system which generated this result transmitted reference range: 130-400 K/UL. The reference range was not used to interpret this result as normal/abnormal. RBC (test code = 91252-2) 4.22 M/UL See_Comment [Automated [employer]] The system which generated this result transmitted reference range: 3.80-5.40 M/UL. The reference range was not used to interpret this result as normal/abnormal. RDW (test code = 47957-3) 12.6 % See_Comment [Automated [employer]] The system which generated this result transmitted reference range: 11.5-15.0 %. The reference range was not used to interpret this result as normal/abnormal. WBC (test code = 26839-9) 7.2 K/UL See_Comment [Automated [employer]] The system which generated this result transmitted reference range: 3.5-11.0 K/UL. The reference range was not used to interpret this result as normal/abnormal. POCT URINALYSIS W SPECIFIC [id number] 20:05:00* Test Item Value Reference Range Interpretation Comme nts POCT U SP GRAV (test code = 3255) 1.020 mg/dl 1.005-1.025 POCT PH U (test code = 3254) 5 mg/dl 5-8 POCT U LEUK EST (test code = 3263) ++ Negative - Negative POCT U NIT (test code = 3262) Neg Negative - Negati ve POCT U PROT (test code = 3259) trace Negative - Negative POCT U GLU (test code = 3256) Normal Negative - Negati ve POCT U KETONE (test code = 3258) Neg Negative - Negative POCT U UROBILI (test code = 3260) + 0.2-1 POCT U BILI (test code = 3261) + Negative - Negative POCT U BLD (test code = 3257) trace Negative - Negati ve POCT U COLOR (test code = 3266) tomer POCT U APPEAR (test code = 3267) Clear [facility] SARS-COV-2 ANTIGEN (BINAX NOW)2022-10-19 19:44:00* Test Item Value Reference Range Interpretation Comme nts POCT SARS-COV-2 ANTIGEN (test code = 21195-3) Not Detected Not Detected On board controls acceptable with C Line (test code = 3574) Yes AURORA (test code = AURORA) accurate developme nt and interpretation of all internal controls Lab Interpretation (test code = 11841-0) Normal [facility] MOLECULAR [id number] 00:59:54* Test Item Value Reference Range Interpretation Comme nts POCT Molecular Strep (test c ode = 23519-1) Negative Negative Lab Interpretation (test cod e = 73224-5) Normal [facility] MOLECULAR [id number] 00:59:54* Test Item Value Reference Range Interpretation Comme nts POCT Molecular Strep (test c ode = 59191-5) Negative Negative Lab Interpretation (test cod e = 66919-6) Normal [facility] URINALYSIS W SPECIFIC [id number] 00:54:00* Test Item Value Reference Range Interpretation Comme nts POCT U SP GRAV (test code = 3255) 1.015 mg/dl 1.005-1.025 POCT PH U (test code = 3254) 6 mg/dl 5-8 POCT U LEUK EST (test code = 3263) trace Negative - Negative POCT U NIT (test code = 3262) neg Negative - Negati ve POCT U PROT (test code = 3259) neg Negative - Negative POCT U GLU (test code = 3256) neg Negative - Negati ve POCT U KETONE (test code = 3258) neg Negative - Negative POCT U UROBILI (test code = 3260) neg 0.2-1 POCT U BILI (test code = 3261) neg Negative - Negative POCT U BLD (test code = 3257) trace Negative - Negati ve POCT U COLOR (test code = 3266) yellow POCT U APPEAR (test code = 3267) clear Lab Interpretation (test cod e = 27447-4) Abnormal [facility] URINALYSIS W SPECIFIC [id number] 00:54:00* Test Item Value Reference Range Interpretation Comme nts POCT U SP GRAV (test code = 3255) 1.015 mg/dl 1.005-1.025 POCT PH U (test code = 3254) 6 mg/dl 5-8 POCT U LEUK EST (test code = 3263) trace Negative - Negative POCT U NIT (test code = 3262) neg Negative - Negati ve POCT U PROT (test code = 3259) neg Negative - Negative POCT U GLU (test code = 3256) neg Negative - Negati ve POCT U KETONE (test code = 3258) neg Negative - Negative POCT U UROBILI (test code = 3260) neg 0.2-1 POCT U BILI (test code = 3261) neg Negative - Negative POCT U BLD (test code = 3257) trace Negative - Negati ve POCT U COLOR (test code = 3266) yellow POCT U APPEAR (test code = 3267) clear Lab Interpretation (test cod e = 22468-3) Abnormal [facility] Notes Date/Time Note Provider Source 2023-10-01 10:33:49 Pt given printed and verbal discharge instructions regarding esophagitis, encouraged hydration. 0 Prescriptions provided; 1 sent to pharmacy Discussed ibuprofen and to take with food to avoid GI distress. Pt verbalized understanding of instructions, pt awake alert oriented, resp reg unlabored, skin w/d, color appropriate for race, moves all ext well,pt encouraged to follow up with pcp. Advised to seek medical attention for new/prolonged/worsening of symptoms, Symptoms improved No adverse reaction to meds given in ER noted upon discharge PIV d'cd, dressing to site, catheter in tact. Awake, alert oriented, resp reg unlabored, skin w/d, pt leaving amb with steady gait, in no apparent distress. Destini Mast RN [facility] 2023-10-01 07:08:54 Took abx pill last night. Feels like its stuck in throat. Shellie Silva RN [facility] 2023-10-01 07:06:00 Associated Order(s): EKG-12 Lead ROUTINE ONCE Pre-Procedure Diagnose(s): Esophagitis Post-Procedure Diagnose(s): Esophagitis [facility] Emergency Department Note Patient Name: Dinh Junior Date of : 1970 53 year old female Treatment Room: [place] [address] Primary Care Physician: PATIENT DOES NOT HAVE A PCP Patient Escorted by: Self [9] Mode of Arrival: Personal means [1] EMS Treatment Prior to ED Arrival: SENIOR PATROL AGENT treatment: None Travel and Exposure Screening: Symptoms Does patient have any of these symptoms?: (not recorded) Exposure Screening Has patient had contact with someone with a communicable disease in the last month?: (not recorded) Diseases exposed to:: (not recorded) Is Patient ?: (not recorded) Exposure Date: (not recorded) Chief Complaint: Chief Complaint Patient presents with Foreign Body History of Present Illness: PT presents after she feels like a pill is stuck in her throat, and it hurts to take a breath. PT took clindamycin 300 mg last night. PT states she was able to swallow water and sprite ok. PT has h/o gastric sleeve surgery many years ago. Pt maintaining her secretions. Past Medical History/Immunizations: No past medical history on file. Tetanus received in last 5 years: Unknown Childhood immunizations: Up-to-date Allergies: Allergies Allergen Reactions Penicillamine Rash Other reaction(s): rash Past Social History: Tobacco Use Never smoked or used smokeless tobacco. Past Surgical History: No past surgical history on file. Review of Systems: Review of Systems Constitutional: Negative for fever. HENT: Positive for trouble swallowing. Feels like pill stuck at bottom of throat. Eyes: Negative for photophobia. Respiratory: Negative for chest tightness. Gastrointestinal: Negative for nausea and vomiting. Physical Exam: ED Triage Vitals [10/01/23 0709] Weight 70.8 kg (156 lb) Actual or estimated Estimated by patient/family report Height 1.499 m (4' 11") BP 137/77 Pulse 65 Resp 16 Temp 36.6 ?C (97.9 ?F) Temp source Oral SpO2 100 % Measured on Room air Physical Exam Vitals and nursing note reviewed. Constitutional: Appearance: Normal appearance. HENT: Mouth/Throat: Mouth: Mucous membranes are moist. Comments: No definitive FB visualized Eyes: Extraocular Movements: Extraocular movements intact. Cardiovascular: Rate and Rhythm: Normal rate. Musculoskeletal: Cervical back: Normal range of motion. Neurological: General: No focal deficit present. Mental Status: She is alert and oriented to person, place, and time. Mental status is at baseline. Psychiatric: Mood and Affect: Mood normal. Behavior: Behavior normal. Thought Content: Thought content normal. Radiology: CT SOFT TISSUE NECK W CONTRAST Final Result EXAM: CT SOFT TISSUE NECK W CONTRAST HISTORY: Swallowed foreign body foreign body in throat, feels like pill is stuck TECHNIQUE: CT of the neck was performed following intravenous administration of contrast. Sagittal and coronal reformats were generated. COMPARISON: None. FINDINGS: No radiodense foreign body is identified in the aerodigestive tract. The the nasopharynx, oropharynx, hypopharynx and larynx are patent without soft tissue asymmetry. The trachea and cervical esophagus are unremarkable. The oral tongue and floor of mouth are unremarkable. The submandibular and parotid salivary glands are unremarkable. No stone is identified along the course of Stensen's or Jess's duct. Thyroid gland is unremarkable. No suspicious cervical lymphadenopathy. The visualized lung apices are clear. Calcified precarinal and right hilar lymph nodes noted. IMPRESSION No evidence of foreign body. Unremarkable aerodigestive tract with no evidence of cervical lymphadenopathy. CT THORAX W CONTRAST Final Result EXAM: CT THORAX W CONTRAST INDICATION: 53-year-old female presents for evaluation for dysphagia and feeling as though a pill stuck in her throat. History of gastric sleep performed on COMPARISON:None. Multidetector CT scan of the chest was performed with axial, coronal and sagittal reconstructions with IV contrast. FINDINGS: LOWER NECK: Partially visualized lower neck soft tissues are unremarkable. Changes of gastric sleeve with small type I hiatal hernia. No abnormality visualized along the course the esophagus. LUNG AND LARGE AIRWAYS: Normal lung vascularity. Bilateral bibasilar dependent atelectasis 0.6 cm calcified granuloma present in the right lower lung; otherwise, the lungs are clear without infiltrate, or abnormal interstitial opacities. PLEURA: No pleural effusion. No pneumothorax. GREAT VESSELS: Normal 3 vessel left aortic arch. Normal pulmonary artery. MEDIASTINUM AND WENDI: No abnormal lymph nodes or masses. CHEST WALL : Normal soft tissues. UPPER ABDOMEN: Splenic calcified granuloma measuring 0.4 cm. There is a 1.2 cm hypodense posterior splenic lesion present in the inferior pole of the spleen likely representing a simple splenic cyst. Bones: Mild degenerative changes to the spine. IMPRESSION Changes of gastric sleeve with small type I hiatal hernia. No abnormalities visualized along the course of the esophagus. No dilated loops of visualized bowel. Preliminary Report Dictated by Resident: Jorge Torres Note: Study was reviewed by Dr. Minor. Upper thoracic esophagus is slightly dilated with gas with some irregular material noted in the lumen which could be retained secretions. No radiopaque foreign body visualized. However, if there are persistent symptoms of basal stomach in the throat/chest, barium swallow study of the esophagus may be of value. ILeda MD., have reviewed this study and agree with the above report. Lab Results: Lab Results N-TERMINAL PRO-BNP - Abnormal Result Value Ref Range NT-proBNP 136 <=125 pg/mL TROPONIN I - Normal TROPONIN I 0.006 <=0.034 ng/mL CBC WITH DIFF WBC 5.95 4.30 - 11.10 10*3/?L RBC 4.38 3.93 - 5.25 10*6/?L HGB 13.4 11.6 - 15.0 g/dL HCT 41.6 35.7 - 45.2 % MCV 95.0 80.6 - 95.5 fL MCH 30.6 25.9 - 32.8 pg MCHC 32.2 31.6 - 35.1 g/dL RDW-SD 47.2 39.0 - 49.9 fL RDW-CV 13.5 12.0 - 15.5 % PLT 301 166 - 358 10*3/?L MPV 10.1 9.5 - 12.9 fL NRBC/100 WBC 0.0 0.0 - 10.0 /100 WBCs NRBC x10 3 <0.01 10*3/?L GRAN MAT (NEUT) % 55.1 % IMM GRAN % 0.20 % LYMPH % 31.3 % MONO % 10.4 % EOS % 2.5 % BASO % 0.5 % GRAN MAT x10 3 (ANC) 3.28 1.88 - 7.09 10*3/uL IMM GRAN x10 3 <0.03 0.00 - 0.06 10*3/uL LYMPH x10 3 1.86 1.32 - 3.29 10*3/uL MONO x10 3 0.62 0.33 - 0.92 10*3/uL EOS x10 3 0.15 0.03 - 0.39 10*3/uL BASO x10 3 0.03 0.01 - 0.07 10*3/uL COMP. METABOLIC PANEL (30219) NA 139 135 - 145 mmol/L K 3.7 3.5 - 5.0 mmol/L CL 106 98 - 108 mmol/L CO2 TOTAL 31 23 - 31 mmol/L AGAP 2 2 - 16 BUN 9 7 - 23 mg/dL GLUCOSE 86 70 - 110 mg/dL CREATININE 0.63 0.50 - 1.04 mg/dL TOTAL BILI 0.7 0.1 - 1.1 mg/dL CALCIUM 9.4 8.6 - 10.6 mg/dL T PROTEIN 6.8 6.3 - 8.2 g/dL ALBUMIN 3.8 3.5 - 5.0 g/dL ALK PHOS 94 34 - 122 U/L ALTv 15 5 - 35 U/L AST(SGOT) 26 13 - 40 U/L eGFR 106.9 mL/min/1.73m2 EKG: If EKG completed, see Procedure Note. Orders and Treatments: Orders Placed This Encounter Procedures CT SOFT TISSUE NECK W CONTRAST CT THORAX W CONTRAST Cbc with Diff Comp. Metabolic Panel (28728) Troponin I N-Terminal Pro-Bnp Orders Placed This Encounter Medications NaCl 0.9% (NS) bolus infusion 1,000 mL pantoprazole (PROTONIX) injection 40 mg famotidine (PEPCID (PF)) injection 40 mg iopamidol (ISOVUE 370-500 mL) injection 90 mL First Provider Eval: ED Events Date/Time Event User Comments 10/01/23727 Medical Screening Begins JOSE ADORNO MD -- 10/01/23727 First Provider Evaluation JOSE ADORNO MD -- ED COURSE ED Course as of 10/01/23 1013 FriOctober 01, 2023 1012 PT informed of results. PT tolerating PO.offered to transfer pt to [facility] for ENT evaluation but pt prefers to go home, and f/u outpatient. Pt maintaining airway, and able to tolerate po. PT comfortable with plan. Pt given ENT referral number. [PB] 0740 Will obtain labs, EKG, ct soft tissue neck/chest. PT to receive ivf, pepcid/protonix. [PB] ED Course User Index [PB] Jose Adorno MD Diagnosis/Impression as of 10/01/23 1013 Esophagitis Procedures: EKG-12 Lead ROUTINE ONCE Date/Time: 10/01/2023 8:39 AM Performed by: Jose Adorno MD Authorized by: Jose Adorno MD Comments: Sinus bradycardia, no stemi,q tc 412 msec, HR 58. MDM: Medical Decision Making 53 yo F presents after feeling that pill was stuck in throat. Amount and/or Complexity of Data Reviewed Labs: ordered. Radiology: ordered. Risk Prescription drug management. Risk Details: Pt instructed to f/u with [facility] ENT. Flowsheet Documentation: Scoring Tools: No data recorded Disposition/Condition: ED Disposition None Discharge Medications: Patient's Medications START taking these medications No medications on file CONTINUE taking these medications which have NOT CHANGED METHYLPREDNISOLONE 4 MG TABLETS Take by mouth SEE-INSTRUCTIONS. follow package directions NITROFURANTOIN&NIT. MACROCRYST (MACROBID) 100 MG CAPSULE Take 1 capsule by mouth in the morning and 1 capsule in the evening. ONDANSETRON 4 MG DISINTEGRATING TABLET Take 1 tablet by mouth every 8 (eight) hours as needed for Nausea and Vomiting (N/V). WEGOVY 1.7 MG/0.75 ML PNIJ SC INJECTION START taking Modified Medications as Prescribed No medications on file STOP taking these medications No medications on file Follow-up: Electronically signed by: Jose Adorno MD 10/01/23 1013 [facility] 2023-08-18 16:07:40 Pt discharged with diagnosis of neck pain and diarrhea. Printed and verbal instructions reviewed with and given to patient. No new prescriptions given for this visit. Pt verbalized understanding of teaching and recommended follow-up. Denies questions or concerns at this time. Pt ambulatory at discharge. Appears in no apparent distress. No ataxia noted. Grace Arreola RN [facility] 2023-08-18 11:25:16 Patient arrived ambulatory c/o of neck pain on the right side that started Friday throbbing has gotten worse. Started radiating down her back. Denies any trauma. Complaining of diarrhea that started yesterday and continued to today. Patient stated had a fever of 101 and took tylenol about 6 am this morning Nohemy Rose RN [facility] 2023-08-18 11:21:00 [facility] Emergency Department Note Demographics Patient Name: Dinh Junior Date of : 1970 53 year old Treatment Room: [facility] ED [facility] Primary Care Physician: PATIENT DOES NOT HAVE A PCP Pre Hospital Care Patient Escorted by: Self [9] Mode of Arrival: Personal means [1] EMS Treatment Prior to ED Arrival: SENIOR PATROL AGENT treatment: Medication (comment) SENIOR PATROL AGENT treatment comments: tylenol at 6 am ED Events Date/Time Event User Comments 08/18/23 1235 Medical Screening Begins BRIAN LORENZANA MD -- 08/18/23 1235 First Provider Evaluation BRIAN LORENZANA MD -- Chief complaint Chief Complaint Patient presents with Neck Pain Diarrhea ED Triage Notes Nohemy Rose RN 08/18/2023 11:28 Patient arrived ambulatory c/o of neck pain on the right side that started Friday throbbing has gotten worse. Started radiating down her back. Denies any trauma. Complaining of diarrhea that started yesterday and continued to today. Patient stated had a fever of 101 and took tylenol about 6 am this morning Original note by Nohemy Rose RN at 08/18/2023 11:27 Chief Complaint Patient presents with Neck Pain Diarrhea History of present illness HPI 53 yo woman comes to the ED complaining of neck pain starting 3 days ago pain is to the middle lower neck and upper thoracic region. Reports no injury, no weakness, tingling, dizziness or headache. She also developed diarrhea, nausea and vomiting yesterday today only diarrhea. No chronic medical problems or medications. BP 136/70 | Pulse 70 | Temp 36.7 ?C (98.1 ?F) (Oral) | Resp 18 | Ht 1.499 m (4' 11") | Wt 70.8 kg (156 lb) | SpO2 100% | BMI 31.51 kg/m? Past Medical and Social History History reviewed. No pertinent past medical history. Tetanus received in last 5 years: No Childhood immunizations: Up-to-date Social History Tobacco Use Smoking status: Never Smokeless tobacco: Never Past Surgical History History reviewed. No pertinent surgical history. Medications Medications - No data to display Allergies Allergies Allergen Reactions Penicillamine Rash Other reaction(s): rash Review of Systems Review of Systems Constitutional: Negative. HENT: Negative. Eyes: Negative. Respiratory: Negative. Cardiovascular: Negative. Gastrointestinal: Positive for diarrhea, nausea and vomiting. Genitourinary: Negative. Musculoskeletal: Positive for neck pain. Skin: Negative. Neurological: Negative. Psychiatric/Behavioral: Negative. Endocrine: Endocrine negative Physical Exam BP 136/70 | Pulse 70 | Temp 36.7 ?C (98.1 ?F) (Oral) | Resp 18 | Ht 1.499 m (4' 11") | Wt 70.8 kg (156 lb) | SpO2 100% | BMI 31.51 kg/m? Physical Exam Vitals and nursing note reviewed. Constitutional: General: She is not in acute distress. Appearance: She is well-developed and normal weight. She is not ill-appearing. HENT: Head: Normocephalic and atraumatic. Right Ear: External ear normal. Left Ear: External ear normal. Nose: Nose normal. No congestion or rhinorrhea. Mouth/Throat: Pharynx: No oropharyngeal exudate or posterior oropharyngeal erythema. Eyes: General: Right eye: No discharge. Left eye: No discharge. Conjunctiva/sclera: Conjunctivae normal. Pupils: Pupils are equal, round, and reactive to light. Neck: Comments: Good ROM, tenderness to lower cervical spine Cardiovascular: Rate and Rhythm: Normal rate and regular rhythm. Heart sounds: Normal heart sounds. No murmur heard. No friction rub. Pulmonary: Effort: Pulmonary effort is normal. No respiratory distress. Breath sounds: Normal breath sounds. No stridor. No wheezing or rhonchi. Abdominal: General: Bowel sounds are normal. There is no distension. Palpations: Abdomen is soft. There is no mass. Tenderness: There is no abdominal tenderness. Hernia: No hernia is present. Musculoskeletal: General: No swelling, deformity or signs of injury. Normal range of motion. Cervical back: Normal range of motion and neck supple. Tenderness present. No rigidity. Skin: General: Skin is warm. Capillary Refill: Capillary refill takes less than 2 seconds. Coloration: Skin is not jaundiced or pale. Findings: No bruising or erythema. Neurological: General: No focal deficit present. Mental Status: She is alert and oriented to person, place, and time. Cranial Nerves: No cranial nerve deficit. Sensory: No sensory deficit. Motor: No weakness. Coordination: Coordination normal. Psychiatric: Mood and Affect: Mood normal. Behavior: Behavior normal. Thought Content: Thought content normal. Judgment: Judgment normal. Labs and Studies Lab Results BASIC METABOLIC PANEL (NA, K, CL, CO2, GLUCOSE, BUN, CREATININE, CA) - Abnormal Result Value Ref Range NA 137 135 - 145 mmol/L K 4.3 3.5 - 5.0 mmol/L CL 103 98 - 108 mmol/L CO2 TOTAL 30 23 - 31 mmol/L AGAP 4 2 - 16 BUN 15 7 - 23 mg/dL GLUCOSE 154 (*) 70 - 110 mg/dL CREATININE 0.71 0.50 - 1.04 mg/dL CALCIUM 9.5 8.6 - 10.6 mg/dL eGFR 102.5 mL/min/1.73m2 URINALYSIS - Normal APPEARANCE Clear Clear COLOR Yellow Yellow PH 5.5 4.8 - 8.0 SP GRAVITY <=1.005 1.003 - 1.030 GLU U QUAL Negative Negative BLOOD Negative Negative KETONES Negative Negative PROTEIN Negative Negative UROBILIN 0.2 mg/dL 0-1.0 mg/dL BILIRUBIN Negative Negative NITRITE Negative Negative LEUK [place] Negative Negative RBC/HPF 0 0 - 3 HPF WBC/HPF 0 0 - 5 HPF BACTERIA Negative Negative SQ EPITH 1 <=1 HPF CBC WITH DIFF WBC 5.75 4.30 - 11.10 10*3/?L RBC 4.64 3.93 - 5.25 10*6/?L HGB 14.0 11.6 - 15.0 g/dL HCT 44.2 35.7 - 45.2 % MCV 95.3 80.6 - 95.5 fL MCH 30.2 25.9 - 32.8 pg MCHC 31.7 31.6 - 35.1 g/dL RDW-SD 47.4 39.0 - 49.9 fL RDW-CV 13.4 12.0 - 15.5 % PLT 307 166 - 358 10*3/?L MPV 10.6 9.5 - 12.9 fL NRBC/100 WBC 0.0 0.0 - 10.0 /100 WBCs NRBC x10 3 <0.01 10*3/?L GRAN MAT (NEUT) % 52.7 % IMM GRAN % 0.20 % LYMPH % 40.0 % MONO % 5.9 % EOS % 0.9 % BASO % 0.3 % GRAN MAT x10 3 (ANC) 3.03 1.88 - 7.09 10*3/uL IMM GRAN x10 3 <0.03 0.00 - 0.06 10*3/uL LYMPH x10 3 2.30 1.32 - 3.29 10*3/uL MONO x10 3 0.34 0.33 - 0.92 10*3/uL EOS x10 3 0.05 0.03 - 0.39 10*3/uL BASO x10 3 <0.03 0.01 - 0.07 10*3/uL XR CERVICAL SPINE 3 VW Final Result EXAMINATION: XR CERVICAL SPINE 3 VW, XR THORACIC SPINE 2 VW HISTORY: neck pain TECHNIQUE: AP and lateral views of the cervical and thoracic spine were obtained. Odontoid and swimmer's view were obtained as well. COMPARISON: None. IMPRESSION CERVICAL SPINE: The normal cervical lordosis is maintained. Grade 1 retrolisthesis of C3 over C4. The vertebral bodies are normal in height and otherwise normal alignment. Mild spondylosis in the form of disc space narrowing, osteophyte formation, facet and uncovertebral arthrosis. The atlantoaxial interval is within normal limits. No acute fracture or traumatic malalignment of the cervical spine is identified. THORACIC SPINE: There is mild dextrocurvature of the thoracic spine with compensatory levocurvature of the thoracolumbar junction. The vertebral bodies are normal in height and alignment. Mild multilevel degenerative changes in the form of osteophyte formation and facet arthrosis. No acute osseous abnormality. XR THORACIC SPINE 2 VW Final Result EXAMINATION: XR CERVICAL SPINE 3 VW, XR THORACIC SPINE 2 VW HISTORY: neck pain TECHNIQUE: AP and lateral views of the cervical and thoracic spine were obtained. Odontoid and swimmer's view were obtained as well. COMPARISON: None. IMPRESSION CERVICAL SPINE: The normal cervical lordosis is maintained. Grade 1 retrolisthesis of C3 over C4. The vertebral bodies are normal in height and otherwise normal alignment. Mild spondylosis in the form of disc space narrowing, osteophyte formation, facet and uncovertebral arthrosis. The atlantoaxial interval is within normal limits. No acute fracture or traumatic malalignment of the cervical spine is identified. THORACIC SPINE: There is mild dextrocurvature of the thoracic spine with compensatory levocurvature of the thoracolumbar junction. The vertebral bodies are normal in height and alignment. Mild multilevel degenerative changes in the form of osteophyte formation and facet arthrosis. No acute osseous abnormality. Orders and Treatments Orders Placed This Encounter Procedures XR CERVICAL SPINE 3 VW XR THORACIC SPINE 2 VW Cbc with Diff Basic Metabolic Panel (NA, K, CL, CO2, GLUCOSE, BUN, CREATININE, CA) Urinalysis No orders of the defined types were placed in this encounter. Patient's Medications START taking these medications No medications on file CONTINUE taking these medications which have NOT CHANGED METHYLPREDNISOLONE 4 MG TABLETS Take by mouth SEE-INSTRUCTIONS. follow package directions NITROFURANTOIN&NIT. MACROCRYST (MACROBID) 100 MG CAPSULE Take 1 capsule by mouth in the morning and 1 capsule in the evening. ONDANSETRON 4 MG DISINTEGRATING TABLET Take 1 tablet by mouth every 8 (eight) hours as needed for Nausea and Vomiting (N/V). WEGOVY 1.7 MG/0.75 ML PNIJ SC INJECTION START taking Modified Medications as Prescribed No medications on file STOP taking these medications No medications on file Procedures Procedures Evidence Care MDM & Notes Patient was evaluated for an emergency medical condition related to Neck Pain and Diarrhea . History and/or review of systems is limited by:History limited: None. Medical Decision Making 53 yo woman comes to the ED complaining of neck pain starting 3 days ago pain is to the middle lower neck and upper thoracic region. Reports no injury, no weakness, tingling, dizziness or headache. She also developed diarrhea, nausea and vomiting yesterday today only diarrhea. No chronic medical problems or medications. BP 136/70 | Pulse 70 | Temp 36.7 ?C (98.1 ?F) (Oral) | Resp 18 | Ht 1.499 m (4' 11") | Wt 70.8 kg (156 lb) | SpO2 100% | BMI 31.51 kg/m? DDx include but not limited to: 1. Neck pain 2. Neck strain 3. Nausea, vomiting and diarrhea Plan: Cervical and thoracic x ray, cbc, basic and ua. Problems Addressed: Diarrhea, unspecified type: acute illness or injury Neck pain: acute illness or injury Amount and/or Complexity of Data Reviewed External Data Reviewed: labs. Labs: ordered. Details: Normal labs No signs of infection Radiology: ordered. Details: No obvious fracture Discussion of management or test interpretation with external provider(s): 53 yo woman comes to the ED complaining of neck pain and diarrhea of sudden onset a day ago. Today with no abdominal pain, fever or chills. On exam good ROM to the neck and mild tenderness to palpation and movement suggesting MSK in nature. X rays with no obvious fracture or malalignment, there are degenerative changes. Patient is also taking GLP-1 (Wagovy) that could account for GI symptoms. Advised to continue home medications, f/u with PCP and return to the ED if worsening of symptoms. Patient understands and agrees with the plan. Diagnosis/Impression as of 08/18/23 1554 Neck pain Diarrhea, unspecified type Case discussed with: none Barriers & Social Determinants of Healthcare: none Limitations to patient care and compliance: none. History, physical exam findings, results of visit, differential diagnosis, medication regimens and plan of future care have been considered. Additional MDM may be found in the ED course. Differential diagnosis considered and final disposition made based on information gathered during evaluation and may not be completely ruled out or specifically listed. Vital signs were rechecked before final disposition and determined to be stable. Diagnoses ICD-10-CM 1. Neck pain M54.2 2. Diarrhea, unspecified type R19.7 Disposition and Condition ED Disposition ED Disposition Disch - Home Condition Stable Comment -- Patient's Medications START taking these medications No medications on file CONTINUE taking these medications which have NOT CHANGED METHYLPREDNISOLONE 4 MG TABLETS Take by mouth SEE-INSTRUCTIONS. follow package directions NITROFURANTOIN&NIT. MACROCRYST (MACROBID) 100 MG CAPSULE Take 1 capsule by mouth in the morning and 1 capsule in the evening. ONDANSETRON 4 MG DISINTEGRATING TABLET Take 1 tablet by mouth every 8 (eight) hours as needed for Nausea and Vomiting (N/V). WEGOVY 1.7 MG/0.75 ML PNIJ SC INJECTION START taking Modified Medications as Prescribed No medications on file STOP taking these medications No medications on file Dragon Dictation Software is used frequently and may produce errors. Promptly contact for obvious discrepancies. Brian Lorenzana MD, FACEP, FAAEM [employer] Instructor of Emergency and Internal Medicine [facility], [facility] #[id number] Brian Lorenzana MD 08/18/23 1551 [facility]
[2024-01-10] MEDS ORDERED: ASPIRIN 81 MG CHEWABLE TABLET ONE (04:37)
[2024-01-10] MEDS ORDERED: NA CHLORIDE 0.9% 1,000 ML ONE (04:37)
[2024-01-10 04:44] LABS: Absolute Eosinophils 0.1 K/uL (0-0.5); Absolute Lymphocytes (CBC) 2.4 K/uL (0.7-4.9); Absolute Monocytes 0.6 K/uL (0.1-1.3); Absolute Neutrophil 3.3 K/uL (1.8-8.0); Basophils % 0.5 % (0-1.3); Eosinophils % 1.5 % (0-4.4); Lymphocytes % 37.5 % (15.3-44.8); MCH 30.4 pg (27.0-35.0); MCHC 33.3 g/dL (32.0-36.0); MCV 91.4 fL (80-100); MPV 8.1 fL (7.6-11.3); Monocytes % 9.1 % (3.3-12.3); Neutrophils % 51.4 % (41.7-73.7); Nucleated Red Blood Cells % 0.1 % (0-0); Platelets 265 thou/uL (152-406); RBC Red Blood Cell Count 4.27 M/uL (3.86-4.86)
[2024-01-10 04:54] LABS: PT Prothrombin Time 10.1 SECONDS (9.4-12.5); Protime INR 0.9
[2024-01-10 05:11] LABS: ALT/SGPT 19 U/L (13-56); AST/SGOT 17 U/L (15-37); Albumin 3.1 g/dL (3.4-5.0); Albumin/Globulin Ratio 0.9 (1.1-1.8); Alkaline Phosphatase 90 U/L (45-117); Anion Gap 7.6 mEq/L (5.0-15.0); BUN Blood Urea Nitrogen 11 mg/dL (7-18); Bicarbonate 28 mEq/L (21-32); Bilirubin Direct 0.2 mg/dL (0-0.2); Bilirubin Indirect, Calculated 0.3 mg/dL (0.2-0.8); Bilirubin Total 0.5 mg/dL (0.2-1.0); Globulin 3.4 g/dL (2.3-3.5); Glomerular Filtration Rate 105 ml/min (=/>90); Glucose Level 87 mg/dL (74-106); Magnesium 2.1 mg/dL (1.6-2.4); NT PRO-BNP 97 pg/mL (<125); Potassium 3.6 mEq/L (3.5-5.1); Protein, Total 6.5 g/dL (6.4-8.2); Sodium Level 142 mEq/L (136-145); Troponin High Sensitivity 5.9 pg/mL (<58.9)
[2024-01-10 05:31] LABS: C-Reactive Protein < 2.90 mg/L (<3.00)
[2024-01-10 05:46] LABS: SARS-CoV-2 Antigen CONTROL BLUE LINE VIS/BG OK; SARS-CoV-2 Antigen Rapid Res Negative (Negative)
[2024-01-10] MEDS ORDERED: LEVOTHYROXINE SOD 0.1 MG TAB ONE (07:24)
[2024-01-10] MEDS ORDERED: KETOROLAC 30 MG/ML INJ ONE (07:27)
--- NOTE | 2024-01-10 08:05 | RAD REPORT ---
EXAM DESCRIPTION: CT - Chest For Pe Angio - 01/10/2024 7:04 am CLINICAL HISTORY: CHEST PAIN COMPARISON: Chest For Pe Angio dated 05/09/2021 TECHNIQUE: Thin axial CT images of the chest were obtained following administration of iodinated co ntrast intravenously. Multiplanar reconstructions, and maximum intensity projection reconstructions w ere generated and reviewed. Exam utilizes a protocol for optimal evaluation of pulmonary arterial destiny e. All CT scans are performed using dose optimization technique as appropriate and may include automated exposure control or mA/KV adjustment according to patient size. FINDINGS: Pulmonary arteries are normal. No emboli or other suspicious finding. No acute or signific ant aorta findings. No mass or infiltrate in the lung parenchyma. Small calcified right hilar lymph node, suggesting sequ elae of remote granulomatous infection. 5 mm subpleural right lower lobe calcified granuloma. No pleu ral thickening or pleural effusion. No pneumothorax. No abnormal mediastinal or hilar masses or lymphadenopathy seen. No chest wall mass or abnormal axill iary lymphadenopathy. Sequelae of bariatric surgery. IMPRESSION: No evidence of acute central pulmonary emboli. Negative CT scan of the chest for other significant findings.
--- NOTE | 2024-01-10 10:44 | EDPHYS ---
Physician Documentation [facility] Name: Meka Junior Age: 53 yrs Sex: Female : 1970 Arrival Date: 01/10/2024 Time: 03:57 Bed 6 Private MD: ED Physician Eugenio Jacobs HPI: 01/09 04:03 This 53 yrs old Female presents to ER via Unassigned with complaints of Chest sp4 Pain. Historical: - Allergies: 04:09 PENICILLINS; ss - Home Meds: 04:09 None [Active]; ss - PMHx: 04:09 Hypothyroidism; ss - PSHx: 04:09 tubal ligation; weight loss sx 2021; ss - Immunization history:: Adult Immunizations up to date. - Infectious Disease History:: Denies. - Social history:: Smoking status: unknown. ROS: 10:38 Constitutional: Negative for fever, chills, and weight loss, Eyes: Negative for injury, marycruz pain, redness, and discharge, ENT: Negative for injury, pain, and discharge, Neck: Negative for injury, pain, and swelling, Respiratory: Negative for shortness of breath, cough, wheezing, and pleuritic chest pain, Abdomen/GI: Negative for abdominal pain, nausea, vomiting, diarrhea, and constipation, Back: Negative for injury and pain, : Negative for injury, bleeding, discharge, and swelling, MS/Extremity: Negative for injury and deformity, Skin: Negative for injury, rash, and discoloration, Neuro: Negative for headache, weakness, numbness, tingling, and seizure, Psych: Negative for depression, anxiety, suicide ideation, homicidal ideation, and hallucinations, Allergy/Immunology: Negative for hives, rash, and allergies, Endocrine: Negative for neck swelling, polydipsia, polyuria, polyphagia, and marked weight changes, Hematologic/Lymphatic: Negative for swollen nodes, abnormal bleeding, and unusual bruising, 10:38 Cardiovascular: Positive for chest pain, of the anterior aspect of right upper chest, anterior aspect of left upper chest and mid-sternal area, Exam: 06:17 Constitutional: This is a well developed, well nourished patient who is awake, alert, sp4 and in no acute distress. Head/Face: Normocephalic, atraumatic. Eyes: Pupils equal round and reactive to light, extra-ocular motions intact. Lids and lashes normal. Conjunctiva and sclera are not injected. Cornea within normal limits. Periorbital areas with no swelling, redness, or edema. ENT: Nares patent. No nasal discharge, no septal abnormalities noted. Tympanic membranes are normal and external auditory canals are clear. Oropharynx with no redness, swelling, or masses, exudates, or evidence of obstruction, uvula midline. Mucous membranes moist. Neck: Trachea midline, no thyromegaly or masses palpated, and no cervical lymphadenopathy. Supple, full range of motion without nuchal rigidity, or vertebral point tenderness. Chest/axilla: Normal chest wall appearance and motion. Nontender with no deformity. No lesions are appreciated. Cardiovascular: Regular rate and rhythm with a normal S1 and S2. No gallops, murmurs, or rubs. Normal PMI, no JVD. No pulse deficits. Respiratory: Lungs have equal breath sounds bilaterally, clear to auscultation and percussion. No rales, rhonchi or wheezes noted. No increased work of breathing, no retractions or nasal flaring. Abdomen/GI: Soft, with normal bowel sounds. No distension or tympany. No guarding or rebound. No evidence of tenderness throughout. Back: No spinal tenderness. No costovertebral tenderness. Skin: Warm, dry with normal turgor. Normal color with no rashes, no lesions, and no evidence of cellulitis. MS/ Extremity: Pulses equal, no cyanosis. Neurovascular intact. Full, normal range of motion. Neuro: Awake and alert, GCS 15, oriented to person, place, time, and situation. Cranial nerves II-XII grossly intact. Motor strength 5/5 in all extremities. Sensory grossly intact. Psych: Awake, alert, with orientation to person, place and time. Behavior, mood, and affect are within normal limits 06:17 ECG was reviewed by the Attending Physician. EKG at 0 416 normal sinus rhythm rate 63 10:38 Chest/axilla: Inspection: normal, no abrasion, no abscess, no assymetry, no cellulitis, marycruz no deformity, no ecchymosis, no evidence of flail chest, no paradoxical chest wall movement, no puncture, no rash, no scar(s), Palpation: tenderness, that is mild, of the right clavicle, left clavicle, anterior aspect of right upper chest and anterior aspect of left upper chest, Axilla: are normal, no acute changes, Breasts: are normal, no acute changes, Lymph nodes: lymphadenopathy is not appreciated, Vital Signs: 04:07 BP 148 / 89; Pulse 70; Resp 16; Temp 98.5(TE); Pulse Ox 100% on R/A; ss 05:57 BP 116 / 82; Pulse 92; Resp 16; Pulse Ox 98% on R/A; Pain 8/10; ss 07:30 BP 114 / 72; Pulse 91; Resp 18; Pulse Ox 98% on R/A; ph 08:47 BP 112 / 78; Pulse 89; Resp 18; Temp 97.9; Pulse Ox 99% on R/A; ph 09:45 BP 110 / 89; Pulse 87; Resp 18; Temp 97.9; Pulse Ox 99% on R/A; ph 10:57 BP 117 / 89; Pulse 89; Resp 18; Temp 97.2; Pulse Ox 99% ; ph 05:57 Pain Scale: Adult ss Jace Coma Score: 06:17 Eye Response: spontaneous(4). Motor Response: obeys commands(6). Verbal Response: sp4 oriented(5). Total: 15. MDM: 04:18 Patient medically screened. sp4 06:17 ED course: EXAM: XR Chest 1 ViewAP HISTORY: chest pain COMPARISON: Chest 1 ViewAP sp4 05/09/2021 TECHNIQUE: Chest 1 ViewAP FINDINGS: Trachea midline. Heart size and pulmonary vessels within normal limits. Lungs clear without evidence of consolidation, mass, or significant pulmonary edema. No significant pleural effusion or pneumothorax. Thoracic spine degenerative disease. IMPRESSION: Unremarkable chest radiograph. . 10:40 Differential diagnosis: abnormal EKG, acute myocardial infarction, acute pericarditis, marycruz anxiety, chest wall pain, cholecystitis, Cholelithiasis costochondritis, esophagitis, gastritis, gastroesophageal reflux disease (GERD), peptic ulcer disease, pericarditis, pneumonia, pulmonary embolus, stable angina, thoracic aortic disection, unstable angina. HEART Score: History: Slightly Suspicious (0), ECG: Non specific repolarization disturbance / LBTB / PM (1), Age: > 45 and < 65 years (1), Risk Factors: 1 or 2 risk factors (1), [+ Family HX] [Obesity] Troponin: < or = 1 x Normal Limit (0). The patient was given aspirin in the Emergency Department. Data reviewed: vital signs, nurses notes, lab test result(s), EKG, radiologic studies, CT scan. Consideration of Admission/Observation Escalation of care including admission/observation considered. I considered the following discharge prescriptions or medication management in the emergency department Medications were administered in the Emergency Department. See MAR. Independent interpretation of the following test(s) in the Emergency Department EKG: See my EKG interpretation above. Test considered but Not performed: Ultrasound no 2 d echo. Historians other than the Patient: family well informed. Care significantly affected by the following chronic conditions: hypothyroid. Counseling: I had a detailed discussion with the patient and/or guardian regarding the historical points, exam findings, and any diagnostic results supporting the discharge/admit diagnosis, lab results, radiology results, the need for outpatient follow up, for definitive care, a dumper bulk system, a family practitioner. 01/09 04:11 Order name: Basic Metabolic Panel; Complete Time: 06:14 sp4 01/09 04:11 Order name: CBC with Diff; Complete Time: 06:14 4 01/09 04:11 Order name: LFT's; Complete Time: 06:14 4 01/09 04:11 Order name: Magnesium; Complete Time: 06:14 4 01/09 04:11 Order name: NT PRO-BNP; Complete Time: 06:4 01/09 04:11 Order name: PT-INR; Complete Time: 06:14 4 01/09 04:11 Order name: Troponin HS; Complete Time: 06:14 4 01/09 04:11 Order name: TSH; Complete Time: 06:14 sp4 01/09 04:11 Order name: T4 Free; Complete Time: 06:14 4 01/09 04:12 Order name: CRP; Complete Time: 06:14 sp4 01/09 04:36 Order name: SARS RAPID; Complete Time: 06:14 ss 01/09 06:21 Order name: Troponin High Sensitivity; Complete Time: 16:20 sp4 01/09 04:11 Order name: XRAY Chest (1 view) 4 01/09 06:21 Order name: CT Chest For PE Angio; Complete Time: 16:20 sp4 01/09 04:11 Order name: EKG; Complete Time: 04:11 sp4 01/09 04:11 Order name: Cardiac monitoring; Complete Time: 04:35 sp4 01/09 04:11 Order name: EKG - Nurse/Tech; Complete Time: 04:35 sp4 01/09 04:11 Order name: IV Saline Lock; Complete Time: 04:35 sp4 01/09 04:11 Order name: Labs collected and sent; Complete Time: 04:35 sp4 01/09 04:11 Order name: O2 Per Protocol; Complete Time: 04:35 sp4 01/09 04:11 Order name: O2 Sat Monitoring; Complete Time: 04:35 sp4 EC:17 Rate is 63 beats/min. Rhythm is regular, Normal Sinus Rhythm. QRS [place] is Normal. LA sp4 interval is normal. QRS interval is normal. QT interval is normal. No Q waves. T waves are Normal. No ST changes noted. Clinical impression: Normal ECG. Interpreted by me. Reviewed by me. Administered Medications: 04:42 Drug: Aspirin PO Chewable Tablet 324 mg PO once; 81 mg tablets x 4 Route: PO; ss 04:42 Drug: NS 0.9% IV 1000 ml IV at 125 ml/hr continuous Route: IV; Rate: 125 ml/hr; Site: ss right antecubital; 10:57 Follow up: Response: No adverse reaction; IV Status: Completed infusion ph 07:53 Drug: Synthroid PO 100 mcg PO once Route: PO; ph 08:49 Follow up: Response: No adverse reaction ph 07:53 Drug: Ketorolac IVP 30 mg IVP once Route: IVP; Site: left antecubital; ph 08:49 Follow up: Response: No adverse reaction ph Disposition Summary: 01/10/24 10:43 Discharge Ordered Notes: Location: Home marycruz Problem: new marycrzu Symptoms: have improved marycruz Condition: Stable marycruz Diagnosis - Chest pain on breathing marycruz - Strain of muscle and tendon of front wall of thorax marycruz Followup: marycruz - With: Private Physician - When: 2 - 3 days - Reason: Recheck today's complaints, Continuance of care, Re-evaluation by your physician Followup: marycruz - With: Philip Ovalle MD - When: 2 - 3 days - Reason: Recheck today's complaints, Re-evaluation by your physician Discharge Instructions: - Discharge Summary Sheet marycruz - Nonspecific Chest Pain, Adult marycruz - Chest Wall Pain marycruz - Costochondritis marycruz - Costochondritis, [id number] marycruz - Chest Wall Pain, [id number] marycruz - Nonspecific Chest Pain, Adult, [id number] marycruz - Aspirin and Your Heart marycruz Forms: - Medication Reconciliation Form marycruz - Antibiotic Education marycruz - Prescription Opioid Use marycruz - Patient Portal Instructions marycruz - Leadership Thank You Letter marycruz - Work release form db Prescriptions: - Synthroid 100 mcg Oral tablet - take 1 tablet ORAL route once; 90 tablet; Refills: 0, Product Selection marycruz Permitted - Ibuprofen 600 mg Oral Tablet - take 1 tablet ORAL route every 6 hours As needed take with food; 30 tablet; marycruz Refills: 0, Product Selection Permitted Signatures: Dispatcher [employer] EDEugenio Salguero MD MD cha Blanchard, Shelby, RN RN ss Kirstie Cespedes RN RN Reynaldo Benavides MD MD sp4 Corrections: (The following items were deleted from the chart) 04:36 04:36 SARS-COV-2 Antigen Rapid+I.LAB.BRZ ordered. EDMS EDMS 06:22 06:22 Troponin High Sensitivity+C.LAB.BRZ ordered. EDMS EDMS
--- NOTE | 2024-01-10 10:44 | ER ---
Nurse's Notes [facility] Name: Meka Junior Age: 53 yrs Sex: Female : 1970 Arrival Date: 01/10/2024 Time: 03:57 Bed 6 Private MD: Diagnosis: Chest pain on breathing;Strain of muscle and tendon of front wall of thorax Presentation: 01/09 04:07 Chief complaint: Patient states: chest pain that began at 0100 this morning. Pt reports ss the pain is worse with deep breathing. Coronavirus screen: Client denies travel out of the [place] in the last 14 days. Ebola Screen: Patient denies exposure to infectious person. Patient denies travel to an Ebola-affected area in the 21 days before illness onset. Initial Sepsis Screen: Does the patient meet any 2 criteria? No. Patient's initial sepsis screen is negative. Does the patient have a suspected source of infection? No. Patient's initial sepsis screen is negative. Risk Assessment: Do you want to hurt yourself or someone else? Patient reports no desire to harm self or others. Onset of symptoms was January 10, 2024. 04:07 Method Of Arrival: Ambulatory ss 04:07 Acuity: AMBAR 3 ss Historical: - Allergies: 04:09 PENICILLINS; ss - Home Meds: 04:09 None [Active]; ss - PMHx: 04:09 Hypothyroidism; ss - PSHx: 04:09 tubal ligation; weight loss sx 2021; ss - Immunization history:: Adult Immunizations up to date. - Infectious Disease History:: Denies. - Social history:: Smoking status: unknown. Screenin:[address] [facility] ED Fall Risk Assessment (Adult) History of falling in the last 3 months, ss including since admission No falls in past 3 months (0 pts). Abuse screen: Denies threats or abuse. Denies injuries from another. Nutritional screening: No deficits noted. Tuberculosis screening: Never had TB. 07:[address] [facility] ED Fall Risk Assessment (Adult) Confusion or Disorientation No (0 pts) ph Intoxicated or Sedated No (0 pts) Impaired Gait No (0 pts) Mobility Assist Device Used No (0 pt) Altered Elimination No (0 pt) Score/Fall Risk Level 0 - 2 = Low Risk Oriented to surroundings, Maintained a safe environment, Hourly rounding (assess needs \T\ fall precautionary measures) done. Assessment: 04:07 General: Appears in no apparent distress. comfortable, Behavior is calm, cooperative, ss Denies fever, feeling ill, fatigue, chills. Pain: Complains of pain in chest Pain does not radiate. Pain currently is 8 out of 10 on a pain scale. Aggravated by deep breathing. Neuro: Level of Consciousness is awake, alert, obeys commands, Oriented to person, place, time, situation. Respiratory: Airway is patent Respiratory effort is even, unlabored, Respiratory pattern is regular, symmetrical. GI: Patient currently denies abdominal pain, diarrhea, nausea, vomiting. Derm: Skin is pink, warm \T\ dry. normal. 05:39 Reassessment: Pt reports her pain is now progressing. Is a 9/10. Also now c/o headache ss in entire. Dr. Benavides notified. Vital Signs: 04:07 BP 148 / 89; Pulse 70; Resp 16; Temp 98.5(TE); Pulse Ox 100% on R/A; ss 05:57 BP 116 / 82; Pulse 92; Resp 16; Pulse Ox 98% on R/A; Pain 8/10; ss 07:30 BP 114 / 72; Pulse 91; Resp 18; Pulse Ox 98% on R/A; ph 08:47 BP 112 / 78; Pulse 89; Resp 18; Temp 97.9; Pulse Ox 99% on R/A; ph 09:45 BP 110 / 89; Pulse 87; Resp 18; Temp 97.9; Pulse Ox 99% on R/A; ph 10:57 BP 117 / 89; Pulse 89; Resp 18; Temp 97.2; Pulse Ox 99% ; ph 05:57 Pain Scale: Adult ss [place] Coma Score: 06:17 Eye Response: spontaneous(4). Motor Response: obeys commands(6). Verbal Response: sp4 oriented(5). Total: 15. ED Course: 04:00 Patient arrived in ED. [email or web address] 04:03 Reynaldo Benavides MD is Attending Physician. sp4 04:09 Triage completed. ss 04:09 Arm band placed on right wrist. ss 04:09 Patient has correct armband on for positive identification. Client placed on continuous ss cardiac and pulse oximetry monitoring. NIBP monitoring applied. 04:09 Patient maintains SpO2 saturation greater than 95% on room air. ss 04:35 Inserted saline lock: 22 gauge in right antecubital area, using aseptic technique. ss Blood collected. 04:48 X-ray completed. Portable x-ray completed in exam room. Patient tolerated procedure mh1 well. 04:56 XRAY Chest (1 view) In Process Unspecified. EDMS 05:37 Radha Rodrigues, RN is Primary Nurse. ss 07:05 CT Chest For PE Angio In Process Unspecified. EDMS 07:45 Repeat lab(s) drawn. by ok, sent to lab. Inserted saline lock: 22 gauge in left ph antecubital area, using aseptic technique. Blood collected. Flushed with 10 mL NS. 07:54 IV discontinued, intact, bleeding controlled, No redness/swelling at site. Pressure ph dressing applied. 07:55 No provider procedures requiring assistance completed. ph 10:38 Attending Physician role handed off by Reynaldo Benavides MD marycruz 10:38 Eugenio Jacobs MD is Attending Physician. marycruz 10:43 Philip Ovalle MD is Referral Physician. [facility] Administered Medications: 04:42 Drug: Aspirin PO Chewable Tablet 324 mg PO once; 81 mg tablets x 4 Route: PO; ss 04:42 Drug: NS 0.9% IV 1000 ml IV at 125 ml/hr continuous Route: IV; Rate: 125 ml/hr; Site: ss right antecubital; 10:57 Follow up: Response: No adverse reaction; IV Status: Completed infusion ph 07:53 Drug: Synthroid PO 100 mcg PO once Route: PO; ph 08:49 Follow up: Response: No adverse reaction ph 07:53 Drug: Ketorolac IVP 30 mg IVP once Route: IVP; Site: left antecubital; ph 08:49 Follow up: Response: No adverse reaction ph Medication: 07:54 VIS not applicable for this client. ph Outcome: 10:43 Discharge ordered by . marycruz 10:56 Discharged to home ambulatory, with family, ph 10:56 Condition: good 10:56 Discharge instructions given to patient, Instructed on discharge instructions, follow up and referral plans. medication usage, Demonstrated understanding of instructions, follow-up care, medications, Prescriptions given X 2, 10:58 Patient left the ED. ph Signatures: Dispatcher [employer] EDEugenio Salguero MD MD cha Harvey Wendy 1 Radha Rodrigues RN RN ss Kirstie Cespedes RN RN Camelia Fernández j6 Reynaldo Benavides MD MD sp4
[2024-01-10 11:07] VITALS: O2SAT 99
[2024-01-10 11:11] VITALS: BP 117/89; TEMP 97.2
--- NOTE | 2024-01-10 20:17 | RAD REPORT ---
EXAM DESCRIPTION: RAD - Chest Single View - 01/10/2024 4:54 am CLINICAL HISTORY: Chest pain COMPARISON: Chest 1 View AP 05/09/2021 TECHNIQUE: Chest 1 View AP FINDINGS: Trachea midline. Heart size and pulmonary vessels within normal limits. Lungs clear without evidence of consolidation, mass, or significant pulmonary edema. No significant pleural effusion or pneumothorax. Thoracic spine degenerative disease. IMPRESSION: Unremarkable chest radiograph. Electronically signed by: James Gonsalez MD 01/10/2024 05:37 AM CDT Due to temporary technical issues with the PACS/Fluency reporting system, reports are being signed by the in house radiologists without review as a courtesy to insure prompt reporting. The interpreting radiologist is fully responsible for the content of the report.
--- NOTE | 2024-01-12 17:06 | EKG ---
Test Date: 2024-01-10 Test Time: 04:16:09 Meter Maintenance Person: MEASUREMENT RESULTS: Intervals: Rate: 63 RI: 148 QRSD: 88 QT: 412 QTc: 421 [place]: P: 47 RI: 148 QRS: 28 T: 47 INTERPRETIVE STATEMENTS: Normal sinus rhythm Cannot rule out Anterior infarct, age undetermined Abnormal ECG Compared to ECG 06/17/2022 20:22:06 Myocardial infarct finding now present Sinus bradycardia no longer present Electronically Signed On 01-12-24 17:00:33 CDT by Philip Ovalle
== END 2024-01-10 10:58 | disposition home or self-care (01) ==
LOC: ER 03:57
DX: R07.1 Chest pain on breathing (principal); S29.011A Strain of muscle and tendon of front wall of thorax, initial encounter
CPT/HCPCS: 36415; 71045; 71275; 80048; 80076; 83735; 83880; 84439; 84443; 84484; 85025; 85610; 86140; 87811; 93005; 96361; 96374; 99285; J7030; Q9967